=== PATIENT | male | born 1935 | race Caucasian/White ===

== ENCOUNTER → 2016-10-17 | Outpatient (CLI) | payer BC ==
[~2016-10-17] MED LIST: ALL300 PO; ASPI81TA28 PO; GADAVIST IV PRN; HYDR25TA5 PO; RANI150T2 PO; TPRSR/100 PO; ZCR80 PO
--- NOTE | 2016-10-17 13:52 | DIAGNOSTIC IMAGING REPORT ---
ABDOMEN COMBO CLINICAL HISTORY: 80 years-old Male presenting with PANCREATIC LESION. TECHNIQUE: Multisequence, multiplanar MR imaging of the abdomen was performed before and after the administration of intravenous contrast. IV contrast: 80 mL of Gadavist. COMPARISON: None. FINDINGS: Image quality is degraded by the presence of endovascular graft resulting in significant regional susceptibility artifact. Image quality is further degraded by respiratory motion artifact. Lung bases: Lung bases clear. No pericardial or pleural effusion. Liver: Normal morphology. No evidence of hepatic steatosis. No gross evidence of liver lesion. Grossly patent hepatic vasculature. Biliary: No intrahepatic or extrahepatic biliary ductal dilatation. Normal gallbladder. Pancreas: Moderate parenchymal atrophy. An 8 mm T2 hyperintense cystic lesion noted in the pancreatic tail (series 12 image 18). No demonstrable connection to the pancreatic duct. A second similar lesion is also noted at the distal pancreatic tail measuring 9 mm (series 7 image 17), less well characterized secondary to degraded image quality. Spleen: Normal. Adrenal glands: Normal. Kidneys and ureters: Atrophic bilaterally. Several well-defined T2 hyperintense nonenhancing lesions consistent with simple cysts. No hydronephrosis. Gastrointestinal tract: Small hiatal hernia. No bowel obstruction. Peritoneal cavity: No free fluid gas. Vasculature: Unable to evaluate. Lymph nodes: No gross evidence of enlarged lymph nodes in the abdomen within the limitations of an quality. Abdominal wall: Normal. Musculoskeletal: Normal. IMPRESSION: 1. Two pancreatic cystic lesions in the pancreatic tail, the largest measuring 9 mm. Due to the presence of the endograft, extensive susceptibility artifact degrades image quality. These could represents mucinous cysts or side branch intraductal papillary mucinous neoplasms. Subsequent evaluation of these lesions should be performed with CT if the patient is able to receive iodinated intravenous contrast. 1 year follow-up is recommended per Jose criteria. Electronically signed by: Maco Pinedo M.D. 10/17/2016 1:51 PM Dictated Date/Time: 10/17/2016 1:40 PM
== END | disposition home or self-care (01) ==
LOC: C.MRI 10:10
PROVIDERS: ATTEND Internal Medicine
DX: K86.9 Disease of pancreas, unspecified (principal)

== ENCOUNTER 2017-07-05 18:33 | Emergency (ER) | payer BC ==
[~2017-07-05] VITALS: Ht 170.2 cm; Wt 80.1 kg
[~2017-07-05 18:33] MED LIST changes: -GADAVIST IV PRN
[2017-07-05 18:38] VITALS: TEMP 36.8; Ht 170.2 cm; Wt 80.1 kg
[2017-07-05] MEDS ORDERED: SODIUM CHLORIDE 0.9% 500ML 500 ML IV STA (19:05)
--- NOTE | 2017-07-05 19:12 | EMERGENCY ROOM VISIT NOTE ---
History Report prepared by Andrés: Isaias Shoemaker Under the Supervision of: Dr. Gutierrez Cates M.D. First contact with patient: 18:52 Chief Complaint: URINARY SYMPTOMS Stated Complaint: PEEING LOTS OF BLOOD Nursing Triage Summary: Bleeding with urination since Thursday night. Patient with HX of prostate CA 20 years ago. Had AAA surgery in [place] in April. History of Present Illness The patient is a 81 year old male who presents to the Emergency Room with complaints of constant blood in his urine beginning two days ago. The patient states he is still able to urinate. He reports he was evaluated at [facility] last evening, had an unremarkable non-contrast CT scan, and was told to follow up as an outpatient. The patient notes he has been drinking a large amount of water and wanted to make sure it was safe to wait until tomorrow to be reevaluated. He states he is still able to empty his bladder completely and does not feel like he is retaining any urine. The patient denies lightheadedness , chest pain, dizziness, fevers, chills, cough, congestion, and vomiting. Source of History: patient Onset: two days Quality: other (blood in urine) Timing: constant Modifying Factors (Relieving): other (nothing) Associated Symptoms: No fevers, No chills, No cough, No chest pain, No vomiting Note: Denies: congestion, dizziness, lightheadedness Review of Systems See HPI for pertinent positives and negatives. A total of ten systems were reviewed and were otherwise negative. Past Medical & Surgical Medical Problems: (1) Diverticulosis Colon (W/O Ment Of Hemorrhage) (2) Hypertension Nos Family History Patient reports no known family medical history. Social History Smoking Status: Never Smoker Alcohol Use: none Drug Use: none Marital Status: Housing Status: lives alone Occupation Status: retired Current/Historical Medications Scheduled Allopurinol (Allopurinol), 150 MG PO HS Aspirin (Aspirin Ec), 81 MG PO HS Atorvastatin (Lipitor), 1 TAB PO DAILY Cholecalciferol (Vitamin D3), 1 TAB PO DAILY Ciprofloxacin Hcl (Cipro), 500 MG PO BID Hydrochlorothiazide (Hydrochlorothiazide), 1 TAB PO DAILY Metoprolol Tartrate (Lopressor) (Lopressor), 25 MG PO BID Ranitidine HCl (Ranitidine HCl), 150 MG PO HS Saccharomyces Boulardii (Florastor), 1 CAP PO BID Allergies Coded Allergies: Ibuprofen (Verified Adverse Reaction, Unknown, diarrhea, 07/05/17) Physical Exam Vital Signs Date Time Temp Pulse Resp B/P (MAP) Pulse Ox O2 Delivery O2 Flow Rate FiO2 07/05/17 21:31 83 17 134/88 95 07/05/17 20:15 89 21 136/84 92 Room Air 07/05/17 19:45 98 07/05/17 18:38 36.8 116 18 134/81 91 Room Air Physical Exam GENERAL: Awake, alert, well-appearing, in no distress HENT: Normocephalic, atraumatic. Oropharynx and mucous membranes are dry, otherwise unremarkable. EYES: Normal conjunctiva. Sclera non-icteric. NECK: Supple. No nuchal rigidity. FROM. No JVD. RESPIRATORY: Clear to auscultation. CARDIAC: Regular rate, normal rhythm. Extremities warm and well perfused. Pulses equal. ABDOMEN: Soft, non-distended. No tenderness to palpation. No rebound or guarding. No masses. RECTAL: Deferred. MUSCULOSKELETAL: Chest examination reveals no tenderness. The back is symmetrical on inspection without obvious abnormality. There is no CVA tenderness to palpation. No joint edema. LOWER EXTREMITIES: Calves are equal size bilaterally and non-tender. No edema. No discoloration. NEURO: Normal sensorium. No sensory or motor deficits noted. SKIN: No rash or jaundice noted. Medical Decision & Procedures Laboratory Results 07/05/17 19:21 Red Blood Count 5.45, Mean Corpuscular Volume 90.3, Mean Corpuscular Hemoglobin 31.9, Mean Corpuscular Hemoglobin Concent 35.4, Mean Platelet Volume 11.3, Neutrophils (%) (Auto) 74.2, Lymphocytes (%) (Auto) 15.0, Monocytes (%) (Auto) 8.0, Eosinophils (%) (Auto) 2.4, Basophils (%) (Auto) 0.2, Neutrophils # (Auto) 7.70, Lymphocytes # (Auto) 1.56, Monocytes # (Auto) 0.83, Eosinophils # (Auto) 0.25, Basophils # (Auto) 0.02 07/05/17 19:21 Test 07/05/17 18:49 07/05/17 19:21 Urine Color RED Urine Appearance CLOUDY (CLEAR) Urine pH 6.0 (4.5-7.5) Urine Specific Tram 1.020 (1.000-1.030) Urine Protein 3+ (NEG) Urine Glucose (UA) NEG (NEG) Urine Ketones NEG (NEG) Urine Occult Blood 3+ (NEG) Urine Nitrite NEG (NEG) Urine Bilirubin NEG (NEG) Urine Urobilinogen NEG (NEG) Urine Leukocyte Esterase NEG (NEG) Urine RBC >30 /hpf (0-4) Urine WBC >30 /hpf (0-5) Urine Epithelial Cells >30 /lpf (0-5) Urine Bacteria 1+ (NEG) White Blood Count 10.38 K/uL (4.8-10.8) Red Blood Count 5.45 M/uL (4.7-6.1) Hemoglobin 17.4 g/dL (14.0-18.0) Hematocrit 49.2 % (42-52) Mean Corpuscular Volume 90.3 fL (80-100) Mean Corpuscular Hemoglobin 31.9 pg (25-34) Mean Corpuscular Hemoglobin Concent 35.4 g/dl (32-36) Platelet Count 122 K/uL (130-400) Mean Platelet Volume 11.3 fL (7.4-10.4) Neutrophils (%) (Auto) 74.2 % Lymphocytes (%) (Auto) 15.0 % Monocytes (%) (Auto) 8.0 % Eosinophils (%) (Auto) 2.4 % Basophils (%) (Auto) 0.2 % Neutrophils # (Auto) 7.70 K/uL (1.4-6.5) Lymphocytes # (Auto) 1.56 K/uL (1.2-3.4) Monocytes # (Auto) 0.83 K/uL (0.11-0.59) Eosinophils # (Auto) 0.25 K/uL (0-0.5) Basophils # (Auto) 0.02 K/uL (0-0.2) RDW Standard Deviation 51.9 fL (36.4-46.3) RDW Coefficient of Variation 15.8 % (11.5-14.5) Immature Granulocyte % (Auto) 0.2 % Immature Granulocyte # (Auto) 0.02 K/uL (0.00-0.02) Prothrombin Time 11.0 SECONDS (9.0-12.0) Prothromb Time International Ratio 1.0 (0.9-1.1) Activated Partial Thromboplast Time 29.7 SECONDS (21.0-31.0) Partial Thromboplastin Ratio 1.1 Anion Gap 13.0 mmol/L (3-11) Est Creatinine Clear Calc Drug Dose 21.8 ml/min Estimated GFR () 23.9 Estimated GFR (Non- 20.6 BUN/Creatinine Ratio 14.4 (10-20) Calcium Level 9.3 mg/dl (8.5-10.1) Total Bilirubin 0.8 mg/dl (0.2-1) Direct Bilirubin 0.2 mg/dl (0-0.2) Aspartate Amino Transf (AST/SGOT) 18 U/L (15-37) Alanine Aminotransferase (ALT/SGPT) 18 U/L (12-78) Alkaline Phosphatase 174 U/L (45-117) Total Protein 7.5 gm/dl (6.4-8.2) Albumin 3.8 gm/dl (3.4-5.0) Lipase 379 U/L (73-393) Laboratory results reviewed by me Medications Administered Medications (Trade) Dose Ordered Sig/Jaquan Route Start Time Stop Time Status Last Admin Dose Admin Sodium Chloride 500 ml @ 250 mls/hr Q2H STAT IV 07/05/17 19:05 07/05/17 21:06 DC 07/05/17 19:05 250 MLS/HR Ciprofloxacin (Cipro Tab) 500 mg NOW STAT PO 07/05/17 20:33 07/05/17 20:35 DC 07/05/17 20:59 500 MG ECG Per My Interpretation Indication: other (hematuria) Rate (beats per minute): 102 Rhythm: sinus tachycardia Findings: no acute ischemic change, left axis deviation ED Course 1856: The patient was evaluated in room C04. A complete history and physical exam was performed. 2055: I reevaluated the patient. Discussed results and discharge instructions: he verbalized understanding and agreement. The patient is ready for discharge. Medical Decision I reviewed the patient's past medical history, medications, and the nursing notes as described above. Differential diagnoses include: malignancy, UTI, renal stone, aortoureteric fistula. Review of [facility] medical records shows the patient's hematocrit yesterday was 52.9, and his creatinine was 2.8. The patient's CT Abdomen + Pelvis Impression is as followed: " 1. Bilateral renal cysts. Small bilateral renal calculi. No active ureteral calculus or hydronephrosis seen at this time. No definite cause for the gross hematuria identified. 2. Status post aortobiiliac endograft repair. Additional metallic deposit is now present at the main body of the aneurysm newly appearing since the previous study. Origin of this is uncertain. 3. Otherwise negative for acute abnormalities at this time. " The patient is a 81-year-old gentleman who presents emergency department with complaint of persistent hematuria has been ongoing since Thursday seen yesterday at [facility] emergency department for the same per hpi. On arrival, the patient is well-appearing, no acute distress, afebrile stable vital signs. Of note, the patient denies any urinary retention despite his gross hematuria and passage of clots. EKG unremarkable. Unremarkable with hematocrit 49.2 creatinine 2.7 and she unchanged from his values yesterday. The patient denies any systemic symptoms such as dizziness, weakness, chest pain, shortness of breath, setting of reassuring and stable lab tests unremarkable CT yesterday the patient is unlikely to have any emergent process at this time, including the setting of his history of AAA repair. The patient was counseled to discontinue his daily baby aspirin given his persistent gross hematuria. UA today does demonstrate bacteria in addition to WBCs. Thus will treat with Cipro for the possibility of hemorrhagic cystitis. Case management assisting to facilitate prompt urology follow-up. Findings and plan for follow-up reviewed with patient. Patient agreeable and d/c'd per discharge instructions. Medication Reconcilliation Current Medication List: was personally reviewed by me Blood Pressure Screening Patient's blood pressure: Normal blood pressure Blood pressure disposition: Did not require urgent referral Impression Primary Impression: Hematuria, gross Scribe Attestation The scribe's documentation has been prepared under my direction and personally reviewed by me in its entirety. I confirm that the note above accurately reflects all work, treatment, procedures, and medical decision making performed by me. Departure Information Dispostion Home / Self-Care Prescriptions Saccharomyces Boulardii (Florastor) 250 Mg Cap 1 CAP PO BID for 10 Days, #20 CAP Prov: Gutierrez Cates M.D. 07/05/17 Ciprofloxacin Hcl (CIPRO) 500 Mg Tab 500 MG PO BID for 7 Days, #14 TAB Prov: Gutierrez Cates M.D. 07/05/17 Referrals Danis Salgado M.D. (PCP) Rashard Bauman MD Forms HOME CARE DOCUMENTATION FORM, IMPORTANT VISIT INFORMATION Patient Instructions ED Hematuria, [facility] Additional Instructions Please follow up with urology, Dr. Bauman, and your primary care physician in the next 1-3 days for re-evaluation and possible cystoscopy. The cause of the blood in your urine is unclear at this time but may be due to a urinary tract infection. Otherwise, your exam and lab results did not show signs of an emergent condition at this time. *Stop taking your daily aspirin until reevaluated by urology.* Ciprofloxacin as directed. Florastor, probiotic, to help prevent antibiotic associated diarrhea. Drink plenty of fluids to ensure hydration. Return to the emergency department for worsening symptoms as described in the accompanying instructions.
[2017-07-05] MEDS ORDERED: METO25TA56 PO (19:14)
[2017-07-05] MEDS ORDERED: ATOR10TA82 PO (19:14)
[2017-07-05] MEDS ORDERED: CHOL1000 PO (19:14)
[2017-07-05 19:32] LABS: BASO % 0.2 %; BASO ABS # 0.02 K/uL (0-0.2); EOS % 2.4 %; EOS ABS # 0.25 K/uL (0-0.5); HEMATOCRIT 49.2 % (42-52); HEMOGLOBIN 17.4 g/dL (14.0-18.0); IG# 0.02 K/uL (0.00-0.02); LYMPH ABS # 1.56 K/uL (1.2-3.4); MEAN CELL VOLUME 90.3 fL (80-100); MEAN CORPUSCULAR HEMOGLOBIN 31.9 pg (25-34); MEAN CORPUSCULAR HGB CONC 35.4 g/dl (32-36); MEAN PLATELET VOLUME 11.3 fL (7.4-10.4); MONO ABS # 0.83 K/uL (0.11-0.59); NEUT % 74.2 %; PLATELET COUNT 122 K/uL (130-400); RED CELL DISTRIBUTION WIDTH CV 15.8 % (11.5-14.5); RED CELL DISTRIBUTION WIDTH SD 51.9 fL (36.4-46.3); WHITE BLOOD COUNT 10.38 K/uL (4.8-10.8)
[2017-07-05 19:46] LABS: PTT PATIENT 29.7 SECONDS (21.0-31.0)
[2017-07-05 19:52] LABS: ALBUMIN 3.8 gm/dl (3.4-5.0); CALCIUM 9.3 mg/dl (8.5-10.1); CREATININE 2.79 mg/dl (0.60-1.40); POTASSIUM 3.4 mmol/L (3.5-5.1)
[2017-07-05 19:54] LABS: TOTAL PROTEIN 7.5 gm/dl (6.4-8.2)
[2017-07-05] MEDS ORDERED: CIPROFLOXACIN 500 MG TAB PO STA (20:33)
[2017-07-05] MEDS ORDERED: SACC250C3 PO (20:55)
[2017-07-05] MEDS ORDERED: CIPR-255 PO (20:55)
[2017-07-05 21:31] VITALS: BP 134/88; PULSE 83; O2SAT 95
== END 2017-07-05 21:32 | disposition home or self-care (01) ==
LOC: C.EDB 18:34 → C.EDC 21:32
DX: R31.0 Gross hematuria (principal); Z85.46 Personal history of malignant neoplasm of prostate; K57.30 Diverticulosis of large intestine without perforation or abscess without bleeding; I10 Essential (primary) hypertension; I71.4 Abdominal aortic aneurysm, without rupture; Z79.82 Long term (current) use of aspirin; Z79.899 Other long term (current) drug therapy

== ENCOUNTER → 2017-08-05 | Outpatient (CLI) | payer BC ==
[~2017-08-05] MED LIST changes: +ATOR80TA PO; +CHOL1000 PO; +HYDR25TA4 PO; -HYDR25TA5 PO; +METO25TA56 PO; -TPRSR/100 PO; -ZCR80 PO
--- NOTE | 2017-08-05 10:54 | DIAGNOSTIC IMAGING REPORT ---
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 TECHNIQUE: PA and lateral views of the chest were obtained. COMPARISON: 12/08/2013. FINDINGS: Atherosclerosis of the aortic arch. Cardiac silhouette normal in size. Presumed nipple shadows project over the lung bases. Lungs and pleural spaces clear. Degenerative changes of the thoracic spine. Aortic endograft stent noted. IMPRESSION: 1. No acute cardiopulmonary disease. Evaluation for intrathoracic metastatic disease is extremely limited by radiograph. If there is clinical concern for this diagnosis, chest CT is warranted. Electronically signed by: Maco Pinedo M.D. 08/05/2017 10:52 AM Dictated Date/Time: 08/05/2017 10:51 AM
[2017-08-05 12:09] LABS: BASO % 0.3 %; BASO ABS # 0.03 K/uL (0-0.2); EOS % 1.8 %; EOS ABS # 0.21 K/uL (0-0.5); HEMOGLOBIN 16.5 g/dL (14.0-18.0); IG# 0.03 K/uL (0.00-0.02); LYMPH % 12.1 %; LYMPH ABS # 1.44 K/uL (1.2-3.4); MEAN CELL VOLUME 92.6 fL (80-100); MEAN CORPUSCULAR HEMOGLOBIN 31.2 pg (25-34); MEAN CORPUSCULAR HGB CONC 33.7 g/dl (32-36); MEAN PLATELET VOLUME 11.6 fL (7.4-10.4); MONO % 7.1 %; MONO ABS # 0.84 K/uL (0.11-0.59); NEUT % 78.4 %; NEUT ABS # 9.31 K/uL (1.4-6.5); PLATELET COUNT 118 K/uL (130-400); RED CELL DISTRIBUTION WIDTH CV 16.1 % (11.5-14.5); RED CELL DISTRIBUTION WIDTH SD 54.4 fL (36.4-46.3); WHITE BLOOD COUNT 11.86 K/uL (4.8-10.8)
[2017-08-05 12:39] LABS: BLOOD UREA NITROGEN 26 mg/dl (7-18); CALCIUM 9.4 mg/dl (8.5-10.1); CARBON DIOXIDE 26 mmol/L (21-32); CREATININE 1.91 mg/dl (0.60-1.40); GLUCOSE 92 mg/dl (70-99); SODIUM 140 mmol/L (136-145)
== END | disposition home or self-care (01) ==
LOC: C.CPL 09:56
PROVIDERS: ATTEND Urology
DX: D49.4 Neoplasm of unspecified behavior of bladder (principal)

== ENCOUNTER → 2017-08-24 | Day surgery (SDC) | payer BC ==
[2017-07-30 14:11] VITALS: BMI 27.0
[~2017-08-24] VITALS: Ht 170.2 cm; Wt 80.0 kg
[~2017-08-24] MED LIST changes: +ATROPINE SULFATE 0.1 MG/ML 5ML SYR IV PRN; +CIPROFLOXACIN / D5W 400 MG IV SCH; +DEXAMETHASONE SOD INJ 4 MG/ML VIAL ONE; +EpHEDrine SULFATE INJ 50 MG/ML AMP IV PRN; +EpHEDrine SULFATE INJ 50 MG/ML AMP ONE; +FENTANYL CITRATE INJ 50 MCG/1 ML 2 ML VIAL IV PRN; +FENTANYL CITRATE INJ 50 MCG/1 ML 2 ML VIAL ONE; +LACTATED RINGER'S 1000ML 1,000 ML IV SCH; +LIDOCAINE HCL 2% 2 ML VIAL (20MG/ML) ONE; +ONDANSETRON INJ 2 MG/ML 2 ML VIAL IV PRN; +ONDANSETRON INJ 2 MG/ML 2 ML VIAL ONE; +OXYCODONE/ACETAMINOPHEN 5-325 TAB PO PRN; +PHEN-876 PO; +PHENYLEPHRINE 100MCG/ML 5ML SYR ONE; +PROPOFOL IV EMULSION 10 MG/ML 20 ML VIAL ONE
[2017-08-24 11:16] VITALS: BP 143/85; PULSE 102; TEMP 36.7; O2SAT 94; Ht 170.2 cm; Wt 80.0 kg
--- NOTE | 2017-08-24 13:22 | History & Physical Bridge Note ---
H&P Re-Evaluation Bridge Note: I have examined the patient, reviewed the History & Physical and in the interval since the performance of the History & Physical I have noted the following changes of clinical significance: No changes noted
--- NOTE | 2017-08-24 14:18 | [facility] Post Operative Brief Note ---
Immediate Operative Summary Operative Date August 24, 2017. Pre-Operative Diagnosis Bladder Tumor Post-Operative Diagnosis Bladder Tumor Procedure(s) Performed Cystoscopy, Bladder Biopsy and Fulgeration Surgeon Dr. Bauman Retail Merchandising Manager Surgeon(s) none Estimated Blood Loss 0mL Findings Consistent with Post-Op Diagnosis Specimens A: bladder tumor Drains None Anesthesia Type General Complication(s) none Disposition Accompanied Pt To Recover: yes Disposition: Recovery Room / PACU
--- NOTE | 2017-08-24 14:20 | Discharge Instructions ---
Discharge Instructions Date of Service August 24, 2017. Visit Reason for Visit: Bladder Tumor Discharge Discharge Diagnosis / Problem: Bladder tumor Discharge Goals Goal(s): Therapeutic intervention Activity Recommendations Activity Limitations: per Instructions/Follow-up section Exercise/Sports Limitations: rest today May Resume Sexual Activity: when tolerated Shower/Bathe: no limitations Driving or Machine Use: resume 1 day after discharge Anesthesia . Post Anesthesia Instructions: If you have had General Anesthesia or IV Sedation: * Do not drive today. * Resume driving when surgeon permits. * Do not make important decisions or sign legal documents today. * Call surgeon for: 1. Temperature elevations greater than 101 degrees F. 2. Uncontrollable pain. 3. Excessive bleeding. 4. Persistent nausea and vomiting. 5. Medication intolerance (nausea, vomiting or rash). * For nausea and vomiting use only clear liquids such as: tea, soda, bouillon until nausea subsides, then gradually increase diet as tolerated. * If you have any concerns or questions, call your surgeon's office. If physician is unavailable and it is an emergency, call 911 or go to the nearest emergency room. . Diet Recommendations Recommended Home Diet: resume previous diet Procedures Procedures Performed: Cystoscopy, Bladder Biopsy and Fulgeration Pending Studies Studies pending at discharge: no Medical Emergencies . Who to Call and When: Medical Emergencies: If at any time you feel your situation is an emergency, please call 911 immediately. . Non-Emergent Contact Non-Emergency issues call your: Urologist Call Non-Emergent contact if: temperature is above 101.5, your pain is not controlled . . "Provider Documentation" section prepared by Rashard Bauman. .
--- NOTE | 2017-08-24 14:30 | [facility] Operative Report ---
Operative Report Operative Date August 24, 2017. Pre-Operative Diagnosis Bladder Tumor Post-Operative Diagnosis Bladder Tumor Procedure(s) Performed Cystoscopy, Bladder Biopsy and Fulgeration Surgeon Dr. 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 Lower abdomen and genitalia were prepped with Hibiclens and draped in a sterile fashion. Next using a 22 [place] cystoscope routine cystoscopic exam was performed with the above-noted findings with 30 and 70 lenses. Next using cold cup biopsy forceps the heaped up mucosa was biopsied in its entirety excising the entire lesion the area was then fulgurated for hemostasis. Several other erythematous areas were also fulgurated although these may just be telangiectasia. After completing the biopsy and making sure there was no bleeding patient's bladder was drained. Cystoscope and sheath were removed. All needle sponge and instrument counts were correct at the end of the case. Patient tolerated the procedure well and was taken to the recovery room in stable condition. I attest to the content of the Intraoperative Record and any orders documented therein. Any exceptions are noted below.
[2017-08-24 15:05] VITALS: BP 119/71; PULSE 70; TEMP 36.6; O2SAT 95
[2017-08-24 15:35] VITALS: BP 123/80; PULSE 74; TEMP 36.5; O2SAT 96
--- NOTE | 2017-08-24 16:24 | Anesthesiology Progress Note ---
Anesthesia Post Op Note Date & Time August 24, 2017 at 16:24 Vital Signs Pain Intensity: 0 Vital Signs Past 12 Hours Date Time Temp Pulse Resp B/P (MAP) Pulse Ox O2 Delivery O2 Flow Rate FiO2 08/24/17 15:35 36.5 74 18 123/80 96 Room Air 08/24/17 15:05 36.6 70 16 119/71 95 Room Air 08/24/17 14:55 36.7 74 16 129/75 99 Room Air Oxymask 08/24/17 14:45 75 16 112/74 95 Room Air Oxymask 08/24/17 14:35 77 16 110/73 96 Room Air Oxymask 08/24/17 14:25 78 16 100/71 98 Oxymask 12 08/24/17 14:18 36.6 76 16 101/64 94 Oxymask 12 08/24/17 11:16 36.7 102 18 143/85 (104) 94 Room Air Notes Mental Status: alert / awake / arousable, participated in evaluation Pt Amnestic to Procedure: Yes Nausea / Vomiting: adequately controlled Pain: adequately controlled Airway Patency, RR, SpO2: stable & adequate BP & HR: stable & adequate Hydration State: stable & adequate Anesthetic Complications: no major complications apparent
== END | disposition home or self-care (01) ==
LOC: C.ACU 10:33
PROVIDERS: ATTEND Urology
DX: D49.4 Neoplasm of unspecified behavior of bladder (principal); I12.9 Hypertensive chronic kidney disease with stage 1 through stage 4 chronic kidney disease, or unspecified chronic kidney disease; N18.4 Chronic kidney disease, stage 4 (severe); Z83.3 Family history of diabetes mellitus; Z79.82 Long term (current) use of aspirin; Z79.899 Other long term (current) drug therapy; F17.220 Nicotine dependence, chewing tobacco, uncomplicated; M19.90 Unspecified osteoarthritis, unspecified site

== ENCOUNTER 2024-06-15 01:15 | Inpatient (IN) ==
--- NOTE | 2024-06-15 01:55 | Emergency Department Note ---
Impression & Plan Renal failure, Gross hematuria ED Provider Note CHIEF COMPLAINT: Jane catheter clogged HISTORY OF PRESENT ILLNESS: This 88-year-old male patient past medical history of prostate cancer, bladder cancer, renal failure with Jane catheter in place presents to the emergency department stating that the Jane catheter is not draining. Patient's daughter states he has been to the [facility] x4 in the last 2 weeks. He apparently received 2 blood transfusions. He has not had any fever, but has been excessively weak. Has been unable to care for himself therefore his daughter brought him to her house this week. Patient is scheduled for follow-up with urology for cystoscopy in 2 weeks. REVIEW OF SYSTEMS: A review of systems was performed with positives and pertinent negatives listed in the history of present illness. 10 systems were reviewed and are otherwise negative. ALLERGIES: see below MEDICATIONS: see below PMH: see below SOCIAL HISTORY: see below DDx: Gross hematuria, UTI, malignancy, kidney stone, Jane obstruction, hemorrhagic prostatitis among others. PHYSICAL EXAM: Vital signs reviewed. General: Chronically ill-appearing 88-year-old male, in no significant distress. HEENT: No scleral icterus, PERRLA, neck supple. Atraumatic. poor dentition Cardiovascular: regular rate and rhythm, no extra sounds. Systolic ejection murmur. Pulmonary: Clear to auscultation bilaterally, normal work of breathing. Abdomen: Soft, nontender, nondistended, positive bowel sounds. Musculoskeletal: Atraumatic, no peripheral edema. Neurologic: Patient awake alert and answers some questions, hard of hearing : Jane catheter in place draining grossly bloody urine. No apparent clots. Skin: Warm, dry, no rash EMERGENCY DEPARTMENT COURSE/MDM: This patient was evaluated and appeared to be in no significant distress. Nursing was able to irrigate the catheter with improvement in the urine. Was then draining a pink-tinged urine. Patient's records from the outside facility are not available at this hour. Is difficult to know how significant his anemia was but hemoglobin today is 10.2. UA will be sent for culture. Given the patient's advanced elderly age, significant hematuria and reports of blood transfusions, CT imaging of the abdomen pelvis was performed without contrast due to poor renal function. CT imaging reveals perinephric stranding, increase in size of the suprarenal abdominal aorta with a metallic vascular stent in place. The case was discussed with the hospitalist service who evaluated the patient for admission and further management. Patient and his daughter at the bedside were made aware of the plan and agreed. MONITORING: An order for cardiac monitoring was placed and the patient is noted to be in a normal sinus rhythm at 76 beats per minute. RADIOLOGY: Chest x-ray to my interpretation reveals emphysematous changes and mild congestion, no pneumonia. CT imaging of the abdomen and pelvis without contrast: IMPRESSION: 1. Bilateral perinephric fat stranding with bilateral renal concretions and cortical cysts. Suggested Renal function test correlation. 2. Ventral wall hernia in infraumbilical region. 3. Small sliding hiatus hernia. 4. Interval increase in diameter of dilated suprarenal abdominal aorta and increase in size of possible periaortic hematoma/aneurysm with metallic vascular stents in supra/infrarenal abdominal aorta and bilateral common iliac arteries. Suggested CT angiography for further evaluation. EKG: To interpretation reveals a sinus bradycardia at 56 bpm. QTc of 455. LVH without evidence of significant ST changes. No PVC, no PAC. DISPOSITION: Admission Past Med/Surg History Problem List (Updated 06/19/24 @ 17:38 by Susanna Flores MD) Gross hematuria (Acute) CKD stage 4 secondary to hypertension Hematuria Prostate cancer Bladder cancer Perforated sigmoid colon (Acute 12/08/13) Renal failure (Acute) Renal failure (Acute) Social History Smoking Status: Never smoker Hx Alcohol Use: No Hx Substance Use: No Preferred Language: Jordanian Communication Ability: Impaired Nuclear Supervising Operator Required: No Beliefs That Will Affect Care: None Current Living Situation: Family Current Living Situation Comment: Patient just moved in with his Daughter Other Information That Helps Us Care for You: No Feels Safe at Home: Yes Safety Concerns: Feels Safe At This Time Assistive Devices: Cane Allergies Allergies Allergy/AdvReac Type Severity Reaction Status Date / Time ibuprofen AdvReac Unknown diarrhea Verified 08/24/17 11:10 Home Meds Home Medications Medication Instructions Recorded Confirmed allopurinol 100 mg tablet 200 mg PO QAM 06/15/24 06/15/24 atorvastatin 80 mg tablet 80 mg PO HS 06/15/24 06/15/24 cholecalciferol (vitamin D3) 25 50 mcg PO DAILY 03/12/25 03/12/25 mcg (1,000 unit) tablet (Vitamin D3) dapagliflozin propanediol 10 mg 10 mg PO QAM 06/15/24 06/15/24 tablet (Farxiga) ferrous sulfate 325 mg (65 mg 325 mg PO Q OTHER DAY 06/15/24 06/15/24 iron) tablet furosemide 20 mg tablet 20 mg PO QAM 06/15/24 06/15/24 metoprolol tartrate 25 mg tablet 25 mg PO AMHS 06/15/24 06/15/24 sodium bicarbonate 650 mg tablet 650 mg PO BID 06/15/24 06/15/24 Results & Data (ED) Vital Signs Vital Signs - 24 hr 06/15/24 01:40 06/15/24 01:52 Temperature 36.7 C Temperature Source Oral Pulse Rate 76 Pulse Rhythm Regular Pulse Strength Normal Respiratory Rate 20 Respiratory Effort / Characteristics Non-Labored Spontaneous Respiratory Depth Normal Respiratory Pattern Regular Blood Pressure 150/80 H Blood Pressure Mean 103 Blood Pressure Position Lying Pulse Oximetry 96 93 Oxygen Delivery Method Room Air Room Air Sepsis Recent Fever Within 48 Hours No Sepsis New/Unexplained Change in Mental Status N/A Sepsis Action Taken by Nursing No Action Required Home Medications Current Medication List: was personally reviewed by me Laboratory Data Attestation: I reviewed the patient's lab results. 06/18/24 05:29 06/18/24 05:29 Lab Results 06/15/24 06/15/24 06/15/24 Range/Units 01:32 01:50 02:05 WBC 9.16 (4.8-10.8) K/ul RBC 3.47 L (4.70-6.10) M/uL Hgb 10.2 L (14.0-18.0) g/dl Hct 32.0 L (42.0-52.0) % MCV 92.2 (80.0-100.0) fL MCH 29.4 (25.0-34.0) pg MCHC 31.9 L (32.0-36.0) g/dL RDW Std Deviation 57.9 H (36.4-46.3) fL RDW Coeff of Misha 17.2 H (11.5-14.5) % Plt Count 188 (130-400) K/uL MPV 12.3 (9.4-12.4) fL Immature Gran % (Auto) 0.4 % Neut % (Auto) 69.7 % Lymph % (Auto) 18.1 % [place] % (Auto) 8.2 % Eos % (Auto) 2.9 % Baso % (Auto) 0.7 % Neut # (Auto) 6.38 (1.40-6.50) K/uL Lymph # (Auto) 1.66 (1.20-3.40) K/uL [place] # (Auto) 0.75 H (0.11-0.59) K/uL Eos # (Auto) 0.27 (0.00-0.50) K/uL Baso # (Auto) 0.06 (0.00-0.20) K/uL Immature Gran # (Auto) 0.04 (0.01-0.20) K/uL PT 10.9 (9.0-12.0) Seconds INR 1.0 (0.9-1.1) Sodium 134 L (136-145) mmol/L Potassium 3.8 (3.5-5.1) mmol/L Chloride 105 (98-107) mmol/L Carbon Dioxide 22 (21-32) mmol/L Anion Gap 7 (3-11) BUN 38 H (6-23) mg/dl Creatinine 2.05 H (0.6-1.4) mg/dl Est Cr Clr Drug Dosing 23.3 ml/min eGFR 30.97 BUN/Creatinine Ratio 18.5 (10-20) Glucose 97 (70-99(Fasting)) mg/dl Lactate 0.9 (0.4-2.0) mmol/L Calcium 9.2 (8.6-10.3) mg/dl Magnesium 1.8 (1.7-2.4) mg/dl Total Bilirubin 0.6 (0.2-1.0) mg/dl AST 22 (13-39) U/L ALT 11 (7-52) U/L Alkaline Phosphatase 101 (34-104) U/L Total Protein 6.6 (6.0-8.3) gm/dl Albumin 3.9 (3.4-5.0) gm/dl Globulin 2.7 (2.5-4.0) gm/dl Albumin/Globulin Ratio 1.4 (0.9-2) TSH 2.290 (0.300-4.500) uIu/ml Urine Color Urine Appearance (Clear) Urine pH (4.5-7.5) Ur Specific [place] (1.000-1.030) Urine Protein (Negative) Urine Glucose (UA) (Negative) Urine Ketones (Negative) Urine Blood (Negative) Urine Nitrite (Negative) Urine Bilirubin (Negative) Urine Urobilinogen (Negative) Ur Leukocyte Esterase (Negative) Urine WBC (Auto) (0-5) /hpf Urine RBC (Auto) (0-2) /hpf U Hyaline Cast (Auto) (0-2) /lpf U Epithel Cells (Auto) (0-2) /hpf Urine Bacteria (Auto) (None Seen) Blood Type Antibody Screen 06/15/24 06/15/24 Range/Units 02:35 07:58 WBC (4.8-10.8) K/ul RBC (4.70-6.10) M/uL Hgb 9.3 L (14.0-18.0) g/dl Hct 28.7 L (42.0-52.0) % MCV (80.0-100.0) fL MCH (25.0-34.0) pg MCHC (32.0-36.0) g/dL RDW Std Deviation (36.4-46.3) fL RDW Coeff of Misha (11.5-14.5) % Plt Count (130-400) K/uL MPV (9.4-12.4) fL Immature Gran % (Auto) % Neut % (Auto) % Lymph % (Auto) % [place] % (Auto) % Eos % (Auto) % Baso % (Auto) % Neut # (Auto) (1.40-6.50) K/uL Lymph # (Auto) (1.20-3.40) K/uL [place] # (Auto) (0.11-0.59) K/uL Eos # (Auto) (0.00-0.50) K/uL Baso # (Auto) (0.00-0.20) K/uL Immature Gran # (Auto) (0.01-0.20) K/uL PT (9.0-12.0) Seconds INR (0.9-1.1) Sodium (136-145) mmol/L Potassium (3.5-5.1) mmol/L Chloride (98-107) mmol/L Carbon Dioxide (21-32) mmol/L Anion Gap (3-11) BUN (6-23) mg/dl Creatinine (0.6-1.4) mg/dl Est Cr Clr Drug Dosing ml/min eGFR BUN/Creatinine Ratio (10-20) Glucose (70-99(Fasting)) mg/dl Lactate (0.4-2.0) mmol/L Calcium (8.6-10.3) mg/dl Magnesium (1.7-2.4) mg/dl Total Bilirubin (0.2-1.0) mg/dl AST (13-39) U/L ALT (7-52) U/L Alkaline Phosphatase (34-104) U/L Total Protein (6.0-8.3) gm/dl Albumin (3.4-5.0) gm/dl Globulin (2.5-4.0) gm/dl Albumin/Globulin Ratio (0.9-2) TSH (0.300-4.500) uIu/ml Urine Color [place] Urine Appearance Clear (Clear) Urine pH 6.5 (4.5-7.5) Ur Specific [place]io 1.011 (1.000-1.030) Urine Protein 3+ H (Negative) Urine Glucose (UA) 2+ H (Negative) Urine Ketones Negative (Negative) Urine Blood 3+ H (Negative) Urine Nitrite Negative (Negative) Urine Bilirubin Negative (Negative) Urine Urobilinogen Negative (Negative) Ur Leukocyte Esterase Trace H (Negative) Urine WBC (Auto) 11-20 H (0-5) /hpf Urine RBC (Auto) >20 H (0-2) /hpf U Hyaline Cast (Auto) 3-5 H (0-2) /lpf U Epithel Cells (Auto) 0-2 (0-2) /hpf Urine Bacteria (Auto) 2+ H (None Seen) Blood Type A Positive Antibody Screen NEGATIVE Administered Medications Allopurinol (Allopurinol 100 Mg Tab) 200 mg PO QAM [facility] Stop: 07/15/24 08:59 Last Admin: 06/19/24 07:40 Dose: 200 mg Documented By: Admin: 06/18/24 07:17 Dose: 200 mg Documented By: Admin: 06/17/24 09:53 Dose: 200 mg Documented By: Admin: 06/16/24 08:13 Dose: 200 mg Documented By: Admin: 06/15/24 09:12 Dose: 200 mg Documented By: [facility] Atorvastatin Calcium (Atorvastatin 40 Mg Tab) 80 mg PO HS [facility] Stop: 07/15/24 20:59 Last Admin: 06/18/24 21:15 Dose: 80 mg Documented By: Admin: 06/17/24 20:30 Dose: 80 mg Documented By: Admin: 06/16/24 21:11 Dose: 80 mg Documented By: Admin: 06/15/24 20:18 Dose: 80 mg Documented By: CARRIE Ferrous Sulfate (Ferrous Sulfate 325 Mg Tab) 325 mg PO Q48H [facility] Stop: 07/15/24 08:59 Last Admin: 06/19/24 07:40 Dose: 325 mg Documented By: Admin: 06/17/24 09:53 Dose: 325 mg Documented By: Admin: 06/15/24 09:13 Dose: 325 mg Documented By: NADEEN Furosemide (Furosemide 20 Mg Tab) 20 mg PO QAM [facility] Stop: 07/19/24 08:59 Last Admin: 06/19/24 10:06 Dose: 20 mg Documented By: MORENITA Cefepime HCl (Maxipime 2000mg) 1,000 mg in 10 mls @ 5 mls/min IV Q12H [facility] Stop: 06/27/24 02:59 Last Admin: 06/19/24 15:29 Dose: 5 mls/min Documented By: Admin: 06/19/24 03:01 Dose: 5 mls/min Documented By: Admin: 06/18/24 14:52 Dose: 5 mls/min Documented By: Admin: 06/18/24 02:14 Dose: 5 mls/min Documented By: Admin: 06/17/24 14:53 Dose: 5 mls/min Documented By: Admin: 06/17/24 02:27 Dose: 5 mls/min Documented By: JOVANY Lactobacillus Acidophilus (Advanced Probiotic 625 Mg Capsule) 1,250 mg PO DAILY [facility] Stop: 07/19/24 11:14 Last Admin: 06/19/24 12:29 Dose: 1,250 mg Documented By: MORENITA Metoprolol Tartrate (Metoprolol Tartrate 25 Mg Tab) 12.5 mg PO AMHS [facility] Stop: 07/15/24 08:59 Last Admin: 06/19/24 07:40 Dose: 12.5 mg Documented By: Admin: 06/18/24 21:15 Dose: 12.5 mg Documented By: Admin: 06/18/24 07:17 Dose: 12.5 mg Documented By: Admin: 06/17/24 20:30 Dose: 12.5 mg Documented By: Admin: 06/17/24 09:53 Dose: 12.5 mg Documented By: Admin: 06/16/24 21:11 Dose: 12.5 mg Documented By: Admin: 06/16/24 08:12 Dose: 12.5 mg Documented By: Admin: 06/15/24 20:18 Dose: 12.5 mg Documented By: Admin: 06/15/24 09:14 Dose: 12.5 mg Documented By: NADEEN Sodium Bicarbonate (Sodium Bicarbonate 650 Mg Tab) 650 mg PO TID [facility] Stop: 07/19/24 13:59 Last Admin: 06/19/24 15:28 Dose: 650 mg Documented By: MORENITA Tramadol HCl (Tramadol Hcl 50 Mg Tablet) 25 mg PO Q4H PRN PRN Reason: Pain Stop: 07/15/24 05:26 Last Admin: 06/19/24 15:32 Dose: 25 mg Documented By: MORENITA Discontinued Medications Ceftriaxone Sodium (Rocephin) 2,000 mg in 50 mls @ 100 mls/hr IV Q24H [facility] Stop: 06/20/24 16:29 Last Infusion: 06/15/24 17:38 Dose: Infused Documented By: Admin: 06/15/24 16:43 Dose: 100 mls/hr Documented By: ANGELA Cefepime HCl (Maxipime 2000mg) 2,000 mg in 20 mls @ 5 mls/min IV ONE ONE Stop: 06/16/24 14:33 Last Admin: 06/16/24 15:56 Dose: 5 mls/min Documented By: RANDY Sodium Bicarbonate (Sodium Bicarbonate 650 Mg Tab) 650 mg PO BID [facility] Stop: 07/15/24 08:59 Last Admin: 06/19/24 07:40 Dose: 650 mg Documented By: Admin: 06/18/24 21:15 Dose: 650 mg Documented By: Admin: 06/18/24 07:17 Dose: 650 mg Documented By: Admin: 06/17/24 20:30 Dose: 650 mg Documented By: Admin: 06/17/24 09:53 Dose: 650 mg Documented By: Admin: 06/16/24 21:11 Dose: 650 mg Documented By: Admin: 06/16/24 08:12 Dose: 650 mg Documented By: Admin: 06/15/24 20:18 Dose: 650 mg Documented By: Admin: 06/15/24 09:13 Dose: 650 mg Documented By: [facility] Discharge Plan Visit Data Chief Complaint: Unable to Void Stated Complaint: blood in catheter, unable to void ED Provider: Susanna Flores Discharge Problem: Renal failure, Gross hematuria Patient Disposition: Admitted As Inpatient Discharge Instructions Interventions: ED Discharge Assessment Last Done: 06/15/24 10:20 Discharge Problem: Renal failure Qualifiers: Renal failure chronicity: chronic Chronic kidney disease stage: stage 3 (moderate) Chronic kidney disease stage 3 subtype: stage 3b (GFR 30-44) Q ualified Code(s): N18.32 - Chronic kidney disease, stage 3b
[2024-06-15 02:06] LABS: Basophils # (auto) 0.06 K/uL (0.00-0.20); Basophils % (auto) 0.7 %; Eosinophils # (auto) 0.27 K/uL (0.00-0.50); Eosinophils % (auto) 2.9 %; Hemoglobin 10.2 g/dl (14.0-18.0); Immature Granulocytes # (auto) 0.04 K/uL (0.01-0.20); Immature Granulocytes % (auto) 0.4 %; Lymphocytes # (auto) 1.66 K/uL (1.20-3.40); Lymphocytes % (auto) 18.1 %; Mean Corpuscular Hemoglobin 29.4 pg (25.0-34.0); Mean Corpuscular Hgb Conc 31.9 g/dL (32.0-36.0); Mean Corpuscular Volume 92.2 fL (80.0-100.0); Mean Platelet Volume 12.3 fL (9.4-12.4); Monocytes # (auto) 0.75 K/uL (0.11-0.59); Monocytes % (auto) 8.2 %; Neutrophils # (auto) 6.38 K/uL (1.40-6.50); Neutrophils % (auto) 69.7 %; Platelet Count 188 K/uL (130-400); RDW Coefficient of Variation 17.2 % (11.5-14.5); RDW Standard Deviation 57.9 fL (36.4-46.3); Red Blood Count 3.47 M/uL (4.70-6.10); White Blood Count 9.16 K/ul (4.8-10.8)
[2024-06-15 02:14] LABS: Albumin Globulin Ratio 1.4 (0.9-2); Albumin Level 3.9 gm/dl (3.4-5.0); BUN Creatinine Ratio 18.5 (10-20); Bilirubin,Total 0.6 mg/dl (0.2-1.0); Calcium 9.2 mg/dl (8.6-10.3); Creatinine Clr Calc Pharmacy 23.3 ml/min; Globulin 2.7 gm/dl (2.5-4.0); Magnesium 1.8 mg/dl (1.7-2.4); Potassium 3.8 mmol/L (3.5-5.1); Total Protein 6.6 gm/dl (6.0-8.3)
[2024-06-15 02:29] LABS: Thyroid Stimulating Hormone 2.29 uIu/ml (0.300-4.500)
--- OUTSIDE RECORDS SUMMARY | 2024-06-15 02:35 | External Medical Summary | Summary of Care ---
Author Name Unknown Organization [facility] Address [address] [place] [address] Phone [phone] Care Team Providers Care Lounge Car Attendant Name Role Phone Aleja Bryson MD Primary Care Provide r Reason for Visit * Reason Onset Date Comments Advice 06/14/2024 Home Health 06/14/2024 Encounter Details Date Type Department Care Team (Late st Contact Info) Description 06/14/2024 Telephone Family Medicine [address] [phone] Aleja Bryson MD [address] [place] [address] [place] [address] Advice; Home Health Allergies Active Allergy Reactions Criticality Noted Date Comments Ibuprofen 04/29/2011 Diarrhea documented as of this encounter (statuses as of 06/14/2024) Medications Tylenol 325 MG Oral Capsule (Acetaminophen) Take by mouth 325 mg . Once daily Active Allopurinol 100 MG Oral Tablet (Zyloprim)Indicat ions:Gout TAKE TWO TABLETS BY MOUTH EVERY DAY 180 Tablet 1 4 Active Farxiga 10 MG Oral Tablet (Dapagliflozin Propanediol)Indic ations:Kidney disease, chronic, 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) ([facility]) Take 1 Tablet by mouth in the morning. 30 Tablet 11 4 Active Sodium Bicarbonate 650 MG Oral TabletIndications :Kidney disease, chronic, 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) (HCC) TAKE ONE TABLET BY MOUTH TWICE DAILY 60 Tablet 11 4 Active Metoprolol Tartrate 25 MG Oral Tablet (Lopressor)Indica tions:Primary hypertension,Carlos gn hypertension with chronic kidney disease, stage IV (HCC),Paroxysmal atrial tachycardia (HCC) Take 1 Tablet by mouth in the morning and 1 Tablet before bedtime. 180 Tablet 1 4 Active Atorvastatin Calcium 80 MG Oral Tablet (Lipitor)Indicati ons:Dyslipidemia, goal LDL below 100 TAKE ONE TABLET BY MOUTH AT BEDTIME 90 Tablet 1 4 Active Furosemide 20 MG Oral Tablet (Lasix) TAKE ONE TABLET IN THE MORNING 90 Tablet 1 4 Active Iron 325 (65 Fe) MG Oral Tablet Take by mouth. 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 chronic kidney disease 05/20/2024 Moderate aortic stenosis 05/05/2024 S/P prostatectomy 03/02/2024 History of bladder cancer 03/02/2024 Kidney disease, chronic, stage IV (GFR 15-29 ml/ min) 08/14/2020 Overview: Per CKD protocol Thrombocytopenia 11/10/2018 Overview (12/27/2019): 107,000 platelets Benign hypertension with chronic kidney disease, stage IV 11/18/2017 S/P AAA (abdominal aortic aneurysm) repair 04/24 Overview (04/24/2017): S/p Endovascular leak repair 04/24/2017 Hyperuricemia 07/26/2015 Primary hypertension 03/23/2014 Infrarenal abdominal aortic aneurysm (AAA) witho ut rupture 11/12/2009 Vitamin D deficiency 04/17/2009 Overview (04/18/2009): Vitamin D level 9.1 Dyslipidemia, goal LDL below 100 03/15/2009 Overview (03/15/2009): Per Lipid Taxonomy. Gout Paroxysmal atrial tachycardia documented as of this encounter (statuses as of 06/14/2024) Resolved Problems Problem Noted Date Diagnosed Date Resolved Date Accidental puncture or lacer ation during procedure, not elsewhere classified 01/05/20140 08/2014 Kidney disease, chronic, sta ge IV (GFR 15-29 ml/min) 05/30/2013 01/18/2018 Overview: Per CKD protocol #1 Gastroesophageal reflux dise ase with esophagitis without hemorrhage 03/22/2010 Examination following surgery 12/04/2009 03/04/2011 HTN, goal below 130/80 04/17/200903/23 HTN, goal below 140/90 02/09/200904/17 Overview (02/09/2009): Modified per HTN Taxonomy. Kidney disease, chronic, sta ge III (GFR 30-59 ml/min) 10/12/2008 06/07/2013 Osteoarthritis of leg 10/15/20042017 ADVANCE DIRECTIVE INFORMATION 09/11/2004 02/08/2024 Overview (09/11/2004): Yes, Patient instructed to provide copy of advance directive for provider to review and to be scanned into Electronic Medical Record Renal failure 07/18/2004 04/17/2009 MALIGN NEOPL PROSTATE 03/17/20012015 PURE HYPERCHOLESTEROLEM 03/06 Overview (03/15/2009): Per Lipid Taxonomy. HYPERTENSION NOS 12/30/2007 CERV SPONDYL W MYELOPATH 08/2018 HTN, goal below 140/90 02/09 Overview (02/09/2009): Modified per HTN Taxonomy. Kidney disease, chronic, sta ge IV (GFR 15-29 ml/min) 10/12/2008 documented as of this encounter (statuses as of 06/14/2024) Immunizations Name Administration Dates Next Due COVID-19 mRNA, LNP-s, No Pre serve, 2-Dose Series (Moderna) 04/15/2021,08/01/2020,06/27/2020 COVID-19, MRNA-LNP, PF, 30 M CG/0.3 mL, 12 YRS AND ABOVE, IM (PFIZER-Comirnaty) 03/02/2024,01/21/2023 Pneumococcal Conjugate Vacc, 13 Valent (Prevnar) 05/11/2014 Season Influenza, Quad, PF, Adjuvanted, 65+ Yrs, IM (FLUAD) 12/27/2019 Seasonal Influenza Vac., MDV , IM, 0.5 mL (Fluzone) 12/14/2013,12/21/2012,01/08/2012,2010,01/08/2010,12/28/2008,02/10/2008,1 ,01/09/2006 Seasonal Influenza, High Dos e, Trivalent, PF, IM (Fluzone HD) 02/18/2024 Seasonal Influenza, PF, 6 M & above, IM , (FluLaval or Fluzone) 01/18/2018 Seasonal Influenza, Quadriva lent Hd (Fluzone Hd) 01/21/2023,01/08/2022,12/14/2020 Seasonal Influenza, Quadriva lent, No Preserve, IM 01/04/2017,01/01/2016,01/09/2015 Seasonal Influenza, Trivalen t, Adjuvanted, 65+ YRS, PF, (Fluad) 12/15/2018 TD, Preservative Free 12/30/2007 TDAP (age 10 and older)(Boostrix) 06/08/2018 Varicella Zoster Vaccine (Adult) 10/18/2012 Zoster Vaccine Recombinant (Shingrix) 10/14/2019 ,06/15/2019 documented as of this encounter Social History Tobacco Use Types Packs/Day Years Used Date Smoking Tobacco: Never Cigarettes Smokeless Tobacco: Current Snuff Comments:12/30/2023 chews 1 c an per days, declines pamphlet Alcohol Use Standard Drinks/Week Comments Not Currently 0 (1 standard drink = 0.6 oz pur e alcohol) PHQ-2 Answer Date Recorded PHQ Adult Total Score 0 09/11/2021 Hunger Vital Sign Answer Date Recorded Within the past 12 months, y ou worried that your food would run out before you got the money to buy more. Never true 09/07/19 21 Within the past 12 months, t he food you bought just didn't last and you didn't have money to get more. Never true 09/06/2020 Sex and Gender Information Value Date Recorded Sex Assigned at Male 09/15/2018 11:11 AM EDT Legal Sex Male 5:26 AM EST Gender Identity Male 09/15/2018 11:11 AM EDT Sexual Orientation Straight 09/11/2021 1: 10 PM EDT Occupation Industry Job Start Date Job End Date ret Not on file Not on file Not on file documented as of this encounter Functional Status * Are you deaf or do you have serious difficulty hearing? Answer Date of Assessment Author No 04/24/2017 6:00 PM Ivonne Duncan RN * Are you blind or do you have serious difficulty seeing, even when wearing glasses? Answer Date of Assessment Author No 04/24/2017 6:00 PM Ivonne Duncan RN * Do you have serious difficulty walking or climbing stairs? (5 years old or older) Answer Date of Assessment Author No 04/24/2017 6:00 PM Ivonne Duncan RN * Do you have difficulty dressing or bathing? (5 years old or older) Answer Date of Assessment Author No 04/24/2017 6:00 PM Ivonne Duncan RN * Because of a physical, mental, or emotional condition, do you have difficulty doing errands alone such as visiting a doctors office or shopping? (15 years old or older) Answer Date of Assessment Author No 04/24/2017 6:00 PM Ivonne Duncan RN documented as of this encounter Mental Status * Because of a physical, mental, or emotional condition, do you have serious difficulty concentrating, remembering, or making decisions? (5 years old or older) Answer Entry Date Author No 04/24/2017 6:00 PM Ivonne Duncan RN documented in this encounter Miscellaneous Notes * Telephone Encounter - Aleja Bryson MD - 06/14/2024 12:12 PM EDT If continue to notice blood then recommend clinic visit * Telephone Encounter - Kristi Pina LPN - 06/14/2024 10:24 AM EDT HH Concerns Anna PT, Calling from: [facility] Report/Concerns of: urine is red with small clotting in it. Symptoms: none Vitals: T 98.4 P 57 RR 18 BP 130/70 right arm sitting SP O2 99 room air. Lung sounds n/a Weight n/a Blood sugar n/a Narrative: Daughter checked catheter this morning. There was a little bit of blood in it and a few clots. Now it is a little more red. Doesn't remember pulling on the tubing. Just emptied it with 275cc. Nursing has him on the schedule for tomorrow. Please advise. Call back Jennifer with any advice or orders at [phone] Please fax new orders to [facility] * Telephone Encounter - Annamarie Murray OSA - 06/14/2024 10:22 AM EDT Reason for patient's call: Home Health Caller was transferred to [facility] at the nurse line. documented in this encounter Plan of Treatment Upcoming Encounters Date Type Department Care Team (Late st Contact Info) Description 09/09/2024 1:00 PM EDT Office Visit Cardiology, [facility] [address] [address] Jalil Brito MD [address] [place] [address] 10/06/2024 3:20 PM EDT Office Visit Nephrology [address] [place] [phone] Yecenia Apodaca MD [address] [place] [address] 11/03/2024 9:00 AM EDT Office Visit Family Medicine [address] [place] [phone] Aleja Bryson MD [address] [place] [address] [place] [id number] 03/23/2025 3:20 PM EST Office Visit Nephrology [address] [place] [address] Yecenia Apodaca MD 200 [facility] [place] [address] Health Maintenance Due Date Last Done Comments Adult Wellness Visit 09/11/2022 09/11/2021, 09/07/19 21 Depression Screening 09/11/2022 09/11/2021 COVID-19 Vaccine ( season) 2024 03/02/2024, 01/21/2023, 04/15/2021, Additional history exists PTH 05/20/2025 05/20/2024, 02/04, 01/05/2023, Additional history exists Phosphate 05/20/2025 05/20/2024, 05/2022, 01/08/2022, Additional history exists Albumin/Creatinine Ratio 06/07/2025 025, 07/23/2023, 07/09/2022, Additional history exists Hgb 06/07/2025 06/07/2024, 04/2024, 06/02/2024, Additional history exists Nephrology Referral 06/07/2025 06/07/2024, 04/17/2009, 10/10/2008, Additional history exists DTap/Tdap Vaccines (2 - Td or Tdap) 06/08/2028 06/08/2018, 12/30/2007 Pneumococcal Vaccine: 50+ Years Completed 05/11/2014, 12/02/2002 Zoster Vaccines Completed 10/14/2019, 06/04, 10/18/2012 Influenza Vaccine (FLU shot) Completed , 01/21/2023, 01/08/2022, Additional history exists HPV (Gardasil) Vaccine Aged Out No lo nger eligible based on patient's age to complete this topic Hepatitis B Vaccine Aged Out No longe r eligible based on patient's age to complete this topic MENINGOCOCCAL (MENACTRA/MENVEO) Aged Out No longer eligible based on patient's age to complete this topic Meningitis B Vaccine (Bexsero/Trumemba) Aged Out No longer eligible based on patient's age to complete this topic documented as of this encounter Medical Devices Implanted Type Area Process Safety Specialist Device Identifier Shelf Expiration Date Model / Serial / Lot Stent Main Body Nknl-26-28-Zt - [id number] Implanted:Qty: 1 on 12/04/2009 at OR [facility] [place] N/A: Aorta [employer] 08/05/2011 TFFB-32-82- ZT / / [id number] Leg Extension Keky-89-41-Zt - [id number] Implanted:Qty: 1 on 12/04/2009 at OR [facility] [place] Right: Iliac [employer] 09/05/2011 TFLE-16-90- ZT / / [id number] Leg Extension Vafr-13-18-Zt - [id number] Implanted:Qty: 1 on 12/04/2009 at OR [facility] [place] Left: Iliac [employer] 09/05/2011 TFLE-16-90- ZT / / [id number] Ev3 [place] 34 Liquid Embolic Material Implanted:Qty: 9 on 04/24/2017 by Petar Stovall MD at RADIOLOGY [facility] [place] N/A: Abdomen 06/10/2019 [id number] / [id number] / [id number] Description:ev3 [place] 34 Liqu id Embolic Material documented as of this encounter Advance Directives * Full Code (Latest Code Status on File) Date Activated Date Inactivated Comments 04/24/2017 5:28 PM 04/25/2017 4:07 PM This order r eflects the patients wishes and were consensually agreed upon. Question Answer Comments Discussion of Advance Directives occurred with: Patient Does the patient have a Living Will? No Does the patient have Health Care Power of Attor yessica? No * Full Code Date Activated Date Inactivated Comments 12/05/2009 9:57 AM 12/08/2013 9:12 AM This order ref lects the patients wishes and were consensually agreed upon. * Full Code Date Activated Date Inactivated Comments 12/04/2009 11:17 AM 12/05/2009 9:57 AM This order r eflects the patients wishes and were consensually agreed upon. Care Teams Lounge Car Attendant Relationship Specialty Start Date End Date Aleja Bryson MD [address] [place] [address] [place] [address] PCP - General Family Medicine 07/28/23 documented as of this encounter
--- OUTSIDE RECORDS SUMMARY | 2024-06-15 02:35 | External Medical Summary | Summary of Care ---
Author Name Unknown Organization [facility] Address [address] [place] [address] Phone [phone] Care Team Providers Care Modular Set Crew Member Name Role Phone Aleja Bryson MD Primary Care Provide r Encounter Details Date Type Department Care Team (Latest Contact Info) Description 06/01/2024 11:25 PM EST - 06/01/2024 11:59 PM EST Hospital Encounter Radiology Film File [address] [place] [address] Discharge Disposition: Home - Self Care Allergies Active Allergy Reactions Criticality Noted Date Comments Ibuprofen 04/29/2011 Diarrhea documented as of this encounter (statuses as of 06/09/2024) Medications Tylenol 325 MG Oral Capsule (Acetaminophen) Take by mouth 325 mg . Once daily Active Allopurinol 100 MG Oral Tablet (Zyloprim)Indicat ions:Gout TAKE TWO TABLETS BY MOUTH EVERY DAY 180 Tablet 1 4 Active Farxiga 10 MG Oral Tablet (Dapagliflozin Propanediol)Indic ations:Kidney disease, chronic, 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) (HCC) Take 1 Tablet by mouth in [...] MG Oral Tablet Take by mouth. Active documented as of this encounter (statuses as of 06/09/2024) Active Problems Problem Noted Date Diagnosed Date [...] as of this encounter (statuses as of 06/09/2024) Resolved Problems Problem Noted Date Diagnosed Date Resolved Date Accidental puncture or lacer ation during procedure, not elsewhere classified 01/05/2014 020 08/2014 Kidney disease, chronic, sta ge IV [...] as of this encounter (statuses as of 06/09/2024) Immunizations Name Administration Dates Next Due COVID-19 [...] Ivonne Duncan RN documented in this encounter Plan of Treatment Upcoming Encounters Date Type Department Care Team (Late st Contact Info) Description 09/09/2024 1:00 PM EDT Office Visit Cardiology, [facility] [address] [place] [address] Jalil Brito MD [address] [place] [address] 10/06/2024 3:20 PM EDT Office Visit Nephrology [address] [place] [address] Yecenia Apodaca MD [address] [place] [address] [place] [address] 11/03/2024 9:00 AM EDT Office Visit Family Medicine [address] [place] [phone] Aleja Bryson MD [address] [place] [address] [place] [address] 03/23/2025 3:20 PM EST Office Visit Nephrology [address] [place] [address] Yecenia Apodaca MD 200 [facility] [place] [address] Health Maintenance Due Date Last Done Comments [...] this encounter Medical Devices Implanted Type Area Cheese Wrapper Device Identifier Shelf Expiration Date Model / Serial / Lot Stent Main Body Tnbd-87-50-Zt - [id number] Implanted:Qty: 1 on 12/04/2009 at [place] [facility] [place] N/A: Aorta [employer] 08/05/2011 TFFB-32-82- ZT / / [id number] Leg Extension Zhjh-17-13-Zt - [id number] Implanted:Qty: 1 on 12/04/2009 at [place] [facility] [place] Right: Iliac [employer] 09/05/2011 TFLE-16-90- ZT / / [id number] Leg Extension Gnqs-99-01-Zt - [id number] Implanted:Qty: 1 on 12/04/2009 at [place] [facility] [place] Left: Iliac [employer] 09/05/2011 TFLE-16-90- ZT / / [id number] Ev3 [place] 34 Liquid Embolic Material Implanted:Qty: 9 on 04/24/2017 by Petar Stovall MD at RADIOLOGY [facility] [place] N/A: Abdomen 06/10/2019 [id number] / [id number] / [id number] Description:ev3 [place] 34 Liqu id Embolic Material documented as of this encounter Procedures Procedure Name Priority Date/Time Associated Diagnosis Comments RADIOLOGY EXAM - CT (IMAGES ONLY, NO REPORT) Routine 06/01/2024 11:25 PM EST documented in this encounter Results * RADIOLOGY EXAM - CT (IMAGES ONLY, NO REPORT) (06/01/2024 11:25 PM EST) 06/01/2024 11:2 4 PM EST Narrative Scheduling, Silent - 06/08/2024 3:45 PM EST This is an imaging study not interpreted or resulted by a [facility] or [facility] contracted radiologist. us Ray Mantilla MD RAD CT Final Resul t documented in this encounter Advance Directives * Full Code [...] and were consensually agreed upon. Care Teams Modular Set Crew Member Relationship Specialty Start Date End Date Aleja Bryson MD [address] [place] [address] [place] [id number] PCP - General Family Medicine 07/28/23 documented as of this encounter
--- OUTSIDE RECORDS SUMMARY | 2024-06-15 02:35 | External Medical Summary | Summary of Care ---
Author Name Unknown Organization [facility] Address [address] [place] [address] Phone [phone] Care Team Providers Care Anthropological Linguist Name Role Phone Aleja Bryson MD Primary Care Provide r Encounter Details Date Type Department Care Team (Late st Contact Info) Description 06/10/2024 Result Scan Unspecified Department <No scans attached> Allergies Active Allergy Reactions Criticality Noted Date [...] by mouth in the morning. 30 Tablet 4 Active Sodium Bicarbonate 650 MG Oral TabletIndications :Kidney disease, chronic, 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) (HCC) TAKE ONE TABLET BY MOUTH TWICE DAILY 60 Tablet 4 Active Metoprolol Tartrate 25 MG Oral [...] disease, chronic, 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) ([facility]) Two capsules every day 180 Capsule 3 [...] lacer ation during procedure, not elsewhere classified 01/05/201408/2014 Kidney disease, chronic, sta ge IV (GFR 15-29 ml/min) 05/30/2013 01/18/2018 Overview: Per CKD protocol #1 Gastroesophageal reflux dise ase with esophagitis without hemorrhage 03/22/2010 1 Examination following surgery 12/04/2009 03/04/2011 HTN, goal [...] 09/09/2024 1:00 PM EDT Office Visit Cardiology, [facility] [address] [place] [address] [address] Jalil Brito MD [address] [place] [address] 10/06/2024 3:20 PM EDT Office Visit Nephrology [address] [place] [phone] Yecenia Apodaca MD [address] [place] [address] 11/03/2024 9:00 AM EDT Office Visit Family Medicine [address] [place] [phone] Aleja Bryson MD [address] [place] [address] [place] [address] 03/23/2025 3:20 PM EST Office Visit Nephrology [address] [place] [address] Yecenia Apodaca MD 200 [facility] [place] [address] Health Maintenance Due Date Last Done Comments [...] this encounter Medical Devices Implanted Type Area Bowling Alley Manager Device Identifier Shelf Expiration Date Model / Serial / Lot Stent Main Body Ftrc-26-96-Zt - [id number] Implanted:Qty: 1 on 12/04/2009 at [place] [facility] [place] N/A: Aorta [employer] 08/05/2011 TFFB-32-82- ZT / / [id number] Leg Extension Ormw-33-99-Zt - [id number] Implanted:Qty: 1 on 12/04/2009 at OR [facility] [place] Right: Iliac [employer] 09/05/2011 TFLE-16-90- ZT / / [id number] Leg Extension Brcp-42-92-Zt - [id number] Implanted:Qty: 1 on 12/04/2009 at [facility] Left: Iliac [employer] 09/05/2011 TFLE-16-90- ZT / / [id number] Ev3 [place] 34 Liquid Embolic Material Implanted:Qty: 9 on 04/24/2017 by Petar Stovall MD at RADIOLOGY [facility] [place] N/A: Abdomen 06/10/2019 [id number] -[id number] / [id number] / [id number] Description:ev3 [place] 34 Liqu id Embolic Material documented as of this encounter Procedures Procedure Name Priority Date/Time Associated Diagnosis Comments OUTSIDE LAB RESULTS 06/10/2024 documented in this encounter Results * OUTSIDE LAB RESULTS (06/10/2024) 06/10/2024 us No Physician Data Unknown LABORATORY Final Result documented in this encounter Advance Directives * [...] and were consensually agreed upon. Care Teams Anthropological Linguist Relationship Specialty Start Date End Date Aleja Bryson MD [address] [place] [address] [place] [address] PCP - General Family Medicine 07/28/23 documented as of this encounter
--- OUTSIDE RECORDS SUMMARY | 2024-06-15 02:36 | External Medical Summary | Summary of Care ---
Author Name Unknown Organization [facility] Address [address] [place] [address] Phone [phone] Care Team Providers Care Shactor Name Role Phone Aleja Bryson MD Primary Care Provide r Reason for Visit * Reason Comments Hospital Follow-Up Encounter Details Date Type Department Care Team (Late st Contact Info) Description 06/08/2024 5:00 PM EST Office Visit Family Medicine [address] [place] [address] Aleaj Bryson MD [address] [place] [address] [place] [id number] Anemia, unspecified type*; History of pneumonia; Dyslipidemia, goal LDL below 100; Hospital discharge follow-up; HTN, goal below 150/90; Moderate aortic stenosis Allergies Active Allergy Reactions Criticality Noted Date Comments Ibuprofen 04/29/2011 Diarrhea documented as of this encounter (statuses as of 06/09/2024) Medications Tylenol 325 MG Oral Capsule (Acetaminophen) Take by mouth 325 mg . Once daily Active Allopurinol 100 MG Oral Tablet (Zyloprim)Indica tions:Gout TAKE TWO TABLETS BY MOUTH EVERY DAY 180 Tablet 1 4 Active Farxiga 10 MG Oral Tablet (Dapagliflozin Propanediol)Angie cations:Kidney disease, chronic, 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) ([facility]) Take 1 Tablet by mouth in the morning. 30 Tablet 11 4 Active Sodium Bicarbonate 650 MG Oral TabletIndication s:Kidney disease, chronic, 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) (HCC) TAKE ONE TABLET BY MOUTH TWICE DAILY 60 Tablet 11 4 Active Metoprolol Tartrate 25 MG Oral Tablet (Lopressor)Indic ations:Primary hypertension,Viraj ign hypertension with chronic kidney disease, stage IV (HCC),Paroxysmal atrial tachycardia (HCC) Take 1 Tablet by mouth in the morning and 1 Tablet before bedtime. 180 Tablet 1 4 Active Atorvastatin Calcium 80 MG Oral Tablet (Lipitor)Indicat ions:Dyslipidemi a, goal LDL below 100 TAKE ONE TABLET BY MOUTH AT BEDTIME 90 Tablet 1 4 Active Furosemide 20 MG Oral Tablet (Lasix) TAKE ONE TABLET IN THE MORNING 90 Tablet 1 4 Active Iron 325 (65 Fe) MG Oral Tablet Take by mouth. Active D3 High Potency 25 MCG (1000 UT) Oral Capsule (Cholecalciferol )Indications:Kid yessica disease, chronic, 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) ([facility]) Two capsules every day 180 Capsule 3 5 Active Enoxaparin Sodium 60 MG/0.6ML Injection Solution Prefilled Syringe (Lovenox) Inject 60 mg under the skin in the morning. 4.2 mL 1 5 06/09/19 25 Discontinu ed(Medicat ion List Clean Up) documented as of this encounter (statuses as [...] on file documented as of this encounter Last Filed Vital Signs Vital Sign Reading Time Taken Comments Blood Pressure 125/62 06/08/2024 4:46 PM EST Pulse 68 06/08/2024 4:46 PM EST Temperature 36.2 C (97.1 F) 06/08/2024 4:46 PM ES T Respiratory Rate - - Oxygen Saturation 98% 06/08/2024 4:46 PM EST Inhaled Oxygen Concentration - - Weight 67 kg (147 lb 9.6 oz) 06/08/2024 4:46 PM EST Height - - Body Mass Index 23.82 05/31/2024 1:32 PM EST documented in this encounter Functional Status * Are you deaf or do you have serious difficulty hearing? Answer Date of Assessment Author No 04/24/2017 6:00 PM EST Ivonne Adams RN * Are you blind or do [...] Ivonne Duncan RN documented in this encounter Progress Notes * Aleja Bryson MD - 06/08/2024 5:01 PM EST Subjective: HPI: Cirilo Camacho is a 88 year old male with hx of HTN, HLD, pAT, AAA s/p EVAR, CKD IV with hyperparathyroidism, Gout, Prostate Ca s/p removal and radiation and bladder cancer, moderate seen for Pt was admitted to the hospital from 06/01-06/02 Treated for CHF and PNA - initially hospitalist suspected PE due to V/Q mismatach - did a trial of lovenox bridge with coumadin. pt developed hematuria ----had a discussion with Family and decided to hold any further AC treament considering echo showed no heart strain and V/Q mismatch could be due to infection - discharge hgb was 7.9 Here with daughter Today: - denied any SOB or leg swelling or weight gain - per daughter pt had PRBC infusion - denied any hematuria - per daughter pt has more energy - getting OT/PT Daughter needs intermittent FMLA for taking care of pt - do FMLA for 1 year starting 06/01/24 - 1-3 days/month & 1 day at a time Patient Active Problem List Diagnosis Gout Dyslipidemia, goal LDL below 100 Vitamin D deficiency Infrarenal abdominal aortic aneurysm (AAA) without rupture (HCC) Primary hypertension Hyperuricemia S/P AAA (abdominal aortic aneurysm) repair Benign hypertension with chronic kidney disease, stage IV (HCC) Paroxysmal atrial tachycardia (HCC) Thrombocytopenia (HCC) Kidney disease, chronic, 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) (HCC) S/P prostatectomy History of bladder cancer Moderate aortic stenosis 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) History of pulmonary embolism Current Outpatient Medications Medication Sig Dispense Refill Tylenol 325 MG Oral Capsule (Acetaminophen) Take by mouth 325 mg . Once daily Allopurinol 100 MG Oral Tablet (Zyloprim) TAKE TWO TABLETS BY MOUTH EVERY DAY 180 Tablet 1 Farxiga 10 MG Oral Tablet (Dapagliflozin Propanediol) Take 1 Tablet by mouth in the morning. 30 Tablet 11 Sodium Bicarbonate 650 MG Oral Tablet TAKE ONE TABLET BY MOUTH TWICE DAILY 60 Tablet 11 Metoprolol Tartrate 25 MG Oral Tablet (Lopressor) Take 1 Tablet by mouth in the morning and 1 Tablet before bedtime. 180 Tablet 1 Atorvastatin Calcium 80 MG Oral Tablet (Lipitor) TAKE ONE TABLET BY MOUTH AT BEDTIME 90 Tablet 1 Furosemide 20 MG Oral Tablet (Lasix) TAKE ONE TABLET IN THE MORNING 90 Tablet 1 Iron 325 (65 Fe) MG Oral Tablet Take by mouth. D3 High Potency 25 MCG (1000 UT) Oral Capsule (Cholecalciferol) Two capsules every day 180 Capsule 3 No current facility-administered medications for this visit. Past Medical History: Diagnosis Date Abdominal aortic aneurysm (HCC) Benign hypertension with CKD (chronic kidney disease) stage IV (HCC) Benign neoplasm of colon 08/02/2008 5 and 7 mm polyps in mid transverse colon Cervical spondylosis with myelopathy Dyslipidemia, goal LDL below 100 E. coli septicemia (HCC) 10/05/2007 from E coli UTI, [place] Esophageal reflux 03/22/2010 Gout Gout 09/2010 ankle Kidney disease, chronic, stage III (GFR 30-59 ml/min) (HCC) Kidney disease, chronic, 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) (HCC) Malignant neoplasm of prostate (HCC) s/p sx nov 2000 Other and unspecified noninfectious gastroenteritis and colitis(558.9) 07/10/2014 [place], dehydrated with Cr 5.1 Paroxysmal atrial tachycardia (HCC) Peptic ulcer Perforated sigmoid colon (HCC) 12/08/2013 during colonoscopy Primary hypertension Pulmonary embolism (HCC) Thrombocytopenia (HCC) 11/10/2018 107,000 platelets Vitamin D deficiency 04/17/2009 Vitamin D level 9.1 Past Surgical History: Procedure Laterality Date AAA/AORTIC DISSEC REPAIR,ENDOVASC 12/04/2009 Endovascular AAA repair with Cook Zenith stent graft, Dr. Lara ABD/PELVIS CT W/O IV AND W/O PO CONTRAST 02/25/2011 AAA slightly larger, stable renal cyst, possible cyst right adrenal ABD/PELVIS CT W/O IV AND W/O PO CONTRAST 09/24/2012 previous inguinal surgery, AAA repair looks stable, no endoleak COLONOSCOPY [address] Felton in [facility] COLONOSCOPY W/ BIOPSY (RECTUM) 07/28/2008 tubular adenoma repeat in 5 years COLONOSCOPY, DIAGNOSTIC (RECTUM) 12/08/2013 COLONOSCOPY FLEXIBLE PROXIMAL DIAGNOSTIC performed by Harvey Berger MD at ENDOSCOPY [facility] CT ABD/PELVIS WO IV CONTRAST - W ORAL CONTRAST 03/19/2011 multiple intrarenal calculi, no ureteric stone, endograft in position CT CHEST WO CONTRAST N/A 06/18/2020 moderate hiatal hernia, diastasis, with chronic hernia, no acute findings INFORMATION 12/08/2013 12/08/2013 repair of colon preforation [facility] elsi sisiitki 12/08/[address] GUIDED NEEDLE BIOPSY 04/24/2017 Embolization of AAA sac with Blas (18 ml) 04/24/17 performed [place] Petar Stovall MD at [place] [facility] [place] EXISTING CATH FOLLOWUP NON THROMBOLYTICS 04/24/2017 MRI PANCREAS W CONTRAST 10/17/2016 2 cystic lesions in pancreas REMOVAL OF PROSTATE (TURP) 11/2000 Dr Schrader, cancer VASC AORTIC DUPLEX EVAL-COMPLETE 02/25/2011 5.12x5.11 AAA, no endoleak noted VASC AORTIC DUPLEX EVAL-COMPLETE 11/03/2013 5.5 AAA, graft patent, no endoleak VASC QUINAULT ART DUP BILAT LE 02/25/2011 normal femoral and popliteal arteries XR ABDOMEN OBSTRUCT SERIES W CHEST 1 VIEW 07/10/2014 calfiic densities over both renal shadows, Stones Review of patient's allergies indicates: Allergen Reactions Ibuprofen Diarrhea Family History Problem Relation Name Age of Onset Diabetes Father d45 Other (Other) Father Denies family history of AAA Social History Tobacco Use Smoking status: Never Smokeless tobacco: Current Types: Snuff Tobacco comments: 12/30/2023 chews 1 can per days, declines pamphlet Substance Use Topics Alcohol use: Not Currently Vaping/E-Cigarette Use Vaping/E-Cigarette Use Never User Vaping/E-Cigarette Substances Vaping/E-Cigarette Devices ROS: -Per HPI OBJECTIVE: BP 125/62 | Pulse 68 | Temp 97.1 F (36.2 C) | Wt 147 lb 9.6 oz (67 kg) | SpO2 98% | BMI 23.82 kg/m | BSA 1.77 m PHYSICAL EXAM: Vitals are reviewed General:. NAD, well developed HEENT:. Normal Conjunctiva, EOMI Cardiac:.systolic murmur, Normal S1, S2 Lungs:. CTA, no wheezing or crackles MSK:. Trace b/l LE pitting edema Psych:. normal affect ASSESSMENT/PLAN: Recent hgb showed improvement in anemia Lungs CTA Pt is recovering well VSS Sched to see cardiology for moderate Will complete pt;s daughter intermittent FMLA form Anemia, unspecified type (Primary) History of pneumonia Dyslipidemia, goal LDL below 100 - LIPID PANEL WITHOUT DIRECT LDL Hospital discharge follow-up HTN, goal below 150/90 Moderate aortic stenosis I spent a total of 40-54 minutes (exact time 41 mins) on the date of service in preparation, delivery, and documentation of the care provided to Cirilo Camacho excluding any time spent in the performance of separately billed services or time spent by another provider/QHP. Aleja Bryson MD Family medicine, [address] [address] documented in this encounter Nursing Notes * Narcisa Hahn CMA - 06/08/2024 4:43 PM EST He is here for a follow up from [facility]. He just had labs drawn by Dr. Lu yesterday. documented in this encounter Plan of Treatment Upcoming Encounters Date Type Department Care Team (Late st Contact Info) Description 09/09/2024 1:00 PM EDT [facility] [place] [address] Jalil Brito MD [address] [place] [address] 10/06/2024 3:20 PM EDT Office Visit Nephrology [address] [place] [address] Yecenia Apodaca MD [address] [place] [address] 11/03/2024 9:00 AM EDT Office Visit Family Medicine [address] [address] Aleja Bryson MD [address] [place] [address] [place] [address] 03/23/2025 3:20 PM EST Office Visit Nephrology [address] [place] [address] Yecenia Apodaca MD [address] [place] [address] Health Maintenance Due Date Last Done Comments [...] this encounter Medical Devices Implanted Type Area Scrap Sorter Device Identifier Shelf Expiration Date Model / Serial / Lot Stent Main Body [id number]-[id number] - [id number] Implanted:Qty: 1 on 12/04/2009 [place] [facility] [place]A: Aorta [employer] 08/05/2011 TFFB-32-82- ZT / / [id number] Leg Extension [id number]-02-85-Zt - [id number] Implanted:Qty: 1 on 12/04/2009 at [facility] Right: Iliac [employer] 09/05/2011 TFLE-1690- ZT / / [id number] Leg Extension [id number]-29-67-[id number] - [id number] Implanted:Qty: 1 on 12/04/2009 at [place] [facility] Left: Iliac [employer] 09/05/2011 TFLE-16-90- ZT / / [id number] Ev3 [place] 34 Liquid Embolic Material Implanted:Qty: 9 on 04/24/2017 by Petar Stovall MD at [facility] [place]/A: Abdomen 06/10/2019 [id number] -[id number] / [id number] / [id number] Description:ev3 [place] 34 Liqu id Embolic Material documented as of this encounter Procedures Procedure Name Priority Date/Time Associated Diagnosis Comments LIPID PANEL WITHOUT DIRECT LDL Routine 06/07/2024 2:40 PM EST Dyslipidemia, goal LDL below 100 documented in this encounter Results * (ABNORMAL) LIPID PANEL WITHOUT DIRECT LDL (06/07/2024 2:40 PM EST) Triglycerides 116 <=174 mg/dL 06/08/2024 5:58 PM EST [facility] Comment: Triglyceride Reference Ranges (mg/dL): <150 Acceptable 150-174 Borderline high 175-499 High >=500 Very high Cholesterol 121 <200 mg/dL 06/08/2024 5:58 PM EST [facility] Comment: Total Cholesterol Reference Ranges (mg/dL): <200 Desirable 200-239 Borderline high >=240 High HDL Cholesterol 38(L) >39 mg/dL 5:58 PM EST [facility] Comment: HDL Cholesterol Reference Ranges (mg/dL): >=60 High (Desirable) <50 Low (Undesirable) For Females <40 Low (Undesirable) For Males Non-HDL Cholesterol 83 <=159 mg/dL 06/08/2024 5:58 PM EST [facility] Comment: Non-HDL Cholesterol Reference Range (mg/dL): <100 Target level for high risk ASCVD patient <130 Optimal for general population 130-159 Near optimal for general population 160-189 Borderline High 190-219 High >=220 Very High LDL Cholesterol 60 <=129 mg/dL 06/08/2024 5:58 PM EST [facility] Comment: LDL Cholesterol Reference Ranges (mg/dL): <70 Target level for high risk ASCVD patient <100 Optimal for general population 100-129 Near optimal for general population 130-159 Borderline high 160-189 High >=190 Very high Blood Venous blood specimen / Unknown Venipuncture / Unknown 06/07/2024 2:40 PM EST 06/07/2024 2:40 PM EST Aleja Bryson MD LAB BLOOD ORDERABLES Final Result [facility] [address] [facility] [place] [id number] documented in this encounter Visit Diagnoses Diagnosis Anemia, unspecified type- Primary History of pneumonia Personal history of pneumonia (recurrent) Dyslipidemia, goal LDL below 100 Other and unspecified hyperlipidemia Hospital discharge follow-up Other follow-up examination HTN, goal below 150/90 Moderate aortic stenosis Aortic valve disorders documented in this encounter Advance Directives * [...] and were consensually agreed upon. Care Teams Shactor Relationship Specialty Start Date End Date Aleja Bryson MD [address] [place] [address] [place] [phone] PCP - General Family Medicine 07/28/23 documented as of this encounter"
--- OUTSIDE RECORDS SUMMARY | 2024-06-15 02:36 | External Medical Summary | Summary of Care ---
Author Name Unknown Organization [facility] Address [address] [place] [address] Phone [phone] Care Team Providers Care Core Composer Feeder Name Role Phone Aleja Bryson MD Primary Care Provide r Reason for Visit * Reason Onset Date Comments Test Results Imaging Study 05/23/2024 Encounter Details Date Type Department Care Team (Late st Contact Info) Description 05/23/2024 Telephone Vascular Surg [facility] [address] [place] [address] Елена Choudhary PA-C [address] [place] [address] Test Results Imaging Study Allergies Active Allergy Reactions Criticality Noted Date Comments Ibuprofen 04/29/2011 Diarrhea documented as of this encounter (statuses as of 06/08/2024) Medications Tylenol 325 MG Oral Capsule (Acetaminophen) Take by mouth 325 mg . Once daily Active Allopurinol 100 MG Oral Tablet (Zyloprim)Indica tions:Gout TAKE TWO TABLETS BY MOUTH EVERY DAY 180 Tablet 1 12/16/19 24 Active Farxiga 10 MG Oral Tablet (Dapagliflozin Propanediol)Angie cations:Kidney disease, chronic, 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) ([facility]) Take 1 Tablet by mouth in the morning. 30 Tablet 11 01/19/20 24 Active Sodium Bicarbonate 650 MG Oral TabletIndication s:Kidney disease, chronic, 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) ([facility]) TAKE ONE TABLET BY MOUTH TWICE DAILY 60 Tablet 11 02/02/20 24 Active Metoprolol Tartrate 25 MG Oral Tablet (Lopressor)Indic ations:Primary hypertension,Viraj ign hypertension with chronic kidney disease, stage IV (HCC),Paroxysmal atrial tachycardia (HCC) Take 1 Tablet by mouth in the morning and 1 Tablet before bedtime. 180 Tablet 1 02/02/20 24 Active Atorvastatin Calcium 80 MG Oral Tablet (Lipitor)Indicat ions:Dyslipidemi a, goal LDL below 100 TAKE ONE TABLET BY MOUTH AT BEDTIME 90 Tablet 1 02/16/20 24 Active Furosemide 20 MG Oral Tablet (Lasix) TAKE ONE TABLET IN THE MORNING 90 Tablet 1 03/02/20 24 Active D3 High Potency 25 MCG (1000 UT) Oral Capsule (Cholecalciferol )Indications:Kid yessica disease, chronic, 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) (HCC) One capsule every other day 90 Cap 1 01/02/20 21 025 Discontinued amLODIPine Besylate 5 MG Oral Tablet (Norvasc)Indicat ions:Primary hypertension,Viraj ign hypertension with chronic kidney disease, stage IV (HCC) TAKE ONE TABLET BY MOUTH AT BEDTIME 90 Tablet 1 11/18/19 24 025 Discontinued Lisinopril 10 MG Oral Tablet (Prinivil)Indica tions:Benign hypertension with chronic kidney disease, stage IV (HCC) TAKE ONE TABLET BY MOUTH EVERY DAY 90 Tablet 1 02/24/20 24 025 Discontinued documented as of this encounter (statuses as of 06/08/2024) Active Problems Problem Noted Date Diagnosed Date [...] as of this encounter (statuses as of 06/08/2024) Resolved Problems Problem Noted Date Diagnosed Date [...] as of this encounter (statuses as of 06/08/2024) Immunizations Name Administration Dates Next Due COVID-19 mRNA, LNP-s, No Pre serve, 2-Dose Series (Moderna) 04/15/2021,08/01/2020,06/27/2020 COVID-19, MRNA-LNP, PF, 30 M CG/0.3 mL, 12 YRS AND ABOVE, IM (PFIZER-Comirnaty) 03/02/2024,01/21/2023 Pneumococcal Conjugate Vacc, 13 Valent (Prevnar) 05/11/2014 Pneumococcal Polysaccharide PPV23 (Pneumovax) 12/02/2002 Season Influenza, Quad, PF, Adjuvanted, 65+ Yrs, IM (FLUAD) 12/27/2019 Seasonal Influenza Vac., MDV , IM, 0.5 mL (Fluzone) 12/14/2013,12/21/2012,01/08/2012,12/06,01/08/2010,12/28/2008,02/10/20 08,01/21/2007,01/09/2006,01/23/2005,1 05/18/2000 03/17/2002 Seasonal Influenza, High Dos e, Trivalent, PF, [...] Entry Date Author No 04/24/2017 6:00 PM EST Ivonne Adams RN documented in this encounter Miscellaneous Notes * Telephone Encounter - Wilmar May OSA - 06/08/2024 2:18 PM EST Images nominated to PACS * Telephone Encounter - Елена Choudhary PA-C - 06/06/2024 12:[address] reports indicate stability but we still do not have imaging to review Can we please look into this. Thanks * Telephone Encounter - Anabel Valerio LPN - 06/06/2024 9:[address] reports from 05/23/24 and 06/01/24 from [facility] are scanned into chart. Anabel Valerio LPN 06/06/2024 9:45 AM * Telephone Encounter - Wilmar May OSA - 06/02/2024 4:21 PM EST Images re-requested * Telephone Encounter - Елена Choudhary PA-C - 06/02/2024 3:44 PM EST Can we please check on the progress of this? * Telephone Encounter - Gely Mehta OSA - 05/23/2024 3:53 PM EST Called imaging at [facility], was told I had to call Medical Records. Called Medical records, I was asked to fax a request. Request faxed to [phone] * Telephone Encounter - Елена Choudhary PA-C - 05/23/2024 3:[address] was completed. Please get imaging from [facility]. Mira says measurement on CT is consistent with our most recent duplex size * Telephone Encounter - Елена Choudhary PA-C - 05/23/2024 1:20 PM EST Mira called (EDUARDO from [facility]) who is seeing patient for DHAVAL and anemia. US abdomen was done to look for possible bleed and indicated growth in residual aneurysm sac I suggested Mira order CT non con due to baseline kidney function and DHAVAL Gave her my personal cell to let me know results as we want to follow-up with patient if he may potentially have increased residual sac/endoleak Mira's # is [id number] Can we get this non con imaging once completed for our review? documented in this encounter Plan of Treatment Upcoming Encounters Date Type Department Care Team (Late st Contact Info) Description 09/09/2024 1:00 PM EDT Office Visit Cardiology, [facility] [address] [place] [address] Jalil Brito MD [address] [place] [address] 10/06/2024 3:20 PM EDT Office Visit Nephrology [address] [place] [address] Yecenia Apodaca MD [address] [place] [address] 11/03/2024 9:00 AM EDT Office Visit Family Medicine [address] [place] [address] Aleja Bryson MD [address] [place] [address] [place] [id number] 03/23/2025 3:20 PM EST Office Visit Nephrology [address] [place] [address] Yecenia Apodaca MD [address] [facility] [place], [place] [address] Health Maintenance Due Date Last Done Comments [...] encounter Medical Devices Implanted Type Area Process Development Chemist Device Identifier Shelf Expiration Date Model / Serial / Lot Stent Main Body [id number]-71-07-Zt - [id number] [place] [facility] [place] Aorta [employer] 08/05/2011 TFFB-32-82- ZT / / [id number] Leg Extension [id number]-64-45-Zt - [id number] Implanted:Qty: 1 [place] 12[place]04[place]2009 [place] [facility] [place]: Iliac [employer] 09/05/2011 TFLE-16-90- ZT / / [id number] Leg Extension [id number]-51-76-Zt - [id number] Implanted:Qty: 1 on 12[place]04/2009 [place] [facility] [place]: Iliac [employer] 09/05/2011 TFLE-16-90- ZT / / [id number] Ev3 [place] 34 Liquid Embolic Material Implanted:Qty: 9 on 04/24/2017 by Petar Stovall [place] [facility] [place]A: Abdomen 06/10/2019 [id number] / [id number] / [id number] Description:ev3 [place] 34 Liqu id Embolic Material [...] and were consensually agreed upon. Care Teams Core Composer Feeder Relationship Specialty Start Date End Date Aleja Bryson MD [address] [place] [address] [place] [phone] PCP - General Family Medicine 07/28/23 documented as of this encounter
--- OUTSIDE RECORDS SUMMARY | 2024-06-15 02:36 | External Medical Summary | Summary of Care ---
Author Name Unknown Organization [facility] Address [address] [place] [address] Phone [phone] Care Team Providers Care Hand Coremaker Name Role Phone Aleja Bryson MD Primary Care Provide r Encounter Details Date Type Department Care Team (Late st Contact Info) Description 06/01/2024 Orders Only Vascular Surg [facility] [address] [place], [place] [phone] Ray Mantilla MD [address] [place] [address] Allergies Active Allergy Reactions Criticality Noted Date [...] disease, chronic, 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) ([facility]) Take 1 Tablet by mouth in the [...] MG Oral Tablet Take by mouth. Active Enoxaparin Sodium 60 MG/0.6ML Injection Solution [...] 09/09/2024 1:00 PM EDT Office Visit Cardiology, [facility] [address] [place] [address] Jalil Brito MD [address] [place] [address] 10/06/2024 3:20 PM EDT Office Visit Nephrology [address] [place] [address] Yecenia Apodaca MD 200 [facility] [place] [address] 11/03/2024 9:00 AM EDT Office Visit Family Medicine [address] [place] [phone] Aleja Bryson MD [address] [place] [address] [place] [address] 03/23/2025 3:20 PM EST Office Visit Nephrology [address] [place] [address] Yecenia Apodaca MD 200 [facility] [place] [address] Health Maintenance Due Date Last Done Comments [...] this encounter Medical Devices Implanted Type Area Ring Sewer Device Identifier Shelf Expiration Date Model / Serial / Lot Stent Main Body Krla-28-33-Zt - [id number] Implanted:Qty: 1 on 12/04/2009 at OR [facility] N/A: Aorta [employer] 08/05/2011 TFFB-32-82- ZT / / [id number] Leg Extension Fqsg-66-13-Zt - [id number] Implanted:Qty: 1 on 12/04/2009 at OR [facility] Right: Iliac [employer] 09/05/2011 TFLE-16-90- ZT / / [id number] Leg Extension Jgje-68-55-Zt - [id number] Implanted:Qty: 1 on 12/04/2009 at OR [facility] Left: Iliac [employer] 09/05/2011 TFLE-16-90- ZT / / [id number] Ev3 [place] 34 Liquid Embolic Material Implanted:Qty: 9 on 04/24/2017 by Petar Stovall MD at RADIOLOGY [facility] N/A: Abdomen 06/10/2019 [id number] -[id number] / [id number] / [id number] Description:ev3 [place] 34 Liqu id Embolic Material documented as [...] interpreted or resulted by a [facility] or [facility] contracted radiologist. us Ray Mantilla MD RAD [...] and were consensually agreed upon. Care Teams Hand Coremaker Relationship Specialty Start Date End Date Aleja Bryson MD [address] [place] [address] [place] [address] PCP - General Family Medicine 07/28/23 documented as of this encounter
--- OUTSIDE RECORDS SUMMARY | 2024-06-15 02:36 | External Medical Summary | Summary of Care ---
Author Name Unknown Organization [facility] Address [address] [place] [address] Phone [phone] Care Team Providers Care Stand Up Comedian Name Role Phone Aleja Bryson MD Primary Care Provide r Encounter Details Date Type Department Care Team (Late st Contact Info) Description 05/23/2024 Orders Only Vascular Surg [facility] [address] [place], [place] [phone] Ray Mantilla MD [address] [place] [address] Allergies Active Allergy Reactions Criticality [...] disease, chronic, 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) ([facility]) Take 1 Tablet by mouth in [...] THE MORNING 90 Tablet 1 4 Active documented as of this encounter (statuses [...] ation during procedure, not elsewhere classified 01/05/2014 02/0 08/2014 Kidney disease, chronic, sta ge IV [...] 09/09/2024 1:00 PM EDT Office Visit Cardiology, [facility] [address] [place] [address] [address] Jalil Brito MD [address] [place] [address] 10/06/2024 3:20 PM EDT Office Visit Nephrology [address] [place] [address] Yecenia Apodaca MD [address] [place], [place] [address] [address] 11/03/2024 9:00 AM EDT Office Visit Family Medicine [address] [place] [phone] Aleja Bryson MD [address] [place] [address] [place] [address] 03/23/2025 3:20 PM EST Office Visit Nephrology [address] [place] [address] Yecenia Apodaca MD 200 [facility] [place] [address] Health Maintenance Due Date Last Done Comments [...] this encounter Medical Devices Implanted Type Area Exhibit Electrician Device Identifier Shelf Expiration Date Model / Serial / Lot Stent Main Body Vvcm-45-80-Zt - [id number] Implanted:Qty: 1 on 12/04/2009 at OR [facility] N/A: Aorta [employer] 08/05/2011 TFFB-32-82- ZT / / [id number] Leg Extension Wcsb-55-70-Zt - [id number] Implanted:Qty: 1 on 12/04/2009 at OR [facility] Right: Iliac [employer] 09/05/2011 TFLE-16-90- ZT / / [id number] Leg Extension Bjtl-90-62-Zt - [id number] Implanted:Qty: 1 on 12/04/2009 at OR [facility] Left: Iliac [employer] 09/05/2011 TFLE-16-90- ZT / / [id number] Ev3 [place] 34 Liquid Embolic Material Implanted:Qty: 9 on 04/24/2017 by Petar Stovall MD at RADIOLOGY [facility] N/A: Abdomen 06/10/2019 [id number] -1 / [id number] / [id number] Description:ev3 [place] 34 Liqu id Embolic Material documented as of this encounter Procedures Procedure Name Priority Date/Time Associated Diagnosis Comments RADIOLOGY EXAM - CT (IMAGES ONLY, NO REPORT) Routine 05/23/2024 1:40 PM EST documented in this encounter Results * RADIOLOGY EXAM - CT (IMAGES ONLY, NO REPORT) (05/23/2024 1:40 PM EST) 05/23/2024 1:40 PM EST Narrative Scheduling, Silent - 06/08/2024 3:48 PM EST This is an imaging study not interpreted or resulted by a [facility] or [facility] contracted radiologist. us Ray Mantilla MD RAD [...] and were consensually agreed upon. Care Teams Stand Up Comedian Relationship Specialty Start Date End Date Aleja Bryson MD [address] [place] [address] [place] [address] PCP - General Family Medicine 07/28/23 documented as of this encounter
--- OUTSIDE RECORDS SUMMARY | 2024-06-15 02:36 | External Medical Summary | Summary of Care ---
Author Name Unknown Organization [facility] Address [address] [place] [address] Phone [phone] Care Team Providers Care Medical Office Administrator Name Role Phone Aleja Bryson MD Primary Care Provide r Encounter Details Date Type Department Care Team (Latest Contact Info) Description 05/23/2024 1:40 PM EST - 05/23/2024 11:59 PM EST Hospital Encounter Radiology Film File [address] [place] [address] Discharge Disposition: Home - Self [...] 09/09/2024 1:00 PM EDT Office Visit Cardiology, [facility] [address] [address] Jalil Brito MD [address] [place] [address] 10/06/2024 3:20 PM EDT Office Visit Nephrology [address] [place] [address] Yecenia [facility]odaca MD [facility] [place] [address] 11/03/2024 9:00 AM EDT Office Visit Family Medicine [address] [place] [phone] Aleja Bryson MD [address] [place] [address] [place] [address] 03/23/2025 3:20 PM EST Office Visit Nephrology [address] [place] [address] Yecenia Apodaca MD [address] [place] [address] Health Maintenance Due Date Last Done Comments [...] this encounter Medical Devices Implanted Type Area Media Planner Device Identifier Shelf Expiration Date Model / Serial / Lot Stent Main Body Fkig-88-89-Zt - [id number] Implanted:Qty: 1 on 12/04/2009 at OR [facility] N/A: Aorta [employer] 08/05/2011 TFFB-32-82- ZT / / [id number] Leg Extension Czam-66-31-Zt - [id number] Implanted:Qty: 1 on 12/04/2009 at OR [facility] Right: Iliac [employer] 09/05/2011 TFLE-16-90- ZT / / [id number] Leg Extension Ggfr-69-86-Zt - [id number] Implanted:Qty: 1 on 12/04/2009 at OR [facility] Left: Iliac [employer] 09/05/2011 TFLE-16-90- ZT / / [id number] Ev3 [place] 34 Liquid Embolic Material Implanted:Qty: 9 on 04/24/2017 by Petar Stovall MD at RADIOLOGY [facility] N/A: Abdomen 06/10/2019 [id number] -1 / [id number] / [id number] Description:ev3 [place] 34 Liqu id Embolic Material [...] study not interpreted or resulted by a [facility] or [employer] contracted radiologist. us Ray Mantilla MD RAD [...] and were consensually agreed upon. Care Teams Medical Office Administrator Relationship Specialty Start Date End Date Aleja Bryson MD [address] [place] [address] [place] [address] PCP - General Family Medicine 07/28/23 documented as of this encounter
--- OUTSIDE RECORDS SUMMARY | 2024-06-15 02:37 | External Medical Summary ---
Author Name Unknown Address Unknown Organization [id number]:[facility] [address] [facility] [address] Laboratory Report Ordering Provider Test Date Status CORRINA FULLER SEIFERT 06/07/2024 14:40:31 Final Warfarin Therapy
INR: 2 .0-3.0 conventional anticoagulation
INR: 2.5- 3.5 high intensity anticoagulation Observation Date Value Abnormality Reference (Units ) Status PT 06/07/2024 14:40:31 14.6 11.6-15.2 (seconds) Final INR 06/07/2024 14:40:31 1.1 0.8-1.2 Final Performing Location [facility] [address] [facility] [address]
--- OUTSIDE RECORDS SUMMARY | 2024-06-15 02:37 | External Medical Summary ---
Author Name Unknown Address Unknown Organization [id number]:[facility] [address] [place] [address] Laboratory Report Ordering Provider Test Date Status RAJILI 06/07/2024 14:40:31 Final Normal: <30 mg/g creatinine< br/>High: 30-300 mg/g creatinine
Very High: >300 mg/g creatinine
Nephrotic: >2200 mg/g creatinine Observation Date Value Abnormality Reference (Units ) Status Albumin, Urine 06/07/2024 14:40:31 51.00 (mg/dL) Final Creatinine, Urine 06/07/2024 14:40:31 34 (mg/dL) Final Albumin/Creatinine [Mass Ratio] in Urine 06/07/2024 14:40:31 1500 Above high normal <30 (mg/g Creat) Final Performing Location [facility]ORY [facility] [place] [address]
--- OUTSIDE RECORDS SUMMARY | 2024-06-15 02:37 | External Medical Summary ---
Author Name Unknown Address Unknown Organization [id number]:[facility]ORY [facility] [place] [address] [place] [address] Laboratory Report Ordering Provider Test Date Status CORRINA FULLER HANG 06/07/2024 14:40:31 Final Observation Date Value Abnormality Reference (Units ) Status Magnesium 06/07/2024 14:40:31 2.1 1.5-2.6 (m g/dL) Final Performing Location LABORATORY [facility] - [address] [place] [address]
--- OUTSIDE RECORDS SUMMARY | 2024-06-15 02:37 | External Medical Summary | Summary of Care ---
Author Name Unknown Organization [facility] Address [address] [place] [address] Phone [phone] Care Team Providers Care Standard Machine Stitcher Name Role Phone Aleja Bryson MD Primary Care Provide r Encounter Details Date Type Department Care Team (Late st Contact Info) Description 06/03/2024 Orders Only PATIENT PORTAL DO NOT DELETE THIS DEPT [place] [address] Allergies Active Allergy Reactions Criticality Noted Date Comments Ibuprofen 04/29/2011 Diarrhea documented as of this encounter (statuses as of 06/03/2024) Medications D3 High Potency 25 MCG (1000 UT) Oral Capsule (Cholecalciferol) Indications:Kidne y disease, chronic, 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) ([facility]) One capsule every other day 90 Cap 1 1 Active Tylenol 325 MG Oral Capsule (Acetaminophen) Take by mouth 325 mg . Once daily Active Allopurinol 100 MG Oral Tablet (Zyloprim)Indicat ions:Gout TAKE TWO TABLETS BY MOUTH EVERY DAY 180 Tablet 4 Active Farxiga 10 MG Oral Tablet (Dapagliflozin Propanediol)Indic ations:Kidney disease, chronic, 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) ([facility]) Take 1 Tablet by mouth in the morning. 30 Tablet 11 4 Active Sodium Bicarbonate 650 MG Oral TabletIndications :Kidney disease, chronic, 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) ([facility]) TAKE ONE TABLET BY [...] MG Oral Tablet Take by mouth. Active Warfarin Sodium 2.5 MG Oral Tablet (Coumadin) Take by mouth every evening. Active Enoxaparin Sodium 60 MG/0.6ML Injection Solution Prefilled Syringe (Lovenox) Inject 60 mg under the skin in the morning. 4.2 mL 1 5 Active documented as of this encounter (statuses as of 06/03/2024) Active Problems Problem Noted Date Diagnosed Date [...] as of this encounter (statuses as of 06/03/2024) Resolved Problems Problem Noted Date Diagnosed Date [...] as of this encounter (statuses as of 06/03/2024) Immunizations Name Administration Dates Next Due COVID-19 [...] Care Team (Late st Contact Info) Description 07/06/2024 12:40 PM EDT Office Visit Family Medicine [address] [phone] Jen Angel MD [address] [place] [address] [place] [phone] 09/09/2024 1:00 PM EDT Office Visit Cardiology, [facility] [address] [place] [address] Jalil Brito MD [address] [place] [address] 10/06/2024 3:20 PM EDT Office Visit Nephrology [address] [place] [address] ApodacaYecenia go MD [address] [place] [address] 11/03/2024 9:00 AM EDT Office Visit Family Medicine [address] [place] [phone] Aleja Bryson MD [address] [place] [address] [place] [address] Health Maintenance Due Date Last Done Comments Adult Wellness Visit 09/11/2022 09/11/2021, 09/07/19 21 Depression Screening 09/11/2022 09/11/2021 Albumin/Creatinine Ratio 07/22/2024 024, 07/09/2022, 01/28/2022, Additional history exists COVID-19 Vaccine ( season) 2024 03/02/2024, 01/21/2023, 04/15/2021, Additional history exists Nephrology Referral 02/17/2025 02/18/2024, 04/17/2009, 10/10/2008, Additional history exists PTH 05/20/2025 05/20/2024, 02/04, 01/05/2023, Additional history exists Phosphate 05/20/2025 05/20/2024, 05/2022, 01/08/2022, Additional history exists Hgb 06/02/2025 06/02/2024, 05/08, 05/20/2024, Additional history exists DTap/Tdap Vaccines (2 - [...] this encounter Medical Devices Implanted Type Area Tank Terminal Gauger Device Identifier Shelf Expiration Date Model / Serial / Lot Stent Main Body Ajat-40-54-Zt - [id number] Implanted:Qty: 1 on 12/04/2009 at OR [facility] N/A: Aorta [employer] 08/05/2011 TFFB-32-82- ZT / / [id number] Leg Extension Rrgd-20-03-Zt - [id number] Implanted:Qty: 1 on 12/04/2009 at OR [facility] Right: Iliac [employer] 09/05/2011 TFLE-16-90- ZT / / [id number] Leg Extension Bsjj-52-77-Zt - [id number] Implanted:Qty: 1 on 12/04/2009 at OR [facility] Left: Iliac [employer] 09/05/2011 TFLE-16-90- ZT / / [id number] Ev3 [place] 34 Liquid Embolic Material Implanted:Qty: 9 on 04/24/2017 by Petar Stovall MD at RADIOLOGY [facility] N/A: Abdomen 06/10/2019 [id number] -1 / [id number] / [id number] Description:ev3 [place] 34 Liqu id Embolic Material documented as [...] and were consensually agreed upon. Care Teams Standard Machine Stitcher Relationship Specialty Start Date End Date Aleja Bryson MD [address] [place] [address] [place] [address] PCP - General Family Medicine 07/28/23 documented as of this encounter
--- OUTSIDE RECORDS SUMMARY | 2024-06-15 02:37 | External Medical Summary ---
Author Name Unknown Address Unknown Organization K01[place] [place] [address] [facility] [address] Laboratory Report Ordering Provider Test Date Status SATHISH ESTEVEZ 06/07/2024 14:40:31 Suma l Observation Date Value Abnormality Reference (Units ) Status Triglyceride 06/07/2024 14:40:31 116 <=174 ( mg/dL) Final Triglyceride Reference Range s (mg/dL):
<150 Acceptable
150-174 Borderline high
175-499 High
>=500 Very high Cholesterol 06/07/2024 14:40:31 121 <200 (mg /dL) Final Total Cholesterol Reference Ranges (mg/dL):
<200 Desirable
200-239 Borderline high
>=240 High HDL 06/07/2024 14:40:31 38 Below low normal >39 (mg/dL) Final HDL Cholesterol Reference Ra nges (mg/dL):
>=60 High (Desirable)
<50 Low (Undesirable) For Females
<40 Low (Undesirable) For Males NON-HDL CHOLESTEROL 06/07/2024 14:40:31 83 <=159 (mg/dL) Final Non-HDL Cholesterol Referenc e Range (mg/dL):
<100 Target level for high risk ASCVD patient
<130 Optimal for general population
130-159 Near optimal for general population
160-189 Borderline High
190-219 High
>=220 Very High LDL, (calculated) 06/07/2024 14:40:31 60 <= 129 (mg/dL) Final LDL Cholesterol Reference Ra nges (mg/dL):
<70 Target level for high risk [facility] patient
<100 Optimal for general population
100-129 Near optimal for general population
130-159 Borderline high
160-189 High
>=190 Very high Performing Location [facility] [address] [facility] [address]
--- OUTSIDE RECORDS SUMMARY | 2024-06-15 02:37 | External Medical Summary | Summary of Care ---
Author Name Unknown Organization [facility] Address [address] [place] [address] Phone [phone] Care Team Providers Care Bend Sorter Name Role Phone Aleja Bryson MD Primary Care Provide r Reason for Visit * Reason Onset Date Comments Test Results Imaging Study 05/23/2024 Encounter Details Date Type Department Care Team (Late st Contact Info) Description 05/23/2024 Telephone Vascular Surg [facility] [address] [place] [address] Елена Choudhary PA-C [address] [place] [address] Test Results Imaging Study Allergies [...] disease, chronic, 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) ([facility]) Take 1 Tablet by mouth in the morning. 30 Tablet 11 01/19/20 24 Active Sodium Bicarbonate 650 MG Oral TabletIndication s:Kidney disease, chronic, 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) ([facility]) TAKE ONE TABLET BY MOUTH TWICE DAILY [...] Ct reports from 05/23/24 and 06/01/24 from [facility] are scanned into chart. Anabel Valerio LPN 06/06/2024 9:45 AM * Telephone Encounter - Wilmar May OSA - 06/02/2024 4:21 PM EST Images re-requested * Telephone Encounter - Елена Choudhary PA-C - 06/02/2024 3:44 PM EST Can we please check on the progress of this? * Telephone Encounter - Gely Mehta OSA - 05/23/2024 3:53 PM EST Called imaging at [facility], was told I had to call Medical Records. Called Medical records, I was asked to fax a request. Request faxed to [phone] * Telephone Encounter - Елена Choudhary PA-C - 05/23/2024 3:[address] was completed. Please get imaging from [facility]. Mira says measurement on CT is consistent with our most recent duplex size * Telephone Encounter - Елена Choudhary PA-C - 05/23/2024 1:20 PM EST Mira called (EDUARDO from [place]) who is seeing patient for DHAVAL and [...] have increased residual sac/endoleak Mira's # is [id number] Can we get this non con imaging once completed for our review? documented in this encounter Plan of Treatment Upcoming Encounters Date Type Department Care Team (Late st Contact Info) Description 09/09/2024 1:00 PM EDT Office Visit Cardiology, [facility] [address] [place] [address] [address] Jalil Brito MD [address] [place] [address] 10/06/2024 3:20 PM EDT Office Visit Nephrology [address] [place] [address] Yecenia Apodaca MD 200 [facility] [place] [address] 11/03/2024 9:00 AM EDT Office Visit Family Medicine [address] [place] [phone] Aleja Bryson MD [address] [place] [address] [place] [address] 03/23/2025 3:20 PM EST Office Visit Nephrology [address] [place] [address] Yecenia Apodaca MD 200 [facility] [place], [place] [address] Health Maintenance Due Date Last Done Comments [...] this encounter Medical Devices Implanted Type Area Fountain Helper Device Identifier Shelf Expiration Date Model / Serial / Lot Stent Main Body Izyb-11-84-Zt - [id number] Implanted:Qty: 1 on 12/04/2009 at [place] [facility] N/A: [employer]orta [employer] 08/05/2011 TFFB-32-82- ZT / / [id number] Leg Extension Kcgw-49-36-Zt - [id number] Implanted:Qty: 1 on 12/04/2009 at [place] [facility] Right: Iliac [employer] 09/05/2011 TFLE-16-90- ZT / / [id number] Leg Extension Qhyp-11-65-Zt - [id number] Implanted:Qty: 1 on 12/04/2009 at [place] [facility] Left: Iliac [employer] 09/05/2011 TFLE-16-90- ZT / / [id number] Ev3 [place] 34 Liquid Embolic Material Implanted:Qty: 9 on 04/24/2017 by Petar Stovall MD at RADIOLOGY [facility] N/A: Abdomen 06/10/2019 [id number] -1 / [id number] / [id number] Description:ev3 [place] 34 Liqu id Embolic Material [...] and were consensually agreed upon. Care Teams Bend Sorter Relationship Specialty Start Date End Date Aleja Bryson MD [address] [place] [address] [place] [address] PCP - General Family Medicine 07/28/23 documented as of this encounter
--- OUTSIDE RECORDS SUMMARY | 2024-06-15 02:37 | External Medical Summary | Summary of Care ---
Author Name Unknown Organization [facility] Address [address] [place] [address] Phone [phone] Care Team Providers Care Platform Loader Name Role Phone Aleja Bryson MD Primary Care Provide r Reason for Visit * Reason Onset Date Comments Test Results Imaging Study 05/23/2024 Encounter Details Date Type Department Care Team (Late st Contact Info) Description 05/23/2024 Telephone Vascular Surg [facility] [address] [place] [address] Елена Choudhary PA-C [address] [place] [address] Test Results Imaging Study Allergies Active Allergy Reactions Criticality Noted Date Comments Ibuprofen 04/29/2011 Diarrhea documented as of this encounter (statuses as of 06/06/2024) Medications D3 High Potency 25 MCG (1000 UT) Oral Capsule (Cholecalciferol )Indications:Kid yessica disease, chronic, 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) ([facility]) One capsule every other day 90 Cap 1 01/02/20 21 Active Tylenol 325 MG Oral Capsule (Acetaminophen) Take by mouth 325 mg . Once daily Active Allopurinol 100 MG Oral Tablet (Zyloprim)Indica tions:Gout TAKE TWO TABLETS BY MOUTH EVERY DAY 180 Tablet 1 12/16/19 24 Active Farxiga 10 MG Oral Tablet (Dapagliflozin Propanediol)Angie cations:Kidney disease, chronic, 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) ([facility]) Take 1 Tablet by mouth in [...] MORNING 90 Tablet 1 03/02/20 24 Active amLODIPine Besylate 5 MG Oral Tablet (Norvasc)Indicat [...] as of this encounter (statuses as of 06/06/2024) Active Problems Problem Noted Date Diagnosed Date [...] as of this encounter (statuses as of 06/06/2024) Resolved Problems Problem Noted Date Diagnosed Date [...] as of this encounter (statuses as of 06/06/2024) Immunizations Name Administration Dates Next Due COVID-19 [...] encounter Miscellaneous Notes * Telephone Encounter - Елена Choudhary PA-C - 06/06/2024 12:[address] reports indicate stability but we still do not have imaging to review Can we please look into this. Thanks * Telephone Encounter - Anabel Valerio LPN - 06/06/2024 9:[address] reports from 05/23/24 and 06/01/24 from [facility] are scanned into chart. Anabel Valerio LPN 06/06/2024 9:45 AM * Telephone Encounter - Wilmar May OSA - 06/02/2024 4:21 PM EST Images re-requested * Telephone Encounter - Елена Choudhary PA-C - 06/02/2024 3:44 PM EST Can we please check on the progress of this? * Telephone Encounter - Gely Mehta OSA - 05/23/2024 3:53 PM EST Called imaging at [facility], was told I had to call Medical Records. Called Medical records, I was asked to fax a request. Request faxed to [phone] * Telephone Encounter - Елена Choudhary PA-C - 05/23/2024 3:[address] was completed. Please get imaging from [facility]. Mira says measurement on CT is consistent with our most recent duplex size * Telephone Encounter - Елена Choudhary PA-C - 05/23/2024 1:20 PM EST Mira called (EDUARDO from [place]) who is seeing patient for DHAVAL and [...] have increased residual sac/endoleak Mira's # is [id number] Can we get this non con imaging once completed for our review? documented in this encounter Plan of Treatment Upcoming Encounters Date Type Department Care Team (Late st Contact Info) Description 06/08/2024 5:00 PM EST Office [address] [place] [phone] Aleja Bryson MD [address] [place] [address] [place] [id number] 07/06/2024 12:40 PM EDT Office Visit [address] [place] [phone] Jen Angel MD [address] [place] [address] [place] [phone] 09/09/2024 1:00 PM EDT Office Visit Cardiology, [address] [place] [address] Jalil Brito MD [address] [place] [address] 10/06/2024 3:20 PM EDT Office Visit Nephrology [address] [place] [address] Yecenia Apodaca MD [address] [facility] [place] [address] 11/03/2024 9:00 AM EDT Office Visit Family Medicine [address] [place] [phone] Aleja Bryson MD [address] [place] [address] [place] [address] Health Maintenance Due Date Last Done Comments [...] this encounter Medical Devices Implanted Type Area Obstetrical Tech Device Identifier Shelf Expiration Date Model / Serial / Lot Stent Main Body Brwr-75-81-Zt - [id number] Implanted:Qty: 1 on 12/04/2009 at [place] [facility] [place] N/A: Aorta [employer] 08/05/2011 TFFB-32-82- ZT / / [id number] Leg Extension Phgg-79-50-Zt - [id number] Implanted:Qty: 1 on 12/04/2009 at [place] [facility] [place] Right: Iliac [employer] 09/05/2011 TFLE-16-90- ZT / / [id number] Leg Extension Wrjm-19-64-Zt - [id number] Implanted:Qty: 1 on 12/04/2009 at [place] [facility] [place] Left: Iliac [employer] 09/05/2011 TFLE-16-90- ZT / / [id number] [address] Liquid Embolic Material Implanted:Qty: 9 on 04/24/2017 by Petar Stovall MD at [facility]OLOGY [facility] N/A: Abdomen 06/10/2019 [id number] -1 / [id number] / [id number] Description:ev3 [address] Liqu id Embolic Material documented as [...] and were consensually agreed upon. Care Teams Platform Loader Relationship Specialty Start Date End Date Aleja Bryson MD [address] [place] [address] [place] [address] PCP - General Family Medicine 07/28/23 documented as of this encounter
--- OUTSIDE RECORDS SUMMARY | 2024-06-15 02:37 | External Medical Summary ---
Author Name Unknown Address Unknown Organization [id number]:[facility] [address] [facility] [address] Laboratory Report Ordering Provider Test Date Status CORRINA FULLER 06/07/2024 14:40:31 Final Observation Date Value Abnormality Reference (Units ) Status BUN 06/07/2024 14:40:31 34 Above high normal 6-20 (mg/dL) Final Creatinine 06/07/2024 14:40:31 2.4 Above high normal 0.6-1.2 (mg/dL) Final Glomerular filtration rate/1.73 sq M.predicted [Volume Rate/Area] in Serum, Plasma or Blood by Creatinine-based formula (CKD-EPI) 06/07/2024 14:40:31 26 Below low normal >=60 (mL/min) Final eGFR is calculated based on the CKD-EPI 2020 equation. Sodium 06/07/2024 14:40:31 142 135-146 (m mol/L) Final Potassium 06/07/2024 14:40:31 4.8 3.5-5.1 (m mol/L) Final Cl 06/07/2024 14:40:31 107 98-107 (mm ol/L) Final CO2 06/07/2024 14:40:31 22 22-32 (mmo l/L) Final Anion gap 06/07/2024 14:40:31 13 7-15 (mmol /L) Final Glucose 06/07/2024 14:40:31 96 70-120 (mg /dL) Final Albumin 06/07/2024 14:40:31 3.8 3.8-5.0 (g /dL) Final AST (Aspartate aminotransferase) 06/07/2024 14:40:31 32 10-50 (U/L) Final Alk Phos 06/07/2024 14:40:31 124 35-130 (U/ L) Final Bilirubin, Total 06/07/2024 14:40:31 0.3 <=1 .2 (mg/dL) Final Calcium 06/07/2024 14:40:31 9.2 8.4-10.2 ( mg/dL) Final Protein 06/07/2024 14:40:31 6.2 6.0-8.3 (g /dL) Final ALT (Alanine aminotransferase) 06/07/2024 14:40:31 24 10-50 (U/L) Final Performing Location [facility] [address] [facility] [address]
--- OUTSIDE RECORDS SUMMARY | 2024-06-15 02:37 | External Medical Summary ---
Author Name Unknown Address Unknown Organization [id number]:[facility] [address] [facility] [place] [address] Laboratory Report Ordering Provider Test Date Status JEN ALEGRIA 06/07/2024 14:40:31 Final Observation Date Value Abnormality Reference (Units ) Status Uric Acid 06/07/2024 14:40:31 5.6 3.4-7.0 (m g/dL) Final Performing Location [facility] [address] [facility] [address]
--- OUTSIDE RECORDS SUMMARY | 2024-06-15 02:37 | External Medical Summary ---
Author Name Unknown Address Unknown Organization K01:LABORATORY [place] - [address] [facility] [address] [facility] [address] Laboratory Report Ordering Provider Test Date Status CORRINA FULLER 06/07/2024 14:40:31 Final Observation Date Value Abnormality Reference (Units ) Status WBC, Total 06/07/2024 14:40:31 8.66 4.00-10.80 (K/uL) Final RBC 06/07/2024 14:40:31 3.48 4.50-5.25 (M/uL) Final Hemoglobin 06/07/2024 14:40:31 10.1 Below low normal 14.0-16.8 (g/dL) Final HCT 06/07/2024 14:40:31 34.1 Below low normal 40.0-48.4 (%) Final MCV 06/07/2024 14:40:31 98.0 82.0-99.5 (fL) Final MCH 06/07/2024 14:40:31 29.0 27.0-34.0 (pg) Final MCHC 06/07/2024 14:40:31 29.6 32.0-36.0 (g/dL) Final RDW 06/07/2024 14:40:31 17.1 11.5-15.5 (%) Final Platelets 06/07/2024 14:40:31 134 Below low normal 140-400 (K/uL) Final MPV 06/07/2024 14:40:31 12.9 6.6-11.1 (fL) Final Nucleated erythrocytes/100 leukocytes [Ratio] in Blood by Automated count 06/07/2024 14:40:31 0 <=0 (/100 WBCs) Final Performing Location LABORATORY [place] - [address] [place] [address]
--- OUTSIDE RECORDS SUMMARY | 2024-06-15 02:37 | External Medical Summary | Summary of Care ---
Author Name Unknown Organization [facility] Address [address] [place] [address] Phone [phone] Care Team Providers Care Inverform Machine Operator Name Role Phone Aleja Bryson MD Primary Care Provide r Reason for Visit * Reason Comments Outpatient Testing Encounter Details Date Type Department Care Team (Late st Contact Info) Description 06/07/2024 2:50 PM EST Laboratory Laboratory [address] [place] [phone] [place] [address] History of pulmonary embolism; Acute anemia; Kidney disease, chronic, 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) ([facility]) Allergies Active Allergy Reactions Criticality Noted Date Comments Ibuprofen 04/29/2011 Diarrhea documented as of this encounter (statuses as of 06/07/2024) Medications Tylenol 325 MG Oral Capsule (Acetaminophen) Take by mouth 325 mg . Once daily Active Allopurinol 100 MG Oral Tablet (Zyloprim)Indica tions:Gout TAKE TWO TABLETS BY MOUTH EVERY DAY 180 Tablet 1 4 Active Farxiga 10 MG Oral Tablet (Dapagliflozin Propanediol)Angie cations:Kidney disease, chronic, 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) ([facility]) Take 1 Tablet by mouth in the morning. 30 Tablet 11 4 Active Sodium Bicarbonate 650 MG Oral TabletIndication s:Kidney disease, chronic, 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) ([facility]) TAKE ONE TABLET BY MOUTH TWICE DAILY 60 Tablet 11 4 Active Metoprolol Tartrate 25 MG Oral Tablet (Lopressor)Indic ations:Primary hypertension,Viraj ign hypertension with chronic kidney disease, stage IV ([facility]),Paroxysmal atrial tachycardia ([facility]) Take 1 Tablet by mouth in the [...] the morning. 4.2 mL 1 5 Active Additional Information Patient not taking.Reported on 06/07/2024 D3 High Potency 25 MCG (1000 UT) Oral Capsule (Cholecalciferol )Indications:Kid yessica disease, chronic, 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) ([facility]) Two capsules every day 180 Capsule 3 5 Active documented as of this encounter (statuses as of 06/07/2024) Active Problems Problem Noted Date Diagnosed Date [...] as of this encounter (statuses as of 06/07/2024) Resolved Problems Problem Noted Date Diagnosed Date [...] as of this encounter (statuses as of 06/07/2024) Immunizations Name Administration Dates Next Due COVID-19 [...] 5:00 PM EST Office Visit Family Medicine [address] [place] [phone] Aleja Bryson MD [address] [place] [address] [place] [address] 09/09/2024 1:00 PM EDT Office Visit Cardiology, [facility] [address] [place] [address] Jalil Brito MD [address] [place] [address] 10/06/2024 3:20 PM EDT Office Visit Nephrology [address] [place] [address] Yecenia Apodaca MD [address] [place] [address] 11/03/2024 9:00 AM EDT Office Visit Family Medicine [address] [place] [phone] Aleja Bryson MD [address] [place] [address] [place] [address] 03/23/2025 3:20 PM EST Office Visit Nephrology [address] [place] [address] Yecenia Apodaca MD [address] [place], [place] [address] Pending Results Name Type Priority Associated Diagnoses Date /Time PT INR Lab Routine History of pulmonary embolism 06/07/2024 2:40 PM EST CBC WITH WBC DIFFERENTIAL Lab Routine Acute anemia History of pulmonary embolism 06/07/2024 2:40 PM EST COMPREHENSIVE METABOLIC PANEL Lab Routine Acute anemia 06/07/2024 2:40 PM EST MAGNESIUM Lab Routine Acute anemia 06/07/2024 2:40 PM EST ALBUMIN / CREATININE RATIO, URINE Lab Routine Kidney disease, chronic, 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) ([facility]) 06/07/2024 2:40 PM EST URINALYSIS WITH MICROSCOPIC EXAM Lab Routine Kidney disease, chronic, 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) ([facility]) 06/07/2024 2:40 PM EST URIC ACID Lab Routine Kidney disease, chronic, 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) ([facility]) 06/07/2024 2:40 PM EST CBC Lab Routine Acute anemia History of pulmonary embolism 06/07/2024 2:40 PM EST DIFFERENTIAL, AUTOMATED Lab Routine Acute anemia History of pulmonary embolism 06/07/2024 2:40 PM EST Health Maintenance Due Date Last Done Comments Adult Wellness Visit 09/11/2022 09/11/2021, 09/07/19 21 Depression Screening 09/11/2022 09/11/2021 Albumin/Creatinine Ratio 07/22/2024 024, 07/09/2022, 01/28/2022, Additional history exists COVID-19 Vaccine ( season) 2024 03/02/2024, 01/21/2023, 04/15/2021, Additional history exists PTH 05/20/2025 05/20/2024, 02/04, 01/05/2023, Additional history exists Phosphate 05/20/2025 05/20/2024, 05/2022, 01/08/2022, Additional history exists Hgb 06/04/2025 06/04/2024, 05/08, 06/01/2024, Additional history exists Nephrology Referral 06/07/2025 06/07/2024, [...] this encounter Medical Devices Implanted Type Area Meeting Manager Device Identifier Shelf Expiration Date Model / Serial / Lot Stent Main Body Iatn-46-74-Zt - [id number] Implanted:Qty: 1 on 12/04/2009 at [place] [facility] [place] N/A: Aorta [employer] 08/05/2011 TFFB-32-82- ZT / / [id number] Leg Extension Tkmr-58-81-Zt - [id number] Implanted:Qty: 1 on 12/04/2009 at [place] [facility] Right: Iliac [employer] 09/05/2011 TFLE-16-90- ZT / / [id number] Leg Extension Xsjs-86-58-Zt - [id number] Implanted:Qty: 1 on 12/04/2009 at [place] [facility] Left: Iliac [employer] 09/05/2011 TFLE-16-90- ZT / / [id number] Ev[address] Liquid Embolic Material Implanted:Qty: 9 on 04/24/2017 by Petar Stovall MD at RADIOLOGY [facility] N/A: Abdomen 06/10/2019 [id number] -1 / [id number] / [id number] Description:ev3 [address] 34 Liqu id Embolic Material documented as of this encounter Visit Diagnoses Diagnosis History of pulmonary embolism Personal history of pulmonary embolism Acute anemia Kidney disease, chronic, 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) ([facility]) Chronic kidney disease, Stage IV (severe) documented in this encounter Advance Directives * [...] and were consensually agreed upon. Care Teams Inverform Machine Operator Relationship Specialty Start Date End Date Aleja Bryson MD [address] [place] [address] [place] [address] PCP - General Family Medicine 07/28/23 documented as of this encounter
--- OUTSIDE RECORDS SUMMARY | 2024-06-15 02:37 | External Medical Summary | Summary of Care ---
Author Name Unknown Organization [facility] Address [address] [place] [address] Phone [phone] Care Team Providers Care Senior Information Systems Architect Name Role Phone Aleja Bryson MD Primary Care Provide r Encounter Details Date Type Department Care Team (Late st Contact Info) Description 06/07/2024 Orders Only Family Medicine [address] [phone] Aleja Bryson MD [address] [place] [address] [place] [address] Allergies Active Allergy Reactions Criticality Noted Date Comments Ibuprofen 04/29/2011 Diarrhea documented as of this encounter (statuses as of 06/07/2024) Medications D3 High Potency 25 MCG (1000 UT) Oral Capsule (Cholecalciferol) Indications:Kidne y disease, chronic, 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) ([facility]) One capsule every other day 90 Cap 1 1 Active Tylenol 325 MG Oral Capsule (Acetaminophen) Take by mouth 325 mg . Once daily Active Allopurinol 100 MG Oral Tablet (Zyloprim)Indicat ions:Gout TAKE TWO TABLETS BY MOUTH EVERY DAY 180 Tablet 1 4 Active Farxiga 10 MG Oral Tablet (Dapagliflozin Propanediol)Indic ations:Kidney disease, chronic, 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) ([facility]) Take 1 Tablet by [...] the morning. 4.2 mL 1 5 Active Warfarin Sodium 2.5 MG Oral Tablet (Coumadin) Take by mouth every evening. 06/08/19 25 Discontinu ed(Patient preference /discontin uation) documented as of this encounter (statuses as [...] of Assessment Author No 04/24/2017 6:00 PM Gely Duncan RN * Do you have serious [...] Description 06/08/2024 5:00 PM EST Office Visit [address] [place] [phone] Aleja Bryson MD [address] [place] [address] [place] [address] 07/06/2024 12:40 PM EDT Office Visit [address] [place] [phone] Jen Angel MD [address] [place] [address] [place] [phone] 09/09/2024 1:00 PM EDT Office Visit [facility], [facility] [address] [facility] [address] Jalil Brito MD [address] [place] [address] 10/06/2024 3:20 PM EDT Office Visit Nephrology [address] [place] [address] Yecenia Apodaca MD [address] [place] [address] 11/03/2024 9:00 AM EDT Office Visit [address] [place] [phone] Aleja Bryson MD [address] [place] [address] [place] [address] Health Maintenance Due Date Last Done Comments Adult Wellness Visit 09/11/2022 09/11/2021, 09/07/19 21 Depression Screening 09/11/2022 09/11/2021 Albumin/Creatinine Ratio 07/22/202407/22/ 024, 07/09/2022, 01/28/2022, Additional history exists COVID-19 Vaccine ( season) 2024 03/02/2024, 01/21/2023, 04/15/2021, Additional history exists Nephrology Referral 02/17/2025 02/18/2024, 04/17/2009, 10/10/2008, Additional history exists PTH 05/20/2025 05/20/2024, 02/04, 01/05/2023, Additional history exists Phosphate 05/20/2025 05/20/2024, 05/2022, 01/08/2022, Additional history exists Hgb 06/04/2025 06/04/2024, 05/08, 06/01/2024, Additional history exists DTap/Tdap Vaccines (2 - [...] this encounter Medical Devices Implanted Type Area Group Activities Aide Device Identifier Shelf Expiration Date Model / Serial / Lot Stent Main Body Bwap-51-98-Zt - [id number] Implanted:Qty: 1 on 12/04/2009 [place] [facility] [place]A: Aorta [employer] 08/05/2011 TFFB-32-82- ZT / / [id number] Leg Extension Puhq-12-86-Zt - [id number] Implanted:Qty: 1 on 12/04/2009 [place] [facility] [place] Right: Iliac [employer] 09/05/2011 TFLE-16-90- ZT / / [id number] Leg Extension Icep-88-47-Zt - [id number] Implanted:Qty: 1 on 12/04/2009 at [place] [facility] [place] Left: Iliac [employer] 09/05/2011 TFLE-16-90- ZT / / [id number] Ev3 [address] 34 Liquid Embolic Material Implanted:Qty: 9 on 04/24/2017 by Petar Stovall MD at [place] [facility] [place]/A: Abdomen 06/10/2019 [id number] -1 / [id number] / [id number] Description:ev3 [address] 34 Liqu id Embolic Material documented as of this encounter Procedures Procedure Name Priority Date/Time Associated Diagnosis Comments CHEMISTRY-OUTSIDE Routine 06/04/2024 documented in this encounter Results * (ABNORMAL) CHEMISTRY-OUTSIDE (06/04/2024) Not all results display below - see scan for full detail SCAN INCLUDES: CBCD OUTSIDE LAB (SEE SCANNED REPORT) CREATININE OUTSIDE L AB (SEE SCANNED REPORT) EGFR OUTSIDE LA B (SEE SCANNED REPORT) POTASSIUM OUTSIDE LA B (SEE SCANNED REPORT) GLUCOSE OUTSIDE LA B (SEE SCANNED REPORT) HOURS FASTING OUTSID E LAB (SEE SCANNED REPORT) TRIGLYCERIDES-OUT SIDE LAB OUTSIDE LAB (SEE SCANNED REPORT) CHOLESTEROL-OUTSI DE LAB OUTSIDE LAB (SEE SCANNED REPORT) HDL-OUTSIDE LAB OUTS LENIN LAB (SEE SCANNED REPORT) CHOL/HDL RATIO-OUTSIDE LAB OUTSIDE LA B (SEE SCANNED REPORT) LDL (CALCULATED)-OUTS LENIN LAB OUTSIDE LAB (SEE SCANNED REPORT) LDL (DIRECT MEASURE)-OUTSIDE LAB OUTSIDE LAB (SEE SCANNED REPORT) HEMOGLOBIN, [id number] LAB OUTSIDE LAB (SEE SCANNED REPORT) PHOSPHORUS-OUTSID E LAB OUTSIDE LAB (SEE SCANNED REPORT) PTH-OUTSIDE LAB OUTS LENIN LAB (SEE SCANNED REPORT) MICROALBUMIN RATIO-OUTSIDE LAB OUTSIDE LA B (SEE SCANNED REPORT) PROTEIN, UA-OUTSIDE LAB OUTSIDE LAB (SEE SCANNED REPORT) HGB 9.1(A) 13.5 - 18.0 GM/DL OUTSIDE LAB (SEE SCANNED REPORT) 06/04/2024 us Thuan Marrufo DO LABORATORY Final Result OUTSIDE LAB (SEE SCANNED REPORT) documented in this encounter Advance Directives * [...] and were consensually agreed upon. Care Teams Senior Information Systems Architect Relationship Specialty Start Date End Date Aleja Bryson MD [address] [place] [address] [place] [address] PCP - General Family Medicine 07/28/23 documented as of this encounter
--- OUTSIDE RECORDS SUMMARY | 2024-06-15 02:37 | External Medical Summary | Summary of Care ---
Author Name Unknown Organization [facility] Address [address] [place] [address] Phone [phone] Care Team Providers Care Research Specialist Name Role Phone Aleja Bryson MD Primary Care Provide r Reason for Visit * Reason Onset Date Comments Test Results Imaging Study 05/23/2024 Encounter Details Date Type Department Care Team (Late st Contact Info) Description 05/23/2024 Telephone Vascular Surg [facility] [address] [place] [address] Елена Choudhary PA-C [address] [place] [address] Test Results Imaging Study Allergies Active Allergy Reactions Criticality Noted Date Comments Ibuprofen 04/29/2011 Diarrhea documented as of this encounter (statuses as of 06/06/2024) Medications D3 High Potency 25 MCG (1000 UT) Oral Capsule (Cholecalciferol )Indications:Kid yessica disease, chronic, 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) ([facility]) One capsule every other day 90 Cap 1 01/02/20 21 Active Tylenol 325 MG Oral Capsule (Acetaminophen) Take by mouth 325 mg . Once daily Active Allopurinol 100 MG Oral Tablet (Zyloprim)Indica tions:Gout TAKE TWO TABLETS BY MOUTH EVERY DAY 180 Tablet 1 12/16/19 24 Active Farxiga 10 MG Oral Tablet (Dapagliflozin Propanediol)Angie cations:Kidney disease, chronic, 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) ([facility]) Take 1 Tablet by mouth in [...] encounter Miscellaneous Notes * Telephone Encounter - Anabel Valerio LPN - 06/06/2024 9:[address] reports from 05/23/24 and 06/01/24 from [facility] are scanned into chart. Anabel Valerio LPN 06/06/2024 9:45 AM * Telephone Encounter - Wilmar May OSA - 06/02/2024 4:21 PM EST Images re-requested * Telephone Encounter - Елена Choudhary PA-C - 06/02/2024 3:44 PM EST Can we please check on the progress of this? * Telephone Encounter - Gely Mehta OSA - 05/23/2024 3:53 PM EST Called imaging at [facility], was told I had to call Medical Records. Called Medical records, I was asked to fax a request. Request faxed to [phone] * Telephone Encounter - Елена Choudhary PA-C - 05/23/2024 3:[address] was completed. Please get imaging from [facility]. Mira says measurement on CT is consistent with our most recent duplex size * Telephone Encounter - Елена Choudhary PA-C - 05/23/2024 1:20 PM EST Mira called (EDUARDO from [facility]) who is seeing patient for DHAVAL and [...] have increased residual sac/endoleak Mira's # is [id number] Can we get this non con imaging once completed for our review? documented in this encounter Plan of Treatment Upcoming Encounters Date Type Department Care Team (Late st Contact Info) Description 06/08/2024 5:00 PM EST Office Visit Family [address] [address] Aleja Bryson MD [address] [place] [address] [place] [id number] 07/06/2024 12:40 PM EDT Office Visit Family Medicine [address] [address] Jen Angel MD [address] [place] [address] [place] [phone] 09/09/2024 1:00 PM EDT Office Visit Cardiology, [facility] [address] [place] [address] Jalil Brito MD [address] [place] [address] 10/06/2024 3:20 PM EDT Office Visit Nephrology [address] [place] [address] Yecenia Apodaca MD [address] [place] [address] 11/03/2024 9:00 AM EDT Office Visit Family Medicine [address] [place] [phone] Aleja Bryson MD [address] [place] [address] [place] [address] Health Maintenance Due Date Last Done Comments [...] this encounter Medical Devices Implanted Type Area Supply Chain Analyst Device Identifier Shelf Expiration Date Model / Serial / Lot Stent Main Body Zjgy-54-97-Zt - [id number] Implanted:Qty: 1 on 12/04/2009 [place] [facility] [place]A: Aorta [employer] 08/05/2011 TFFB-32-82- ZT / / [id number] Leg Extension Fjet-16-17-Zt - [id number] Implanted:Qty: 1 on 12/04/2009 at [facility] Right: Iliac [employer] 09/05/2011 TFLE-16-90- ZT / / [id number] Leg Extension Vivl-94-32-Zt - [id number] Implanted:Qty: 1 on 12/04/2009 at [place] [facility] [place] Left: Iliac [employer] 09/05/2011 TFLE-16-90- ZT / / [id number] Ev3 Blas 34 Liquid Embolic Material Implanted:Qty: 9 on 04/24/2017 by Petar Stovall MD at [place] [facility] [place] N/A: Abdomen 06/10/2019 [id number] -1 / [id number] / [id number] Description:ev3 [place] 34 Liqu id Embolic Material documented as of this encounter Advance Directives * Full Code (Latest Code Status on File) Date Activated Date Inactivated Comments 04/24/2017 5:28 PM 04/25/2017 4:07 PM This order reflects the patients wishes and were consensually agreed upon. Question Answer Comments Discussion of Advance Directives occurred with: Patient Does the patient have a Living Will? No Does the patient have Health Care Power of Attor yessica? No * Full Code Date Activated Date Inactivated Comments 12/05/2009 9:57 AM 12/08/2013 9:12 AM This order re flects the patients wishes and were consensually agreed upon. * Full Code Date Activated Date Inactivated Comments 12/04/2009 11:17 AM 12/05/2009 9:57 AM This order r eflects the patients wishes and were consensually agreed upon. Care Teams Research Specialist Relationship Specialty Start Date End Date Aleja Bryson MD [address] [place] [address] [place] [phone] PCP - General Family Medicine 07/28/23 documented as of this encounter
--- OUTSIDE RECORDS SUMMARY | 2024-06-15 02:37 | External Medical Summary ---
Author Name Unknown Address Unknown Organization K01:[facility] - [address] [facility] [address] Laboratory Report Ordering Provider Test Date Status JEN ALEGRIA 06/07/2024 14:40:31 Final Observation Date Value Abnormality Reference (Units ) Status Color of Urine by Auto 06/07/2024 14:40:31 Colorless Colorless, Light Yellow, Yellow, Dark Yellow Final Clarity, Urine 06/07/2024 14:40:31 Clear Clear Final Glucose [Mass/volume] in Urine by Automated test strip 06/07/2024 14:40:31 250 Abnormal Negative (mg/dL) Final Bilirubin.total [Presence] in Urine by Automated test strip 06/07/2024 14:40:31 Negative Negative Final Ketones [Mass/volume] in Urine by Automated test strip 06/07/2024 14:40:31 Negative Negative (mg/dL) Final Specific gravity, Urine 06/07/2024 14:40:31 1.010 1.003-1.030 Final Hemoglobin [Presence] in Urine by Automated test strip 06/07/2024 14:40:31 Negative Negative Final pH, Urine 06/07/2024 14:40:31 6.5 5.0-7.5 (Units) Final Protein [Mass/volume] in Urine by Automated test strip 06/07/2024 14:40:31 30 Abnormal Negative (mg/dL) Final Urobilinogen [Mass/volume] in Urine by Automated test strip 06/07/2024 14:40:31 Normal Normal (mg/dL) Final Nitrite [Presence] in Urine by Automated test strip 06/07/2024 14:40:31 Negative Negative Final Leukocyte esterase [Presence] in Urine by Automated test strip 06/07/2024 14:40:31 Negative Negative Final RBC, Urine 06/07/2024 14:40:31 0-2 0-2 (/HPF) Final WBC, Urine 06/07/2024 14:40:31 3-5 Abnormal 0-2 (/HPF) Final Bacteria [#/area] in Urine sediment by Microscopy high power field 06/07/2024 14:40:31 0-25 0-25 (/HPF) Final Performing Location LABORATORY [facility] - [facility] [address]. [facility] [address]
--- OUTSIDE RECORDS SUMMARY | 2024-06-15 02:37 | External Medical Summary ---
Author Name Unknown Address Unknown Organization K01:LABORATORY [facility] - [address] [facility] [address] Laboratory Report Ordering Provider Test Date Status CORRINA FULLER 06/07/2024 14:40:31 Final Observation Date Value Abnormality Reference (Units ) Status SYNC LEUKOCYTES IN BLOOD BY AUTOMATED COUNT 06/07/2024 14:40:31 8.66 4.00-10.80 (K/uL) Final Segs 06/07/2024 14:40:31 68.8 40.0-75.0 (%) Final Lymphs % 06/07/2024 14:40:31 18.6 18.0-42.0 (%) Final Monos 06/07/2024 14:40:31 6.7 1.0-11.0 (%) Final Eosinophils 06/07/2024 14:40:31 5.2 0.0-6.0 (%) Final Basos 06/07/2024 14:40:31 0.5 0.0-2.0 (%) Final Immature Granulocyte, Percent 06/07/2024 14:40:31 0.2 0.0-2.0 (%) Final Absolute Segs 06/07/2024 14:40:31 5.96 1.80-7.70 (K/uL) Final Lymphs, absolute 06/07/2024 14:40:31 1.61 1.00-4.80 (K/ul) Final Monos, Abs 06/07/2024 14:40:31 0.58 0.00-1.10 (K/uL) Final Eos, Abs 06/07/2024 14:40:31 0.45 0.00-0.70 (K/uL) Final Basos, Abs 06/07/2024 14:40:31 0.04 0.00-0.20 (K/uL) Final Immature Granulocytes, Number 06/07/2024 14:40:31 0.02 0.00-0.20 (K/uL) Final Performing Location LABORATORY [facility] - [facility] [address]. [facility] [address]
--- OUTSIDE RECORDS SUMMARY | 2024-06-15 02:38 | External Medical Summary | Summary of Care ---
Author Name Unknown Organization [facility] Address [address] [place] [address] Phone [phone] Care Team Providers Care Regulatory Leader Name Role Phone Aleja Bryson MD Primary Care Provide r Encounter Details Date Type Department Care Team (Late st Contact Info) Description 06/03/2024 Orders Only Family Medicine [address] [phone] Aleja Bryson MD [address] [place] [address] [place] [address] Allergies Active Allergy Reactions Criticality Noted Date Comments Ibuprofen 04/29/2011 Diarrhea documented as of this encounter (statuses as of 06/03/2024) Medications D3 High Potency 25 MCG (1000 UT) Oral Capsule (Cholecalciferol) Indications:Kidne y disease, chronic, 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) ([facility]) One capsule every other day 90 Cap 1 1 Active Tylenol 325 MG Oral Capsule (Acetaminophen) Take by mouth 325 mg . Once daily Active Allopurinol 100 MG Oral Tablet (Zyloprim)Indicat ions:Gout TAKE TWO TABLETS BY MOUTH EVERY DAY 180 Tablet 1 4 Active Farxiga 10 MG Oral Tablet (Dapagliflozin Propanediol)Indic ations:Kidney disease, chronic, 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) ([facility]) Take 1 Tablet by mouth in [...] 12:40 PM EDT Office Visit Family Medicine [address] [place] [phone] Jen Angel MD [address] [place] [address] [place] [phone] 09/09/2024 1:00 PM EDT Office Visit Cardiology, [facility] [address] [place] [address] Jalil Brito MD [address] [place] [address] 10/06/2024 3:20 PM EDT Office Visit Nephrology [address] [place] [address] Yecenia Apodaca MD [address] [facility] [address] 11/03/2024 9:00 AM EDT Office Visit Family Medicine [address] [place] [phone] Aleja Bryson MD [address] [place] [address] [place] [address] Health Maintenance Due Date Last Done Comments Adult Wellness Visit 09/11/2022 09/11/2021, 09/07/19 21 Depression Screening 09/11/2022 09/11/2021 Albumin/Creatinine Ratio 07/22/2024 024, 07/09/2022, 01/28/2022, Additional history exists COVID-19 Vaccine ( season) 2024 03/02/2024, 01/21/2023, 04/15/2021, Additional history exists Nephrology Referral 02/17/2025 02/18/2024, 04/17/2009, 10/10/2008, Additional history exists Hgb 05/20/2025 06/02/2024, 05/08, 05/20/2024, Additional history exists PTH 05/20/2025 05/20/2024, 02/04, 01/05/2023, Additional history exists Phosphate 05/20/2025 05/20/2024, 05/2022, 01/08/2022, Additional history exists DTap/Tdap Vaccines (2 - [...] this encounter Medical Devices Implanted Type Area Events Associate Device Identifier Shelf Expiration Date Model / Serial / Lot Stent Main Body Lpyo-30-23-Zt - [id number] Implanted:Qty: 1 on 12/04/2009 [place] [facility] [place]A: Aorta [employer] 08/05/2011 TFFB-32-82- ZT / / [id number] Leg Extension Ujuv-96-70-Zt - [id number] Implanted:Qty: 1 on 12/04/2009 [place] [facility] [place] Right: Iliac [employer] 09/05/2011 TFLE-16-90- ZT / / [id number] Leg Extension Ucyg-25-37-Zt - [id number] Implanted:Qty: 1 on 12/04/2009 at [place] [facility] [place] Left: Iliac [employer] 09/05/2011 TFLE-16-90- ZT / / [id number] Ev3 [place] 34 Liquid Embolic Material Implanted:Qty: 9 on 04/24/2017 by Petar Stovall MD at [place] [facility] [place]/A: Abdomen 06/10/2019 [id number] -1 / [id number] / [id number] Description:ev3 Blas 34 Liqu id Embolic Material documented as of this encounter Procedures Procedure Name Priority Date/Time Associated Diagnosis Comments CT ABD/PELVIS WO IV CONTRAST - W ORAL CONTRAST Routine 06/01/2024 documented in this encounter Results * CT ABD/PELVIS WO IV CONTRAST - W ORAL CONTRAST (06/01/2024) Anatomical Region Laterality Modality Body, Abdomen, Pelvis Other 06/01/2024 us History Per Patient RAD CT Final Result documented in this encounter Advance [...] and were consensually agreed upon. Care Teams Regulatory Leader Relationship Specialty Start Date End Date Aleja Bryson MD [address] [place] [address] [place] [phone] PCP - General Family Medicine 07/28/23 documented as of this encounter
--- OUTSIDE RECORDS SUMMARY | 2024-06-15 02:38 | External Medical Summary | Summary of Care ---
Author Name Unknown Organization [facility] Address [address] [place] [address] Phone [phone] Care Team Providers Care Lifter/Driver Name Role Phone Aleja Bryson MD Primary Care Provide r Reason for Visit * Reason Comments Dosage Adjustment Via Phone (anticoag Cl inic) Encounter Details Date Type Department Care Team (Latest Contact Info) Description 06/02/2024 5:40 PM EST Anticoagulation Pharmacy, [address] [place] [address] [place] [address] History of pulmonary embolism* Allergies Active Allergy Reactions Criticality Noted Date Comments Ibuprofen 04/29/2011 Diarrhea documented as of this encounter (statuses as of 06/03/2024) Medications D3 High Potency 25 MCG (1000 UT) Oral Capsule (Cholecalciferol) Indications:Kidne y disease, chronic, 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) ([facility]) One capsule every other day 90 Cap 1 1 Active Tylenol 325 MG Oral Capsule (Acetaminophen) Take by mouth 325 mg . Once daily Active Allopurinol 100 MG Oral Tablet (Zyloprim)Indicat ions:Gout TAKE TWO TABLETS BY MOUTH EVERY DAY 180 Tablet 1 4 Active Farxiga 10 MG Oral Tablet (Dapagliflozin Propanediol)Indic ations:Kidney disease, chronic, 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) ([facility]) Take 1 Tablet by mouth [...] documented in this encounter Progress Notes * Devyn Schwartz [facility] - 06/02/2024 4:08 PM EST Patient Phone Numbers Caller's name: Jennifer Preferred call back number(OFFICE NUMBER FOR ): [phone] Reason for call: Spoke with pt's daughter who states the pt was seen again at [facility] for blood in his urine. Pt's daughter states Dr Mayers took him off Coumadin and Lovenox, stating it was not needed. She also reports the dr saying he did not believe there was evidence ofPE in the film he reviewed. Pt is being seen by [facility] [phone]. Spoke to patient's daughter at 4:08 PM. Patient is going to remain off of Coumadin and Lovenox since hospitalist felt patient did not have a PE and the bleeding was troublesome. If Coumadin restarted we will follow. Devyn Mays RPh, [facility] Clinical Pharmacist [facility] 06/02/2024, 4:10 PM * Valery Asencio CPhT - 06/02/2024 1:29 PM EST Caller's name: Jennifer Preferred call back number(OFFICE NUMBER FOR ): [phone] Reason for call: Spoke with pt's daughter who states the pt was seen again at [facility] for blood in his urine. Pt's daughter states Dr Mayers took him off Coumadin and Lovenox, stating it was not needed. She also reports the dr saying he did not believe there was evidence ofPE in the film he reviewed. Pt is being seen by [facility] [phone]. Thank you, Valery Asencio CPhT [employer] [facility] [address] [place] [address] [address] [place] [id number] 06/02/2024,1:29 PM documented in this encounter Plan of Treatment Upcoming Encounters Date Type Department Care Team (Late st Contact Info) Description 07/06/2024 12:40 PM EDT Office Visit Family [address] [place] [phone] Jen Angel MD [address] [place] [address] [place] [phone] 09/09/2024 1:00 PM EDT Office Visit Cardiology, [facility] [address] [place] [address] Jalil Brito MD [address] [place] [address] 10/06/2024 3:20 PM EDT Office Visit Nephrology [address] [place] [address] Yecenia Apodaca MD [address] [place] [address] 11/03/2024 9:00 AM EDT Office Visit Family [address] [place] [phone] Aleja Bryson MD [address] [place] [address] [place] [address] Health Maintenance Due Date Last Done Comments Adult Wellness Visit 09/11/2022 09/11/2021, 09/07/19 21 Depression Screening 09/11/2022 09/11/2021 Albumin/Creatinine Ratio 07/22/2024 024, 07/09/2022, 01/28/2022, Additional history exists COVID-19 Vaccine ( season) 2024 03/02/2024, 01/21/2023, 04/15/2021, Additional history exists Nephrology Referral 02/17/2025 02/18/2024, 04/17/2009, 10/10/2008, Additional history exists Hgb 05/20/2025 05/20/2024, 05/07, 07/23/2023, Additional history exists PTH 05/20/2025 05/20/2024, 02/04, [...] this encounter Medical Devices Implanted Type Area Applications Sales Consultant Device Identifier Shelf Expiration Date Model / Serial / Lot Stent Main Body Iwlk-05-49-Zt - [id number] Implanted:Qty: 1 on 12/04/2009 at [place] [facility] [place] N/A: Aorta [employer] [employer] 08/05/2011 TFFB-32-82- ZT / / [id number] Leg Extension Kelu-07-85-Zt - [id number] Implanted:Qty: 1 on 12/04/2009 at [place] [facility] [place] Right: Iliac [employer] [employer] 09/05/2011 TFLE-16-90- ZT / / [id number] Leg Extension Jobp-21-36-Zt - [id number] Implanted:Qty: 1 on 12/04/2009 at [place] [facility] [place] Left: Iliac [employer] 09/05/2011 TFLE-16-90- ZT / / [id number] Ev3 [place]as 34 Liquid Embolic Material Implanted:Qty: 9 on 04/24/2017 by Petar Stovall MD at RADIOLOGY [facility] N/A: Abdomen 06/10/2019 [id number] -1 / [id number] / [id number] Description:ev3 Blas 34 Liqu id Embolic Material documented as of this encounter Visit Diagnoses Diagnosis History of pulmonary embolism- Primary Personal history of pulmonary embolism documented in this encounter Advance Directives * [...] and were consensually agreed upon. Care Teams Lifter/Driver Relationship Specialty Start Date End Date Aleaj Bryson MD [address] [place] [address] [place] [phone] PCP - General Family Medicine 07/28/23 documented as of this encounter
--- OUTSIDE RECORDS SUMMARY | 2024-06-15 02:38 | External Medical Summary | Summary of Care ---
Author Name Unknown Organization [facility] Address [address] [place] [address] Phone [phone] Care Team Providers Care Product Safety Specialist Name Role Phone Aleja Bryson MD Primary Care Provide r Reason for Visit * Reason Onset Date Comments Test Results Imaging Study 05/23/2024 Encounter Details Date Type Department Care Team (Late st Contact Info) Description 05/23/2024 Telephone Vascular Surg [facility] [address] [place] [address] Елена Choudhary PA-C [address] [place] [address] Test Results Imaging Study Allergies Active Allergy Reactions Criticality Noted Date Comments Ibuprofen 04/29/2011 Diarrhea documented as of this encounter (statuses as of 06/02/2024) Medications D3 High Potency 25 MCG (1000 UT) Oral Capsule (Cholecalciferol )Indications:Kid yessica disease, chronic, 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) ([facility]) One capsule every other day 90 [...] Besylate 5 MG Oral Tablet (Norvasc)Indicat ions:Primary hypertension,Vriaj ign hypertension with chronic kidney disease, stage IV (HCC) TAKE ONE TABLET BY MOUTH AT BEDTIME 90 Tablet 1 11/18/19 24 025 Discontinued Lisinopril 10 MG Oral Tablet (Prinivil)Indica tions:Benign hypertension with chronic kidney disease, stage IV (HCC) TAKE ONE TABLET BY MOUTH EVERY DAY 90 Tablet 1 02/24/20 24 025 Discontinued documented as of this encounter (statuses as of 06/02/2024) Active Problems Problem Noted Date Diagnosed Date [...] as of this encounter (statuses as of 06/02/2024) Resolved Problems Problem Noted Date Diagnosed Date [...] as of this encounter (statuses as of 06/02/2024) Immunizations Name Administration Dates Next Due COVID-19 [...] 05/23/2024 3:53 PM EST Called imaging at [facility], was told I had to call Medical Records. Called Medical records, I was asked to fax a request. Request faxed to [phone] * Telephone Encounter - Елена Choudhary PA-C - 05/23/2024 3:[address] was completed. Please get imaging from [facility]. Mira says measurement on CT is consistent with our most recent duplex size * Telephone Encounter - Елена Choudhary PA-C - 05/23/2024 1:20 PM EST Mira called (EDUARDO from [facility]) who is seeing patient for DHAVAL and [...] have increased residual sac/endoleak Mira's # is [id number] Can we get this non con imaging once completed for our review? documented in this encounter Plan of Treatment Upcoming Encounters Date Type Department Care Team (Late st Contact Info) Description 07/06/2024 12:40 PM EDT Office Visit Family Medicine [address] [place] [phone] Jen Angel MD [address] [place] [address] [place] [phone] 09/09/2024 1:00 PM EDT Office Visit Cardiology, [facility] [address] [place] [address] Jalil Brito MD [address] [place] [address] 10/06/2024 3:20 PM EDT Office Visit Nephrology [address] [place] [address] Yecenia Apodaca MD 200 [facility] [place] [address] 11/03/2024 9:00 AM EDT Office Visit Family Medicine [address] [place] [address] Aleja Bryson MD [address] [place] [address] [place] [address] Health Maintenance Due Date Last Done Comments [...] this encounter Medical Devices Implanted Type Area Convict Guard Device Identifier Shelf Expiration Date Model / Serial / Lot Stent Main Body Gjqe-72-70-Zt - [id number] Implanted:Qty: 1 on 12/04/2009 [place] [facility] [place] N/A: Aorta [place] [employer] 08/05/2011 TFFB-32-82- ZT / / [id number] Leg Extension Ojuf-25-80-Zt - [id number] Implanted:Qty: 1 on 12/04/2009 at [place] [facility] [place] Right: Iliac [employer] 09/05/2011 TFLE-16-90- ZT / / [id number] Leg Extension Jggb-88-30-Zt - [id number] Implanted:Qty: 1 on 12/04/2009 at [place] [facility] [place] Left: Iliac [employer] 09/05/2011 TFLE-16-90- ZT / / [id number] Ev3 [place]as 34 Liquid Embolic Material Implanted:Qty: 9 on 04/24/2017 by Petar Stovall MD at RADIOLOGY [facility] N/A: Abdomen 06/10/2019 [id number] -1 / [id number] / [id number] Description:ev3 Blas 34 Liqu id Embolic Material [...] and were consensually agreed upon. Care Teams Product Safety Specialist Relationship Specialty Start Date End Date Aleja Bryson MD [address] [place] [address] [place] [phone] PCP - General Family Medicine 07/28/23 documented as of this encounter
--- OUTSIDE RECORDS SUMMARY | 2024-06-15 02:38 | External Medical Summary | Summary of Care ---
Author Name Unknown Organization [facility] Address [address] [place] [address] Phone [phone] Care Team Providers Care Assembler Deck And Hull Name Role Phone Aleja Bryson MD Primary Care Provide r Reason for Visit * Reason Onset Date Comments Advice 06/01/2024 Encounter Details Date Type Department Care Team ([facility] st Contact Info) Description 06/01/2024 Telephone Family Medicine [address] [phone] Aleja Bryson MD [address] [place] [address] [place] [id number] Advice Allergies Active Allergy Reactions Criticality Noted Date Comments Ibuprofen 04/29/2011 Diarrhea documented as of this encounter (statuses as of 06/02/2024) Medications D3 High Potency 25 MCG (1000 UT) Oral Capsule (Cholecalciferol) Indications:Kidne y disease, chronic, 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) ([facility]) One capsule every other day 90 Cap 1 1 Active Tylenol 325 MG Oral Capsule (Acetaminophen) Take by mouth 325 mg . Once daily Active Allopurinol 100 MG Oral Tablet (Zyloprim)Indicat ions:Gout TAKE TWO TABLETS BY MOUTH EVERY DAY 180 Tablet 1 4 Active Farxiga 10 MG Oral Tablet (Dapagliflozin Propanediol)Indic ations:Kidney disease, chronic, 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) ([facility]) Take 1 Tablet by mouth in the [...] encounter Miscellaneous Notes * Telephone Encounter - Narcisa Hahn CMA - 06/02/2024 1:45 PM EST I told HH yesterday on the phone ok to draw PT/INR and other labs 06/02/[address] ware. Also okto use the anticoag machine.Per dr. Ware as message says below. * Telephone Encounter - Jen Angel MD - 06/01/2024 4:45 PM EST Discussed with Narcisa at the time, Home nursing to do INRs, next was requested for tomorrow. Thanks! * Telephone Encounter - Narcisa Hahn CMA - 06/01/2024 2:51 PM EST He has a reaction between his allopurinol and warfarin. She has to report that. In the summary of the visit. It said he was to get PT/INR on or before 05/31. Patient never went to have it done yesterday. Do they need to draw it? Please advise. * Telephone Encounter - Aiyana Werner OSA - 06/01/2024 2:35 PM EST Renetta from [facility] Comm nurses calling regarding pt's PT/INR. She has some questions and would like to speak to a nurse. Pls Renetta back BHAVYA. documented in this encounter Plan of Treatment Upcoming Encounters Date Type Department Care Team (Late st Contact Info) Description 07/06/2024 12:40 PM EDT Office Visit [address] [place] [phone] Jen Angel MD [address] [place] [address] [place] [phone] 09/09/2024 1:00 PM EDT Office Visit Cardiology, [facility] [address] [place] [address] Jalil Brito MD [address] [place] [address] 10/06/2024 3:20 PM EDT Office Visit Nephrology [address] [place] [phone] ApodacaYecenia go MD [address] [place] [address] 11/03/2024 9:00 AM EDT Office Visit Family Medicine [address] [place] [phone] Aleja Bryson MD [address] [place] [address] [place] [phone] Health Maintenance Due Date Last Done Comments [...] this encounter Medical Devices Implanted Type Area Electrical Maintenance Supervisor Device Identifier Shelf Expiration Date Model / Serial / Lot Stent Main Body Apdu-81-89-Zt - [id number] [place] 1 [place] [facility] [place] Aorta [employer] 08/05/2011 TFFB-32-82- ZT / / [id number] Leg Extension Ysdd-96-94-Zt - [id number] Implanted:Qty: 1 [place] [facility] [place]: Iliac [employer] 09/05/2011 TFLE-16-90- ZT / / [id number] Leg Extension Mxyk-70-11-Zt - [id number] Implanted:Qty: 1 [place]2009 [place] [facility] [place] Iliac [employer] 09/05/2011 TFLE-16-90- ZT / / [id number] Ev3 [place] 34 Liquid Embolic Material Implanted:Qty: 9 on 04/24/2017 by Petar Stovall [place] [facility] [place]: Abdomen 06/10/2019 [id number] -[id number] / [id number] / [id number] Description:ev3 [place] 34 Liqu id Embolic Material [...] and were consensually agreed upon. Care Teams Assembler Deck And Hull Relationship Specialty Start Date End Date Aleja Bryson MD [address] [place] [address] [place] [phone] PCP - General Family Medicine 07/28/23 documented as of this encounter
--- OUTSIDE RECORDS SUMMARY | 2024-06-15 02:38 | External Medical Summary | Summary of Care ---
Author Name Unknown Organization [facility] Address [address] [place] [address] Phone [phone] Care Team Providers Care National Sales Executive Name Role Phone Aleja Bryson MD Primary Care Provide r Encounter Details Date Type Department Care Team (Late st Contact Info) Description 06/03/2024 Orders Only Family Medicine [address] [phone] Aleja Bryson MD [address] [place] [address] [place] [phone] Allergies Active Allergy Reactions Criticality Noted Date Comments Ibuprofen 04/29/2011 Diarrhea documented as of this encounter (statuses as of 06/03/2024) Medications D3 High Potency 25 MCG (1000 UT) Oral Capsule (Cholecalciferol) Indications:Kidne y disease, chronic, 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) ([facility]) One capsule every other day 90 Cap 1 1 Active Tylenol 325 MG Oral Capsule (Acetaminophen) Take by mouth 325 mg . Once daily Active Allopurinol 100 MG Oral Tablet (Zyloprim)Indicat ions:Gout TAKE TWO TABLETS BY MOUTH EVERY DAY 180 Tablet 1 4 Active Farxiga 10 MG Oral Tablet (Dapagliflozin Propanediol)Indic ations:Kidney disease, chronic, 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) ([facility]) Take 1 Tablet by mouth [...] 12:40 PM EDT Office Visit Family Medicine [address] [place] [phone] Jen Angel MD [address] [place] [address] [place] [phone] 09/09/2024 1:00 PM EDT Office Visit Cardiology, [facility] [address] [place] [address] Jalil Brito MD [address] [place] [address] 10/06/2024 3:20 PM EDT Office Visit Nephrology [address] [place] [address] Yecenia Apodaca MD [address] [facility] [address] 11/03/2024 9:00 AM EDT Office Visit Family Medicine [address] [place] [phone] Aleja Bryson MD [address] [place] [address] [place] [address] Health Maintenance Due Date Last Done Comments [...] this encounter Medical Devices Implanted Type Area Housekeeper Child Care Device Identifier Shelf Expiration Date Model / Serial / Lot Stent Main Body Knpa-30-65-Zt - [id number] Implanted:Qty: 1 on 12/04/2009 at [place] [facility] [place] N/A: Aorta [employer] 08/05/2011 TFFB-32-82- ZT / / [id number] Leg Extension Lhzk-20-06-Zt - [id number] Implanted:Qty: 1 on 12/04/2009 at [place] [facility] [place] Right: Iliac [employer] 09/05/2011 TFLE-16-90- ZT / / [id number] Leg Extension Tiut-04-63-Zt - [id number] Implanted:Qty: 1 on 12/04/2009 at [place] [facility] [place] Left: Iliac [employer] 09/05/2011 TFLE-16-90- ZT / / [id number] Ev3 [place] 34 Liquid Embolic Material Implanted:Qty: 9 on 04/24/2017 by Petar Stovall MD at RADIOLOGY [facility] [place] N/A: Abdomen 06/10/2019 [id number] -[id number] / [id number] / [id number] Description:ev3 Blas 34 Liqu id Embolic Material documented as of this encounter Procedures Procedure Name Priority Date/Time Associated Diagnosis Comments CHEMISTRY-OUTSIDE Routine 06/02/2024 CHEMISTRY-OUTSIDE Routine 06/01/2024 documented in this encounter Results * (ABNORMAL) CHEMISTRY-OUTSIDE (06/02/2024) Not all results display below - see scan for full detail OUTSIDE LAB (SEE SCANNED REPORT) Comment:SCAN INCLUDES - E.R. LABS: HGB, HCT CREATININE OUTSIDE L AB (SEE SCANNED REPORT) [...] LAB OUTSIDE LAB (SEE SCANNED REPORT) HEMOGLOBIN, [id number] LAB OUTSIDE LAB (SEE SCANNED REPORT) PHOSPHORUS-OUTSID E LAB OUTSIDE LAB (SEE SCANNED REPORT) PTH-OUTSIDE LAB OUTS LENIN LAB (SEE SCANNED REPORT) MICROALBUMIN RATIO-OUTSIDE LAB OUTSIDE LA B (SEE SCANNED REPORT) PROTEIN, UA-OUTSIDE LAB OUTSIDE LAB (SEE SCANNED REPORT) HGB 7.9(A) 13.5 - 18.0 GM/DL OUTSIDE LAB (SEE SCANNED REPORT) 06/02/2024 us History Per Patient LABORATORY Final Result OUTSIDE LAB (SEE SCANNED REPORT) * (ABNORMAL) CHEMISTRY-OUTSIDE (06/01/2024) Not all results display below - see scan for full detail OUTSIDE LAB (SEE SCANNED REPORT) Comment:SCAN INCLUDES - E.R. LABS: CBCD, TYPE AND SCREEN, CROSSMATCH SUMMARY, PT, INR, PTT, CMP, UA CREATININE 2.89(A) 0.70 - 1.30 MG/DL OUTSIDE LAB (SEE SCANNED REPORT) EGFR 21(L) >=60 ML/MIN/1.73M 2 OUTSIDE LAB (SEE SCANNED REPORT) POTASSIUM 3.9 3.5 - 5.1 MMOL/L OUTSIDE LAB (SEE SCANNED REPORT) GLUCOSE 114(A) 70 - 110 MG/DL OUTSIDE LAB (SEE SCANNED REPORT) HOURS FASTING OUTSID E LAB (SEE SCANNED REPORT) TRIGLYCERIDES-OU TSIDE LAB OUTSIDE LAB (SEE SCANNED REPORT) CHOLESTEROL-OUTS LENIN LAB OUTSIDE LAB (SEE SCANNED REPORT) HDL-OUTSIDE LAB OUTS LENIN LAB (SEE SCANNED REPORT) CHOL/HDL RATIO-OUTSIDE LAB OUTSIDE LAB (SEE SCANNED REPORT) LDL (CALCULATED)-OUT SIDE LAB OUTSIDE LAB (SEE SCANNED REPORT) LDL (DIRECT MEASURE)-OUTSIDE LAB OUTSIDE LAB (SEE SCANNED REPORT) HEMOGLOBIN, E8F-QRZCOTE LAB OUTSIDE LAB (SEE SCANNED REPORT) PHOSPHORUS-OUTSI DE LAB OUTSIDE LAB (SEE SCANNED REPORT) PTH-OUTSIDE LAB OUTS LENIN LAB (SEE SCANNED REPORT) MICROALBUMIN RATIO-OUTSIDE LAB OUTSIDE LAB (SEE SCANNED REPORT) PROTEIN, UA-OUTSIDE LAB >=1,000(A ) NEGATIVE MG/DL OUTSIDE LAB (SEE SCANNED REPORT) HGB 9.5(A) 13.5 - 18.0 GM/DL OUTSIDE LAB (SEE SCANNED REPORT) 06/01/2024 us History Per Patient LABORATORY Final Result OUTSIDE LAB (SEE SCANNED [...] and were consensually agreed upon. Care Teams National Sales Executive Relationship Specialty Start Date End Date Aleja Bryson MD [address] [place] [address] [place] [phone] PCP - General Family Medicine 07/28/23 documented as of this encounter
--- OUTSIDE RECORDS SUMMARY | 2024-06-15 02:38 | External Medical Summary | Summary of Care ---
Author Name Unknown Organization [facility] Address [address] [place] [address] Phone [phone] Care Team Providers Care Table Hand Name Role Phone Aleja Bryson MD Primary Care Provide r Reason for Visit * Reason Onset Date Comments Test Results Imaging Study 05/23/2024 Encounter Details Date Type Department Care Team (Late st Contact Info) Description 05/23/2024 Telephone Vascular Surg [facility] [address] [place] [address] Елена Choudhary PA-C [address] [place] [address] Test Results Imaging Study Allergies Active Allergy Reactions Criticality Noted Date Comments Ibuprofen 04/29/2011 Diarrhea documented as of this encounter (statuses as of 06/03/2024) Medications D3 High Potency 25 MCG (1000 UT) Oral Capsule (Cholecalciferol )Indications: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 Called Medical records, I was asked to fax a request. Request faxed to [phone] * Telephone Encounter - Елена Choudhary PA-C - 05/23/2024 3:[address] was completed. Please get imaging from [facility]. Mira says measurement on CT is consistent with our most recent duplex size * Telephone Encounter - Елена Choudhary PA-C - 05/23/2024 1:20 PM EST Mira called (EDUARDO from [place]) who is seeing patient for DHAVAL and [...] have increased residual sac/endoleak Mira's # is [phone] Can we get this non con imaging once completed for our review? documented in this encounter Plan of Treatment Upcoming Encounters Date Type Department Care Team (Late st Contact Info) Description 07/06/2024 12:40 PM EDT Office Visit Family Medicine [address] [place] [phone] Jen Angel MD [address] [place] [address] [place] [phone] 09/09/2024 1:00 PM EDT Office Visit Cardiology, [facility] [address] [place] [address] Jalil Brito MD [address] [place] [address] 10/06/2024 3:20 PM EDT Office Visit Nephrology [address] [place] [address] Yecenia Apodaca MD [address] [facility] [place] [address] 11/03/2024 9:00 AM EDT Office Visit Family Medicine [address] [place] [phone] Aleja Bryson MD [address] [place] [address] [place] [address] Health Maintenance Due Date Last Done Comments [...] this encounter Medical Devices Implanted Type Area Paving Crew Foreman Device Identifier Shelf Expiration Date Model / Serial / Lot Stent Main Body Lmna-76-76-Zt - [id number] Implanted:Qty: 1 on 12/04/2009 [place] [facility] [place]A: Aorta [employer] 08/05/2011 TFFB-32-82- ZT / / [id number] Leg Extension Fxcb-59-31-Zt - [id number] Implanted:Qty: 1 on 12/04/2009 at [place] [facility] [place] Right: Iliac [employer] 09/05/2011 TFLE-16-90- ZT / / [id number] Leg Extension Wmah-97-77-Zt - [id number] Implanted:Qty: 1 on 12/04/2009 at [place] [facility] [place] Left: Iliac [employer] 09/05/2011 TFLE-16-90- ZT / / [id number] Ev3 [place] 34 Liquid Embolic Material Implanted:Qty: 9 on 04/24/2017 by Petar Stovall MD at [place] [facility] [place] N/A: Abdomen 06/10/2019 [id number] -1 / [id number] / [id number] Description:ev3 Blas 34 Liqu id Embolic Material [...] and were consensually agreed upon. Care Teams Table Hand Relationship Specialty Start Date End Date Aleja Bryson MD [address] [place] [address] [place] [phone] PCP - General Family Medicine 07/28/23 documented as of this encounter
--- OUTSIDE RECORDS SUMMARY | 2024-06-15 02:38 | External Medical Summary | Summary of Care ---
Author Name Unknown Organization [facility] Address [address] [place] [address] Phone [phone] Care Team Providers Care Forklift Operator Name Role Phone Aleja Bryson MD Primary Care Provide r Encounter Details Date Type Department Care Team (Late st Contact Info) Description 06/01/2024 Result Scan Unspecified Department <No scans attached> [...] 12:40 PM EDT Office Visit Family Medicine [address] [place] [phone] Jen Angel MD [address] [place] [address] [place] [phone] 09/09/2024 1:00 PM EDT Office Visit Cardiology, [facility] [address] [place] [address] Jalil Brito MD [address] [place] [address] 10/06/2024 3:20 PM EDT Office Visit Nephrology [address] [place] [address] Yecenia Apodaca MD [address] [place] [address] 11/03/2024 9:00 AM EDT Office Visit Family Medicine [address] [place] [phone] Aleja Bryson MD [address] [place] [address] [place] [address] Health Maintenance Due Date Last Done Comments [...] this encounter Medical Devices Implanted Type Area Sugar Drier Device Identifier Shelf Expiration Date Model / Serial / Lot Stent Main Body Tiip-97-54-Zt - [id number] Implanted:Qty: 1 [place] 12/04/2009 [place] [facility] [place]A: Aorta [employer] 08/05/2011 TFFB-32-82- ZT / / [id number] Leg Extension Mhqj-63-35-Zt - [id number] Implanted:Qty: 1 on 12/04/2009 at [place] [facility] [place] Right: Iliac [employer] 09/05/2011 TFLE-16-90- ZT / / [id number] Leg Extension Chri-72-09-Zt - [id number] Implanted:Qty: 1 on 12/04/2009 at [place] [facility] [place] Left: Iliac [employer] 09/05/2011 TFLE-16-90- ZT / / [id number] Ev3 [place] 34 Liquid Embolic Material Implanted:Qty: 9 on 04/24/2017 by Petar Stovall MD at [place] [facility] [place] N/A: Abdomen 06/10/2019 [id number] -1 / [id number] / [id number] Description:ev3 [place] 34 Liqu id Embolic Material documented as of this encounter Procedures Procedure Name Priority Date/Time Associated Diagnosis Comments EKG SCANNED RESULT 06/01/2024 documented in this encounter Results * EKG SCANNED RESULT (06/01/2024) 06/01/2024 us No Physician Data Unknown EKG Final Result documented in this encounter Advance [...] and were consensually agreed upon. Care Teams Forklift Operator Relationship Specialty Start Date End Date Aleja Bryson MD [address] [place] [address] [place] [phone] PCP - General Family Medicine 07/28/23 documented as of this encounter
--- OUTSIDE RECORDS SUMMARY | 2024-06-15 02:39 | External Medical Summary | Summary of Care ---
Author Name Unknown Organization [facility] Address [address] [place] [address] Phone [phone] Care Team Providers Care Sales Process Manager Name Role Phone Aleja Bryson MD Primary Care Provide r Reason for Visit * Reason Comments Dosage Adjustment Via Phone (anticoag Cl inic) * Evaluate & Treat - Unlimited Visits (Within 3 days (urgent)) - Authorized Specialty Diagnoses / Procedures Referred By Contac t Referred To Contact ANTI-COAG CLINIC / Pharmacy Diagnoses History of pulmonary embolism Jen Angel MD [address] [place] [address] [place] [phone] Phone: tel: fax: Referral ID Status Reason Start Date Expiration Date Visits Requested Visits Authorized [id number] Authorized Specialty Services Required 05/31/2024 11/27/2024 99 99 Encounter Details Date Type Department Care Team (Latest Contact Info) Description 05/31/2024 5:10 PM [facility] Anticoagulation Pharmacy, [address] [place] [address] [place] [phone] History of pulmonary embolism* Allergies Active Allergy Reactions Criticality Noted Date Comments Ibuprofen 04/29/2011 Diarrhea documented as of this encounter (statuses as of 06/01/2024) Medications D3 High Potency 25 MCG (1000 [...] mg under the skin in the morning. 7 mL 5 Active documented as of this encounter (statuses as of 06/01/2024) Active Problems Problem Noted Date Diagnosed Date [...] as of this encounter (statuses as of 06/01/2024) Resolved Problems Problem Noted Date Diagnosed Date [...] as of this encounter (statuses as of 06/01/2024) Immunizations Name Administration Dates Next Due COVID-19 [...] documented in this encounter Progress Notes * Jaimie Calvo RPh - 05/31/2024 3:46 PM EST Comments Anticoagulation referral for management of: Warfarin Indication and INR goal for Warfarin Management: VTE: Treatment of Pulmonary Embolism, INR Goal: 2.0 - 3.0 Relevant History: N/A Enoxaparin bridging required? Yes - currently on Patient Phone Numbers Patient recently admitted to [facility] and was diagnosed with new PE. Discharged on Lovenox bridging to warfarin. Uncertain of warfarin dosage or plans for INR monitoring (labs ordered today but weren't drawn). Called patient, left message asking for call back to discuss. Follow-up tomorrow. Jaimie Calvo RPh, PharmD, BCACP Clinical Pharmacist - Yarn Dry Room Worker Medication Therapy [facility] 05/31/2024, 3:51 PM documented in this encounter Plan of Treatment Upcoming Encounters Date Type Department Care Team (Late st Contact Info) Description 06/01/2024 5:10 PM EST Anticoagulation Pharmacy, [address] [place] [address] [place] [address] 07/06/2024 12:40 PM EDT Office Visit Family Medicine [address] [place] [phone] Jen Angel MD [address] [place] [address] [place] [phone] 09/09/2024 1:00 PM EDT Office Visit Cardiology, [facility] [address] [place] [address] Jalil Brito MD [address] [place] [address] 10/06/2024 3:20 PM EDT Office Visit Nephrology [address] [place] [address] ApodacaYecenia go MD [address] [place] [address] 11/03/2024 9:00 AM EDT Office Visit Family Medicine [address] [place] [phone] Aleja Bryson MD [address] [place] [address] [place] [address] Scheduled Referrals Name Type Priority Associated Diagnoses Orde r Schedule ANTI-COAGULATION REFERRAL OP Referral Within 3 days (urgent) History of pulmonary embolism Ordered: 05/31/2024 Health Maintenance Due Date Last Done Comments Adult Wellness Visit 09/11/2022 09/11/2021, 09/07/19 21 Depression Screening 09/11/2022 09/11/2021 Albumin/Creatinine Ratio 07/22/202407/22/2 024, 07/09/2022, 01/28/2022, Additional history exists COVID-19 [...] this encounter Medical Devices Implanted Type Area Primary Special Educator Device Identifier Shelf Expiration Date Model / Serial / Lot Stent Main Body Zwhx-25-14-Zt - [id number] Implanted:Qty: 1 on 12/04/2009 [place] [facility] [place]A: Aorta [employer] 08/05/2011 TFFB-32-82- ZT / / [id number] Leg Extension Mpgl-64-38-Zt - [id number] Implanted:Qty: 1 on 12/04/2009 at [place] [facility] [place] Right: Iliac [employer] 09/05/2011 TFLE-16-90- ZT / / [id number] Leg Extension Qyet-15-80-Zt - [id number] Implanted:Qty: 1 on 12/04/2009 at [place] [facility] [place] Left: Iliac [employer] 09/05/2011 TFLE-16-90- ZT / / [id number] Ev3 [place] 34 Liquid Embolic Material Implanted:Qty: 9 on 04/24/2017 by Petar Stovall MD at RADIOLOGY [facility] [place] N/A: Abdomen 06/10/2019 [id number] -1 / [id number] / [id number] Description:ev3 [place] 34 Liqu id Embolic Material documented as [...] and were consensually agreed upon. Care Teams Sales Process Manager Relationship Specialty Start Date End Date Aleja Bryson MD [address] [place] [address] [place] [phone] PCP - General Family Medicine 07/28/23 documented as of this encounter
--- OUTSIDE RECORDS SUMMARY | 2024-06-15 02:39 | External Medical Summary | Summary of Care ---
Author Name Unknown Organization [facility] Address [address] [place] [address] Phone [phone] Care Team Providers Care Conveyor Attendant Name Role Phone Aleja Bryson MD Primary Care Provide r Reason for Visit * Reason Comments Dosage Adjustment Via Phone (anticoag Cl inic) * Evaluate & Treat - Unlimited Visits (Within 3 days (urgent)) - Authorized Specialty Diagnoses / Procedures Referred By Contac t Referred To Contact ANTI-COAG CLINIC / Pharmacy Diagnoses History of pulmonary embolism Jen Angel MD [address] [place] [address] [place] [address] Phone: tel: fax: Referral ID Status Reason Start Date Expiration Date Visits Requested Visits Authorized [id number] Authorized Specialty Services Required 05/31/2024 11/27/2024 99 99 Encounter Details Date Type Department Care Team (Latest Contact Info) Description 05/31/2024 5:[address] [facility] Anticoagulation Pharmacy, [address] [place] [address] [place] [address] History of pulmonary embolism* Allergies Active Allergy [...] Patient Phone Numbers Patient recently admitted to [facility] and was diagnosed with new PE. Discharged on Lovenox bridging to warfarin. Uncertain of warfarin dosage or plans for INR monitoring (labs ordered today but weren't drawn). Called patient, left message asking for call back to discuss. Follow-up tomorrow. Jaimie Calvo RPh, PharmD, BCACP Clinical Pharmacist - Furniture Mechanic [facility] 05/31/2024, 3:51 PM documented in this encounter Plan of Treatment Upcoming Encounters Date Type Department Care Team (Late st Contact Info) Description 06/01/2024 5:10 PM EST Anticoagulation Pharmacy, [address] [place] [address] [place] [address] 07/06/2024 12:40 PM EDT Office Visit Family Medicine [address] [place] [phone] Jen Angel MD [address] [place] [address] [place] [address] 09/09/2024 1:00 PM EDT Office Visit Cardiology, [facility] [address] [place] [address] Jalil Brito MD [address] [place] [address] 10/06/2024 3:20 PM EDT Office Visit Nephrology [address] [place] [address] ApodacaYecenia go MD [address] [place] [address] 11/03/2024 9:00 AM EDT Office Visit Family Medicine [address] [place] [phone] Aleja Bryson MD [address] [place] [address] [place] [address] Scheduled Referrals Name Type Priority Associated Diagnoses [...] this encounter Medical Devices Implanted Type Area Manager Port Device Identifier Shelf Expiration Date Model / Serial / Lot Stent Main Body Kcry-39-63-Zt - [id number] Implanted:Qty: 1 on 12/04/2009 at [place] [facility] [place] N/A: Aorta [employer] 08/05/2011 TFFB-32-82- ZT / / [id number] Leg Extension Cggy-61-02-Zt - [id number] Implanted:Qty: 1 on 12/04/2009 at OR [facility] [place] Right: Iliac [employer] 09/05/2011 TFLE-16-90- ZT / / [id number] Leg Extension Byvu-39-78-Zt - [id number] Implanted:Qty: 1 on 12/04/2009 at OR [facility] [place] Left: Iliac [employer] 09/05/2011 TFLE-16-90- ZT / / [id number] Ev3 [place] 34 Liquid Embolic Material Implanted:Qty: 9 on 04/24/2017 by Petar Stovall MD at RADIOLOGY [facility] [place] N/A: Abdomen 06/10/2019 [id number] -1 / [id number] / [id number] Description:ev3 [place] 34 Liqu id Embolic Material documented as [...] and were consensually agreed upon. Care Teams Conveyor Attendant Relationship Specialty Start Date End Date Aleja Bryson MD [address] [place] [address] [place] [address] PCP - General Family Medicine 07/28/23 documented as of this encounter
--- OUTSIDE RECORDS SUMMARY | 2024-06-15 02:39 | External Medical Summary | Summary of Care ---
Author Name Unknown Organization [facility] Address [address] [place] [address] Phone [phone] Care Team Providers Care Landscape Architect Name Role Phone Aleja Bryson MD Primary Care Provide r Reason for Visit * Reason Onset Date Comments Medication Problem 06/01/2024 Lovenox Encounter Details Date Type Department Care Team (Late st Contact Info) Description 06/01/2024 Telephone Family Medicine [address] [phone] Jonny Angel MD [address] [place] [address] [place] [phone] Medication Problem (Lovenox ) Allergies Active Allergy Reactions Criticality Noted Date Comments Ibuprofen 04/29/2011 Diarrhea documented as of this encounter (statuses as of 06/02/2024) Medications D3 High Potency 25 MCG (1000 UT) Oral Capsule (Cholecalciferol) Indications:Kidne y disease, chronic, 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) ([facility]) One capsule every other day 90 [...] the morning. 4.2 mL 1 5 Active Enoxaparin Sodium 60 MG/0.6ML Injection Solution Prefilled Syringe (Lovenox) Inject 60 mg under the skin in the morning. 7 mL 5 06/01/19 25 Discontinu ed(Refill) documented as of this encounter (statuses as [...] Author No 04/24/2017 6:00 PM EST Ivonne Adams, RN documented as of this encounter Mental Status * Because of a physical, mental, or emotional condition, do you have serious difficulty concentrating, remembering, or making decisions? (5 years old or older) Answer Entry Date Author No 04/24/2017 6:00 PM EST Ivonne Adams RN documented in this encounter Miscellaneous Notes * Addendum Note - Jonny Angel MD - 06/01/2024 4:40 PM EST Addended by: JONNY ANGEL on: 06/01/2024 04:40 PM Modules accepted: Orders * Telephone Encounter - Jonny Angel MD - 06/01/2024 4:40 PM EST Resent * Telephone Encounter - Zoey Arteaga OSA - 06/01/2024 3:16 PM EST Cirilo's daughter called in, when she went to the pharmacy to picker box operator the Lovenox, she said they could not fill it because the script was wrong?? documented in this encounter Plan of Treatment Upcoming Encounters Date Type Department Care Team (Late st Contact Info) Description 06/02/2024 5:40 PM EST Anticoagulation Pharmacy, [address] [place] [address] [place] [address] 07/06/2024 12:40 PM EDT Office Visit Family Medicine [address] [place] [phone] Jonny Angel MD [address] [place] [address] [place] [address] 09/09/2024 1:00 PM EDT Office Visit Cardiology, [facility] [address] [place] [address] Jalil Brito MD [address] [place] [address] 10/06/2024 3:20 PM EDT Office Visit Nephrology [address] [place] [address] ApodacaYecenia go MD [address] [facility] [place] [address] 11/03/2024 9:00 AM EDT Office Visit Family Medicine [address] [place] [phone] Aleja Bryson MD [address] [place] [address] [place] [address] Health Maintenance Due Date Last Done Comments [...] 01/05/2023, Additional history exists Phosphate 05/20/2025 05/20/2024, 1005/2022, 01/08/2022, Additional history exists DTap/Tdap Vaccines (2 [...] this encounter Medical Devices Implanted Type Area Candy Starch Mold Printer Device Identifier Shelf Expiration Date Model / Serial / Lot Stent Main Body Xqeq-41-12-Zt - [id number] Implanted:Qty: 1 on 12/04/2009 at [place] [facility] [place] N/A: Aorta [employer] 08/05/2011 TFFB-32-82- ZT / / [id number] Leg Extension Vfwx-81-44-Zt - [id number] Implanted:Qty: 1 on 12/04/2009 at OR [facility] Right: Iliac [employer] 09/05/2011 TFLE-16-90- ZT / / [id number] Leg Extension Kynu-08-29-Zt - [id number] Implanted:Qty: 1 on 12/04/2009 at OR [facility] Left: Iliac [employer] 09/05/2011 TFLE-16-90- ZT / / [id number] Ev3 [place] 34 Liquid Embolic Material Implanted:Qty: 9 on 04/24/2017 by Petar Stovall MD at RADIOLOGY [facility] N/A: Abdomen 06/10/2019 [id number] -1 / [id number] / [id number] Description:ev3 [place] 34 Liqu id Embolic Material [...] and were consensually agreed upon. Care Teams Landscape Architect Relationship Specialty Start Date End Date Aleja Bryson MD [address] [place] [address] [place] [address] PCP - General Family Medicine 07/28/23 documented as of this encounter
--- OUTSIDE RECORDS SUMMARY | 2024-06-15 02:39 | External Medical Summary | Summary of Care ---
Author Name Unknown Organization [facility] Address [address] [place] [address] Phone [phone] Care Team Providers Care Concierge Name Role Phone Aleja Bryson MD Primary Care Provide r Reason for Visit * Reason Onset Date Comments Advice 05/27/2024 Encounter Details Date Type Department Care Team ([facility] st Contact Info) Description 05/27/2024 Telephone NephrologyYordan Topsham 200 [facility] [place] [address] Yecenia Apodaca MD [address] [place] [address] Advice Allergies Active Allergy Reactions Criticality Noted Date Comments Ibuprofen 04/29/2011 Diarrhea documented as of this encounter (statuses as of 05/31/2024) Medications D3 High Potency 25 MCG (1000 UT) Oral Capsule (Cholecalciferol) Indications:Kidne y disease, chronic, 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) ([facility]) One capsule every other day 90 Cap 1 1 Active Tylenol 325 MG Oral Capsule (Acetaminophen) Take by mouth 325 mg . Once daily Active Allopurinol 100 MG Oral Tablet (Zyloprim)Indicat ions:Gout TAKE TWO TABLETS BY MOUTH EVERY DAY 180 Tablet 1 4 Active Farxiga 10 MG Oral Tablet (Dapagliflozin Propanediol)Indic ations:Kidney disease, chronic, 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) ([facility]) Take 1 Tablet by mouth in the [...] as of this encounter (statuses as of 05/31/2024) Active Problems Problem Noted Date Diagnosed Date [...] as of this encounter (statuses as of 05/31/2024) Resolved Problems Problem Noted Date Diagnosed Date [...] as of this encounter (statuses as of 05/31/2024) Immunizations Name Administration Dates Next Due COVID-19 [...] encounter Miscellaneous Notes * Telephone Encounter - Jen Angel MD - 05/31/2024 2:31 PM EST Discussed today, and entered antico clinic referral * Telephone Encounter - Sandhya Brooks CMA - 05/31/2024 9:49 AM EST Pt being seen today by Dr Hernandez will address then. FYI Dr Hernandez * Telephone Encounter - Lavern Hancock MD - 05/30/2024 12:38 PM EST Covering for Dr Ricks. See recommendations for Coumadin (over DOAC) for PE treatment. I believe he is hospitalized - but will need to be set up with [facility]Coumadin clinic when discharged. Please find out if this needs to be started outpatient now? Or is he still hospitalized. * Telephone Encounter - Yecenia Apodaca MD - 05/27/2024 3:20 PM EST Advised against DOAC given labiliity of renal function and instead coumadin; primary service considering bridge w/ lovenox > advised provider to d/w pharmacy on that. Likely d/c home w/ daughter and HHN who can get coag testing to start. Not sure whether he would qualify for case mgt or for mobile lab. Forwarding to PCP * Telephone Encounter - Deepa Small RN - 05/27/2024 1:52 PM EST TE with Mira at [facility] where pt is currently admitted with a PE. She was calling to get advice on best anticoagulant to use due to CKD 4. Provider sent TT to return her call. * Telephone Encounter - Hannah Laurent OSA - 05/27/2024 12:28 PM EST Mira (nurse practitioner) at [phone] called on 05/27/24 to speak with office regarding this patient. Needs to know patient's baseline Creatinine. He is elevated at this time and is in the hospital at [facility]. She needs to start him on a blood thinner but with his Creatinine clearance today at18 she needs to know the last results. Attempted warm transfer to [facility] without answer. Please assist as soon as possible. documented in this encounter Plan of Treatment Upcoming Encounters Date Type Department Care Team (Late st Contact Info) Description 06/01/2024 5:10 PM EST Anticoagulation Pharmacy, [address] [place] [address] [place] [address] 07/06/2024 12:40 PM EDT Office Visit Family Medicine [address] [place] [address] Jen Angel MD [address] [place] [address] [place] [address] 09/09/2024 1:00 PM EDT Office Visit Cardiology, [facility] 132 [facility] [place] [address] Jalil Brito MD [address] [facility] [place] [address] 10/06/2024 3:20 PM EDT Office Visit Nephrology [address] [place] [address] Yecenia Apodaca MD [address] [place] [address] [place] [address] 11/03/2024 9:00 AM EDT Office Visit Family Medicine [address] [place] [address] Aleja Bryson MD [address] [place] [address] [place] [address] Health Maintenance Due Date Last Done Comments [...] this encounter Medical Devices Implanted Type Area Interior Wirer Device Identifier Shelf Expiration Date Model / Serial / Lot Stent Main Body Bfnv-27-74-Zt - [id number] Implanted:Qty: 1 on 12/04/2009 [place] [facility] [place]/A: Aorta [employer] 08/05/2011 TFFB-32-82- ZT / / [id number] Leg Extension Pvfm-39-40-Zt - [id number] Implanted:Qty: 1 on 12/04/2009 at [place] [facility] [place] Right: Iliac [employer] 09/05/2011 TFLE--90- ZT / / [id number] Leg Extension Epwt-32-61-Zt - [id number] Implanted:Qty: 1 on 12/04/2009 at [place] [facility] [place] Left: Iliac [employer] 09/05/2011 TFLE-16-90- ZT / / [id number] Ev3 [place] 34 Liquid Embolic Material Implanted:Qty: 9 on 04/24/2017 by Petar Stovall MD at [place] [facility] [place] N/A: Abdomen 06/10/2019 [id number] -1 / [id number] / [id number] Description:ev3 [place] 34 Liqu id Embolic Material documented as [...] and were consensually agreed upon. Care Teams Concierge Relationship Specialty Start Date End Date Aleja Bryson MD [address] [place] [address] [place] [address] PCP - General Family Medicine 07/28/23 documented as of this encounter
--- OUTSIDE RECORDS SUMMARY | 2024-06-15 02:39 | External Medical Summary | Summary of Care ---
Author Name Unknown Organization [facility] Address [address] [place] [facility] [place] [address] Phone [phone] Care Team Providers Care Clinical Informatics Educator Name Role Phone Aleja Bryson MD Primary Care Provide r Encounter Details Date Type Department Care Team (Late st Contact Info) Description 05/30/2024 Result Scan Unspecified Department Aleja Bryson MD [address] [place] [address] [place] [address] <No scans attached> Allergies Active Allergy Reactions [...] mouth 325 mg . 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, stage IV (HCC) TAKE ONE TABLET BY MOUTH AT BEDTIME 90 Tablet 1 4 Active Allopurinol 100 MG Oral Tablet (Zyloprim)Indicat [...] AT BEDTIME 90 Tablet 1 4 Active Lisinopril 10 MG Oral Tablet (Prinivil)Indicat ions:Benign hypertension with chronic kidney disease, stage IV (HCC) TAKE ONE TABLET BY MOUTH EVERY DAY 90 Tablet 1 4 Active Furosemide 20 MG Oral Tablet (Lasix) TAKE ONE TABLET IN THE MORNING 90 Tablet 1 4 Active documented as of this encounter (statuses as of 05/31/2024) Active Problems Problem Noted Date Diagnosed Date Acute renal failure with acu te renal [...] Care Team (Late st Contact Info) Description 05/31/2024 2:00 PM EST Office Visit Family Medicine [address] [place] [phone] Jen Angel MD [address] [place] [address] [place] [phone] 09/09/2024 1:00 PM EDT Office Visit Cardiology, [facility] [address] [place] [address] Jalil Brito MD [address] [place] [address] 10/06/2024 3:20 PM EDT Office Visit Nephrology [address] [place] [address] Yecenia Apodaca MD [facility] [place] [place] [address] 11/03/2024 9:00 AM EDT Office Visit Family Medicine [address] [place] [phone] Aleja Bryson MD [address] [place] [address] [place] [address] Health Maintenance Due Date Last Done Comments Adult Wellness Visit 09/11/2022 09/11/2021, 09/07/19 21 Depression Screening 09/11/2022 09/11/2021 Albumin/Creatinine Ratio 07/22/20242 024, 07/09/2022, 01/28/2022, Additional history exists COVID-19 [...] this encounter Medical Devices Implanted Type Area Bat Carrier Device Identifier Shelf Expiration Date Model / Serial / Lot Stent Main Body Vwzy-68-94-Zt - [id number] Implanted:Qty: 1 on 12/04/2009 [place] [facility] [place]A: Aorta [employer] 08/05/2011 TFFB-32-82- ZT / / [id number] Leg Extension Izbq-72-47-Zt - [id number] Implanted:Qty: 1 on 12/04/2009 [place] [facility] [place] Right: Iliac [employer] 09/05/2011 TFLE-16-90- ZT / / [id number] Leg Extension Tkfw-31-53-Zt - [id number] Implanted:Qty: 1 on 12/04/2009 [place] [facility] [place] Left: Iliac [employer] 09/05/2011 TFLE-16-90- ZT / / [id number] Ev3 [place] 34 Liquid Embolic Material Implanted:Qty: 9 on 04/24/2017 by Petar Stovall MD at [place] [facility] [place]/A: Abdomen 06/10/2019 [id number] -1 / [id number] / [id number] Description:ev3 [place] 34 Liqu id Embolic Material documented as of this encounter Procedures Procedure Name Priority Date/Time Associated Diagnosis Comments OUTSIDE LAB RESULTS 05/30/2024 documented in this encounter Results * OUTSIDE LAB RESULTS (05/30/2024) 05/30/2024 Aleja Bryson MD LABORATORY Final Result documented in this encounter [...] and were consensually agreed upon. Care Teams Clinical Informatics Educator Relationship Specialty Start Date End Date Aleja Bryson MD [address] [place] [address] [place] [phone] PCP - General Family Medicine 07/28/23 documented as of this encounter
--- OUTSIDE RECORDS SUMMARY | 2024-06-15 02:39 | External Medical Summary | Summary of Care ---
Author Name Unknown Organization [facility] Address [address] [place] [address] Phone [phone] Care Team Providers Care Endoscopy Technician Name Role Phone Aleja Bryson MD Primary Care Provide r Reason for Visit * Reason Comments Dosage Adjustment Via Phone (anticoag Cl inic) Encounter Details Date Type Department Care Team (Latest Contact Info) Description 06/01/2024 5:10 PM EST Anticoagulation Pharmacy, [address] [place] [address] [place] [address] History of pulmonary embolism* Allergies Active Allergy Reactions Criticality Noted Date Comments Ibuprofen 04/29/2011 Diarrhea documented as of this encounter (statuses as of 06/01/2024) Medications D3 High Potency 25 MCG (1000 UT) Oral Capsule (Cholecalciferol) Indications:Kidne y disease, chronic, 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) ([facility]) One capsule every other day 90 Cap 1 1 Active Tylenol 325 MG Oral Capsule (Acetaminophen) Take by mouth 325 mg . Once daily Active Allopurinol 100 MG Oral Tablet (Zyloprim)Indicat ions:Gout TAKE TWO TABLETS BY MOUTH EVERY DAY 180 Tablet 1 4 Active Farxiga 10 MG Oral Tablet (Dapagliflozin Propanediol)Indic ations:Kidney disease, chronic, 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) ([facility]) Take 1 Tablet by mouth in [...] this encounter Progress Notes * Jaimie Calvo [facility] - 06/01/2024 7:33 AM EST Patient referred to [facility] yesterday for warfarin management in the setting of new PE (admitted 05/22-05/28). Review of primary care note from yesterday indicates that the patient had an INR of 1.29 on 05/30, and had been taking warfarin 2.5mg daily + Lovenox 60mg daily (Serum creatinine: 3.5 mg/dL (H) 05/20/24 1433 Estimated creatinine clearance: 13.7 mL/min (A). Patient is active with home health (uncertain agency). Per provider note yesterday, patient was instructed to take warfarin 5mg on 05/31 and 06/01 and have INR checked on 06/02. A message was left yesterday for the patient- need to verify agency. Will follow-up with results when received. Jaimie Calvo RPh, PharmD, BCACP Clinical Pharmacist - Transplant Nurse Practitioner [facility] 06/01/2024, 7:40 AM documented in this encounter Plan of Treatment Upcoming Encounters Date Type Department Care Team (Late st Contact Info) Description 06/02/2024 5:40 PM EST Anticoagulation Pharmacy, [address] [place] [address] [place] [address] 07/06/2024 12:40 PM EDT Office Visit Family Medicine [address] [place] [phone] Jen Angel MD [address] [place] [address] [place] [phone] 09/09/2024 1:00 PM EDT Office Visit Cardiology, [facility] [address] [place] [address] Jalil Brito MD 132 [place] [address] 10/06/2024 3:20 PM EDT Office Visit Nephrology [address] [place] [address] Yecenia Apodaca MD [facility] [place] [address] 11/03/2024 9:00 AM EDT Office Visit Family Medicine [address] [place] [phone] Aleja Bryson MD [address] [place] [address] [place] [address] Health Maintenance Due Date Last Done Comments [...] this encounter Medical Devices Implanted Type Area Dredge Operator Supervisor Device Identifier Shelf Expiration Date Model / Serial / Lot Stent Main Body Oack-80-98-Zt - [id number] Implanted:Qty: 1 on 12/04/2009 at [place] [facility] [place]/A: Aorta [employer] 08/05/2011 TFFB-32-82- ZT / / [id number] Leg Extension Hplf-95-21-Zt - [id number] Implanted:Qty: 1 on 12/04/2009 at [place] [facility] [place] Right: Iliac [employer] 09/05/2011 TFLE-16-90- ZT / / [id number] Leg Extension Mrfl-88-09-Zt - [id number] Implanted:Qty: 1 on 12/04/2009 at [place] [facility] [place] Left: Iliac [employer] 09/05/2011 TFLE-16-90- ZT / / [id number] Ev3 [place] 34 Liquid Embolic Material Implanted:Qty: 9 on 04/24/2017 by Petar Stovall MD at RADIOLOGY [facility] N/A: Abdomen 06/10/2019 [id number] -1 / [id number] / [id number] Description:ev3 [place] 34 Liqu id Embolic Material [...] and were consensually agreed upon. Care Teams Endoscopy Technician Relationship Specialty Start Date End Date Aleja Bryson MD [address] [place] [address] [place] [phone] PCP - General Family Medicine 07/28/23 documented as of this encounter
--- OUTSIDE RECORDS SUMMARY | 2024-06-15 02:39 | External Medical Summary | Summary of Care ---
Author Name Unknown Organization [facility] Address [address] [place] [address] Phone [phone] Care Team Providers Care Petrology Teacher Name Role Phone Aleja Bryson MD Primary Care Provide r Reason for Visit * Reason Onset Date Comments Appointment 05/26/2024 1 week ret Encounter Details Date Type Department Care Team (Late st Contact Info) Description 05/26/2024 Telephone Family Medicine [address] [address] Jen Angel MD [address] [place] [address] [place] [address] Appointment (1 week ret ) Allergies Active Allergy Reactions Criticality Noted Date Comments Ibuprofen 04/29/2011 Diarrhea documented as of this encounter (statuses as of 05/26/2024) Medications D3 High Potency 25 MCG (1000 [...] as of this encounter (statuses as of 05/26/2024) Active Problems Problem Noted Date Diagnosed Date [...] as of this encounter (statuses as of 05/26/2024) Resolved Problems Problem Noted Date Diagnosed Date [...] as of this encounter (statuses as of 05/26/2024) Immunizations Name Administration Dates Next Due COVID-19 [...] encounter Miscellaneous Notes * Telephone Encounter - Zoey Arteaga OSA - 05/26/2024 9:57 AM EST Cirilo's family called me back, she said he is in the [facility] right now. * Telephone Encounter - Zoey Arteaga OSA - 05/26/2024 9:53 AM EST I left message on sarah's VM to call me (RE: He did not checkout when he was here 05/20, he needsto return: Return in about 1 week (around 05/27/2024) for Return with Physician. documented in this encounter Plan of Treatment Upcoming Encounters Date Type Department Care Team (Late st Contact Info) Description 09/09/2024 1:00 PM EDT Office Visit Cardiology, [facility] [address] [facility] [place] [address] Jalil Brito MD 132 [facility] [place] [address] 10/06/2024 3:20 PM EDT Office Visit Nephrology [address] [place] [address] Yecenia Apodaca MD 200 [facility] [address] 11/03/2024 9:00 AM EDT Office Visit Family Medicine [address] [place] [address] Aleja Bryosn MD [address] [place] [address] [place] [address] Health Maintenance Due Date Last Done Comments [...] this encounter Medical Devices Implanted Type Area Spacer Type Bar And Segment Device Identifier Shelf Expiration Date Model / Serial / Lot Stent Main Body Pmnq-66-11-Zt - [id number] Implanted:Qty: 1 on 12/04/2009 at [place] [facility] [place]/A: Aorta [employer] 08/05/2011 TFFB-32-82- ZT / / [id number] Leg Extension Srue-55-17-Zt - [id number] Implanted:Qty: 1 on 12/04/2009 at [facility] Right: Iliac [employer] 09/05/2011 TFLE-16-90- ZT / / [id number] Leg Extension Bxui-84-77-Zt - [id number] Implanted:Qty: 1 on 12/04/2009 at [place] [facility] Left: Iliac [employer] 09/05/2011 TFLE-16-90- ZT / / [id number] Ev3 [place] 34 Liquid Embolic Material Implanted:Qty: 9 on 04/24/2017 by Petar Stovall MD at RADIOLOGY [facility] [place] N/A: Abdomen 06/10/2019 [id number] -[id number] / [id number] / [id number] Description:ev3 [place] 34 Liqu id Embolic Material [...] and were consensually agreed upon. Care Teams Petrology Teacher Relationship Specialty Start Date End Date Aleja Bryson MD [address] [place] [address] [place] [phone] PCP - General Family Medicine 07/28/23 documented as of this encounter
--- OUTSIDE RECORDS SUMMARY | 2024-06-15 02:39 | External Medical Summary | Summary of Care ---
Author Name Unknown Organization [facility] Address [address] [place] [address] Phone [phone] Care Team Providers Care Dental Hygiene Administrative Assistant Name Role Phone Aleja Bryson MD Primary Care Provide r Reason for Visit * Reason Onset Date Comments Medication Problem 06/01/2024 Lovenox Encounter Details Date Type Department Care Team (Late st Contact Info) Description 06/01/2024 Telephone Family Medicine [address] [address] Jonny Angel MD [address] [place] [address] [place] [address] Medication Problem (Lovenox ) Allergies Active Allergy Reactions Criticality Noted Date Comments Ibuprofen 04/29/2011 Diarrhea documented as of this encounter (statuses as of 06/02/2024) Medications D3 High Potency 25 MCG (1000 UT) Oral Capsule (Cholecalciferol) Indications:Kidne y disease, chronic, 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) ([facility]) One capsule every other day 90 Cap [...] when she went to the pharmacy to machine pecan picker the Lovenox, she said they could not fill it because the script was wrong?? documented in this encounter Plan of Treatment Upcoming Encounters Date Type Department Care Team (Late st Contact Info) Description 06/02/2024 5:40 PM EST Anticoagulation Pharmacy, [address] [place] [address] [place] [address] 07/06/2024 12:40 PM EDT Office Visit Family Medicine [address] [place] [phone] Jonny Angel MD [address] [place] [place] [address] [place] [phone] 09/09/2024 1:00 PM EDT Office Visit Cardiology, [facility] [address] [place] [address] Jalil Brito MD [address] [place] [address] 10/06/2024 3:20 PM EDT Office Visit Nephrology [address] [place] [address] ApodacaYecenia go MD 200 [facility] [place] [address] 11/03/2024 9:00 AM EDT Office Visit Family Medicine [address] [place] [phone] Aleja Bryson MD [address] [place] [place] [address] [place] [address] Health Maintenance Due Date Last Done Comments [...] this encounter Medical Devices Implanted Type Area Fish Hatchery Worker Device Identifier Shelf Expiration Date Model / Serial / Lot Stent Main Body Stug-56-52-Zt - [id number] Implanted:Qty: 1 on 12/04/2009 at [place] [facility] N/A: Aorta [employer] 08/05/2011 TFFB-32-82- ZT / / [id number] Leg Extension Ozey-84-69-Zt - [id number] Implanted:Qty: 1 on 12/04/2009 at OR [facility] Right: Iliac [employer] 09/05/2011 TFLE-16-90- ZT / / [id number] Leg Extension Ohyy-46-70-Zt - [id number] Implanted:Qty: 1 on 12/04/2009 at OR [facility] Left: Iliac [employer] 09/05/2011 TFLE-16-90- ZT / / [id number] Ev3 [place] 34 Liquid Embolic Material Implanted:Qty: 9 on 04/24/2017 by Petar Stovall MD at RADIOLOGY [facility] N/A: Abdomen 06/10/2019 [id number] / [id number] / [id number] Description:ev3 Blas 34 Liqu id Embolic Material [...] and were consensually agreed upon. Care Teams Dental Hygiene Administrative Assistant Relationship Specialty Start Date End Date Aleja Bryson MD [address] [place] [address] [place] [phone] PCP - General Family Medicine 07/28/23 documented as of this encounter
--- OUTSIDE RECORDS SUMMARY | 2024-06-15 02:39 | External Medical Summary | Summary of Care ---
Author Name Unknown Organization [facility] Address [address] [place] [address] Phone [phone] Care Team Providers Care Milking Machine Mechanic Name Role Phone Aleja Bryson MD Primary Care Provide r Reason for Referral * Evaluate & Treat - Unlimited Visits (Within 3 days (urgent)) - Authorized Specialty Diagnoses / Procedures Referred By Queenie corona Referred To Contact ANTI-COAG CLINIC / Pharmacy Diagnoses History of pulmonary embolism Jen Angel MD [address] [place] [address] [place] [phone] Phone: tel: fax: Referral ID Status Reason Start Date Expiration Date Visits Requested Visits Authorized [id number] Authorized Specialty Services Required 05/31/2024 11/27/2024 99 99 Question Answer Referral Priority Within 3 days (urgent) Where should this appointment be scheduled? [facility] Anticoagulation referral for management of: Warfarin Indication and INR goal for Warfarin Management: VTE: Treatment of Pulmonary Embolism, INR Goal: 2.0 - 3.0 Relevant History: N/A Enoxaparin bridging required? Yes - currently on Minimum frequency patient should be seen in person for medication management: as appropriate per clinical condition and patient status By my signature, I understand that my patient Cirilo Camacho will have his medication therapy managed by the [facility] Medication Therapy Disease Management Clinic ([facility]) per established policies, procedures, and protocols. I also certify that this referral may serve as an initiation of service for the management of drug therapy in the above noted patient. [facility] providers will be responsible for scheduling patient visits, obtaining appropriate laboratory studies, and adjusting medication management therapy per patient's need, in addition to those roles spelled out in the clinic policy, procedures, and drug management protocols. I understand that the service provided by the [facility] is voluntary and have informed patient that they can refuse the service at their discretion. I am aware that the [facility] Clinic will provide me with a copy of the patient encounter via my [employer] InYouData. I authorize the [facility] Clinic to carry out these activities on my behalf. I consider this program to be a necessary part of the patient's medical care. Jen Rosales MD Reason for Visit * Reason Onset Date Comments Hospital Follow-Up Hospital Follow-Up 05/31/2024 Encounter Details Date Type Department Care Team (Late st Contact Info) Description 05/31/2024 2:00 PM EST Office Visit Family [address] [phone] Jen Angel MD [address] [place] [address] [place] [phone] Hospital discharge follow-up*; Acute anemia; History of pulmonary embolism; Hypertension complicating diabetes (HCC); Primary hypertension Allergies Active Allergy Reactions Criticality Noted Date Comments Ibuprofen 04/29/2011 Diarrhea documented as of this encounter (statuses as of 05/31/2024) Medications D3 High Potency 25 MCG (1000 UT) Oral Capsule (Cholecalcifero l)Indications:K idney disease, chronic, 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) (HCC) One capsule every other day 90 Cap 1 021 Active Tylenol 325 MG Oral Capsule (Acetaminophen) Take by mouth 325 mg . Once daily Active Allopurinol 100 MG Oral Tablet (Zyloprim)Indic ations:Gout TAKE TWO TABLETS BY MOUTH EVERY DAY 180 Tablet 1 024 Active Farxiga 10 MG Oral Tablet (Dapagliflozin Propanediol)Ind ications:Kidney disease, chronic, 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) (HCC) Take 1 Tablet by mouth in the morning. 30 Tablet 11 Active Sodium Bicarbonate 650 MG Oral TabletIndicatio ns:Kidney disease, chronic, 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) (HCC) TAKE ONE TABLET BY MOUTH TWICE DAILY 60 Tablet 11 024 Active Metoprolol Tartrate 25 MG Oral Tablet (Lopressor)Angie cations:Primary hypertension,Be nign hypertension with chronic kidney disease, stage IV (HCC),Paroxysma l atrial tachycardia (HCC) Take 1 Tablet by mouth in the morning and 1 Tablet before bedtime. 180 Tablet 1 Active Atorvastatin Calcium 80 MG Oral Tablet (Lipitor)Indica tions:Dyslipide renee, goal LDL below 100 TAKE ONE TABLET BY MOUTH AT BEDTIME 90 Tablet 1 024 Active Furosemide 20 MG Oral Tablet (Lasix) TAKE ONE TABLET IN THE MORNING 90 Tablet 1 024 Active Iron 325 (65 Fe) MG Oral Tablet Take by mouth. Activ e Warfarin Sodium 2.5 MG Oral Tablet (Coumadin) Take by mouth every evening. Active Enoxaparin Sodium 60 MG/0.6ML Injection Solution Prefilled Syringe (Lovenox) Inject 60 mg under the skin in the morning. 7 mL Active amLODIPine Besylate 5 MG Oral Tablet (Norvasc)Indica tions:Primary hypertension,Be nign hypertension with chronic kidney disease, stage IV (HCC) TAKE ONE TABLET BY MOUTH AT BEDTIME 90 Tablet 1 024 2024 Discontinued Lisinopril 10 MG Oral Tablet (Prinivil)Indic ations:Benign hypertension with chronic kidney disease, stage IV (HCC) TAKE ONE TABLET BY MOUTH EVERY DAY 90 Tablet 1 024 2024 Discontinued Enoxaparin Sodium 60 MG/0.6ML Injection Solution Prefilled Syringe (Lovenox) INJECT 60 MG ( 1 SYRINGE) SUBCUTANEOUSLY EVERY 24 HOURS 025 2024 Discontinued(R efill) documented as of this encounter (statuses as [...] Tobacco: Never Cigarettes Smokeless Tobacco: Current Snuff Tobacco Cessation:Ready to Q uit: Not Asked; Counseling Given: Not Answered Comments:12/30/2023 chews 1 can per days, declines pamphlet Alcohol Use Standard [...] Sign Reading Time Taken Comments Blood Pressure 118/62 05/31/2024 1:32 PM EST Pulse 99 05/31/2024 1:32 PM EST Temperature 35.9 C (96.6 F) 05/31/2024 1:32 PM ES T Respiratory Rate - - Oxygen Saturation 96% 05/31/2024 1:32 PM EST Inhaled Oxygen Concentration - - Weight 64.6 kg (142 lb 8 oz) 05/31/2024 1:32 PM EST Height 167.6 cm (5' 6") 05/31/2024 1:32 PM EST Body Mass Index 23 05/31/2024 1:32 PM EST documented in this [...] Ivonne Duncan RN documented in this encounter Patient Instructions * Patient Instructions* Jen Angel MD - 05/31/2024 2:02 PM EST Take 5 mg (2 of the 2.5 mg) for 2 days and recheck INR on documented in this encounter Progress Notes * Jen Angel MD - 05/31/2024 1:53 PM EST SUBJECTIVE: Cirilo Camacho is a 88 year old male. Chief Complaint Patient presents with Hospital Follow-Up Hospital Follow-Up Recent Admission: Patient was recently admitted to [facility] 05/22. The date of discharge was 05/28. Admitted for respiratory failure related to acute PE and PNA, and HF exacerbation. Also had an acute anemia at 7.4, was transfused. Discharge report received and reviewed. HPI: Doing ok, getting his strength back. Finished cefdinir 05/30 for PNA. Breathing is doing ok. INR yesterday 1.29. Currently on 2.5 mg. Bridging with lovenox daily. Home health has been doing INRs. To be doing PT with them as well Holding amlodipine and lisinopril due to low BP. Is now on Iron as well. Patient Active Problem List Diagnosis Gout Dyslipidemia, [...] on stage 4 chronic kidney disease (HCC) Current Outpatient Medications Medication Sig Dispense Refill D3 High Potency 25 MCG (1000 UT) Oral Capsule (Cholecalciferol) One capsule every other day 90 Cap 1 Allopurinol 100 MG Oral Tablet (Zyloprim) TAKE [...] TABLET IN THE MORNING 90 Tablet 1 Enoxaparin Sodium 60 MG/0.6ML Injection Solution Prefilled Syringe (Lovenox) INJECT 60 MG ( 1 SYRINGE) SUBCUTANEOUSLY EVERY 24 HOURS Iron 325 (65 Fe) MG Oral Tablet Take by mouth. Warfarin Sodium 2.5 MG Oral Tablet (Coumadin) Take by mouth every evening. Tylenol 325 MG Oral Capsule (Acetaminophen) Take by mouth 325 mg . Once daily No current facility-administered medications for this visit. Current and discharge medications have been reconciled. Review of patient's allergies indicates: Allergen Reactions Ibuprofen Diarrhea OBJECTIVE: BP 118/62 | Pulse 99 | Temp 96.6 F (35.9 C) (Infrared ) | Ht 5' 6" (1.676 m) | Wt 142 lb 8 oz (64.6 kg) | SpO2 96% | BMI 23.00 kg/m | BSA 1.73 m PHYSICAL EXAM: BP 118/62 | Pulse 99 | Temp 96.6 F (35.9 C) (Infrared ) | Ht 5' 6" (1.676 m) | Wt 142 lb 8 oz (64.6 kg) | SpO2 96% | BMI 23.00 kg/m | BSA 1.73 m General: alert, healthy, and no distress Neck: supple, no adenopathy, thyroid normal size, non-tender, without nodularity Heart: regular rate & rhythm, + systolic murmur, and no gallops Lungs: chest symmetric with normal AP diameter, no chest wall tenderness, lungs clear to auscultation Abdomen: abdomen soft, non-tender, normal bowel sounds, and no masses or organomegaly Extremities: no joint deformities, effusion, or inflammation, no edema in ankles ASSESSMENT: Hospital discharge follow-up (Primary) - DISCH MED RECON CUR MED LIS Acute anemia - CBC WITH WBC DIFFERENTIAL; Future; Expected date: 05/31/2024 - COMPREHENSIVE METABOLIC PANEL; Future; Expected date: 05/31/2024 - MAGNESIUM; Future; Expected date: 05/31/2024 History of pulmonary embolism - ANTI-COAGULATION REFERRAL OP - PT INR; Standing - CBC WITH WBC DIFFERENTIAL; Future; Expected date: 05/31/2024 Hypertension complicating diabetes (HCC); Primary hypertension Ok to stay off BP meds as he is on the lower end of normal today. Other orders - Enoxaparin Sodium 60 MG/0.6ML Injection Solution Prefilled Syringe (Lovenox); Inject 60 mg under the skin in the morning. PLAN: Continue present medication(s): warfarin and lovenox until therapeutic Follow up in 4 week(s). I spent a total of 20-29 minutes (exact time 25 mins) minutes on the date of service in preparation, delivery, and documentation of the care provided to Cirilo Camacho excluding any time spent in performance of separately billed services. Jen Rosales MD documented in this encounter Nursing Notes * Sandhya Brooks CMA - 05/31/2024 1:32 PM EST Was in hospital for Pneumonia and PE, and needed a transfusion, also had dehydration. Per pt daughter thinks pt is finally improving, when he fisrt came to her home his balance was off and he almost fell 2 times but he is getting more steady. documented in this encounter Plan of Treatment Upcoming Encounters Date Type Department Care Team (Late st Contact Info) Description 06/01/2024 5:10 PM EST Anticoagulation Pharmacy, [address] [place] [address] [place] [id number] 07/06/2024 12:40 PM EDT Office Visit Family Medicine [address] [place] [address] Jen Angel MD [address] [place] [address] [place] [phone] 09/09/2024 1:00 PM EDT Office Visit Cardiology, Health [facility] [address] [place] [address] Jalil Brito MD 132 [place] [address] 10/06/2024 3:20 PM EDT Office Visit Nephrology [address] [place] [address] Yecenia Apodaca MD 200 [facility] [place] [address] 11/03/2024 9:00 AM EDT Office Visit Family Medicine [address] [place] [address] Aleja Bryson MD [address] [place] [address] [place] [address] Scheduled Orders Name Type Priority Associated Diagnoses Orde r Schedule PT INR Lab Routine History of pulmonary embolism 52 Occurrences starting 05/31/2024 until 05/31/2025 CBC WITH WBC DIFFERENTIAL Lab Routine Acute anemia History of pulmonary embolism Expected: 05/31/2024 (Approximate), Expires: 05/31/2025 COMPREHENSIVE METABOLIC PANEL Lab Routine Acute anemia Expected: 05/31/2024 (Approximate), Expires: 06/28/2025 MAGNESIUM Lab Routine Acute anemia Expected: 05/31/2024 (Approximate), Expires: 05/31/2025 Scheduled Referrals Name Type Priority Associated Diagnoses [...] this encounter Medical Devices Implanted Type Area Drop Press Hand Device Identifier Shelf Expiration Date Model / Serial / Lot Stent Main Body Onwf-62-71-Zt - [id number] Implanted:Qty: 1 on 12/04/2009 [place] [facility] [place]A: Aorta [employer] 08/05/2011 TFFB-32-82- ZT / / [id number] Leg Extension Cwzf-67-20-Zt - [id number] Implanted:Qty: 1 on 12/04/2009 [place] [facility] Right: Iliac [employer] 09/05/2011 TFLE-16-90- ZT / / [id number] Leg Extension Cvfl-21-44-Zt - [id number] Implanted:Qty: 1 on 12/04/2009 at [place] [facility] Left: Iliac [employer] 09/05/2011 TFLE-16-90- ZT / / [id number] Ev3 [place] 34 Liquid Embolic Material Implanted:Qty: 9 on 04/24/2017 by Petar Stovall MD at RAD[place]OLOGY [facility] N/A: Abdomen 06/10/2019 [id number] -1 / [id number] / [id number] Description:ev3 [place] 34 Liqu id Embolic Material documented as of this encounter Visit Diagnoses Diagnosis Hospital discharge follow-up- Primary Other follow-up examination Acute anemia History of pulmonary embolism Personal history of pulmonary embolism Hypertension complicating diabetes (HCC) Primary hypertension Unspecified essential hypertension documented in this encounter Advance Directives * [...] and were consensually agreed upon. Care Teams Milking Machine Mechanic Relationship Specialty Start Date End Date Aleja Bryson MD [address] [place] [address] [place] [id number] PCP - General Family Medicine 07/28/23 documented as of this encounter
--- OUTSIDE RECORDS SUMMARY | 2024-06-15 02:39 | External Medical Summary | Summary of Care ---
Author Name Unknown Organization [facility] Address [address] [place] [address] Phone [phone] Care Team Providers Care Washer Machine Name Role Phone Aleja Bryson MD Primary Care Provide r Encounter Details Date Type Department Care Team (Late st Contact Info) Description 05/30/2024 Orders Only Family Medicine [address] [address] Aleja Bryson MD [address] [place] [address] [place] [address] Allergies Active Allergy Reactions Criticality Noted Date Comments Ibuprofen 04/29/2011 Diarrhea documented as of this encounter (statuses as of 05/30/2024) Medications D3 High Potency 25 MCG (1000 UT) Oral Capsule (Cholecalciferol) Indications:Kidne y disease, chronic, 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) ([facility]) One capsule every other day 90 [...] as of this encounter (statuses as of 05/30/2024) Active Problems Problem Noted Date Diagnosed Date [...] as of this encounter (statuses as of 05/30/2024) Resolved Problems Problem Noted Date Diagnosed Date [...] as of this encounter (statuses as of 05/30/2024) Immunizations Name Administration Dates Next Due COVID-19 [...] 2:00 PM EST Office Visit Family Medicine [address] [place] [phone] Jen Angel MD [address] [place] [address] [place] [phone] 09/09/2024 1:00 PM EDT Office Visit Cardiology, [facility] [address] [place] [address] Jalil Brito MD [address] [place] [address] 10/06/2024 3:20 PM EDT Office Visit Nephrology [address] [place] [address] Yecenia [facility]odaca [facility] [address] 11/03/2024 9:00 AM EDT Office Visit Family Medicine [address] [place] [phone] Aleja Bryson MD [address] [place] [address] [place] [address] Health Maintenance Due Date Last Done Comments [...] this encounter Medical Devices Implanted Type Area Sandstone Splitter Device Identifier Shelf Expiration Date Model / Serial / Lot Stent Main Body Scmu-71-31-Zt - [id number] Implanted:Qty: 1 on 12/04/2009 at [place] [facility] [place] N/A: Aorta [employer] 08/05/2011 TFFB-32-82- ZT / / [id number] Leg Extension Zyfn-86-13-Zt - [id number] Implanted:Qty: 1 on 12/04/2009 at [place] [facility] [place] Right: Iliac [employer] 09/05/2011 TFLE-16-90- ZT / / [id number] Leg Extension Jiun-08-38-Zt - [id number] Implanted:Qty: 1 on 12/04/2009 at [place] [facility] [place] Left: Iliac [employer] 09/05/2011 TFLE-16-90- ZT / / [id number] Ev3 Blas 34 Liquid Embolic Material Implanted:Qty: 9 on 04/24/2017 by Petar Stovall MD at RADIOLOGY [facility] [place] N/A: Abdomen 06/10/2019 [id number] -1 / [id number] / [id number] Description:ev3 Blas 34 Liqu id Embolic Material documented as of this encounter Procedures Procedure Name Priority Date/Time Associated Diagnosis Comments XR CHEST 1 VIEW Routine 05/26/2024 documented in this encounter Results * XR CHEST 1 VIEW (05/26/2024) Anatomical Region Laterality Modality Chest Other 05/26/2024 us History Per Patient RADIOLOGY (RAD GENERAL) Suma l Result documented in this encounter Advance Directives [...] and were consensually agreed upon. Care Teams Washer Machine Relationship Specialty Start Date End Date Aleja Bryson MD [address] [place] [address] [place] [address] PCP - General Family Medicine 07/28/23 documented as of this encounter
--- OUTSIDE RECORDS SUMMARY | 2024-06-15 02:39 | External Medical Summary | Summary of Care ---
Author Name Unknown Organization [facility] Address [address] [place] [address] Phone [phone] Care Team Providers Care Production Designer Name Role Phone Aleja Bryson MD Primary Care Provide r Reason for Visit * Reason Onset Date Comments Appointment 05/26/2024 1 week ret Encounter Details Date Type Department Care Team (Late st Contact Info) Description 05/26/2024 Telephone Family Medicine [address] [phone] Jen Angel MD [address] [place] [address] [place] [phone] Appointment (1 week ret [...] back, she said he is in the [facility] right now. * Telephone Encounter - Zoey [...] 09/09/2024 1:00 PM EDT Office Visit Cardiology, [facility] [address] [facility] [place] [address] Jalil Brito MD [address] [facility] [place] [address] 10/06/2024 3:20 PM EDT Office Visit Nephrology [address] [place] [address] Yecenia Apodaca MD [address] [facility] [place] [address] 11/03/2024 9:00 AM EDT Office Visit Family Medicine [address] [place] [phone] Aleja Bryson MD [address] [place] [address] [place] [id number] Health Maintenance Due Date Last Done Comments [...] this encounter Medical Devices Implanted Type Area Accounting Lecturer Device Identifier Shelf Expiration Date Model / Serial / Lot Stent Main Body Hwzd-67-35-Zt - [id number] Implanted:Qty: 1 on 12/04/2009 at OR [facility] [place] N/A: Aorta [employer] 08/05/2011 TFFB-32-82- ZT / / [id number] Leg Extension Frbf-26-64-Zt - [id number] Implanted:Qty: 1 on 12/04/2009 at [facility] Right: Iliac [employer] 09/05/2011 TFLE-16-90- ZT / / [id number] Leg Extension Gwty-32-48-Zt - [id number] Implanted:Qty: 1 on 12/04/2009 at OR [facility] [place] Left: Iliac [employer] 09/05/2011 TFLE-16-90- ZT / / [id number] Ev3 Blas 34 Liquid Embolic Material Implanted:Qty: 9 on 04/24/2017 by Petar Stovall MD at RADIOLOGY [facility] [place] N/A: Abdomen 06/10/2019 [id number] -[id number] / [id number] / [id number] Description:ev3 Blas 34 Liqu id Embolic Material [...] and were consensually agreed upon. Care Teams Production Designer Relationship Specialty Start Date End Date Aleja Bryson MD [address] [place] [address] [place] [phone] PCP - General Family Medicine 07/28/23 documented as of this encounter
--- OUTSIDE RECORDS SUMMARY | 2024-06-15 02:40 | External Medical Summary | Summary of Care ---
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 Marj Comments Documentation of Maau-fs-Gvoc Encounter Addendum Patient Name: Cirilo Camacho Contact: daughter- Jennifer Cotton- [phone] I certify that this patient is under my care and that I, or a nurse practitioner or physician's academic affairs assistant working with me, had a cjod-ge-bzuu encounter that meets the physician lmri-zh-trld encounter requirements with this patient on: 05/20/24 The encounter with the patient was in whole, or in part, for the following medical condition, which is the primary reason for home health care (List medical condition): Convalescence from acute illness, medication monitoring I certify that, based on my findings, the following services are medically necessary home health services: Nursing To provide the following care/treatments: (All hospitalists not following the patient after discharge should complete this section): Monitor vitals, meds, status Primary Care Physician to follow home care plan of care after discharge: Mary My clinical findings support the need for the above services because: acute anemia and DHAVAL on CKD, not feeling well Further, I certify that my clinical findings support that this patient is homebound (i.e. Absences from home require considerable and taxing effort and are for medical reasons or mosque services or infrequently or of short duration when for other reason) because: Difficulty getting out without assistance Physician Signature: Date of Signature: Physician Printed Name: Jen Rosales MD Reason for Visit * Reason Comments Emergency Department Follow-Up Encounter Details Date Type Department Care Team (Late st Contact Info) Description 05/20/2024 2:00 PM EST Office Visit Family Medicine [address] [place] [phone] Jen Angel MD [address] [place] [address] [place] [phone] Acute anemia*; 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); Benign hypertension with chronic kidney disease, stage IV (HCC) Allergies Active Allergy Reactions Criticality Noted Date Comments Ibuprofen 04/29/2011 Diarrhea documented as of this encounter (statuses as of 05/20/2024) Medications D3 High Potency 25 MCG (1000 [...] as of this encounter (statuses as of 05/20/2024) Active Problems Problem Noted Date Diagnosed Date [...] as of this encounter (statuses as of 05/20/2024) Resolved Problems Problem Noted Date Diagnosed Date Resolved Date Accidental puncture or lacer ation during procedure, not elsewhere classified 01/05/2014 0208/2014 Kidney disease, chronic, sta ge IV (GFR 15-29 ml/min) 05/30/2013 01/18/2018 Overview: Per CKD protocol #1 Gastroesophageal reflux dise ase with esophagitis without hemorrhage 03/22/2010 1 Examination following surgery 12/04/2009 03/04/2011 HTN, goal below 130/80 04/17/200903/23 HTN, goal below 140/90 02/09/200904/17 Overview (02/09/2009): Modified per HTN Taxonomy. Kidney disease, chronic, sta ge III (GFR 30-59 ml/min) 10/12/2008 06/07/2013 Osteoarthritis of leg 10/15/2004 01/26/ 2018 ADVANCE DIRECTIVE INFORMATION 09/11/2004 02/08/2024 Overview (09/11/2004): [...] as of this encounter (statuses as of 05/20/2024) Immunizations Name Administration Dates Next Due COVID-19 [...] Sign Reading Time Taken Comments Blood Pressure 90/56 05/20/2024 1:56 PM EST Pulse 89 05/20/2024 1:56 PM EST Temperature 36.2 C (97.1 F) 05/20/2024 1:56 PM ES T Respiratory Rate - - Oxygen Saturation 98% 05/20/2024 1:56 PM EST Inhaled Oxygen Concentration - - Weight 68.3 kg (150 lb 9.6 oz) 05/20/2024 1:56 P M EST Height 167.6 cm (5' 6") 05/20/2024 1:56 PM EST Body Mass Index 24.31 05/20/2024 1:56 PM EST documented in this encounter Functional [...] Progress Notes * Jen Angel MD - 05/20/2024 2:26 PM EST Message sent to covering provider regarding ordered stat labs and plan. * Jen Angel MD - 05/20/2024 2:02 PM EST Images from the original note were not included. History of Present Illness Cirilo Camacho is a 88 year old male that presents for Emergency Department Follow-Up. Here today with daughter, gives some history History of Present Illness The patient, with a history of kidney disease and anemia, has been feeling unwell since the previous Thursday. Seen in the ED on 05/18 for not feeling well. Labs showed Hgb 8.0 and Cr 3.4. Given 500 ml of fluids. Urine culture neg. Sent home. He reports a lack of appetite and motivation, and has been feeling increasingly tired and out of breath. The patient's daughter has noticed these changes and is concerned about leaving the patient alone. The patient has been drinking Ensure to supplement his diet, but has not been eating solid food. The patient also reports no new pain. Denies any bleeding, no dark colored stools. Prior Hgb 6 months ago was 14.4. Prior Cr was 2.6. [facility]- [phone] Physical Exam BP 90/56 | Pulse 89 | Temp 97.1 F (36.2 C) (Infrared ) | Ht 5' 6" (1.676 m) | Wt 150 lb 9.6 oz (68.3 kg) | SpO2 98% | BMI 24.31 kg/m | BSA 1.78 m Physical Exam Vitals and nursing note reviewed. Constitutional: General: He is not in acute distress. Appearance: Normal appearance. He is not ill-appearing. Comments: Appears pale HENT: Head: Normocephalic and atraumatic. Mouth/Throat: Mouth: Mucous membranes are moist. Eyes: Extraocular Movements: Extraocular movements intact. Neck: Thyroid: No thyromegaly. Cardiovascular: Rate and Rhythm: Normal rate and regular rhythm. Pulmonary: Breath sounds: Normal breath sounds. No wheezing or rhonchi. Abdominal: General: Bowel sounds are normal. There is no distension. Palpations: Abdomen is soft. Tenderness: There is no abdominal tenderness. Musculoskeletal: General: Normal range of motion. Cervical back: Normal range of motion and neck supple. Right lower leg: No edema. Left lower leg: No edema. Skin: General: Skin is warm and dry. Neurological: General: No focal deficit present. Mental Status: He is alert. Mental status is at baseline. Psychiatric: Mood and Affect: Mood normal. Behavior: Behavior normal. I have reviewed most recent labs CBC and BMP Assessment and Plan Assessment & Plan Anemia Acute anemia is present with a significant drop in hemoglobin noted in recent labs. The cause is unclear, and there is no reported bleeding. There is a history of prostate and bladder cancer. Order stat labs to reassess hemoglobin levels. If levels remain low, consider directing him to the ED for further evaluation and possible hospitalization. Chronic Kidney Disease Recent labs show elevated kidney function slightly above baseline. He is not on dialysis and refuses to consider it. Continue monitoring kidney function. Again, if acutely worse, rec ED eval. Likely contributing to his lack of appetite if an DHAVAL on CKD Poor Appetite and Decreased Oral Intake There is a lack of appetite and decreased oral intake, potentially contributing to malaise and possibly related to anemia and/or kidney disease. Encourage increased fluid intake, including Pedialyte for hydration, and consumption of calorie-dense foods and nutritional supplements like Ensure. General Health Maintenance / Followup Plans Consider home health services for additional support and monitoring, especially given the living situation and recent health decline. Plan for him to stay with his daughter over the weekend for closer monitoring. If the condition worsens, advise the daughter to take him to the ER. Check stat labs and follow up on results. If hemoglobin levels remain low, consider directing him to the ED for further evaluation and possible hospitalization. Follow up after the weekend to reassess the condition. 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 | For: Return with Physician Time: I spent a total of 30-39 minutes (exact time 36 mins) on the date of service in preparation, delivery, and documentation of the care provided to Cirilo Camacho excluding any time spent in the performance of separately billed services. Text in this note was generated using an ambient documentation service. I discussed the use of a device to record and summarize our discussion today. All persons present during the encounter consented to its use. documented in this encounter Nursing Notes * Sandhya Brooks CMA - 05/20/2024 1:56 PM EST Was seen in ER [place] 05/18 here to f/u. Pt daughter here at visit is POA, states pt called her on the 05/18 and told her she need to come see him as he had no feelings, then she took him to ER was seen given some fluyids and sent home. Daughter reports he called again today told daughter that she needed to come see BHAVYA as he was notfeeling again today. Pt daughter reports that he fell on Thursday fell off kitchen chair from sitting position. Daughter reports his mental state is not good, very confused at times and other times he appears normal. Also reports that he is not eating well , he states he drinks water alright just not hungry so he does not eat. Daughter did get him ensure and he is drinking more of those. Reports she needs helps caring for him as he does not want to move in with her, would be agreeable to home health. documented in this encounter Plan of Treatment Upcoming Encounters Date Type Department Care Team (Late st Contact Info) Description 09/09/2024 1:00 PM EDT Office Visit Cardiology, [facility] [address] [place] [address] Jalil Brito MD 132 [place] [address] 10/06/2024 3:20 PM EDT Office Visit Nephrology [address] [place] [address] Yecenia Apodaca MD 200 [facility] [place] [address] 11/03/2024 9:00 AM EDT Office Visit Family Medicine [address] [place] [phone] Aleja Bryson MD [address] [place] [address] [place] [phone] Pending Results Name Type Priority Associated Diagnoses Date /Time CBC WITH WBC DIFFERENTIAL Lab STAT Acute anemia 05/20/2024 2:33 PM EST BASIC METABOLIC PANEL Lab STAT 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) 05/20/2024 2:33 PM EST IRON SCREEN, INCLUDING TIBC Lab Routine Acute anemia 05/20/2024 2:33 PM EST FERRITIN Lab Routine Acute anemia 05/20/2024 2:33 PM EST Scheduled Orders Name Type Priority Associated Diagnoses Orde r Schedule CBC WITH WBC DIFFERENTIAL Lab STAT Acute anemia Expected: 05/20/2024 (Approximate), Expires: 05/20/2025 BASIC METABOLIC PANEL Lab STAT 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) Expected: 05/20/2024 (Approximate), Expires: 05/20/2025 IRON SCREEN, INCLUDING TIBC Lab Routine Acute anemia Expected: 05/20/2024 (Approximate), Expires: 05/20/2025 FERRITIN Lab Routine Acute anemia Expected: 05/20/2024 (Approximate), Expires: 05/20/2025 Scheduled Referrals Name Type Priority Associated Diagnoses Orde r Schedule HOME HEALTH REFERRAL OP Referral Within 10 days (routine) Acute anemia 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, stage IV (HCC) Ordered: 05/20/2024 Health Maintenance Due Date Last Done Comments Adult Wellness Visit 09/11/2022 09/11/2021, 09/07/19 21 Depression Screening 09/11/2022 09/11/2021 Phosphate 01/06/2024 01/05/2023, 100 08/2021, 12/14/2020, Additional history exists Albumin/Creatinine Ratio 07/22/202407/22/2 024, 07/09/2022, 01/28/2022, Additional history exists COVID-19 Vaccine ( season) 2024 03/02/2024, 01/21/2023, 04/15/2021, Additional history exists Nephrology Referral 02/17/2025 02/18/2024, 04/17/2009, 10/10/2008, Additional history exists PTH 02/17/2025 02/18/2024, 05/2022, 01/28/2022, Additional history exists Hgb 05/17/2025 05/17/2024, 07/05, 01/05/2023, Additional history exists DTap/Tdap Vaccines (2 - [...] this encounter Medical Devices Implanted Type Area Carpenter Packing Device Identifier Shelf Expiration Date Model / Serial / Lot Stent Main Body Igsb-09-62-Zt - [id number] Implanted:Qty: 1 on 12/04/[address] [facility] [place] N/A: Aorta [employer] 08/05/2011 TFFB-32-82- ZT / / [id number] Leg Extension Yhpu-31-96-Zt - [id number] Implanted:Qty: 1 on 12/04/[address] [facility] [place] Right: Iliac [employer] 09/05/2011 TFLE-16-90- ZT / / [id number] Leg Extension Gmcr-60-12-Zt - [id number] Implanted:Qty: 1 on 12/04/[address] [facility] [place] Left: Iliac [employer] 09/05/2011 TFLE-16-90- ZT / / [id number] Ev3 Roebling 34 Liquid Embolic Material Implanted:Qty: 9 on 04/24/2017 by Petar Stovall MD at RADIOLOGY 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 Care Teams Inspector Conveyor Line Relationship Specialty Start Date End Date Aleja Bryson MD [address] [place] [address] [place] [phone] PCP - General Family Medicine 07/28/23 documented as of this encounter
--- OUTSIDE RECORDS SUMMARY | 2024-06-15 02:40 | External Medical Summary | Summary of Care ---
Author Name Unknown Organization [facility] Address [address] [place] [address] Phone [phone] Care Team Providers Care Java Programmer Name Role Phone Aleja Bryson MD Primary [...] disease, stage IV (HCC) Jen Angel MD [address] [place] [address] [place] [address] Phone: tel: fax: Referral ID Status Reason Start Date Expiration Date Visits Requested Visits Authorized [id number] Authorized Specialty Services Required 05/20/[phone] Question Answer Referral Priority Within 10 days (routine) Where should this appointment be scheduled? Marj Comments Documentation of Vqxh-bw-Hecs Encounter Addendum Patient Name: Cirilo Camacho Contact: daughter- Jennifer Cotton- [phone] I certify that this patient is under my care and that I, or a nurse practitioner or physician's general surgery physician assistant working with me, had a brdr-om-sqfo encounter that meets the physician brsn-jf-vchi encounter requirements with this patient on: 05/20/24 [...] effort and are for medical reasons or tenriism services or infrequently or of short duration when for other reason) because: Difficulty getting out without assistance Physician Signature: Date of Signature: Physician Printed Name: Jen Rosales MD Reason for Visit * Reason Comments Emergency Department Follow-Up Encounter Details Date Type Department Care Team (Late st Contact Info) Description 05/20/2024 2:00 PM EST Office Visit Family Medicine [address] [place] [phone] Jen Angel MD [address] [place] [address] [place] [phone] Acute anemia*; Acute renal failure with acute [...] Gely Duncan RN * Do you have difficulty [...] ago was 14.4. Prior Cr was 2.6. [facility]- [phone] Physical Exam BP 90/56 | Pulse 89 [...] 09/09/2024 1:00 PM EDT Office Visit Cardiology, [facility] [address] [place] [address] Jalil Brito MD 132 [place] [address] 10/06/2024 3:20 PM EDT Office Visit Nephrology [address] [place] [address] Yecenia Apodaca MD 200 [facility] [place] [address] 11/03/2024 9:00 AM EDT Office Visit Family Medicine [address] [place] [phone] Aleja Bryson MD [address] [place] [address] [place] [phone] Pending Results Name Type Priority Associated Diagnoses [...] Depression Screening 09/11/2022 09/11/2021 Phosphate 01/06/2024 01/05/2023, 1008/2021, 12/14/2020, Additional history exists Albumin/Creatinine Ratio 07/22/20242 024, 07/09/2022, 01/28/2022, Additional [...] this encounter Medical Devices Implanted Type Area Right Of Way Buyer Device Identifier Shelf Expiration Date Model / Serial / Lot Stent Main Body Uzjz-38-76-Zt - [id number] Implanted:Qty: 1 on 12/04/2009 at OR [facility] [place] N/A: Aorta [employer] 08/05/2011 TFFB-32-82- ZT / / [id number] Leg Extension Tqas-62-50-Zt - [id number] Implanted:Qty: 1 on 12/04/2009 at OR [facility] [place] Right: Iliac [employer] 09/05/2011 TFLE-16-90- ZT / / [id number] Leg Extension Bjay-74-41-Zt - [id number] Implanted:Qty: 1 on 12/04/2009 at OR [facility] [place] Left: Iliac [employer] 09/05/2011 TFLE-16-90- ZT / / [id number] Ev3 Blas 34 Liquid Embolic Material Implanted:Qty: 9 on 04/24/2017 by Petar Stovall MD at RADIOLOGY [facility] [place] N/A: Abdomen 06/10/2019 [id number] -1 / [id number] / [id number] Description:ev3 Blas 34 Liqu id Embolic Material [...] and were consensually agreed upon. Care Teams Java Programmer Relationship Specialty Start Date End Date Aleja Bryson MD [address] [place] [address] [place] [id number] PCP - General Family Medicine 07/28/23 documented as of this encounter
--- OUTSIDE RECORDS SUMMARY | 2024-06-15 02:40 | External Medical Summary ---
Author Name Unknown Address Unknown Organization [id number]:[facility] - [address] [place] [address] Laboratory Report Ordering Provider Test Date Status ROMINA BRITO 05/20/2024 14:33:40 Final Deficient: <20 ng/mL
Ins ufficient: 20-29 ng/mL
Recommended/Optimum:30-50 ng/mL

Vitamin D intoxication is rare. If suspicious of Vitamin D toxicity, evaluation of serum Calcium and PTH is recommended. Observation Date Value Abnormality Reference (Units ) Status 25-OH Vitamin D total 05/20/2024 14:33:40 31 >19 (ng/mL) Final Performing Location [facility] - [address] [place] [address]
--- OUTSIDE RECORDS SUMMARY | 2024-06-15 02:40 | External Medical Summary | Summary of Care ---
Author Name Unknown Organization [facility] Address [address] [place] [address] Phone [phone] Care Team Providers Care Telephone Sterilizer Name Role Phone Aleja Bryson MD Primary Care Provide r Encounter Details Date Type Department Care Team (Late st Contact Info) Description 05/17/2024 Result Scan Unspecified Department <No scans attached> Allergies Active Allergy Reactions Criticality Noted Date Comments Ibuprofen 04/29/2011 Diarrhea documented as of this encounter (statuses as of 05/20/2024) Medications D3 High Potency 25 MCG (1000 UT) Oral Capsule (Cholecalciferol) Indications:Kidne y disease, chronic, 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) ([facility]) One capsule every other day [...] disease, chronic, 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) ([facility]) Take 1 Tablet by mouth [...] Active Problems Problem Noted Date Diagnosed Date Moderate aortic stenosis 05/05/2024 S/P prostatectomy 03/02/2024 [...] 2:00 PM EST Office Visit Family Medicine [address] [place] [phone] Jen Angel MD [address] [place] [address] [place] [phone] 09/09/2024 1:00 PM EDT Office Visit Cardiology, [facility] [address] [place] [address] Jalil Brito MD [address] [place] [address] 10/06/2024 3:20 PM EDT Office Visit Nephrology [address] [place] [address] Yecenia Apodaca MD [address] [place] [address] 11/03/2024 9:00 AM EDT Office Visit Family Medicine [address] [place] [phone] Aleja Bryson MD [address] [place] [address] [place] [phone] Health Maintenance Due Date Last Done Comments Adult Wellness Visit 09/11/2022 09/11/2021, 09/07/19 21 Depression Screening 09/11/2022 09/11/2021 Phosphate 01/06/2024 01/05/2023, 08/2021, 12/14/2020, Additional history exists Albumin/Creatinine Ratio 07/22/2024 024, 07/09/2022, 01/28/2022, Additional [...] this encounter Medical Devices Implanted Type Area Beading Installer Device Identifier Shelf Expiration Date Model / Serial / Lot Stent Main Body Gwxl-09-11-Zt - [id number] Implanted:Qty: 1 on 12/04/2009 at [place] [facility] N/A: Aorta [employer] 08/05/2011 TFFB-32-82- ZT / / [id number] Leg Extension Ojpz-13-76-Zt - [id number] Implanted:Qty: 1 on 12/04/2009 at [place] [facility] Right: Iliac [employer] 09/05/2011 TFLE-16-90- ZT / / [id number] Leg Extension Ikim-15-17-Zt - [id number] Implanted:Qty: 1 on 12/04/2009 at [place] [facility] Left: Iliac [employer] 09/05/2011 TFLE-16-90- ZT / / [id number] Ev3 [place] 34 Liquid Embolic Material Implanted:Qty: 9 on 04/24/2017 by Petar Stovall MD at RADIOLOGY [facility] N/A: Abdomen 06/10/2019 [id number] -1 / [id number] / [id number] Description:ev3 [place] 34 Liqu id Embolic Material documented as of this encounter Procedures Procedure Name Priority Date/Time Associated Diagnosis Comments OUTSIDE LAB RESULTS 05/17/2024 documented in this encounter Results * OUTSIDE LAB RESULTS (05/17/2024) 05/17/2024 us No Physician Data Unknown LABORATORY Final [...] and were consensually agreed upon. Care Teams Telephone Sterilizer Relationship Specialty Start Date End Date Aljea Bryson MD [address] [place] [address] [place] [phone] PCP - General Family Medicine 07/28/23 documented as of this encounter
--- OUTSIDE RECORDS SUMMARY | 2024-06-15 02:40 | External Medical Summary | Summary of Care ---
Author Name Unknown Organization [facility] Address [address] [place] [address] Phone [phone] Care Team Providers Care Calf Skinner Name Role Phone Aleja Bryson MD Primary Care Provide r Encounter Details Date Type Department Care Team (Late st Contact Info) Description 05/26/2024 Orders Only Family Medicine [address] [phone] Aleja Bryson MD [address] [place] [address] [place] [address] Allergies Active Allergy Reactions [...] 09/09/2024 1:00 PM EDT Office Visit Cardiology, [facility] [address] [place] [address] Jalil Brito MD [address] [place] [address] 10/06/2024 3:20 PM EDT Office Visit Nephrology [address] [place] [address] Yecenia Apodaca MD [address] [place] [address] 11/03/2024 9:00 AM EDT Office Visit Family Medicine [address] [place] [phone] Aleja Bryson MD [address] [place] [address] [place] [phone] Health Maintenance Due Date Last Done Comments [...] this encounter Medical Devices Implanted Type Area Data Entry Representative Device Identifier Shelf Expiration Date Model / Serial / Lot Stent Main Body Hmgf-10-99-Zt - [id number] Implanted:Qty: 1 on 12/04/2009 [place] [facility] [place]/A: Aorta [employer] 08/05/2011 TFFB-32-82- ZT / / [id number] Leg Extension Gvrr-65-74-Zt - [id number] Implanted:Qty: 1 on 12/04/2009 at [place] [facility] Right: Iliac [employer] 09/05/2011 TFLE-16-90- ZT / / [id number] Leg Extension Pheg-42-71-Zt - [id number] Implanted:Qty: 1 on 12/04/2009 at [place] [facility] Left: Iliac [employer] 09/05/2011 TFLE-16-90- ZT / / [id number] Ev3 [place] 34 Liquid Embolic Material Implanted:Qty: 9 on 04/24/2017 by Petar Stovall MD at [place] [facility] N/A: Abdomen 06/10/2019 40715-721 -1 / [id number] / [id number] Description:ev3 [place] 34 Liqu id Embolic Material documented as of this encounter Procedures Procedure Name Priority Date/Time Associated Diagnosis Comments XR CHEST 1 VIEW Routine 05/25/2024 documented in this encounter Results * XR CHEST 1 VIEW (05/25/2024) Anatomical Region Laterality Modality Chest Other 05/25/2024 us History Per Patient RADIOLOGY (RAD GENERAL) [...] and were consensually agreed upon. Care Teams Calf Skinner Relationship Specialty Start Date End Date Aleja Bryson MD [address] [place] [address] [place] [phone] PCP - General Family Medicine 07/28/23 documented as of this encounter
--- OUTSIDE RECORDS SUMMARY | 2024-06-15 02:40 | External Medical Summary | Summary of Care ---
Author Name Unknown Organization [facility] Address [address] [place] [address] Phone [phone] Care Team Providers Care Adhesive Bandage Machine Operator Name Role Phone Aleja Bryson MD Primary Care Provide r Reason for Visit * Reason Onset Date Comments Abnormal Test Results 05/23/2024 Encounter Details Date Type Department Care Team (Late st Contact Info) Description 05/23/2024 Telephone Family Medicine [address] [phone] Jen Angel MD [address] [place] [address] [place] [phone] Abnormal Test Results Allergies Active Allergy Reactions Criticality Noted Date Comments Ibuprofen 04/29/2011 Diarrhea documented as of this encounter (statuses as of 05/23/2024) Medications D3 High Potency 25 MCG (1000 [...] Tartrate 25 MG Oral Tablet (Lopressor)Indica tions:Primary hypertension,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 Daughter states he got worse and she called the ambulance,she wanted him to go to [facility] but EMT said he was not stable enough and they took him to [facility] was going to discharge him and she insisted he be kept. He is now on Oxygen and getting 2 liters of blood * Telephone Encounter - Jen Angel MD - 05/23/2024 7:26 AM EST Received his labs this morning-- His kidney function is a little worse from the prior, and his anemia is too. I would recommend ED evaluation as he likely needs fluids, possibly blood, and monitoringof the anemia documented in this encounter Plan of Treatment Upcoming Encounters Date Type Department Care Team (Late st Contact Info) Description 09/09/2024 1:00 PM EDT Office Visit Cardiology, [facility] [address] [facility] [place] [address] Jalil Brito MD 132 [facility] [place] [address] 10/06/2024 3:20 PM EDT Office Visit Nephrology [address] [place] [address] Yecenia Apodaca MD [address] [place] [address] 11/03/2024 9:00 AM EDT Office Visit Family Medicine [address] [place] [phone] Aleja Bryson MD [address] [place] [address] [place] [address] Health Maintenance Due Date Last Done Comments [...] this encounter Medical Devices Implanted Type Area Hi Ranger Operator Device Identifier Shelf Expiration Date Model / Serial / Lot Stent Main Body Jitj-48-05-Zt - [id number] Implanted:Qty: 1 on 12/04/2009 [place] [facility] [place]: Aorta [employer] 08/05/2011 TFFB-32-82- ZT / / [id number] Leg Extension Ylbc-50-41-Zt - [id number] Implanted:Qty: 1 on 12/04/2009 [place] [facility] [place] Right: Iliac [employer] 09/05/2011 TFLE--90- ZT / / [id number] Leg Extension Fxrk-13-34-Zt - [id number] Implanted:Qty: 1 on 12/04/2009 [place] [facility] [place]: Iliac [employer] 09/05/2011 TFLE-16-90- ZT / / [id number] Ev3 [place] 34 Liquid Embolic Material Implanted:Qty: 9 on 04/24/2017 by Petar Stovall MD at [place] [facility] [place]A: Abdomen 06/10/2019 05290-627 -1 / [id number] / [id number] Description:ev3 [place] 34 Liqu id Embolic Material documented as [...] and were consensually agreed upon. Care Teams Adhesive Bandage Machine Operator Relationship Specialty Start Date End Date Aleja Bryson MD [address] [place] [address] [place] [phone] PCP - General Family Medicine 07/28/23 documented as of this encounter
--- OUTSIDE RECORDS SUMMARY | 2024-06-15 02:40 | External Medical Summary | Summary of Care ---
Author Name Unknown Organization [facility] Address [address] [place] [address] Phone [phone] Care Team Providers Care Director Of Sales Marketing Name Role Phone Aleja Bryson MD Primary Care Provide r Reason for Visit * Reason Onset Date Comments Test Results Imaging Study 05/23/2024 Encounter Details Date Type Department Care Team (Late st Contact Info) Description 05/23/2024 Telephone Vascular Surg [facility] [address] [place] [address] Елена Choudhary PA-C [address] [place] [address] Test Results Imaging Study Allergies Active Allergy Reactions Criticality Noted Date Comments Ibuprofen 04/29/2011 Diarrhea documented as of this encounter (statuses as of 05/24/2024) Medications D3 High Potency 25 MCG (1000 [...] as of this encounter (statuses as of 05/24/2024) Active Problems Problem Noted Date Diagnosed Date [...] as of this encounter (statuses as of 05/24/2024) Resolved Problems Problem Noted Date Diagnosed Date [...] as of this encounter (statuses as of 05/24/2024) Immunizations Name Administration Dates Next Due COVID-19 [...] encounter Miscellaneous Notes * Telephone Encounter - Gely Mehta OSA - 05/23/2024 3:53 PM EST Called imaging at [facility], was told I had to call Medical Records. Called Medical records, I was asked to fax a request. Request faxed to [phone] * Telephone Encounter - Елена Choudhary PA-C - 05/23/2024 3:[address] was completed. Please get imaging from [facility]. Mira says measurement on CT is consistent with our most recent duplex size * Telephone Encounter - Елена Choudhary PA-C - 05/23/2024 1:20 PM EST Mira called (EDUARDO from [place]) who is seeing patient for DHAVAL and [...] have increased residual sac/endoleak Mira's # is [phone] Can we get this non con imaging once completed for our review? documented in this encounter Plan of Treatment Upcoming Encounters Date Type Department Care Team (Late st Contact Info) Description 09/09/2024 1:00 PM EDT Office Visit Cardiology, [facility] [address] [place] [address] Jalil Brito MD [address] [place] [address] 10/06/2024 3:20 PM EDT Office Visit Nephrology [address] [place] [address] ApodacaYecenia go MD [facility] [place] [address] 11/03/2024 9:00 AM EDT Office Visit Family Medicine [address] [place] [phone] Aleja Bryson MD [address] [place] [address] [place] [address] Health Maintenance Due Date Last Done Comments [...] this encounter Medical Devices Implanted Type Area Communications Supervisor Device Identifier Shelf Expiration Date Model / Serial / Lot Stent Main Body Hzzn-08-34-Zt - [id number] Implanted:Qty: 1 on 12/04/2009 at [place] [facility] [place] N/A: Aorta [employer] 08/05/2011 TFFB-32-82- ZT / / [id number] Leg Extension Xjdj-83-54-Zt - [id number] Implanted:Qty: 1 on 12/04/2009 at [place] [facility] [place] Right: Iliac [employer] 09/05/2011 TFLE-16-90- ZT / / [id number] Leg Extension Zerr-13-05-Zt - [id number] Implanted:Qty: 1 on 12/04/2009 at [place] [facility] [place] Left: Iliac [employer] 09/05/2011 TFLE-16-90- ZT / / [id number] Ev3 [place] 34 Liquid Embolic Material Implanted:Qty: 9 on 04/24/2017 by Petar Stovall MD at RAD[facility]OLOGY [facility] N/A: Abdomen 06/10/2019 73452-277 -1 / [id number] / [id number] Description:ev3 [place] 34 Liqu id Embolic Material documented as [...] and were consensually agreed upon. Care Teams Director Of Sales Marketing Relationship Specialty Start Date End Date Aleja Bryson MD [address] [place] [address] [place] [address] PCP - General Family Medicine 07/28/23 documented as of this encounter
--- OUTSIDE RECORDS SUMMARY | 2024-06-15 02:40 | External Medical Summary | Summary of Care ---
Author Name Unknown Organization [facility] Address [address] [place] [address] Phone [phone] Care Team Providers Care Rehabilitation Coordinator Name Role Phone Aleja Bryson MD Primary Care Provide r Reason for Visit * Reason Onset Date Comments Test Results Imaging Study 05/23/2024 Encounter Details Date Type Department Care Team (Late st Contact Info) Description 05/23/2024 Telephone Vascular Surg [facility] [address] [place] [address] Елена Choudhary PA-C [address] [place] [address] Test Results Imaging Study Allergies [...] 05/23/2024 3:53 PM EST Called imaging at [facility], was told I had to call Medical Records. Called Medical records, I was asked to fax a request. Request faxed to [phone] * Telephone Encounter - Елена Choudhary PA-C - 05/23/2024 3:[address] was completed. Please get imaging from [facility]. Mira says measurement on CT is consistent with our most recent duplex size * Telephone Encounter - Елена Choudhary PA-C - 05/23/2024 1:20 PM EST Mira called (EDUARDO from [place]) who is seeing patient for DHAVAL and [...] have increased residual sac/endoleak Mira's # is [phone] Can we get this non con imaging once completed for our review? documented in this encounter Plan of Treatment Upcoming Encounters Date Type Department Care Team (Late st Contact Info) Description 09/09/2024 1:00 PM EDT Office Visit Cardiology, [facility] [address] [place] [address] Jalil Brito MD [address] [place] [address] 10/06/2024 3:20 PM EDT Office Visit Nephrology [address] [place] [address] ApodacaYecenia go MD [facility] [place] [address] 11/03/2024 9:00 AM EDT Office Visit Family Medicine [address] [place] [address] Aleja Bryson MD [address] [place] [address] [place] [address] Health Maintenance Due Date Last Done Comments [...] this encounter Medical Devices Implanted Type Area Wedding Planner Device Identifier Shelf Expiration Date Model / Serial / Lot Stent Main Body Nudz-59-78-Zt - [id number] Implanted:Qty: 1 on 12/04/2009 at [place] [facility] [place] N/A: Aorta [employer] 08/05/2011 TFFB-32-82- ZT / / [id number] Leg Extension Esgy-10-69-Zt - [id number] Implanted:Qty: 1 on 12/04/2009 at [place] [facility] [place] Right: Iliac [employer] 09/05/2011 TFLE-16-90- ZT / / [id number] Leg Extension Tziz-59-48-Zt - [id number] Implanted:Qty: 1 on 12/04/2009 at [place] [facility] [place] Left: Iliac [employer] 09/05/2011 TFLE-16-90- ZT / / [id number] Ev3 [place] 34 Liquid Embolic Material Implanted:Qty: 9 on 04/24/2017 by Petar Stovall MD at RADIOLOGY [facility] N/A: Abdomen 06/10/2019 51419-873 -1 / [id number] / [id number] Description:ev3 [place] 34 Liqu id Embolic Material documented as [...] and were consensually agreed upon. Care Teams Rehabilitation Coordinator Relationship Specialty Start Date End Date Aleja Bryson MD [address] [place] [address] [place] [address] PCP - General Family Medicine 07/28/23 documented as of this encounter
--- OUTSIDE RECORDS SUMMARY | 2024-06-15 02:40 | External Medical Summary | Summary of Care ---
Author Name Unknown Organization [facility] Address [address] [place] [address] Phone [phone] Care Team Providers Care Steam Presser Name Role Phone Aleja Bryson MD Primary Care Provide r Encounter Details Date Type Department Care Team (Late st Contact Info) Description 05/23/2024 Orders Only Family Medicine [address] [address] Aleja Bryson MD [address] [place] [address] [place] [address] Allergies Active Allergy Reactions Criticality Noted Date Comments Ibuprofen 04/29/2011 Diarrhea documented as of this encounter (statuses as of 05/23/2024) Medications D3 High Potency 25 MCG (1000 UT) Oral Capsule (Cholecalciferol) Indications:Kidne y disease, chronic, 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) ([facility]) One capsule every other day 90 Cap [...] 09/09/2024 1:00 PM EDT Office Visit Cardiology, [facility] [address] [place] [address] Jalil Brito MD [address] [place] [address] 10/06/2024 3:20 PM EDT Office Visit Nephrology [address] [place] [address] Yecenia Apodaca MD [address] [place] [address] 11/03/2024 9:00 AM EDT Office Visit Family Medicine [address] [place] [address] Aleja Bryson MD [address] [place] [address] [place] [address] Health Maintenance Due Date Last Done Comments [...] this encounter Medical Devices Implanted Type Area Dumper [employer] Device Identifier Shelf Expiration Date Model / Serial / Lot Stent Main Body Qlet-31-93-Zt - [id number] Implanted:Qty: 1 on 12/04/2009 at [place] [facility] [place] N/A: Aorta [employer] 08/05/2011 TFFB-32-82- ZT / / [id number] Leg Extension Eveh-96-70-Zt - [id number] Implanted:Qty: 1 on 12/04/2009 at [place] [facility] [place] Right: Iliac [employer] 09/05/2011 TFLE-16-90- ZT / / [id number] Leg Extension Vknz-27-12-Zt - [id number] Implanted:Qty: 1 on 12/04/2009 at [place] [facility] [place] Left: Iliac [employer] 09/05/2011 TFLE-16-90- ZT / / [id number] Ev3 [place] 34 Liquid Embolic Material Implanted:Qty: 9 on 04/24/2017 by Petar Stovall MD at RADIOLOGY [facility] [place] N/A: Abdomen 06/10/2019 53453-319 -1 / [id number] / [id number] Description:ev3 [place] 34 Liqu id Embolic Material documented as of this encounter Procedures Procedure Name Priority Date/Time Associated Diagnosis Comments XR CHEST 1 VIEW Routine 05/22/2024 documented in this encounter Results * XR CHEST 1 VIEW (05/22/2024) Anatomical Region Laterality Modality Chest Other 05/22/2024 us Emilia Eisenberg PA-C RADIOLOGY (RAD GENERAL) Final Result documented in this encounter Advance [...] and were consensually agreed upon. Care Teams Steam Presser Relationship Specialty Start Date End Date Aleja Bryson MD [address] [place] [address] [place] [address] PCP - General Family Medicine 07/28/23 documented as of this encounter
--- OUTSIDE RECORDS SUMMARY | 2024-06-15 02:40 | External Medical Summary | Summary of Care ---
Author Name Unknown Organization [facility] Address [address] [place] [address] Phone [phone] Care Team Providers Care Inspector Chief Name Role Phone Aleja Bryson MD Primary Care Provide r Reason for Visit * Reason Onset Date Comments Test Results Imaging Study 05/23/2024 Encounter Details Date Type Department Care Team (Late st Contact Info) Description 05/23/2024 Telephone Vascular Surg [facility] [address] [place] [address] Елена Choudhary PA-C [address] [place] [address] Test Results Imaging Study Allergies [...] 05/23/2024 3:53 PM EST Called imaging at [facility], was told I had to call Medical Records. Called Medical records, I was asked to fax a request. Request faxed to [phone] * Telephone Encounter - Елена Choudhary PA-C - 05/23/2024 3:[address] was completed. Please get imaging from [facility]. Mira says measurement on CT is consistent with our most recent duplex size * Telephone Encounter - Елена Choudhary PA-C - 05/23/2024 1:20 PM EST Mira called (EDUARDO from [place]) who is seeing patient for DHAVAL and [...] have increased residual sac/endoleak Mira's # is [phone] Can we get this non con imaging once completed for our review? documented in this encounter Plan of Treatment Upcoming Encounters Date Type Department Care Team (Late st Contact Info) Description 09/09/2024 1:00 PM EDT Office Visit Cardiology, [facility] [address] [place] [address] Jalil Brito MD [address] [place] [address] 10/06/2024 3:20 PM EDT Office Visit Nephrology [address] [place] [address] ApodacaYecenia go MD [address] [facility] [place] [address] 11/03/2024 9:00 AM EDT Office Visit Family Medicine [address] [place] [address] Aleja Bryson MD [address] [place] [address] [place] [address] Health Maintenance Due Date Last Done Comments [...] this encounter Medical Devices Implanted Type Area Customs Port Director Device Identifier Shelf Expiration Date Model / Serial / Lot Stent Main Body Cumy-81-20-Zt - [id number] Implanted:Qty: 1 on 12/04/2009 at [place] [facility] [place] N/A: Aorta [employer] 08/05/2011 TFFB-32-82- ZT / / [id number] Leg Extension Gzps-31-42-Zt - [id number] Implanted:Qty: 1 on 12/04/2009 at [place] [facility] [place] Right: Iliac [employer] 09/05/2011 TFLE-16-90- ZT / / [id number] Leg Extension Imcg-06-39-Zt - [id number] Implanted:Qty: 1 on 12/04/2009 at [place] [facility] [place] Left: Iliac [employer] 09/05/2011 TFLE-16-90- ZT / / [id number] Ev3 [place] 34 Liquid Embolic Material Implanted:Qty: 9 on 04/24/2017 by Petar Stovall MD at RADIOLOGY [facility] [place] N/A: Abdomen 06/10/2019 10277-422 -1 / [id number] / [id number] Description:ev3 [place] 34 Liqu id Embolic Material documented as [...] were consensually agreed upon. Care Teams Inspector Chief Relationship Specialty Start Date End Date Aleja Bryson MD [address] [place] [address] [place] [address] PCP - General Family Medicine 07/28/23 documented as of this encounter
--- OUTSIDE RECORDS SUMMARY | 2024-06-15 02:40 | External Medical Summary ---
Author Name Unknown Address Unknown Organization K01:LABORATORY [facility] - [address] [place] [address] Laboratory Report Ordering Provider Test Date Status CORRINA FULLER HANG 05/20/2024 14:33:40 Final Observation Date Value Abnormality Reference (Units ) Status Ferritin 05/20/2024 14:33:40 111 30-400 (ng /mL) Final Performing Location LABORATORY [facility] - [address] [place] [address]
--- OUTSIDE RECORDS SUMMARY | 2024-06-15 02:40 | External Medical Summary | Summary of Care ---
Author Name Unknown Organization [facility] Address [address] [place] [address] Phone [phone] Care Team Providers Care Dry Cans Back Tender Name Role Phone Aleja Bryson MD Primary Care Provide r Reason for Visit * Reason Onset Date Comments Test Results Imaging Study 05/23/2024 Encounter Details Date Type Department Care Team (Late st Contact Info) Description 05/23/2024 Telephone Vascular Surg [facility] [address] [place] [address] Елена Choudhary PA-C [address] [place] [address] Test Results Imaging Study Allergies [...] to fax a request. Request faxed to [phone] * Telephone Encounter - Елена Choudhary PA-C - 05/23/2024 3:[address] was completed. Please get imaging from [facility]. Mira says measurement on CT is consistent with our most recent duplex size * Telephone Encounter - Елена Choudhary PA-C - 05/23/2024 1:20 PM EST Mira called (EDUARDO from [place]) who is seeing patient for DHAVAL and [...] have increased residual sac/endoleak Mira's # is [id number] Can we get this non con imaging once completed for our review? documented in this encounter Plan of Treatment Upcoming Encounters Date Type Department Care Team (Late st Contact Info) Description 09/09/2024 1:00 PM EDT Office Visit Cardiology, [facility] [address] [place] [address] Jalil Brito MD [address] [place] [address] 10/06/2024 3:20 PM EDT Office Visit Nephrology [address] [place] [address] ApodacaYecenia go MD [facility] [place] [address] 11/03/2024 9:00 AM EDT Office Visit Family Medicine [address] [place] [phone] Aleja Bryson MD [address] [place] [address] [place] [address] Health Maintenance Due Date Last Done Comments [...] this encounter Medical Devices Implanted Type Area Environmental Research Scientist Device Identifier Shelf Expiration Date Model / Serial / Lot Stent Main Body Lvmd-87-56-Zt - [id number] Implanted:Qty: 1 on 12/04/2009 at [place] [facility] [place] N/A: Aorta [employer] 08/05/2011 TFFB-32-82- ZT / / [id number] Leg Extension Zuzu-88-01-Zt - [id number] Implanted:Qty: 1 on 12/04/2009 at OR [facility] [place] Right: Iliac [employer] 09/05/2011 TFLE-16-90- ZT / / [id number] Leg Extension Pwsv-56-48-Zt - [id number] Implanted:Qty: 1 on 12/04/2009 at OR [facility] [place] Left: Iliac [employer] 09/05/2011 TFLE-16-90- ZT / / [id number] Ev3 [place] 34 Liquid Embolic Material Implanted:Qty: 9 on 04/24/2017 by Petar Stovall MD at RADIOLOGY [facility] N/A: Abdomen 06/10/2019 [id number] -[id number] / [id number] / [id number] Description:ev3 [place] 34 Liqu id Embolic Material documented as [...] and were consensually agreed upon. Care Teams Dry Cans Back Tender Relationship Specialty Start Date End Date Aleja Bryson MD [address] [place] [address] [place] [address] PCP - General Family Medicine 07/28/23 documented as of this encounter
--- OUTSIDE RECORDS SUMMARY | 2024-06-15 02:40 | External Medical Summary | Summary of Care ---
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, stage IV ([facility]) TAKE ONE TABLET BY MOUTH AT BEDTIME [...] Ivonne Adams RN documented in this encounter Plan of Treatment Upcoming Encounters Date Type Department Care Team (Late st Contact Info) Description 09/09/2024 1:00 PM EDT Office Visit Cardiology, [facility] [address] [place] [address] Jalil Brito MD [address] [place] [address] 10/06/2024 3:20 PM EDT Office Visit Nephrology [address] [place] [address] Yecenia Apodaca MD 200 [facility] [address] 11/03/2024 9:00 AM EDT Office Visit Family Medicine [address] [place] [phone] Aleja Bryson MD [address] [place] [address] [place] [address] Pending Results Name Type Priority Associated Diagnoses Date /Time PTH Lab Routine Kidney disease, chronic, 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) ([facility]) 05/20/2024 2:33 PM EST 25-HYDROXY VITAMIN D Lab Routine Kidney disease, chronic, 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) ([facility]) 05/20/2024 2:33 PM EST PHOSPHORUS Lab Routine Kidney disease, chronic, 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) ([facility]) 05/20/2024 2:33 PM EST URIC ACID Lab Routine Hyperuricemia 05/20/2024 2:33 PM EST CBC WITH WBC DIFFERENTIAL Lab STAT Acute anemia 05/20/2024 2:33 PM EST BASIC METABOLIC PANEL Lab STAT 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) 05/20/2024 2:33 PM EST IRON SCREEN, INCLUDING TIBC Lab Routine Acute anemia 05/20/2024 2:33 PM EST FERRITIN Lab Routine Acute anemia 05/20/2024 2:33 PM EST CBC Lab STAT Acute anemia 05/20/2024 2:33 PM EST DIFFERENTIAL, AUTOMATED Lab STAT Acute anemia 05/20/2024 2:33 PM EST Health Maintenance Due Date Last [...] this encounter Medical Devices Implanted Type Area Courier Delivery Driver Device Identifier Shelf Expiration Date Model / Serial / Lot Stent Main Body Ogeo-56-80-Zt - [id number] [place]ed:Q[place] 1 [place]04[place] [facility] [place]: Aorta [employer] 08/05/2011 TFFB-32-82- ZT / / [id number] Leg Extension Ygvx-90-03-Zt - [id number] Implanted:Qty: 1 on 12/04/2009 [place] [facility] [place]: Iliac [employer] 09/05/2011 TFLE-16-90- ZT / / [id number] Leg Extension Sezm-02-94-Zt - [id number] Implanted:Qty: 1 on 12/04/2009 [place] [facility] [place]: Iliac [employer] 09/05/2011 TFLE-16-90- ZT / / [id number] Ev3 [place] 34 Liquid Embolic Material Implanted:Qty: 9 on 04/24/2017 by Petar Stovall MD [place] [facility] [place]A: Abdomen 06/10/2019 [id number] -[id number] / [id number] / [id number] Description:ev3 [place] 34 Liqu id Embolic Material documented as of this encounter Visit Diagnoses Diagnosis Kidney disease, chronic, 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) (HCC) Chronic kidney disease, Stage IV (severe) Hyperuricemia Other abnormal blood chemistry Acute anemia 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 Care Teams Translational Specialist Relationship Specialty Start Date End Date Aleja Bryson MD [address] [place] [address] [place] [phone] PCP - General Family Medicine 07/28/23 documented as of this encounter
--- OUTSIDE RECORDS SUMMARY | 2024-06-15 02:40 | External Medical Summary ---
Author Name Unknown Address Unknown Organization K01:[facility] - [address] [place] [address] Laboratory Report Ordering Provider Test Date Status KAIT BRITOITIS 05/20/2024 14:33:40 Final Observation Date Value Abnormality Reference (Units ) Status Phosphate 05/20/2024 14:33:40 3.2 2.5-4.8 (m g/dL) Final Performing Location [facility] [address] [facility] [address]
--- OUTSIDE RECORDS SUMMARY | 2024-06-15 02:41 | External Medical Summary | Summary of Care ---
Author Name Unknown Organization [facility] Address [address] [place] [address] Phone [phone] Care Team Providers Care Necktie Maker Name Role Phone Aleja Bryson MD Primary Care Provide r Reason for Referral * Evaluate & Treat - Unlimited Visits (Within 10 days (routine)) - Authorized Specialty Diagnoses / Procedures Referred By Contact Referred To Contact Cardiovascular Medicine / Cardiology Diagnoses Moderate aortic stenosis Aleja Bryson MD [address] [place] [address] [place] [address] Phone: tel: fax: Referral ID Status Reason Start Date Expiration Date Visits Requested Visits Authorized [id number] Authorized Specialty Services Required 05/05/[phone] Question Answer Referral Priority Within 10 days (routine) Where should this appointment be scheduled? [facility] For which of the following conditions are you referring? Heart Murmur (New Onset) Reason for Visit * Reason Onset Date Comments Test Results 05/05/2024 CARDIOLOGY APPT Encounter Details Date Type Department Care Team (Late st Contact Info) Description 05/05/2024 Telephone Family Medicine [address] [place] [phone] Aleja Bryson MD [address] [place] [address] [place] [phone] Test Results (CARDIOLOGY APPT) Allergies Active Allergy Reactions Criticality Noted Date Comments Ibuprofen 04/29/2011 Diarrhea documented as of this encounter (statuses as of 05/05/2024) Medications D3 High Potency 25 MCG (1000 [...] as of this encounter (statuses as of 05/05/2024) Active Problems Problem Noted Date Diagnosed Date [...] as of this encounter (statuses as of 05/05/2024) Resolved Problems Problem Noted Date Diagnosed Date Resolved Date Accidental puncture or lacer ation during procedure, not elsewhere classified 01/05/2014 02/08/2014 Kidney disease, chronic, sta ge IV (GFR [...] as of this encounter (statuses as of 05/05/2024) Immunizations Name Administration Dates Next Due COVID-19 [...] encounter Miscellaneous Notes * Telephone Encounter - Gamaliel Bey OSA - 05/05/2024 3:45 PM EST I called daughter Jennifer, left message on her vm to call me back. * Telephone Encounter - Aleja Bryson MD - 05/05/2024 1:59 PM EST Spoke to daughter - due to moderate aortic stenosis referred the pt to cardiolgy documented in this encounter Plan of Treatment Upcoming Encounters Date Type Department Care Team (Late st Contact Info) Description 10/06/2024 3:20 PM EDT Office Visit Nephrology [address] [place] [address] Yecenia Apodaca MD [address] [place] [address] [place] [address] 11/03/2024 9:00 AM EDT Office Visit Family Medicine [address] [place] [phone] Aleja Ramos MD [address] [place] [address] [place] [address] Scheduled Referrals Name Type Priority Associated Diagnoses Orde r Schedule CARDIOLOGY REFERRAL OP Referral Within 10 days (routine) Moderate aortic stenosis Ordered: 05/05/2024 Health Maintenance Due Date Last Done Comments Adult Wellness Visit 09/11/2022 09/11/2021, 09/07/19 21 Depression Screening 09/11/2022 09/11/2021 Phosphate 01/06/2024 01/05/2023, 08/2021, 12/14/2020, Additional history exists Albumin/Creatinine Ratio 07/22/2024 024, 07/09/2022, 01/28/2022, Additional history exists Hgb 07/22/2024 07/23/2023, 05/2022, 01/08/2022, Additional history exists Nephrology Referral 02/17/2025 02/18/2024, 04/17/2009, 10/10/2008, Additional history exists PTH 02/17/2025 02/18/2024, 05/2022, 01/28/2022, Additional history exists DTap/Tdap Vaccines (2 - Td or Tdap) 06/08/2028 06/08/2018, 12/30/2007 Pneumococcal Vaccine: 50+ Years Completed 05/11/2014, 12/02/2002 Zoster Vaccines Completed 10/14/2019, 06/04, 10/18/2012 Influenza Vaccine (FLU shot) Completed , 01/21/2023, 01/08/2022, Additional history exists COVID-19 Vaccine Completed 03/02/2024, , 04/15/2021, Additional history exists HPV (Gardasil) Vaccine Aged Out No lo nger eligible based on patient's age to complete this topic Hepatitis B Vaccine Aged Out No longe r eligible based on patient's age to complete this topic MENINGOCOCCAL (MENACTRA/MENVEO) Aged Out No longer eligible based on patient's age to complete this topic documented as of this encounter Medical Devices Implanted Type Area Automatic Driller And Reamer Device Identifier Shelf Expiration Date Model / Serial / Lot Stent Main Body Yrlz-18-62-Zt - [id number] Implanted:Qty: 1 on 12/04/2009 at [place] [facility] [place] N/A: Aorta [employer] 08/05/2011 TFFB-32-82- ZT / / [id number] Leg Extension Vagy-20-24-Zt - [id number] Implanted:Qty: 1 on 12/04/2009 at [place] [facility] [place] Right: Iliac [employer] 09/05/2011 TFLE--90- ZT / / [id number] Leg Extension Quce-19-61-Zt - [id number] Implanted:Qty: 1 on 12/04/2009 at [place] [facility] [place] Left: Iliac [employer] 09/05/2011 TFLE-16-90- ZT / / [id number] Ev3 [place] 34 Liquid Embolic Material Implanted:Qty: 9 on 04/24/2017 by Petar Stovall MD at RAD[place]OLOG[place] [facility] [place] N/A: Abdomen 06/10/2019 [id number] -[id number] / [id number] / [id number] Description:ev3 [place] 34 Liqu id Embolic Material documented as of this encounter Visit Diagnoses Diagnosis Moderate aortic stenosis- Primary Aortic valve disorders documented in this encounter [...] and were consensually agreed upon. Care Teams Necktie Maker Relationship Specialty Start Date End Date Aleja Bryson MD [address] [place] [address] [place] [phone] PCP - General Family Medicine 07/28/23 documented as of this encounter
--- OUTSIDE RECORDS SUMMARY | 2024-06-15 02:41 | External Medical Summary ---
Author Name Unknown Address Unknown Organization K01:[facility] [place] [address] [place] [address] Laboratory Report Ordering Provider Test Date Status ROMINA BRITO 05/20/2024 14:33:40 Final Observation Date Value Abnormality Reference (Units ) Status Parathyrin.intact [Mass/volume] in Serum or Plasma 05/20/2024 14:33:40 125 Above high normal 15-65 (pg/mL) Final Performing Location [facility] [place] [address] [place] [address]
--- OUTSIDE RECORDS SUMMARY | 2024-06-15 02:41 | External Medical Summary ---
Author Name Unknown Address Unknown Organization K01:[facility] [place] - [address] [facility] [address] Laboratory Report Ordering Provider Test Date Status CORRINA FULLER 05/20/2024 14:33:40 Final Observation Date Value Abnormality Reference (Units ) Status WBC, Total 05/20/2024 14:33:40 11.01 Above high normal 4.00-10.80 (K/uL) Final RBC 05/20/2024 14:33:40 2.31 4.50-5.25 (M/uL) Final Hemoglobin 05/20/2024 14:33:40 7.4 Below low normal 14.0-16.8 (g/dL) Final HCT 05/20/2024 14:33:40 23.5 Below low normal 40.0-48.4 (%) Final MCV 05/20/2024 14:33:40 101.7 82.0-99.5 (fL) Final MCH 05/20/2024 14:33:40 32.0 27.0-34.0 (pg) Final MCHC 05/20/2024 14:33:40 31.5 32.0-36.0 (g/dL) Final RDW 05/20/2024 14:33:40 17.0 11.5-15.5 (%) Final Platelets 05/20/2024 14:33:40 150 140-400 (K/uL) Final MPV 05/20/2024 14:33:40 12.5 6.6-11.1 (fL) Final Nucleated erythrocytes/100 leukocytes [Ratio] in Blood by Automated count 05/20/2024 14:33:40 0 <=0 (/100 WBCs) Final Performing Location [facility] [place] - [address] [place] [address]
--- OUTSIDE RECORDS SUMMARY | 2024-06-15 02:41 | External Medical Summary | Summary of Care ---
Author Name Unknown Organization [facility] Address [address] [place] [address] Phone [phone] Care Team Providers Care Corporate Travel Coordinator Name Role Phone Aleja Bryson MD Primary Care Provide r Encounter Details Date Type Department Care Team (Late st Contact Info) Description 05/19/2024 Orders Only Family Medicine [address] [phone] Aleja Bryson MD [address] [place] [address] [place] [address] Allergies Active Allergy Reactions Criticality Noted Date Comments Ibuprofen 04/29/2011 Diarrhea documented as of this encounter (statuses as of 05/19/2024) Medications D3 High Potency 25 MCG (1000 UT) Oral Capsule (Cholecalciferol) Indications:Kidne y disease, chronic, 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) ([facility]) One capsule every other day [...] as of this encounter (statuses as of 05/19/2024) Active Problems Problem Noted Date Diagnosed Date [...] as of this encounter (statuses as of 05/19/2024) Resolved Problems Problem Noted Date Diagnosed Date [...] as of this encounter (statuses as of 05/19/2024) Immunizations Name Administration Dates Next Due COVID-19 [...] 2:00 PM EST Office Visit Family Medicine [address] [phone] Jen Angel MD [address] [place] [address] [place] [phone] 09/09/2024 1:00 PM EDT Office Visit Cardiology, [facility] [address] [place] [address] Jalil Brito MD [address] [place] [address] 10/06/2024 3:20 PM EDT Office Visit Nephrology [address] [place] [address] [facility] [address] [facility] [address] 11/03/2024 9:00 AM EDT Office Visit Family Medicine [address] [place] [phone] Aleja Bryson MD [address] [place] [address] [place] [address] Health Maintenance Due Date Last Done Comments Adult Wellness Visit 09/11/2022 09/11/2021, 09/07/19 21 Depression Screening 09/11/2022 09/11/2021 Phosphate 01/06/2024 01/05/2023, 08/2021, 12/14/2020, Additional history exists Albumin/Creatinine Ratio 07/22/2024 024, 07/09/2022, 01/28/2022, Additional history exists Nephrology Referral 02/17/2025 02/18/2024, [...] this encounter Medical Devices Implanted Type Area Research Center Director Device Identifier Shelf Expiration Date Model / Serial / Lot Stent Main Body Uoag-71-79-Zt - [id number] [place] [facility] [place] Aorta [employer] 08/05/2011 TFFB-32-82- ZT / / [id number] Leg Extension Yzsy-54-51-Zt - [id number] Implanted:Qty: 1 [place] 12[place]2009 [place] [facility] [place]: Iliac [employer] 09/05/2011 TFLE-16-90- ZT / / [id number] Leg Extension Lbqn-45-65-Zt - [id number] Implanted:Qty: 1 [place] 12/04/2009 [place] [facility] [place]: Iliac [employer] 09/05/2011 TFLE-16-90- ZT / / [id number] Ev3 [place] 34 Liquid Embolic Material Implanted:Qty: 9 on 04/24/2017 by Petar Stovall [place] [facility] [place]: Abdomen 06/10/2019 [id number] -1 / [id number] / [id number] Description:ev3 [place] 34 Liqu id Embolic Material documented as of this encounter Procedures Procedure Name Priority Date/Time Associated Diagnosis Comments CHEMISTRY-OUTSIDE Routine 05/17/2024 documented in this encounter Results * (ABNORMAL) CHEMISTRY-OUTSIDE (05/17/2024) Not all results display below - see scan for full detail OUTSIDE LAB (SEE SCANNED REPORT) Comment:SCAN INCLUDES - CMP, CBCD, UA CREATININE 3.45(A) 0.70 - 1.30 MG/DL OUTSIDE LAB (SEE SCANNED REPORT) EGFR 17(L) >=60 ML/MIN OUTSIDE LAB (SEE SCANNED REPORT) POTASSIUM 3.9 3.5 - 5.1 MMOL/L OUTSIDE LAB (SEE SCANNED REPORT) GLUCOSE 111(A) 70 - 110 MG/DL OUTSIDE LAB (SEE [...] LAB OUTSIDE LAB (SEE SCANNED REPORT) HEMOGLOBIN, [id number] LAB OUTSIDE LAB (SEE SCANNED REPORT) PHOSPHORUS-OUTSI DE LAB OUTSIDE LAB (SEE SCANNED REPORT) PTH-OUTSIDE LAB OUTS LENIN LAB (SEE SCANNED REPORT) MICROALBUMIN RATIO-OUTSIDE LAB OUTSIDE LAB (SEE SCANNED REPORT) PROTEIN, UA-OUTSIDE LAB 100(A) NEGATIVE MG/DL OUTSIDE LAB (SEE SCANNED REPORT) HGB 8.0(A) 13.5 - 18.0 GM/DL OUTSIDE LAB (SEE SCANNED REPORT) 05/17/2024 us Samer Damaso Sierra MD LABORATORY Final Resu lt OUTSIDE LAB (SEE SCANNED REPORT) documented in [...] and were consensually agreed upon. Care Teams Corporate Travel Coordinator Relationship Specialty Start Date End Date Aleja Bryson MD [address] [place] [address] [place] [address] PCP - General Family Medicine 07/28/23 documented as of this encounter
--- OUTSIDE RECORDS SUMMARY | 2024-06-15 02:41 | External Medical Summary | Summary of Care ---
Author Name Unknown Organization [facility] Address [address] [place] [address] Phone [phone] Care Team Providers Care Workers Compensation Attorney Name Role Phone Aleja Bryson MD Primary Care Provide r Reason for Visit * Reason Onset Date Comments Referral 05/09/2024 Encounter Details Date Type Department Care Team ([facility] st Contact Info) Description 05/09/2024 New Patient Triage (TUTORING ASSISTANT USE ONLY) Cardiology, [facility] [address] [facility] [place] [address] Lizzette Wong CRNP [address] [place] [address] Referral Allergies Active Allergy Reactions Criticality Noted Date Comments Ibuprofen 04/29/2011 Diarrhea documented as of this encounter (statuses as of 05/11/2024) Medications D3 High Potency 25 MCG (1000 [...] as of this encounter (statuses as of 05/11/2024) Active Problems Problem Noted Date Diagnosed Date [...] as of this encounter (statuses as of 05/11/2024) Resolved Problems Problem Noted Date Diagnosed Date [...] as of this encounter (statuses as of 05/11/2024) Immunizations Name Administration Dates Next Due COVID-19 [...] documented in this encounter Progress Notes * Eden Salgado PA-C - 05/10/2024 7:45 PM EST Does patient need to be seen?: Yes Modality: Office visit Urgency: Within 30 days (routine) Discussed care plan with patient or proxy?: Yes spoke with pts daughter Communicated with patient on Date (mm/dd/yyyy): 05/09/2024 at Time ([facility]): 1317 88 year old male referred by PCP for moderate aortic stenosis. Asymptomatic EKG and echocardiogram for review on chart Scheduled 09/09/2024 Dr Brito Appointment is appropriate as scheduled Thank you Eden Salgado PA-C Department of Cardiology, [facility] * Daniele Osorio LPN - 05/09/2024 1:13 PM EST New Patient Triage What is the diagnosis/reason for referral?: Moderate aortic stenosis Enter order ID here: [id number] Specialty specific documentation: Cardiology Structural Heart Discussed care plan with patient or proxy?: Yes spoke to patients daughter Communicated with patient on Date (mm/dd/yyyy): 05/09/2024 at Time ([facility]): 13:17 Patient referred for echo findings (moderate aortic valve stenosis) after undiagnosed murmur. No mention of any cardiac complaints at OV with PCP. Daughter confirmed patient is not currently having any cardiac complaints at this time. Appointment to be kept as scheduled. Echo findings: Interpretation Summary The left ventricular cavity size is normal. The LV wall thickness is mildly increased (concentric). The left ventricular wall motion is normal. The qualitative LV ejection fraction is 60-64% (normal). The left ventricular diastolic function is mildly abnormal (grade I). The aortic valve is moderately calcified. Moderate aortic valve stenosis is present. Mild aortic valve regurgitation is present. There is moderate mitral annular calcification. Mild mitral regurgitation is present. Mild tricuspid regurgitation is present. Left Ventricle The qualitative LV ejection fraction is 60-64% (normal). The left ventricular cavity size is normal. The LV wall thickness is mildly increased (concentric). There is no left ventricular mural thrombus. Left Ventricular Wall Motion The left ventricular wall motion is normal. Right Ventricle The right ventricular cavity size is normal (basal dimension < 4.2 cm RV apical 4 chamber view).The right ventricular systolic function is normal as assessed by tricuspid annular plane systolic excursion (TAPSE) (normal >1.7 cm). Atria The left atrium is normal sized. The right atrial size is normal. Diastolic Function The left ventricular diastolic function is mildly abnormal (grade I). Aortic Valve The aortic valve has three leaflets. The aortic valve is moderately calcified. Moderate aortic valve stenosis is present. Mild aortic valve regurgitation is present. Mitral Valve There is moderate mitral annular calcification. The mitral valve leaflets thickness is mildly increased. Mitral stenosis is absent. Mild mitral regurgitation is present. Tricuspid Valve The tricuspid valve anatomy is normal. Tricuspid stenosis is absent. Mild tricuspid regurgitation is present. Pulmonary Valve The pulmonary valve is inadequately visualized but the Doppler data is adequate for interpretation.. Pulmonic stenosis is absent. There is no significant pulmonary regurgitation. MITCHEL CAMACHO 05/03/2024 Page 1 of 3 05/03/2024 Pericardium No pericardial effusion is noted. Vessels No Doppler findings of significant proximal descending aorta coarctation on limited screening images. The aortic root and proximal ascending aorta are normal sized. Septae There is no evidence of an atrial septal defect but resolution does not allow assessment for a patent foramen ovale. There is no ventricular septal defect. Hemodynamics There is no evidence of pulmonary hypertension. Normal IVC size and collapsability with inspirationindicates a normal right atrial pressure of 3 mmHg. Referral Diagnosis Undiagnosed cardiac murmurs [R01.1 (ICD-10-CM)] Procedure Details 54610: Complete /2D MMode adult echocardiogram, Complete doppler interrogation, and Colorflow Doppler performed. Echocardiography electronic service technician: Maira Rose CASI The examination quality was diagnostic. The patient was informed of the procedure and had opportunity to ask questions and was willing to proceed with test. The patient identification was verified prior to procedure by date of and stated name. Prior to exam the patient was assessed for recent pain and was pain free. The primary indication after review was deemed appropriate and the examination was performed. MMode/2D Measurements & Calculations RVDd: 4.6 cm IVSd: 1.1 cm LVIDd: 4.3 cm LVIDs: 3.3 cm LVPWd: 0.96 cm IVS/LVPW: 1.2 FS: 23.1 % EDV(Teich): 83.2 ml Ao root diam: 3.8 cm LA dimension: 4.1 cm asc Aorta Diam: 3.6 cm LVOT diam: 2.3 cm LAV(MOD-bp): 49.6 ml LA Volume (MOD-bp) Index: 27.8 ml/m2 EDV(MOD-sp4): 119.0 ml ESV(MOD-sp4): 38.0 ml EF(MOD-sp4): 68.1 % EDV(MOD-sp2): 78.0 ml ESV(MOD-sp2): 30.0 ml EF(MOD-sp2): 61.5 % SV(MOD-sp4): 81.0 ml SV(MOD-sp2): 48.0 ml Doppler Measurements & Calculations MV E max roxana: 97.2 cm/sec MV A max roxana: 114.0 cm/sec MV E/A: 0.85 MV P1/2t: 75.3 msec MVA(P1/2t): 2.9 cm2 MV dec time: 0.23 sec Ao V2 max: 325.8 cm/sec Ao max P.5 mmHg Ao max PG (full): 37.1 mmHg Ao mean P.7 mmHg Ao mean PG (full): 19.0 mmHg Ao V2 VTI: 66.7 cm DANIE(I,D): 1.7 cm2 DANIE(V,D): 1.5 cm2 AI P1/2t: 487.9 msec LV V1 max P.3 mmHg LV V1 mean P.7 mmHg LV V1 max: 115.5 cm/sec LV V1 mean: 75.3 cm/sec LV V1 VTI: 26.8 cm MR max roxana: 621.1 cm/sec SV(LVOT): 110.6 ml PA max P.1 mmHg PA acc time: 0.17 sec TR max roxana: 258.4 cm/sec TR max P.7 mmHg TAPSE_phl: 2.3 cm documented in this encounter Plan of Treatment Upcoming Encounters Date Type Department Care Team (Late st Contact Info) Description 09/09/2024 1:00 PM EDT Office Visit Cardiology, [facility] [address] [place] [address] Jalil Brito MD 132 [place] [address] 10/06/2024 3:20 PM EDT Office Visit Nephrology [address] [place] [address] Yecenia Apodaca MD [address] [place] [address] 11/03/2024 9:00 AM EDT Office Visit Family Medicine [address] [place] [phone] Aleja Bryson MD [address] [place] [address] [place] [address] Health Maintenance Due Date Last Done Comments [...] this encounter Medical Devices Implanted Type Area Weight Loss Consultant Device Identifier Shelf Expiration Date Model / Serial / Lot Stent Main Body Lkhj-08-90-Zt - [id number] Implanted:Qty: 1 on 12/04/2009 at OR [facility] N/A: Aorta [employer] 08/05/2011 TFFB-32-82- ZT / / [id number] Leg Extension Bxhh-62-09-Zt - [id number] Implanted:Qty: 1 on 12/04/2009 at OR [facility] Right: Iliac [employer] 09/05/2011 TFLE-16-90- ZT / / [id number] Leg Extension Zomk-82-19-Zt - [id number] Implanted:Qty: 1 on 12/04/2009 at OR [facility] Left: Iliac [employer] 09/05/2011 TFLE-16-90- ZT / / [id number] Ev3 [place] 34 Liquid Embolic Material Implanted:Qty: 9 on 04/24/2017 by Petar Stovall MD at RADIOLOGY [facility] N/A: Abdomen 06/10/2019 [id number] -1 / [id number] / [id number] Description:ev3 [place] 34 Liqu id Embolic Material documented as [...] and were consensually agreed upon. Care Teams Workers Compensation Attorney Relationship Specialty Start Date End Date Aleja Bryson MD [address] [place] [address] [place] [address] PCP - General Family Medicine 07/28/23 documented as of this encounter
--- OUTSIDE RECORDS SUMMARY | 2024-06-15 02:41 | External Medical Summary | Summary of Care ---
Author Name Unknown Organization [facility] Address [address] [place] [address] Phone [phone] Care Team Providers Care Information Systems Security Developer Name Role Phone Aleja Bryson MD Primary Care Provide r Reason for Visit * Reason Comments eRx-Medication Refill Encounter Details Date Type Department Care Team (Late st Contact Info) Description 03/01/2024 Refill Family Medicine [address] [phone] Delano Hood PA-C [address] [place] [address] [place] [address] Allergies Active Allergy Reactions Criticality Noted Date Comments Ibuprofen 04/29/2011 Diarrhea documented as of this encounter (statuses as of 03/02/2024) Medications D3 High Potency 25 MCG (1000 [...] chronic kidney disease, stage IV ([facility]) TAKE ONE TABLET BY MOUTH AT BEDTIME 90 Tablet 1 11/18/19 24 Active Allopurinol 100 MG Oral Tablet (Zyloprim)Indica [...] BEDTIME 90 Tablet 1 02/16/20 24 Active Lisinopril 10 MG Oral Tablet (Prinivil)Indica tions:Benign hypertension with chronic kidney disease, stage IV ([facility]) TAKE ONE TABLET BY MOUTH EVERY DAY 90 Tablet 1 02/24/20 24 Active Furosemide 20 MG Oral Tablet (Lasix) TAKE ONE TABLET IN THE MORNING 90 Tablet 1 03/02/20 24 Active Furosemide 20 MG Oral Tablet (Lasix) TAKE ONE TABLET IN THE MORNING 90 Tablet 1 09/04/19 24 024 Discontinued documented as of this encounter (statuses as of 03/02/2024) Active Problems Problem Noted Date Diagnosed Date Kidney disease, chronic, stage IV (GFR 15-29 [...] as of this encounter (statuses as of 03/02/2024) Resolved Problems Problem Noted Date Diagnosed Date [...] as of this encounter (statuses as of 03/02/2024) Immunizations Name Administration Dates Next Due COVID-19 mRNA, LNP-s, No Pre serve, 2-Dose Series (Moderna) 04/15/2021,08/01/2020,06/27/2020 COVID-19, MRNA-LNP, PF, 30 M CG/0.3 mL, 12 YRS AND ABOVE, IM (PFIZER-Comirnaty) 01/21/2023 Pneumococcal Conjugate Vacc, 13 Valent (Prevnar) 05/11/2014 [...] encounter Miscellaneous Notes * Telephone Encounter - Misael Purcell, [facility] - 03/02/2024 10:19 AM EST Signed Prescriptions: Disp Refills Furosemide 20 MG Oral Tablet (Lasix) 90 Tab*1 Sig: TAKE ONE TABLET IN THE MORNINGAuthorizing Provider: DELANO HOOD User: MISAEL PURCELL-------- documented in this encounter Plan of Treatment Upcoming Encounters Date Type Department Care Team (Late st Contact Info) Description 03/02/2024 1:40 PM EST Office Visit Family Medicine [address] [place] [phone] Aleja Bryson MD [address] [place] [address] [place] [address] 10/06/2024 3:20 PM EDT Office Visit Nephrology [address] [place] [address] Yecenia Apodaca MD [address] [place], [place] [address] [address] Health Maintenance Due Date Last Done Comments Adult Wellness Visit 09/11/2022 09/11/2021, 09/07/19 21 Depression Screening 09/11/2022 09/11/2021 COVID-19 Vaccine ( season) 2023 01/21/2023, 04/15/2021, 08/01/2020, Additional history exists Phosphate 01/06/2024 01/05/2023, 08/2021, 12/14/2020, Additional history exists Albumin/Creatinine Ratio 07/22/2024 024, 07/09/2022, 01/28/2022, Additional history exists Hgb 07/22/2024 07/23/2023, 05/2022, 01/08/2022, Additional history exists Nephrology Referral 02/17/2025 02/18/2024, 04/17/2009, 10/10/2008, Additional history exists PTH 02/17/2025 02/18/2024, 05/2022, 01/28/2022, Additional history exists DTap/Tdap Vaccines (2 - Td or Tdap) 06/08/2028 06/08/2018, 12/30/2007 Pneumococcal Vaccine: 65+ Years Completed 05/11/2014, 12/02/2002 Zoster Vaccines Completed [...] this encounter Medical Devices Implanted Type Area Photograph Finisher Device Identifier Shelf Expiration Date Model / Serial / Lot Stent Main Body Bxzo-34-89-Zt - [id number] Implanted:Qty: 1 on 12/04/2009 at [place] [facility] N/A: Aorta [employer] 08/05/2011 TFFB-32-82- ZT / / [id number] Leg Extension Najj-17-87-Zt - [id number] Implanted:Qty: 1 on 12/04/2009 at OR [facility] Right: Iliac [employer] 09/05/2011 TFLE-16-90- ZT / / [id number] Leg Extension Kjpx-55-27-Zt - [id number] Implanted:Qty: 1 on 12/04/2009 at OR [facility] Left: Iliac [employer] 09/05/2011 TFLE-16-90- ZT / / [id number] Ev3 Blas 34 Liquid Embolic Material Implanted:Qty: 9 on 04/24/2017 by Petar Stovall MD at RADIOLOGY [facility] N/A: Abdomen 06/10/2019 [id number] -1 / [id number] / [id number] Description:ev3 Blas 34 Liqu id Embolic Material [...] and were consensually agreed upon. Care Teams Information Systems Security Developer Relationship Specialty Start Date End Date Aleja Bryson MD [address] [place] [address] [place] [phone] PCP - General Family Medicine 07/28/23 documented as of this encounter
--- OUTSIDE RECORDS SUMMARY | 2024-06-15 02:41 | External Medical Summary | Summary of Care ---
Author Name Unknown Organization [facility] Address [address] [place] [address] Phone [phone] Care Team Providers Care Order Manager Name Role Phone Aleja Bryson MD Primary Care Provide r Reason for Referral * Evaluate & Treat - Unlimited Visits (Within 10 days (routine)) - Authorized Specialty Diagnoses / Procedures Referred By Contact Referred To Contact Cardiovascular Medicine / Cardiology Diagnoses Moderate aortic stenosis Aleja Bryson MD [address] [place] [address] [place] [address] Phone: tel: fax: Referral ID Status Reason Start Date Expiration Date Visits Requested Visits Authorized [id number] Authorized Specialty Services Required 05/05/[phone] Question Answer Referral Priority Within 10 days (routine) Where should this appointment be scheduled? [facility] For which of the following conditions are you referring? Heart Murmur (New Onset) Reason for Visit * Reason Onset Date Comments Test Results 05/05/2024 CARDIOLOGY APPT Encounter Details Date Type Department Care Team ([facility] st Contact Info) Description 05/05/2024 Telephone Family Medicine [address] [place] [phone] Aleja Bryson MD [address] [place] [address] [place] [address] Test Results (CARDIOLOGY APPT) Allergies Active Allergy Reactions Criticality Noted Date Comments Ibuprofen 04/29/2011 Diarrhea documented as of this encounter (statuses as of 05/06/2024) Medications D3 High Potency 25 MCG (1000 [...] as of this encounter (statuses as of 05/06/2024) Active Problems Problem Noted Date Diagnosed Date [...] as of this encounter (statuses as of 05/06/2024) Resolved Problems Problem Noted Date Diagnosed Date [...] as of this encounter (statuses as of 05/06/2024) Immunizations Name Administration Dates Next Due COVID-19 [...] Telephone Encounter - Gamaliel Bey OSA - 05/06/2024 8:50 AM EST I spoke to daughter. Cirilo is scheduled. Daughter aware. * Telephone Encounter - Gamaliel Bey OSA [...] Visit Cardiology, [facility] [address] [place] [address] Jalil Brito MD [address] [place] [address] 10/06/2024 3:20 PM EDT Office Visit Nephrology [address] [place] [address] Yecenia Apodaca MD [address] [place] [address] 11/03/2024 9:00 AM EDT Office Visit Family Medicine [address] [place] [phone] Aleja Bryson MD [address] [place] [address] [place] [address] Scheduled Referrals Name Type Priority Associated Diagnoses [...] this encounter Medical Devices Implanted Type Area Billet Shearer Device Identifier Shelf Expiration Date Model / Serial / Lot Stent Main Body Dyxw-14-36-Zt - [id number] Implanted:Qty: 1 on 12/04/2009 at [place] [facility] N/A: Aorta [employer] 08/05/2011 TFFB-32-82- ZT / / [id number] Leg Extension Fmbt-59-09-Zt - [id number] Implanted:Qty: 1 on 12/04/2009 at OR [facility] Right: Iliac [employer] 09/05/2011 TFLE-16-90- ZT / / [id number] Leg Extension Zixd-02-87-Zt - [id number] Implanted:Qty: 1 on 12/04/2009 at OR [facility] Left: Iliac [employer] 09/05/2011 TFLE-16-90- ZT / / [id number] Ev3 [place] 34 Liquid Embolic Material Implanted:Qty: 9 on 04/24/2017 by Petar Stovall MD at RADIOLOGY [facility] N/A: Abdomen 06/10/2019 [id number] -1 / [id number] / [id number] Description:ev3 [place] 34 Liqu id Embolic Material documented as [...] and were consensually agreed upon. Care Teams Order Manager Relationship Specialty Start Date End Date Aleja Bryson MD [address] [place] [address] [place] [address] PCP - General Family Medicine 07/28/23 documented as of this encounter
--- OUTSIDE RECORDS SUMMARY | 2024-06-15 02:41 | External Medical Summary | Summary of Care ---
Author Name Unknown Organization [facility] Address [address] [place] [address] Phone [phone] Care Team Providers Care Technical Solutions Consultant Name Role Phone Aleja Bryson MD Primary Care Provide r Reason for Visit * Reason Onset Date Comments Blood Pressure Readings 03/01/2024 Encounter Details Date Type Department Care Team ([facility] st Contact Info) Description 03/01/2024 Telephone NephrologyYordan [place] [address] [facility] [place] [address] Yecenia Apodaca MD [address] [place] [address] Blood Pressure Readings Allergies Active Allergy Reactions Criticality Noted Date Comments Ibuprofen 04/29/2011 Diarrhea documented as of this encounter (statuses as of 03/01/2024) Medications D3 High Potency 25 MCG (1000 UT) Oral Capsule (Cholecalciferol) Indications:Kidne y disease, chronic, 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) ([facility]) One capsule every other day 90 Cap 1 1 Active Tylenol 325 MG Oral Capsule (Acetaminophen) Take by mouth 325 mg . Once daily Active Furosemide 20 MG Oral Tablet (Lasix) TAKE ONE TABLET IN THE MORNING 90 Tablet 1 4 Active amLODIPine Besylate 5 MG Oral Tablet (Norvasc)Indicati ons:Primary hypertension,Carlos gn hypertension with chronic kidney disease, stage IV ([facility]) TAKE ONE TABLET BY MOUTH AT BEDTIME [...] EVERY DAY 90 Tablet 1 4 Active documented as of this encounter (statuses as of 03/01/2024) Active Problems Problem Noted Date Diagnosed Date [...] as of this encounter (statuses as of 03/01/2024) Resolved Problems Problem Noted Date Diagnosed Date [...] as of this encounter (statuses as of 03/01/2024) Immunizations Name Administration Dates Next Due COVID-19 [...] encounter Miscellaneous Notes * Telephone Encounter - Deepa Small RN - 03/01/2024 10:39 AM EST TE with pt;s daughter Jennifer. He has a scheduled appt with PCP tomorrow. They will bring list of readings for this nurse to review. * Telephone Encounter - Deepa Small RN - 03/01/2024 10:36 AM EST ----- Message from Yecenia Apodaca MD sent at 02/18/2024 5:09 PM EST ----- Please call daughter and find out about when we can expect blood home blood pressure log if we havenot yet received 1 documented in this encounter Plan of Treatment Upcoming Encounters Date Type Department Care Team (Late st Contact Info) Description 03/02/2024 1:40 PM EST Office Visit Family Medicine [address] [place] [phone] Aleja Bryson MD [address] [place] [address] [place] [address] 10/06/2024 3:20 PM EDT Office Visit Nephrology [address] [place] [address] Yecenia Apodaca MD [address] [place], [place] [address] [address] Health Maintenance Due Date Last Done Comments [...] this encounter Medical Devices Implanted Type Area Torpedo Specialist Device Identifier Shelf Expiration Date Model / Serial / Lot Stent Main Body Ayja-50-82-Zt - [id number] Implanted:Qty: 1 on 12/04/2009 at OR [facility] N/A: Aorta [employer] 08/05/2011 TFFB-32-82- ZT / / [id number] Leg Extension Hwil-83-59-Zt - [id number] Implanted:Qty: 1 on 12/04/2009 at OR [facility] Right: Iliac [employer] 09/05/2011 TFLE-16-90- ZT / / [id number] Leg Extension Tbhc-99-64-Zt - [id number] Implanted:Qty: 1 on 12/04/2009 at OR [facility] Left: Iliac [employer] 09/05/2011 TFLE-16-90- ZT / / [id number] Ev3 Blas 34 Liquid Embolic Material Implanted:Qty: 9 on 04/24/2017 by Petar Stovall MD at RADIOLOGY [facility] N/A: Abdomen 06/10/2019 [id number] -1 / [id number] / [id number] Description:ev3 Blas 34 Liqu id Embolic Material [...] and were consensually agreed upon. Care Teams Technical Solutions Consultant Relationship Specialty Start Date End Date Aleja Bryson MD [address] [place] [address] [place] [phone] PCP - General Family Medicine 07/28/23 documented as of this encounter
--- OUTSIDE RECORDS SUMMARY | 2024-06-15 02:41 | External Medical Summary | Summary of Care ---
Author Name Unknown Organization [facility] Address [address] [place] [address] Phone [phone] Care Team Providers Care Isotope Technologist Name Role Phone Aleja Bryson MD Primary Care Provide r Reason for Referral * Evaluate & Treat - Unlimited Visits (Within 10 days (routine)) - Authorized Specialty Diagnoses / Procedures Referred By Contact Referred To Contact Cardiovascular Medicine / Cardiology Diagnoses Moderate aortic stenosis Aleja Bryson MD [address] [place] [address] [place] [address] Phone: tel: fax: Referral ID Status Reason Start Date Expiration Date Visits Requested Visits Authorized [id number] Authorized Specialty Services Required 05/05/[phone] [...] Contact Info) Description 05/05/2024 Telephone Family Medicine [address] [place] [phone] Aleja Bryson MD [address] [place] [address] [place] [address] Test Results (CARDIOLOGY APPT) Allergies Active Allergy [...] 10/06/2024 3:20 PM EDT Office Visit Nephrology [address] [place] [address] Yecenia Apodaca MD [address] [place] [address] [place] [address] 11/03/2024 9:00 AM EDT Office Visit Family Medicine [address] [place] [phone] Aleja Ramos MD [address] [place] [address] [place] [address] Scheduled Referrals Name Type Priority Associated Diagnoses [...] this encounter Medical Devices Implanted Type Area Tow Truck Operator Device Identifier Shelf Expiration Date Model / Serial / Lot Stent Main Body Ygyf-94-74-Zt - [id number] Implanted:Qty: 1 on 12/04/2009 at [place] [facility] N/A: Aorta [employer] 08/05/2011 TFFB-32-82- ZT / / [id number] Leg Extension Yvmp-08-50-Zt - [id number] Implanted:Qty: 1 on 12/04/2009 at OR [facility] Right: Iliac [employer] 09/05/2011 TFLE--90- ZT / / [id number] Leg Extension Bbey-77-82-Zt - [id number] Implanted:Qty: 1 on 12/04/2009 at OR [facility] Left: Iliac [employer] 09/05/2011 TFLE-16-90- ZT / / [id number] Ev3 [place] 34 Liquid Embolic Material Implanted:Qty: 9 on 04/24/2017 by Petar Stovall MD at RADIOLOGY [facility] N/A: Abdomen 06/10/2019 [id number] -1 / [id number] / [id number] Description:ev3 [place] 34 Liqu id Embolic Material documented as [...] and were consensually agreed upon. Care Teams Isotope Technologist Relationship Specialty Start Date End Date Aleja Bryson MD [address] [place] [address] [place] [phone] PCP - General Family Medicine 07/28/23 documented as of this encounter
--- OUTSIDE RECORDS SUMMARY | 2024-06-15 02:41 | External Medical Summary ---
Author Name Unknown Address Unknown Organization [id number]:LABORATORY [facility] – [place] - [address] [address] Laboratory Report Ordering Provider Test Date Status CORRINA FULLER 05/20/2024 14:33:40 Final Observation Date Value Abnormality Reference (Units ) Status Iron 05/20/2024 14:33:40 17 Below low normal 45-176 (ug/dL) Final Iron-binding capacity 05/20/2024 14:33:40 281 250-425 (ug/dL) Final Transferrin Sat % 05/20/2024 14:33:40 6 Below low normal 15-55 (%) Final Performing Location LABORATORY [facility] – [place] - [address] [address]
--- OUTSIDE RECORDS SUMMARY | 2024-06-15 02:41 | External Medical Summary | Summary of Care ---
Author Name Unknown Organization [facility] Address [address] [place] [address] Phone [phone] Care Team Providers Care Body Hanger Name Role Phone Aleja Bryson MD Primary Care Provide r Reason for Referral * Precert (Diagnostic Medical) (Within 10 days (routine)) - Authorized Specialty Diagnoses / Procedures Referred By Contac t Referred To Contact Cardiac Studies Diagnoses Undiagnosed cardiac murmurs Procedures ECHO, COMPLETE (2D), TRANS-THORACIC Aleja Bryson MD [address] [place] [address] [place] [address] Phone: tel: fax: Referral ID Status Reason Start Date Expiration Date V isits Requested Visits Authorized [id number] Authorized Precert 03/02/2024 999 999 Reason for Visit * Reason Comments Re-Check Encounter Details Date Type Department Care Team ([facility] st Contact Info) Description 03/02/2024 1:40 PM EST Office Visit Family Medicine [address] [place] [phone] Aleja Bryson MD [address] [place] [address] [place] [id number] HTN, goal below 150/90*; Need for COVID-19 vaccine; Undiagnosed cardiac murmurs; Benign hypertension with chronic kidney disease, stage IV (HCC); Infrarenal abdominal aortic aneurysm (AAA) without rupture (HCC); History of prostate cancer; S/P prostatectomy; History of bladder cancer Allergies Active Allergy Reactions Criticality Noted Date [...] Active Problems Problem Noted Date Diagnosed Date S/P prostatectomy 03/02/2024 History of bladder cancer [...] Sign Reading Time Taken Comments Blood Pressure 145/70 03/02/2024 1:34 PM EST Pulse 56 03/02/2024 1:34 PM EST Temperature 36.6 C (97.8 F) 03/02/2024 1:34 PM ES T Respiratory Rate - - Oxygen Saturation 95% 03/02/2024 1:34 PM EST Inhaled Oxygen Concentration - - Weight 69.5 kg (153 lb 3.2 oz) 03/02/2024 1:34 P M EST Height - - Body Mass Index 24.73 12/30/2023 2:08 PM EDT documented in this encounter Functional Status * [...] Progress Notes * Aleja Bryson MD - 03/02/2024 1:31 PM EST Subjective: HPI: Cirilo Camacho is a 88 year old male with hx of HTN, HLD, pAT, AAA s/p EVAR, CKD IV with hyperparathyroidism, Gout, Prostate Ca s/p removal and radiation and bladder cancer seen for Pt is here with his daughter HTN with CKD IV: - on Amlodipine 5mg daily, Lasix 20mg daily, Lisinopril 10mg daily, Metoprolol tartrate 25mg BID - pt also on farxiga daily - denied any CP or SOB - home BP readings: 120-130s/60-80s (nothing over 150 systolic) AAA s/p EVAR: - follows up with vascular - on lipitor Gout: - Allopurinol 200mg Daily - last gout was long time Prostate Ca s/p removal and radiation and bladder cancer - follows up with urologist ([facility]) - gets annual cysto - doing well currently Patient Active Problem List Diagnosis Gout Dyslipidemia, goal LDL below 100 Vitamin D deficiency Infrarenal abdominal aortic aneurysm (AAA) without rupture (HCC) Primary hypertension Hyperuricemia S/P AAA (abdominal aortic aneurysm) repair Benign hypertension with chronic kidney disease, stage IV (HCC) Paroxysmal atrial tachycardia (HCC) Thrombocytopenia (HCC) Kidney disease, chronic, 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) (HCC) S/P prostatectomy History of bladder cancer Current Outpatient Medications Medication Sig Dispense Refill D3 High Potency 25 MCG (1000 UT) Oral Capsule (Cholecalciferol) One capsule every other day 90 Cap 1 Tylenol 325 MG Oral Capsule (Acetaminophen) Take by mouth 325 mg . Once daily amLODIPine Besylate 5 MG Oral Tablet (Norvasc) TAKE ONE TABLET BY MOUTH AT BEDTIME 90 Tablet 1 Allopurinol 100 MG Oral Tablet (Zyloprim) [...] BY MOUTH AT BEDTIME 90 Tablet 1 Lisinopril 10 MG Oral Tablet (Prinivil) TAKE ONE TABLET BY MOUTH EVERY DAY 90 Tablet 1 Furosemide 20 MG Oral Tablet (Lasix) TAKE ONE TABLET IN THE MORNING 90 Tablet 1 No current facility-administered medications for this visit. Past Medical History: Diagnosis Date Abdominal aortic aneurysm (HCC) Benign hypertension with CKD (chronic kidney disease) stage IV (HCC) Benign neoplasm of colon 08/02/2008 5 and 7 mm polyps in mid transverse colon Cervical spondylosis with myelopathy Dyslipidemia, goal LDL below 100 E. coli septicemia (HCC) 10/05/2007 from E coli UTI, [facility] Esophageal reflux 03/22/2010 Gout Gout 09/2010 ankle Kidney disease, chronic, stage III (GFR 30-59 ml/min) (HCC) Kidney disease, chronic, 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) (HCC) Malignant neoplasm of prostate (HCC) s/p sx nov 2000 Other and unspecified noninfectious gastroenteritis and colitis(558.9) 07/10/2014 [facility], dehydrated with Cr 5.1 Paroxysmal atrial tachycardia (HCC) Peptic ulcer Perforated sigmoid colon (HCC) 12/08/2013 during colonoscopy Primary hypertension Thrombocytopenia (HCC) 11/10/2018 107,000 platelets Vitamin D [...] [place] [address] [place] [facility] [place] W/ BIOPSY (RECTUM) 07/28/2008 tubular adenoma repeat in 5 years COLONOSCOPY, DIAGNOSTIC (RECTUM) 12/08/2013 COLONOSCOPY FLEXIBLE PROXIMAL DIAGNOSTIC performed by Harvey Berger MD at ENDOSCOPY [facility] CT ABD/PELVIS WO IV CONTRAST - W ORAL CONTRAST 03/19/2011 multiple intrarenal calculi, no ureteric stone, endograft in position CT CHEST WO CONTRAST N/A 06/18/2020 moderate hiatal hernia, diastasis, with chronic hernia, no acute findings INFORMATION 12/08/2013 12/08/2013 repair of colon preforation [facility] elsi sisiitki 12/08/[address] GUIDED NEEDLE BIOPSY 04/24/2017 Embolization of AAA sac with Wiggins (18 ml) 04/24/17 performed by Petar Stovall MD at RAD[facility]OLOGY [facility] [place] IR EXISTING CATH FOLLOWUP NON THROMBOLYTICS 04/24/2017 MRI PANCREAS W CONTRAST 10/17/2016 2 cystic lesions in pancreas REMOVAL OF PROSTATE (TURP) 11/2000 Dr Schrader, cancer VASC AORTIC DUPLEX EVAL-COMPLETE 02/25/2011 5.12x5.11 AAA, no endoleak noted VASC AORTIC DUPLEX EVAL-COMPLETE 11/03/2013 5.5 AAA, graft patent, no endoleak VASC ILIAMNA ART DUP BILAT LE 02/25/2011 normal femoral [...] Vaping/E-Cigarette Devices ROS: -Per HPI OBJECTIVE: BP 145/70 | Pulse 56 | Temp 97.8 F (36.6 C) | Wt 153 lb 3.2 oz (69.5 kg) | SpO2 95% | BMI 24.73kg/m | BSA 1.8 m PHYSICAL EXAM: Vitals are reviewed General:. NAD, well developed HEENT:. Normal Conjunctiva, EOMI Cardiac:.systolic murmur, Normal S1, S2 Lungs:. CTA, no wheezing or crackles Abd:. soft, ND, NT MSK:. No LE edema Psych:. AAOx3, normal affect ASSESSMENT/PLAN: HTN, goal below 150/90 (Primary) - pt had multiple BP readings at home 120-130s/60-80s - for now will continue on current meds Need for COVID-19 vaccine - COVID-19, MRNA-LNP, PF, 24-25, 30MCG/0.3ML, IM, 12YRS AND ABOVE (PFIZER) Undiagnosed cardiac murmurs - ECHO, COMPLETE (2D), TRANS-THORACIC Benign hypertension with chronic kidney disease, stage IV (HCC) - cr has been stable Infrarenal abdominal aortic aneurysm (AAA) without rupture (HCC) - s/p EVAR - follows up with vascular and STA[facility] program History of prostate cancer S/P prostatectomy & History of bladder cancer -currently asymptomatic Follow Up: Return in 6 months (on 08/30/2024) for Please schedule AWV. | For: Please schedule AWV Aleja Bryson MD Family medicine, [address] [address] documented in this encounter Nursing Notes * Narcisa Hahn CMA - 03/02/2024 1:33 PM EST He is here for a regular recheck. This is his first time seeing Dr Ricks today.No new problems or concerns today. Dr. Lu has had him doing home BP checks because it was elevated at his last visit. documented in this encounter Plan of Treatment Upcoming Encounters Date Type Department Care Team (Late st Contact Info) Description 05/03/2024 12:45 PM EST Cardiac Studies Cardiac Studies [address] [place] [id number] 10/06/2024 3:20 PM EDT Office Visit Nephrology [address] [place] [address] Yecenia Apodaca MD [address] [place] [address], [place] [address] 11/03/2024 9:00 AM EDT Office Visit Family Medicine [address] [place] [phone] Aleja Bryson MD [address] [place] [address] [place] [address] Scheduled Orders Name Type Priority Associated Diagnoses Orde r Schedule ECHO, COMPLETE (2D), TRANS-THORACIC Echocardiology Routine Undiagnosed cardiac murmurs Ordered: 03/02/2024 Health Maintenance Due Date Last Done Comments [...] this encounter Medical Devices Implanted Type Area Fleet Assistant Device Identifier Shelf Expiration Date Model / Serial / Lot Stent Main Body [id number]-99-22-[id number] - [id number] Implanted:Qty: 1 on 12/04/2009 at [place] [facility] [place] N/A: Aorta [employer] 08/05/2011 TFFB-32-82- ZT / / [id number] Leg Extension [id number]-44-93-Zt - [id number] Implanted:Qty: 1 on 12/04/2009 at [place] [facility] [place] Right: Iliac [employer] 09/05/2011 TFLE-16-90- ZT / / [id number] Leg Extension Qqcr-31-71-Zt - [id number] Implanted:Qty: 1 on 12/04/2009 at [place] [facility] [place] Left: Iliac [employer] 09/05/2011 TFLE-16-90- ZT / / [id number] Ev3 Blas 34 Liquid Embolic Material Implanted:Qty: 9 on 04/24/2017 by Petar Stovall MD at [facility]OLOGY [facility] [place] N/A: Abdomen 06/10/2019 [id number] -[id number] / [id number] / [id number] Description:ev3 [place] 34 Liqu id Embolic Material documented as of this encounter Visit Diagnoses Diagnosis HTN, goal below 150/90- Primary Need for COVID-19 vaccine Undiagnosed cardiac murmurs Benign hypertension with chronic kidney disease, stage IV (HCC) Benign hypertensive kidney disease with chronic kidney disease stage I through stage IV, or unspecified Infrarenal abdominal aortic aneurysm (AAA) without rupture (HCC) History of prostate cancer Personal history of malignant neoplasm of prostate S/P prostatectomy Other postprocedural status History of bladder cancer Personal history of malignant neoplasm of bladder documented in this encounter Advance Directives * [...] and were consensually agreed upon. Care Teams Body Hanger Relationship Specialty Start Date End Date Aleja Bryson MD [address] [place] [address] [place] [id number] PCP - General Family Medicine 07/28/23 documented as of this encounter"
--- OUTSIDE RECORDS SUMMARY | 2024-06-15 02:41 | External Medical Summary ---
Author Name Unknown Address Unknown Organization K01:LABORATORY [facility] – [place] - [address] [facility] [address] Laboratory Report Ordering Provider Test Date Status CORRINA FULLER 05/20/2024 14:33:40 Final Observation Date Value Abnormality Reference (Units ) Status SYNC LEUKOCYTES IN BLOOD BY AUTOMATED COUNT 05/20/2024 14:33:40 11.01 Above high normal 4.00-10.80 (K/uL) Final Segs 05/20/2024 14:33:40 82.8 Above high normal 40.0-75.0 (%) Final Lymphs % 05/20/2024 14:33:40 9.2 Below low normal 18.0-42.0 (%) Final Monos 05/20/2024 14:33:40 4.9 1.0-11.0 (%) Final Eosinophils 05/20/2024 14:33:40 1.9 0.0-6.0 (%) Final Basos 05/20/2024 14:33:40 0.7 0.0-2.0 (%) Final Immature Granulocyte, Percent 05/20/2024 14:33:40 0.5 0.0-2.0 (%) Final Absolute Segs 05/20/2024 14:33:40 9.12 Above high normal 1.80-7.70 (K/uL) Final Lymphs, absolute 05/20/2024 14:33:40 1.01 1.00-4.80 (K/ul) Final Monos, Abs 05/20/2024 14:33:40 0.54 0.00-1.10 (K/uL) Final Eos, Abs 05/20/2024 14:33:40 0.21 0.00-0.70 (K/uL) Final Basos, Abs 05/20/2024 14:33:40 0.08 0.00-0.20 (K/uL) Final Immature Granulocytes, Number 05/20/2024 14:33:40 0.05 0.00-0.20 (K/uL) Final Performing Location LABORATORY [facility] [place] - [facility] [address] [facility] [address]
--- OUTSIDE RECORDS SUMMARY | 2024-06-15 02:41 | External Medical Summary | Summary of Care ---
Author Name Unknown Organization [facility] Address [address] [place] [address] Phone [phone] Care Team Providers Care Food Mobile Driver Name Role Phone Aleja Bryson MD Primary Care Provide r Reason for Referral * Evaluate & Treat - Unlimited Visits (Within 10 days (routine)) - Authorized Specialty Diagnoses / Procedures Referred By Contact Referred To Contact Cardiovascular Medicine / Cardiology Diagnoses Moderate aortic stenosis Aleja Bryson MD [address] [place] [address] [place] [address] Phone: tel: fax: Referral ID Status Reason Start Date Expiration Date Visits Requested Visits Authorized [id number] Authorized Specialty Services Required 05/05/2024 999 999 Question Answer Referral Priority Within 10 days (routine) Where should this appointment be scheduled? [facility] For which of the following conditions are you referring? Heart Murmur (New Onset) Reason for Visit * Reason Onset Date Comments Test Results 05/05/2024 CARDIOLOGY APPT Encounter Details Date Type Department Care Team ([facility] st Contact Info) Description 05/05/2024 Telephone Family Medicine [address] [place] [phone] Aleja Bryson MD [address] [place] [address] [place] [id number] Test Results (CARDIOLOGY APPT) Allergies Active Allergy [...] Besylate 5 MG Oral Tablet (Norvasc)Indicati ons:Primary hypertension,[place] hypertension with chronic kidney disease, [...] 3:20 PM EDT Office Visit Nephrology [address] [place] [phone] Yecenia Apodaca MD [address] [place] [address] [place] [address] 11/03/2024 9:00 AM EDT Office Visit Family Medicine [address] [place] [phone] Aleja Ramos MD [address] [place] [address] [place] [id number] Scheduled Referrals Name Type Priority Associated Diagnoses [...] this encounter Medical Devices Implanted Type Area Casino Dealer Device Identifier Shelf Expiration Date Model / Serial / Lot Stent Main Body Wmke-01-84-Zt - [id number] Implanted:Qty: 1 on 12/04/2009 at [place] [facility] [place] N/A: Aorta [employer] 08/05/2011 TFFB-32-82- ZT / / [id number] Leg Extension Rhuc-31-67-Zt - [id number] Implanted:Qty: 1 on 12/04/2009 at [place] [facility] [place] Right: Iliac [employer] 09/05/2011 TFLE--90- ZT / / [id number] Leg Extension Ysyl-87-11-Zt - [id number] Implanted:Qty: 1 on 12/04/2009 at [place] [facility] [place] Left: Iliac [employer] 09/05/2011 TFLE-16-90- ZT / / [id number] Ev3 [place] 34 Liquid Embolic Material Implanted:Qty: 9 on 04/24/2017 by Petar Stovall MD at RADIOLOGY [facility] [place] N/A: Abdomen 06/10/2019 [id number] -1 / [id number] / [id number] Description:ev3 [place] 34 Liqu id Embolic Material documented as [...] patient have Health Care Power of Attor yesisca? No * Full Code Date Activated Date Inactivated Comments 12/05/2009 9:57 AM 12/08/2013 9:12 AM This order ref lects the patients wishes and were consensually agreed upon. * Full Code Date Activated Date Inactivated Comments 12/04/2009 11:17 AM 12/05/2009 9:57 AM This order r eflects the patients wishes and were consensually agreed upon. Care Teams Food Mobile Driver Relationship Specialty Start Date End Date Aleja Bryson MD [address] [place] [address] [place] [phone] PCP - General Family Medicine 07/28/23 documented as of this encounter
--- OUTSIDE RECORDS SUMMARY | 2024-06-15 02:41 | External Medical Summary ---
Author Name Unknown Address Unknown Organization K01:LABORATORY [place] [address] [address] [facility] [address] Laboratory Report Ordering Provider Test Date Status CORRINA FULLER 05/20/2024 14:33:40 Final Observation Date Value Abnormality Reference (Units ) Status BUN 05/20/2024 14:33:40 68 Above high normal 6-20 (mg/dL) Final Creatinine 05/20/2024 14:33:40 3.5 Above high normal 0.6-1.2 (mg/dL) Final Glomerular filtration rate/1.73 sq M.predicted [Volume Rate/Area] in Serum, Plasma or Blood by Creatinine-based formula (CKD-EPI) 05/20/2024 14:33:40 16 Below low normal >=60 (mL/min) Final eGFR is calculated based on the CKD-EPI 2020 equation. Sodium 05/20/2024 14:33:40 138 135-146 (m mol/L) Final Potassium 05/20/2024 14:33:40 4.1 3.5-5.1 (m mol/L) Final Cl 05/20/2024 14:33:40 107 98-107 (mm ol/L) Final CO2 05/20/2024 14:33:40 19 Below low normal 22- 32 (mmol/L) Final Anion gap 05/20/2024 14:33:40 12 7-15 (mmol /L) Final Glucose 05/20/2024 14:33:40 151 Above high normal 70 -120 (mg/dL) Final Calcium 05/20/2024 14:33:40 8.6 8.4-10.2 ( mg/dL) Final Performing Location LAB[facility]AT[place] [facility] [place] [facility] [address] [facility] [address]
--- OUTSIDE RECORDS SUMMARY | 2024-06-15 02:42 | External Medical Summary | Summary of Care ---
Author Name Unknown Organization [facility] Address [address] [place] [address] Phone [phone] Care Team Providers Care L D Rn Name Role Phone Aleja Bryson MD Primary Care Provide r Reason for Visit * Reason Onset Date Comments Test Results 02/19/2024 Encounter Details Date Type Department Care Team ([facility] st Contact Info) Description 02/19/2024 Telephone Nephrology, [employer] [address] [place] [place] [address] Yecenia Apodaca MD [address] [place] [address] Test Results Allergies Active Allergy Reactions Criticality Noted Date Comments Ibuprofen 04/29/2011 Diarrhea documented as of this encounter (statuses as of 02/19/2024) Medications D3 High Potency 25 MCG (1000 UT) Oral Capsule (Cholecalciferol) Indications:Kidne y disease, chronic, 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) ([facility]) One capsule every other day 90 Cap 1 1 Active Tylenol 325 MG Oral Capsule (Acetaminophen) Take by mouth 325 mg . Once daily Active Lisinopril 10 MG Oral Tablet (Prinivil)Indicat [...] AT BEDTIME 90 Tablet 1 4 Active documented as of this encounter (statuses as of 02/19/2024) Active Problems Problem Noted Date Diagnosed Date [...] as of this encounter (statuses as of 02/19/2024) Resolved Problems Problem Noted Date Diagnosed Date [...] as of this encounter (statuses as of 02/19/2024) Immunizations Name Administration Dates Next Due COVID-19 [...] encounter Miscellaneous Notes * Telephone Encounter - Carissa Arguello LPN - 02/19/2024 3:03 PM EST ----- Message from Yecenia Apodaca MD sent at 02/19/2024 12:30 PM EST ----- Stable kidney labs; continue same. Call his daughter Jennifer raya /w result pls documented in this encounter Plan of Treatment Upcoming Encounters Date Type Department Care Team (Late st Contact Info) Description 03/02/2024 1:40 PM EST Office Visit Family Medicine [address] [place] [phone] Aleja Bryson MD [address] [place] [address] [place] [phone] 10/06/2024 3:20 PM EDT Office Visit Nephrology [address] [place] [address] Yecenia Apodaca MD [address] [facility] [place] [address] Health Maintenance Due Date Last Done Comments [...] encounter Medical Devices Implanted Type Area Manager Of Information Device Identifier Shelf Expiration Date Model / Serial / Lot Stent Main Body Yuea-49-32-Zt - [id number] [place] [facility] [place] Aorta [employer] 08/05/2011 TFFB-32-82- ZT / / [id number] Leg Extension Nlep-61-67-Zt - [id number] [place]planted:Q[place] 1 [place] [facility] [place]: Iliac [employer] 09/05/2011 TFLE-16-90- ZT / / [id number] Leg Extension Nhze-60-78-Zt - [id number] Implanted:Qty[place] 1 [place] 12[place]04[place] [facility] [place]: Iliac [employer] 09/05/2011 TFLE-16-90- ZT / / [id number] Ev3 Blas 34 Liquid Embolic Material Implanted:Qty: 9 on 04/24/2017 by Petar Stovall [place] [facility] [place]A: Abdomen 06/10/2019 [id number] -[id number] / [id number] / [id number] Description:ev3 Blas 34 Liqu id Embolic Material [...] and were consensually agreed upon. Care Teams L D Rn Relationship Specialty Start Date End Date Aleja Bryson MD [address] [place] [address] [place] [address] PCP - General Family Medicine 07/28/23 documented as of this encounter
--- OUTSIDE RECORDS SUMMARY | 2024-06-15 02:42 | External Medical Summary ---
Author Name Unknown Address Unknown Organization K01:LABORATORY [facility] [place] - [address] [facility] [address] Laboratory Report Ordering Provider Test Date Status JEN ALEGRIA 02/18/2024 15:45:12 Final Observation Date Value Abnormality Reference (Units ) Status Albumin 02/18/2024 15:45:12 4.3 3.8-5.0 (g /dL) Final Performing Location LABORATORY [facility] - [address] [facility] [address]
--- OUTSIDE RECORDS SUMMARY | 2024-06-15 02:42 | External Medical Summary ---
Author Name Unknown Address Unknown Organization K01:[facility] [facility] [place] [address] [place] [address] Laboratory Report Ordering Provider Test Date Status JEN ALEGRIA 02/18/2024 15:45:12 Final Observation Date Value Abnormality Reference (Units ) Status Parathyrin.intact [Mass/volume] in Serum or Plasma 02/18/2024 15:45:12 83 Above high normal 15-65 (pg/mL) Final Performing Location [facility] [facility] [place] [address] [place] [address]
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
--- OUTSIDE RECORDS SUMMARY | 2024-06-15 02:42 | External Medical Summary | Summary of Care ---
Author Name Unknown Organization [facility] Address [address] [place] [address] Phone [phone] Care Team Providers Care Wholesale Representative Name Role Phone Aleja Bryson MD Primary Care Provide r Reason for Visit * Reason Onset Date Comments FYI 02/19/2024 Encounter Details Date Type Department Care Team ([facility] st Contact Info) Description 02/19/2024 Telephone Nephrology, [place] [address] [place] [address] Yecenia Apodaca MD [address] [place] [address] FYI Allergies Active Allergy Reactions Criticality Noted Date Comments Ibuprofen 04/29/2011 Diarrhea documented as of this encounter (statuses as of 02/19/2024) Medications D3 High Potency 25 MCG (1000 UT) Oral Capsule (Cholecalciferol) Indications:Kidne y disease, chronic, 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) ([facility]) One capsule every other day 90 Cap [...] Telephone Encounter - Deepa Small RN - 02/19/2024 3:00 PM EST Cell number is listed as pt;s primary which is marked as Jennifer's. * Telephone Encounter - Deepa Small RN - 02/19/2024 2:59 PM EST ----- Message from Yecenia Apodaca MD sent at 02/18/2024 5:01 PM EST ----- Please reach out to daughter Jennifer and make sure we get her cell phone number on file: I believe the 1 on file currently is home number and she works/specifically asked to get her cell put in (must have forgotten at check out) documented in this encounter Plan of Treatment Upcoming Encounters Date Type Department Care Team (Late st Contact Info) Description 03/02/2024 1:40 PM EST Office Visit Family Medicine [address] [place] [phone] Aleja Bryson MD [address] [place] [address] [place] [address] 10/06/2024 3:20 PM EDT Office Visit Nephrology [address] [place] [address] Yecenia Apodaca MD [address] [place], [place] [address] [address] Health Maintenance Due Date Last Done Comments [...] this encounter Medical Devices Implanted Type Area Change Of Address Clerk Device Identifier Shelf Expiration Date Model / Serial / Lot Stent Main Body Homt-27-62-Zt - [id number] Implanted:Qty: 1 on 12/04/2009 [place] [facility] [place]A: Aorta [employer] 08/05/2011 TFFB-32-82- ZT / / [id number] Leg Extension Bmto-54-60-Zt - [id number] Implanted:Qty: 1 on 12/04/2009 [place] [facility] [place] Right: Iliac [employer] 09/05/2011 TFLE-16-90- ZT / / [id number] Leg Extension Cial-83-04-Zt - [id number] Implanted:Qty: 1 on 12/04/2009 at [place] [facility] [place] Left: Iliac [employer] 09/05/2011 TFLE-16-90- ZT / / [id number] Ev3 [place] 34 Liquid Embolic Material Implanted:Qty: 9 on 04/24/2017 by Petar Stovall MD at [place] [facility] [place] N/A: Abdomen 06/10/2019 [id number] -[id number] / [id number] / [id number] Description:ev3 [place] 34 Liqu id Embolic Material documented as [...] and were consensually agreed upon. Care Teams Wholesale Representative Relationship Specialty Start Date End Date Aleja Bryson MD [address] [place] [address] [place] [phone] PCP - General Family Medicine 07/28/23 documented as of this encounter
--- OUTSIDE RECORDS SUMMARY | 2024-06-15 02:42 | External Medical Summary | Summary of Care ---
Author Name Unknown Organization [facility] Address [address] [place] [address] Phone [phone] Care Team Providers Care Fumigator And Sterilizer Name Role Phone Aleja Bryson MD Primary Care Provide r Reason for Visit * Reason Onset Date Comments Test Results 02/19/2024 Encounter Details Date Type Department Care Team ([facility] st Contact Info) Description 02/19/2024 Telephone Nephrology, Y[place] [address] [place] [address] Yecenia Apodaca MD [address] [place] [address] Test Results Allergies Active Allergy Reactions Criticality Noted Date Comments Ibuprofen 04/29/2011 Diarrhea documented as of this encounter (statuses as of 02/19/2024) Medications D3 High Potency 25 MCG (1000 UT) Oral Capsule (Cholecalciferol) Indications:Kidne y disease, chronic, 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) ([facility]) One capsule every other day 90 Cap [...] Encounter - Carissa Arguello LPN - 02/19/2024 4:12 PM EST Jennifer is made aware Please update Dad's number to cell [phone] * Telephone Encounter - Carissa Arguello LPN - 02/19/2024 3:05 PM EST LMM for daughter Jennifer to return call to discuss * Telephone Encounter - Carissa Arguello LPN - 02/19/2024 3:05 PM EST ----- Message from Yecenia Apodaca MD sent at 02/19/2024 12:30 PM EST ----- Stable kidney labs; continue same. Call his daughter Jennifer mobile /w result pls documented in this encounter Plan of Treatment Upcoming Encounters Date Type Department Care Team (Late st Contact Info) Description 03/02/2024 1:40 PM EST Office Visit Family Medicine [address] [place] [phone] Aleja Bryson MD [address] [place] [address] [place] [phone] 10/06/2024 3:20 PM EDT Office Visit Nephrology [address] [place] [address] Yecenia Apodaca MD [address] [place] [address], [place] [address] Health Maintenance Due Date Last Done Comments [...] this encounter Medical Devices Implanted Type Area Procedures Tech Device Identifier Shelf Expiration Date Model / Serial / Lot Stent Main Body Bxjb-92-91-Zt - [id number] [place] [facility] [place] Aorta [employer] 08/05/2011 TFFB-32-82- ZT / / [id number] Leg Extension Wjtf-44-18-Zt - [id number] [place]planted:[place] 12[place]04[place] [facility] [place]: Iliac [employer] 09/05/2011 TFLE-16-90- ZT / / [id number] Leg Extension Jtfr-43-64-Zt - [id number] [place]planted:[place] 1 [place] 12[place]04[place] [facility] [place]: Iliac [employer] 09/05/2011 TFLE-16-90- ZT / / [id number] Ev3 [place] 34 Liquid Embolic Material Implanted:Qty: 9 on 04/24/2017 by Petar Stovall [place] [facility] [place]A: Abdomen 06/10/2019 [id number] -[id number] / [id number] / [id number] Description:ev3 [place] 34 Liqu id Embolic Material [...] and were consensually agreed upon. Care Teams Fumigator And Sterilizer Relationship Specialty Start Date End Date Aleja Bryson MD [address] [place] [address] [place] [phone] PCP - General Family Medicine 07/28/23 documented as of this encounter
--- OUTSIDE RECORDS SUMMARY | 2024-06-15 02:42 | External Medical Summary | Summary of Care ---
Author Name Unknown Organization [facility] Address [address] [place] [address] Phone [phone] Care Team Providers Care Computer Programming Supervisor Name Role Phone Aleja Bryson MD Primary Care Provide r Reason for Visit * Reason Comments Outpatient Testing Encounter Details Date Type Department Care Team (Late st Contact Info) Description 02/18/2024 3:50 PM EST Laboratory Laboratory [address] [place] [phone] [place] [address] Arrived Allergies Active Allergy Reactions Criticality Noted Date [...] 1:40 PM EST Office Visit Family Medicine [address] [place] [phone] Aleja Bryson MD [address] [place] [address] [place] [address] 10/06/2024 3:20 PM EDT Office Visit Nephrology [address] [place] [address] Yecneia Apodaca MD [address] [facility] [place] [address] Health Maintenance Due Date Last Done Comments [...] this encounter Medical Devices Implanted Type Area Chain Hoist Operator Device Identifier Shelf Expiration Date Model / Serial / Lot Stent Main Body [id number]-[id number]-[id number] - [id number] Implanted:Qty: 1 on 12/04/2009 at [place] [facility] [place] N/A: Aorta [employer] 08/05/2011 TFFB-32-82- ZT / / [id number] Leg Extension [id number]-67-20-Zt - [id number] Implanted:Qty: 1 on 12/04/2009 at OR [facility] [place] Right: Iliac [employer] 09/05/2011 TFLE-16-90- ZT / / [id number] Leg Extension [id number]-26-72-Zt - [id number] Implanted:Qty: 1 on 12/04/2009 at OR [facility] [place] Left: Iliac [employer] 09/05/2011 TFLE-16-90- ZT / / [id number] Ev3 [place] 34 Liquid Embolic Material Implanted:Qty: 9 on 04/24/2017 by Petar Stovall MD at RADIOLOGY [facility] [place] N/A: Abdomen 06/10/2019 [id number] -1 / [id number] / [id number] Description:ev3 [place] 34 Liqu id Embolic Material documented as [...] and were consensually agreed upon. Care Teams Computer Programming Supervisor Relationship Specialty Start Date End Date Aleja Bryson MD [address] [place] [address] [place] [address] PCP - General Family Medicine 07/28/23 documented as of this encounter
--- OUTSIDE RECORDS SUMMARY | 2024-06-15 02:42 | External Medical Summary ---
Author Name Unknown Address Unknown Organization K01:LABORATORY [facility] [place] - [address] [place] [address] Laboratory Report Ordering Provider Test Date Status JEN ALEGRIA 02/18/2024 15:45:12 Final Deficient: <20 ng/mL
Ins ufficient: 20-29 ng/mL
Recommended/Optimum:30-50 ng/mL

Vitamin D intoxication is rare. If suspicious of Vitamin D toxicity, evaluation of serum Calcium and PTH is recommended. Observation Date Value Abnormality Reference (Units ) Status 25-OH Vitamin D total 02/18/2024 15:45:12 39 >19 (ng/mL) Final Performing Location LABORATORY [facility] [place] - [address] [place] [address]
--- OUTSIDE RECORDS SUMMARY | 2024-06-15 02:42 | External Medical Summary | Summary of Care ---
Author Name Unknown Organization [facility] Address [address] [place] [address] Phone [phone] Care Team Providers Care Trade Show Coordinator Name Role Phone Aleja Bryson MD Primary Care Provide r Reason for Visit * Reason Comments eRx-Medication Refill Encounter Details Date Type Department Care Team (Late st Contact Info) Description 02/22/2024 Refill Family Medicine [address] [place] [phone] Marisabel Gusman PA-C [address] [place] [address] [place] [address] Benign hypertension with chronic kidney disease, stage IV ([facility]) Allergies Active Allergy Reactions Criticality Noted Date Comments Ibuprofen 04/29/2011 Diarrhea documented as of this encounter (statuses as of 02/24/2024) Medications D3 High Potency 25 MCG (1000 UT) Oral Capsule (Cholecalciferol )Indications:Kid yessica disease, chronic, 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) ([facility]) One capsule every other day 90 Cap 1 01/02/20 21 Active Tylenol 325 MG Oral Capsule (Acetaminophen) Take by mouth 325 mg . Once daily Active Furosemide 20 MG Oral Tablet (Lasix) TAKE ONE TABLET IN THE MORNING 90 Tablet 1 09/04/19 24 Active amLODIPine Besylate 5 MG Oral [...] DAY 90 Tablet 1 02/24/20 24 Active Lisinopril 10 MG Oral Tablet (Prinivil)Indica tions:Benign hypertension with chronic kidney disease, stage IV (HCC) TAKE ONE TABLET BY MOUTH EVERY DAY 90 Tablet 1 08/25/19 24 024 Discontinued documented as of this encounter (statuses as of 02/24/2024) Active Problems Problem Noted Date Diagnosed Date [...] as of this encounter (statuses as of 02/24/2024) Resolved Problems Problem Noted Date Diagnosed Date [...] as of this encounter (statuses as of 02/24/2024) Immunizations Name Administration Dates Next Due COVID-19 [...] Date Author No 04/24/2017 6:00 PM EST Bryan, M david E, RN documented in this encounter Miscellaneous Notes * Telephone Encounter - Hiral Adame [facility] - 02/24/2024 4:52 AM ESTSigned Prescriptions: Disp Refills Lisinopril 10 MG Oral Tablet (Prinivil) 90 Tab*1 Sig: TAKE ONE TABLET BY MOUTH EVERY DAYAuthorizing Provider: ALEJA BRYSONOrderdavid User: HIRAL ADAME documented in this encounter Plan of Treatment Upcoming Encounters Date Type Department Care Team (Late st Contact Info) Description 03/02/2024 1:40 PM EST Office Visit Family Medicine [address] [place] [phone] Aleja Bryson MD [address] [place] [address] [place] [address] 10/06/2024 3:20 PM EDT Office Visit Nephrology [address] [place] [address] Yecenia Apodaca MD [address] [place] [address], [place] [address] Health Maintenance Due Date Last Done Comments Adult Wellness Visit 09/11/2022 09/11/2021, 09/07/19 21 Depression Screening 09/11/2022 09/11/2021 COVID-19 Vaccine ( season) 2023 01/21/2023, 04/15/2021, 08/01/2020, Additional history exists Phosphate 01/06/2024 01/05/2023, 08/2021, 12/14/2020, Additional history exists Albumin/Creatinine Ratio 07/22/20242 024, 07/09/2022, 01/28/2022, Additional history exists Hgb [...] this encounter Medical Devices Implanted Type Area Occupational Health Physician Device Identifier Shelf Expiration Date Model / Serial / Lot Stent Main Body Amwo-59-48-Zt - [id number] Implanted:Qty: 1 on 12/04/2009 at [place] [facility] [place] [facility] [place]A: Aorta [employer] 08/05/2011 TFFB-32-82- ZT / / [id number] Leg Extension Cxko-58-26-Zt - [id number] Implanted:Qty: 1 on 12/04/2009 at [place] [facility] [place] [facility] [place] Right: Iliac [employer] 09/05/2011 TFLE-16-90- ZT / / [id number] Leg Extension Xcpy-44-46-Zt - [id number] Implanted:Qty: 1 on 12/04/2009 at [place] [facility] [place] [facility] [place] Left: Iliac [employer] 09/05/2011 TFLE-16-90- ZT / / [id number] Ev3 [place] 34 Liquid Embolic Material Implanted:Qty: 9 on 04/24/2017 by Petar Stovall MD at RAD[place]OLOG[place] [facility] [place] [facility] [place] N/A: Abdomen 06/10/2019 [id number] -[id number] / [id number] / [id number] Description:ev3 [place] 34 Liqu id Embolic Material documented as of this encounter Visit Diagnoses Diagnosis Benign hypertension with chronic kidney disease, stage [...] and were consensually agreed upon. Care Teams Trade Show Coordinator Relationship Specialty Start Date End Date Aleja Bryson MD [address] [place] [address] [place] [address] PCP - General Family Medicine 07/28/23 documented as of this encounter
--- OUTSIDE RECORDS SUMMARY | 2024-06-15 02:42 | External Medical Summary ---
Author Name Unknown Address Unknown Organization K01:LABORATORY [facility] [place] - [facility] [address] [facility] [address] [facility] [address] Laboratory Report Ordering Provider Test Date Status JEN ALEGRIA 02/18/2024 15:45:12 Final Observation Date Value Abnormality Reference (Units ) Status BUN 02/18/2024 15:45:12 32 Above high normal 6-20 (mg/dL) Final Creatinine 02/18/2024 15:45:12 2.6 Above high normal 0.6-1.2 (mg/dL) Final Glomerular filtration rate/1.73 sq M.predicted [Volume Rate/Area] in Serum, Plasma or Blood by Creatinine-based formula (CKD-EPI) 02/18/2024 15:45:12 24 Below low normal >=60 (mL/min) Final eGFR is calculated based on the CKD-EPI 2020 equation. Sodium 02/18/2024 15:45:12 138 135-146 (m mol/L) Final Potassium 02/18/2024 15:45:12 4.2 3.5-5.1 (m mol/L) Final Cl 02/18/2024 15:45:12 103 98-107 (mm ol/L) Final CO2 02/18/2024 15:45:12 21 Below low normal 22- 32 (mmol/L) Final Anion gap 02/18/2024 15:45:12 14 7-15 (mmol /L) Final Glucose 02/18/2024 15:45:12 94 70-120 (mg /dL) Final Calcium 02/18/2024 15:45:12 9.7 8.4-10.2 ( mg/dL) Final Performing Location LABORATORY [facility] - [facility] [address] [facility] [address]
--- OUTSIDE RECORDS SUMMARY | 2024-06-15 02:42 | External Medical Summary ---
Author Name Unknown Address Unknown Organization K01:LABORATORY [facility] [place] - [address] [place] [address] Laboratory Report Ordering Provider Test Date Status JEN ALEGRIA 02/18/2024 15:45:12 Final Observation Date Value Abnormality Reference (Units ) Status Uric Acid 02/18/2024 15:45:12 4.9 3.4-7.0 (m g/dL) Final Performing Location LABORATORY [facility] [place] - [address] [facility] [address]
--- OUTSIDE RECORDS SUMMARY | 2024-06-15 02:43 | External Medical Summary | Summary of Care ---
Author Name Unknown Organization [facility] Address [address] [place] [address] Phone [phone] Care Team Providers Care Oil Pump Station Operator Chief Name Role Phone Aleja Bryson MD Primary Care Provide r Reason for Visit * Reason Onset Date Comments STAIR AAA 12/31/2023 Encounter Details Date Type Department Care Team ([facility] st Contact Info) Description 12/31/2023 Telephone STAIR AAA [address] [place], [place] [phone] Program, Stair [address] [place] [address] STAIR [facility] Allergies Active Allergy Reactions Criticality Noted Date Comments Ibuprofen 04/29/2011 Diarrhea documented as of this encounter (statuses as of 12/31/2023) Medications Medication Sig Dispensed Refills Start Date End Date Status D3 High Potency 25 MCG (1000 UT) Oral Capsule (Cholecalciferol)Angie cations:Kidney disease, chronic, 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) ([facility]) One capsule every other day 90 Cap 1 01/01/2021 Active Tylenol 325 MG Oral Capsule (Acetaminophen) Take by mouth 325 mg . Once daily Active Farxiga 10 MG Oral Tablet (Dapagliflozin Propanediol)Indicatio ns:Kidney disease, chronic, 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) ([facility]) Take 1 Tablet by mouth in the morning. 30 Tablet 11 01/08/2023 Active Atorvastatin Calcium 80 MG Oral Tablet (Lipitor)Indications: Dyslipidemia, goal LDL below 100 take one pill by mouth at bedtime 90 Tablet 1 01/21/2023 Active Sodium Bicarbonate 650 MG Oral TabletIndications:Kid yessica disease, chronic, 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) (HCC) Take 1 Tablet by mouth in the morning and 1 Tablet before bedtime. 60 Tablet 11 02/04/2023 Active Metoprolol Tartrate 25 MG Oral Tablet (Lopressor)Indication s:Primary hypertension,Benign hypertension with chronic kidney disease, stage IV (HCC),Paroxysmal atrial tachycardia (HCC) Take 1 Tablet by mouth in the morning and 1 Tablet before bedtime. 180 Tablet 1 08/05/2023 Active Lisinopril 10 MG Oral Tablet (Prinivil)Indications :Benign hypertension with chronic kidney disease, stage IV (HCC) TAKE ONE TABLET BY MOUTH EVERY DAY 90 Tablet 1 08/25/2023 Active Furosemide 20 MG Oral Tablet (Lasix) TAKE ONE TABLET IN THE MORNING 90 Tablet 1 09/04/2023 Active amLODIPine Besylate 5 MG Oral Tablet (Norvasc)Indications: Primary hypertension,Benign hypertension with chronic kidney disease, stage IV (HCC) TAKE ONE TABLET BY MOUTH AT BEDTIME 90 Tablet 1 11/18/2023 Active Allopurinol 100 MG Oral Tablet (Zyloprim)Indications :Gout TAKE TWO TABLETS BY MOUTH EVERY DAY 180 Tablet 1 12/16/2023 Active documented as of this encounter (statuses as of 12/31/2023) Active Problems Problem Noted Date Diagnosed Date Kidney disease, chronic, stage IV (GFR 15-29 ml/ min) 08/14/2020 Overview: Per CKD protocol Thrombocytopenia 11/10/2018 Overview: 107,000 platelets Benign hypertension with chronic kidney disease, stage IV 11/18/2017 S/P AAA (abdominal aortic aneurysm) repair 04/24 Overview: S/p Endovascular leak repair 04/24/2017 Hyperuricemia 07/26/2015 Primary hypertension 03/23/2014 Infrarenal abdominal aortic aneurysm (AAA) witho ut rupture 11/12/2009 Vitamin D deficiency 04/17/2009 Overview: Vitamin D level 9.1 Dyslipidemia, goal LDL below 100 03/15/2009 Overview: Per Lipid Taxonomy. ADVANCE DIRECTIVE INFORMATION 09/11/2004 Overview: Yes, Patient instructed to provide copy of advance directive for provider to review and to be scanned into Electronic Medical Record Gout Paroxysmal atrial tachycardia documented as of this encounter (statuses as of 12/31/2023) Resolved Problems Problem Noted Date Diagnosed Date Resolved Date Accidental puncture or lacer ation during procedure, not elsewhere classified 01/05/201408/2014 Kidney disease, chronic, sta ge IV (GFR 15-29 ml/min) 05/30/2013 01/18/2018 Overview: Per CKD protocol #1 Gastroesophageal reflux dise ase with esophagitis without hemorrhage 03/22/2010 Examination following surgery 12/04/2009 03/04/2011 HTN, goal below 130/80 04/17/200903/23 HTN, goal below 140/90 02/09/200904/17 Overview: Modified per HTN Taxonomy. Kidney disease, chronic, sta ge III (GFR 30-59 ml/min) 10/12/2008 06/07/2013 Osteoarthritis of leg 10/15/20042017 Renal failure 07/18/2004 04/17/2009 MALIGN NEOPL PROSTATE 03/17/20012015 PURE HYPERCHOLESTEROLEM 03/06 Overview: Per Lipid Taxonomy. 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 Kidney disease, chronic, sta ge IV (GFR 15-29 ml/min) 10/12/2008 documented as of this encounter (statuses as of 12/31/2023) Immunizations Name Administration Dates Next Due COVID-19 mRNA, LNP-s, No Pre serve, 2-Dose Series (Moderna) 04/15/2021,08/01/2020,06/27/2020 COVID-19, MRNA-LNP, 23-24, P F, 30 MCG/0.3 mL, 12 YRS AND ABOVE, IM (PFIZER-Comirnaty) 01/21/2023 Pneumococcal Conjugate Vacc, 13 Valent (Prevnar) 05/11/2014 Season Influenza, Quad, PF, Adjuvanted, 65+ Yrs, IM (FLUAD) 12/27/2019 Seasonal Influenza, PF, 6 M & above, IM , (FluLaval or Fluzone) 01/18/2018 Seasonal Influenza, Quadriva lent Hd (Fluzone Hd) 01/21/2023,01/08/2022,12/14/2020 Seasonal Influenza, Quadriva lent, No Preserve, IM 01/04/2017,01/01/2016,01/09/2015 Seasonal Influenza, Trivalen t, (IIV3), with Preserv, (Fluzone) 12/14/2013,12/21/2012,01/08/2012,2010,01/08/2010,12/28/2008,02/10/2008,1 ,01/09/2006 Seasonal Influenza, Trivalen t, Adjuvanted, 65+ YRS, [...] Assigned at Male 09/15/2018 11:11 AM EDT Gender Identity Male 09/15/2018 11:11 AM EDT Sexual Orientation Straight 09/11/2021 1: 10 PM EDT Job Start Date Occupation Industry Not on file Not on file Not on file documented as of this encounter Functional Status Functional Status Response Date of Assess ment Are you deaf or do you have serious difficulty h earing? No 04/24/2017 Are you blind or do you have serious difficulty seeing, even when wearing glasses? No 04/24/2017 Do you have serious difficul ty walking or climbing stairs? (5 years old or older) No 04/24/2017 Do you have difficulty dress ing or bathing? (5 years old or older) No 04/24/2017 Because of a physical, menta l, or emotional condition, do you have difficulty doing errands alone such as visiting a doctor s office or shopping? (15 years old or older) No 04/24/19 18 Cognitive Status Response Date of Assessm ent Because of a physical, menta l, or emotional condition, do you have serious difficulty concentrating, remembering, or making decisions? (5 years old or older) No 04/24/2017 documented as of this encounter Miscellaneous Notes * Telephone Encounter - Valery Berry LPN - 12/31/2023 9:28 AM EDT AAA - Clinical Summary Name: Cirilo Camacho Age: [age] year old AAA Review: Follow-up Follow-up Encounter Provider: Ray Mantilla MD Patient Identified by: Problem List Report Imaging Interpretation: CT Type of Result: SP EVAR AAA Care Plan Imaging Recommendation: Aortic Duplex - details below Details: in 1 year AAA Care Plan Visit Recommendation: Return visit in Vascular Surgery Details: in 1 year Next steps: No action needed at this time. Patient was seen by vascular surgery yesterday. Next clinic visit with testing prior is due in one year. Will continue to track. Time spent: 10 minutes Valery Berry LPN Coordinator SELMA (System to Track Abnormalities of Importance Reliably) CT ABD/PELVIS WO IV/ORAL CONTRAST 12/24/2023 Narrative EXAM EXAM: CT ABD/PELVIS WO IV/ORAL CONTRAST DATE and TIME: 12/24/2023 10:29 am HISTORY CLINICAL INFORMATION: H/O EVAR, CKD IV TECHNIQUE Modality: CT COMPARISON 11/13/2022 FINDINGS Lack of IV contrast limits evaluation of the abdominal and pelvic viscera. Lung bases: Within normal limits. Liver and biliary tree: Within normal limits, Gallbladder: No mass or inflammation. Pancreas: Within normal limits. Spleen: Within normal limits. Adrenal glands: Stable small tiny left adrenal nodule. Kidneys/ureters and bladder: Nonobstructing bilateral nephrolithiasis. Right renal cysts. Pelvic organs:No mass. Bowel: Within normal limits. Lymph nodes/peritoneum: Within normal limits. Aorta: Aortic endograft in place with extensive embolization material within the aneurysm sac. Stable size of the residual aneurysm sac measuring 7.3 centimeters. Abdominal wall: Rectus diastasis with ventral hernia containing small bowel loops. Bones: Degenerative changes of the spine. Impression IMPRESSION Stable size of the residual aneurysm sac. documented in this encounter Plan of Treatment Upcoming Encounters Date Type Department Care Team (Late st Contact Info) Description 03/02/2024 1:40 PM EST Office Visit Family Medicine [address] [place] [phone] Aleja Bryson MD [address] [place] [address] [place] [address] 05/26/2024 3:20 PM EST Office Visit Nephrology [address] [place] [address] Yecenia Apodaca MD [address] [place] [address] [place] [address] Health Maintenance Due Date Last Done Comments Adult Wellness Visit 09/11/2022 09/11/2021, 09/07/19 21 Depression Screening 09/11/2022 09/11/2021 COVID-19 Vaccine ( season) 2023 01/21/2023, 04/15/2021, 08/01/2020, Additional history exists Influenza Vaccine (FLU shot) (#1) 2023 01/21/2023, 01/08/2022, 12/14/2020, Additional history exists Nephrology Referral 12/27/2023 12/26/2022, 04/17/2009, 10/10/2008, Additional history exists PTH 01/06/2024 01/05/2023, 01/05, 12/14/2020, Additional history exists Phosphate 01/06/2024 01/05/2023, 08/2021, 12/14/2020, Additional history exists Albumin/Creatinine Ratio 07/22/2024 024, 07/09/2022, 01/28/2022, Additional history exists Hgb 07/22/2024 07/23/2023, 05/2022, 01/08/2022, Additional history exists DTap/Tdap Vaccines (2 - Td or Tdap) 06/08/2028 06/08/2018, 12/30/2007 Pneumococcal Vaccine: 65+ Years Completed 05/11/2014, 12/02/2002 Zoster Vaccines Completed 10/14/2019, 06/04, 10/18/2012 HPV (Gardasil) Vaccine Aged Out No lo nger eligible based on patient's age to complete this topic Hepatitis B Vaccine Aged Out No longe r eligible based on patient's age to complete this topic MENINGOCOCCAL (MENACTRA/MENVEO) Aged Out No longer eligible based on patient's age to complete this topic documented as of this encounter Medical Devices Implanted Type Area Automatic Drill Operator Device Identifier Shelf Expiration Date Model / Serial / Lot Stent Main Body Tfmv-74-46-Zt - [id number] Implanted:Qty: 1 on 12/04/2009 [place] [facility] [place]A: Aorta [employer] 08/05/2011 TFFB-32-82- ZT / / [id number] Leg Extension [id number]-79-25-Zt - [id number] Implanted:Qty: 1 on 12/04/2009 at [place] [facility] [place] Right: Iliac [employer] 09/05/2011 TFLE-16-90- ZT / / [id number] Leg Extension Vjgr-58-88-Zt - [id number] Implanted:Qty: 1 on 12/04/2009 at [place] [facility] [place] Left: Iliac [employer] 09/05/2011 TFLE-16-90- ZT / / [id number] Ev3 [place] 34 Liquid Embolic Material Implanted:Qty: 9 on 04/24/2017 by Petar Stovall MD at RADIOLOGY [facility] [place] N/A: Abdomen 06/10/2019 [id number] -[id number] / [id number] / [id number] Description:ev3 [place] 34 Liqu id Embolic Material documented as [...] and were consensually agreed upon. Care Teams Oil Pump Station Operator Chief Relationship Specialty Start Date End Date Aleja Bryson MD [address] [place] [address] [place] [phone] PCP - General Family Medicine 07/28/23 documented as of this encounter
--- OUTSIDE RECORDS SUMMARY | 2024-06-15 02:43 | External Medical Summary | Summary of Care ---
Author Name Unknown Organization [facility] Address [address] [place] [address] Phone [phone] Care Team Providers Care Manager Application Development Name Role Phone Aleja Bryson MD Primary Care Provide r Reason for Visit * Reason Comments eRx-Medication Refill Encounter Details Date Type Department Care Team (Late st Contact Info) Description 02/13/2024 Refill Family Medicine [address] [phone] Danis Salgado MD [address] [place], [place] [address] [id number] Dyslipidemia, goal LDL below 100 Allergies Active Allergy Reactions Criticality Noted Date Comments Ibuprofen 04/29/2011 Diarrhea documented as of this encounter (statuses as of 02/16/2024) Medications D3 High Potency 25 MCG (1000 UT) Oral Capsule (Cholecalciferol )Indications:Kid yessica disease, chronic, 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) ([facility]) One capsule every other day 90 Cap 1 01/02/20 21 Active Tylenol 325 MG Oral Capsule (Acetaminophen) Take by mouth 325 mg . Once daily Active Lisinopril 10 MG Oral Tablet (Prinivil)Indica tions:Benign hypertension with chronic kidney disease, stage IV (HCC) TAKE ONE TABLET BY MOUTH EVERY DAY 90 Tablet 1 08/25/19 24 Active Furosemide 20 MG Oral Tablet [...] BEDTIME 90 Tablet 1 02/16/20 24 Active Atorvastatin Calcium 80 MG Oral Tablet (Lipitor)Indicat ions:Dyslipidemi a, goal LDL below 100 take one pill by mouth at bedtime 90 Tablet 1 01/22/20 23 024 Discontinued documented as of this encounter (statuses as of 02/16/2024) Active Problems Problem Noted Date Diagnosed Date [...] as of this encounter (statuses as of 02/16/2024) Resolved Problems Problem Noted Date Diagnosed Date [...] as of this encounter (statuses as of 02/16/2024) Immunizations Name Administration Dates Next Due COVID-19 mRNA, LNP-s, No Pre serve, 2-Dose Series (Moderna) 04/15/2021,08/01/2020,06/27/2020 COVID-19, MRNA-LNP, PF, 30 M CG/0.3 mL, 12 YRS AND ABOVE, IM (PFIZER-Comirnaty) 01/21/2023 Pneumococcal Conjugate Vacc, 13 Valent (Prevnar) 05/11/2014 Season Influenza, Quad, PF, Adjuvanted, 65+ Yrs, IM (FLUAD) 12/27/2019 Seasonal Influenza Vac., MDV , IM, 0.5 mL (Fluzone) 12/14/2013,12/21/2012,01/08/2012,2010,01/08/2010,12/28/2008,02/10/2008,1 ,01/09/2006 Seasonal Influenza, PF, 6 M & above, [...] Telephone Encounter - Aleja Bryson MD - 02/16/2024 7:50 AM EST Signed Prescriptions: Disp Refills Atorvastatin Calcium 80 MG Oral Tablet (Li*90 Tab*1 Sig: TAKE ONE TABLET BY MOUTH AT BEDTIME Authorizing Provider: ALEJA BRYSON * Telephone Encounter - Renetta Kolb [facility] - 02/15/2024 3:34 PM ESTPending Prescriptions: Disp Refills Atorvastatin Calcium 80 MG Oral Tablet [Ph*90 Tab*1 Sig: TAKE ONE TABLET BY MOUTH AT BEDTIME * Telephone Encounter - Renetta Kolb [facility] - 02/15/2024 3:34 PM EST Not yet approved by PCP. Please approve if appropriate. Did you pend patient's preferred pharmacy and medication before forwarding?yes Pharmacy: [facility], [address] [place] Pending Prescriptions: Disp Refills Atorvastatin Calcium 80 MG Oral Tablet (L*90 Tab*1 Sig: TAKE ONE TABLET BY MOUTH AT BEDTIME Last Visit: 07/23/2023 (in office), Visit date not found (telemedicine) Next Visit: 03/02/2024 If no future appointments scheduled, and last appointment is greater than a year ago, please schedule patient for a follow-up appointment Last date the medication was ordered: 01/21/23 Is this request for a controlled substance?No Urine Drug Screen:No results found for this or any previous visit. Patient Phone Numbers Labs: Lab Results Component Value Date/Time CREAT 2.5 (H) 08/13/2023 10:18 AM CREAT 2.74 (A) 06/18/2020 12:00 AM CREAT 2.4 (H) 12/27/2019 02:45 PM CREAT 2.0 (H) 06/03/1996 10:16 AM POTASSIUM 4.4 08/13/2023 10:18 AM POTASSIUM 4.4 06/18/2020 12:00 AM POTASSIUM 5.0 12/27/2019 02:45 PM POTASSIUM 5.3 (H) 06/03/1996 10:16 AM TSH 1.14 12/02/2002 02:40 PM TSH 0.68 06/03/1996 10:16 AM LDL 66 07/23/2023 01:39 PM LDL 106 01/08/2022 09:58 AM LDL 94 06/15/2019 01:42 PM LDL NOT APPLICABLE 06/15/2019 01:42 PM LDL 07/18/1996 09:06 AM Comment: UNINTERPRETABLE RESULT LDLCALC 87 07/24/2014 12:00 AM ALT 11 07/23/2023 01:39 PM ALT 22 11/10/2018 09:58 AM ALT 23 07/18/1996 09:06 AM documented in this encounter Plan of Treatment Upcoming Encounters Date Type Department Care Team (Late st Contact Info) Description 02/18/2024 2:40 PM EST Office Visit Nephrology [address] [place] [phone] Yecenia Apodaca MD [address] [place] [address] [place] [phone] 03/02/2024 1:40 PM EST Office Visit Family Medicine [address] [place] [phone] Aleja Bryson MD [address] [place] [address] [place] [phone] Health Maintenance Due Date Last Done Comments [...] this encounter Medical Devices Implanted Type Area Extractions Technician Device Identifier Shelf Expiration Date Model / Serial / Lot Stent Main Body [id number]-[id number] - [id number] [place] 12[place]04[place] [facility] [place]: Aorta [employer] 08/05/2011 TFFB-32-82- ZT / / [id number] Leg Extension [id number]-73-45-[id number] - [id number] Implanted:Qty: 1 on 12/04/2009 [place] [facility] [place] Right: Iliac [employer] 09/05/2011 TFLE--- ZT / / [id number] Leg Extension [id number] - [id number] Implanted:Qty: 1 on 12/04/2009 [place] [facility] [place] Left: Iliac [employer] 09/05/2011 TFLE-- ZT / / [id number] Ev3 [place] 34 Liquid Embolic Material Implanted:Qty: 9 on 04/24/2017 by Petar Stovall [place] [facility] [place]A: Abdomen 06/10/2019 [id number] / [id number] / [id number] Description:ev3 Bl[place] 34 Liqu id Embolic Material documented as of this encounter Visit Diagnoses Diagnosis Dyslipidemia, goal LDL below 100 Other and unspecified hyperlipidemia documented in this encounter Advance Directives * [...] and were consensually agreed upon. Care Teams Manager Application Development Relationship Specialty Start Date End Date Aleja Bryson MD [address] [place] [address] [place] [phone] PCP - General Family Medicine 07/28/23 documented as of this encounter
--- OUTSIDE RECORDS SUMMARY | 2024-06-15 02:43 | External Medical Summary | Summary of Care ---
Author Name Unknown Organization [facility] Address [address] [place] [address] Phone [phone] Care Team Providers Care Steel Finisher Name Role Phone Aleja Bryson MD Primary Care Provide r Reason for Referral * Precert (Within 10 days (routine)) - Pending Review Specialty Diagnoses / Procedures Referred By Contac t Referred To Contact Radiology Diagnoses Infrarenal abdominal aortic aneurysm (AAA) without rupture (HCC) S/P AAA (abdominal aortic aneurysm) repair Procedures CT ABD/PELVIS WO IV/ORAL CONTRAST Francesco Rubalcava PA-C [address] [place] [address] Referral ID Status Reason Start Date Expiration Date V isits Requested Visits Authorized [id number] Pending Review 12/30/2023 999 999 Reason for Visit * Reason Comments Follow Up Encounter Details Date Type Department Care Team ([facility] Contact Info) Description 12/30/2023 2:30 PM EDT Office Visit Vascular Surgery, [facility] [address] [facility] [place] [id number] Ray Mantilla MD [address] [place] [address] Infrarenal abdominal aortic aneurysm (AAA) without rupture (HCC)*; S/P AAA (abdominal aortic aneurysm) repair Allergies Active Allergy Reactions Criticality Noted Date Comments Ibuprofen 04/29/2011 Diarrhea documented as of this encounter (statuses as of 12/30/2023) Medications Medication Sig Dispensed Refills Start Date [...] as of this encounter (statuses as of 12/30/2023) Active Problems Problem Noted Date Diagnosed Date [...] as of this encounter (statuses as of 12/30/2023) Resolved Problems Problem Noted Date Diagnosed Date [...] as of this encounter (statuses as of 12/30/2023) Immunizations Name Administration Dates Next Due COVID-19 [...] Current Snuff Tobacco Cessation:Ready to Q uit: No; Counseling Given: No Comments:12/30/2023 chews 1 can per days, declines [...] Sign Reading Time Taken Comments Blood Pressure 142/72 12/30/2023 2:08 PM EDT Pulse 61 12/30/2023 2:08 PM EDT Temperature 36.6 C (97.8 F) 12/30/2023 2:08 PM ED T Respiratory Rate - - Oxygen Saturation - - Inhaled Oxygen Concentration - - Weight 68.4 kg (150 lb 12.8 oz) 12/30/2023 2:08 PM EDT Height 167.6 cm (5' 6") 12/30/2023 2:08 PM EDT Body Mass Index 24.34 12/30/2023 2:08 PM EDT documented in this encounter Functional Status Functional Status Response [...] No 04/24/2017 documented as of this encounter Progress Notes * Francesco Rubalcava PA-C - 12/30/2023 2:10 PM EDT Images from the original note were not included. Cirilo Camacho is a 88 year old male. Referring Physician: Danis Salgado MD Chief Complaint: Mr. Camacho returns to clinic for routine surveillance of AAA s/p EVAR in 2009 followed by embolization of AAA sac for endoleak in 04/2017 by IR. Reporting a couple falls, using a cane HPI: Patient is a pleasant WAINWRIGHT gentleman with h/o 6.1 cm AAA incidentally identified on a CT abd/pelv [id number] on a workup for hyperkalemia. He underwent endograft AAA repair using a Cook Zenith stent graft on 12/04/[address] Lara. Surveillance imaging suggested growth of AAA sac (despite no clear detection of endoleak on imaging), and he was referred to IR (Dr. Stovall) and he underwent embolization of AAA sac with [place] (18 ml) 04/24/2017. ABDOMINAL AORTIC ANEURYSM: Patient denies any symptoms related to EVAR or intervention for endoleak. Denies abdominal pain or back pain. Current Outpatient Medications Medication Sig Dispense Refill D3 High Potency 25 MCG (1000 UT) Oral Capsule (Cholecalciferol) One capsule every other day 90 Cap 1 Tylenol 325 MG Oral Capsule (Acetaminophen) Take by mouth 325 mg . Once daily Farxiga 10 MG Oral Tablet (Dapagliflozin Propanediol) Take 1 Tablet by mouth in the morning. 30 Tablet 11 Atorvastatin Calcium 80 MG Oral Tablet (Lipitor) take one pill by mouth at bedtime 90 Tablet 1 Sodium Bicarbonate 650 MG Oral Tablet Take 1 Tablet by mouth in the morning and 1 Tablet before bedtime. 60 Tablet 11 Metoprolol Tartrate 25 MG Oral Tablet (Lopressor) Take 1 Tablet by mouth in the morning and 1 Tablet before bedtime. 180 Tablet 1 Lisinopril 10 MG Oral Tablet [...] BY MOUTH EVERY DAY 180 Tablet 1 No current facility-administered medications for this visit. Review of patient's allergies indicates: Allergen Reactions Ibuprofen Diarrhea Patient Active Problem List Diagnosis ADVANCE DIRECTIVE INFORMATION Gout Dyslipidemia, goal LDL below 100 Vitamin D deficiency Infrarenal abdominal aortic aneurysm (AAA) without rupture (HCC) Primary hypertension Hyperuricemia S/P AAA (abdominal aortic aneurysm) repair Benign hypertension with chronic kidney disease, stage IV (HCC) Paroxysmal atrial tachycardia (HCC) Thrombocytopenia (HCC) Kidney disease, chronic, 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) (HCC) Past Medical History: Diagnosis Date Abdominal aortic aneurysm (HCC) Benign hypertension with CKD (chronic kidney disease) stage IV (HCC) Benign neoplasm of colon 08/02/2008 5 and 7 mm polyps in mid transverse colon Cervical spondylosis with myelopathy Dyslipidemia, goal LDL below 100 E. coli septicemia (HCC) 10/05/2007 from E coli UTI, [place] Esophageal reflux 03/22/2010 Gout Gout 09/2010 ankle Kidney disease, chronic, stage III (GFR 30-59 ml/min) (HCC) Kidney disease, chronic, 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) (HCC) Malignant neoplasm of prostate (HCC) s/p sx nov 2000 Other and unspecified noninfectious gastroenteritis and colitis(558.9) 07/10/2014 [place], dehydrated with Cr 5.1 Paroxysmal atrial tachycardia (HCC) Peptic ulcer Perforated sigmoid colon (HCC) 12/08/2013 during colonoscopy Primary hypertension Thrombocytopenia (HCC) 11/10/2018 107,000 platelets Vitamin D deficiency 04/17/2009 Vitamin D level 9.1 Past Surgical History: Procedure Laterality Date AAA/AORTIC DISSEC REPAIR,ENDOVASC 12/04/2009 Endovascular AAA repair with Humza Zengregg stent graft, Dr. Lara ABD/PELVIS CT W/O IV AND W/O PO CONTRAST 02/25/2011 AAA slightly larger, stable renal cyst, possible cyst right adrenal ABD/PELVIS CT W/O IV AND W/O PO CONTRAST 09/24/2012 previous inguinal surgery, AAA repair looks stable, no endoleak COLONOSCOPY [address] Felton in [facility] COLONOSCOPY W/ BIOPSY (RECTUM) 07/28/2008 tubular adenoma repeat in 5 years COLONOSCOPY, DIAGNOSTIC (RECTUM) 12/08/2013 COLONOSCOPY FLEXIBLE PROXIMAL DIAGNOSTIC performed by Harvey Berger MD at ENDOSCOPY [facility] CT ABD/PELVIS WO IV CONTRAST - W ORAL CONTRAST 03/19/2011 multiple intrarenal calculi, no ureteric stone, endograft in position CT CHEST WO CONTRAST N/A 06/18/2020 moderate hiatal hernia, diastasis, with chronic hernia, no acute findings INFORMATION 12/08/2013 12/08/2013 repair of colon preforation [facility] elsi sisiitki 12/08/[address] GUIDED NEEDLE BIOPSY 04/24/2017 Embolization of AAA sac with [place] (18 ml) 04/24/17 performed by Petar Stovall MD at RADIOLOGY [facility] IR EXISTING CATH FOLLOWUP NON THROMBOLYTICS 04/24/2017 MRI PANCREAS W CONTRAST 10/17/2016 2 cystic lesions in pancreas REMOVAL OF PROSTATE (TURP) 11/2000 Dr Schrader, cancer VASC AORTIC DUPLEX EVAL-COMPLETE 02/25/2011 5.12x5.11 AAA, no endoleak noted VASC AORTIC DUPLEX EVAL-COMPLETE 11/03/2013 5.5 AAA, graft patent, no endoleak VASC [place] ART DUP BILAT LE 02/25/2011 normal femoral and popliteal arteries XR ABDOMEN OBSTRUCT SERIES W CHEST 1 VIEW 07/10/2014 calfiic densities over both renal shadows, Stones Family History Problem Relation Name Age of Onset Diabetes Father d45 Other (Other) Father Denies family history of AAA Social History Socioeconomic History Marital status: Spouse name: Lizzette Number of children: 2 Years of education: Not on file Highest education level: Not on file Occupational History Occupation: [employer] 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, 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 Tobacco Use Smoking status: Never Smokeless tobacco: Current Types: Snuff Tobacco comments: 12/30/2023 chews 1 can per days, declines pamphlet Vaping Use Vaping status: Never Used Substance and Sexual Activity Alcohol use: Not Currently Drug use: No Sexual activity: Not Currently Other Topics Concern Not on file Social History Narrative Live alone Lost in 2007 Retired Worked in [employer] for 40 years Social Determinants of Health Financial Resource Strain: Not on file Food Insecurity: No Food Insecurity (09/06/2020) Hunger Vital Sign Worried About Running Out of Food in the Last Year: Never true Ran Out of Food in the Last Year: Never true Transportation Needs: Not on file Social Connections: Unknown (12/30/2023) Social Connections How often do you feel lonely or isolated from those around you? (Adult - for ages 18 years and over): Not on file Housing Stability: Not on file REVIEW OF SYSTEMS: General: Denies fever/chills Eyes: Denies amaurosis fugax. Cardiovascular: Denies chest pain. Respiratory: Denies shortness of breath. Gastrointestinal: Denies melena, denies bright red blood per rectum. Genitourinary: Denies hematuria, h/o prostate ca s/p prostatectomy. Skin: Denies ulcers. Neuro: Denies recent symptoms of CVA or TIA. GENERAL MULTI-SYSTEM PHYSICAL EXAM: VITAL SIGNS: BP 142/72 (BP Site: Left Arm, BP Position: Sitting, BP Cuff Size: Regular) | Pulse 61 | Temp 36.6 C (97.8 F) (Tympanic) | Ht 1.676 m (5' 6") | Wt 68.4 kg (150 lb 12.8 oz) | BMI 24.34 kg/m | BSA1.78 m GENERAL: Normal grooming habits, no acute distress and appears stated age. NECK: No masses. RESPIRATORY: Respiratory effort normal and lungs CTA. CARDIOVASCULAR: Yes to TRACY, yes to RRR, no edema. GASTROINTESTINAL: no tenderness, protuberant/obese, and abdominal aorta not palpable. Asymptomatic right ventral hernia. SKIN: no ulcers, no rash, no induration, and no dependent rubor. PSYCHIATRIC: orientation to time, place and person normal. EYES: conjunctivae normal. NEUROLOGIC: Motor function grossly intact. PULSE SCALE: Carotid Right:----Bruit: No Left:----Bruit: No Radial Right: 3 Left: 3 Femoral Right: 3 Left: 3 Popliteal Right: 2 Left: 2 Dorsalis Pedis Right: 3 Left: 3 Posterial Tibial Right: 3 Left: 3 PULSE SCALE: 4=Aneurysmal; 3=Normal; 2=Diminished; 1=Barely Palpable; 0=Absent DIAGNOSTIC STUDIES: 12/24/23 Abd Aortic Duplex: 6.1 cm AAA sac, patent stent/limbs, no endoleak 12/24/[address] Abd/Pelvis: 7.5 x 7.3 cm AAA sac The above diagnostic images were directly visualized and independently interpreted by me on 12/30/2023 with results as above 11/13/22 Abd Ao Duplex: 6 x 6.1 cm AAA sac, no endoleak, patent limbs & EIAs 11/13/[address] A/P: 7.5 cm AAA sac, on axial & corneal views (as seen on 11/25 CT), good prox anddistal seals 11/13/[address]: AAA 6.3 cm orthogonal to long axis; similar to study in 2019. 11/29/18; Location of Study: [facility]; Modality: duplex; AAA measures 5.7 cm in greatest transversedimension. No endoleak. 11/29/18; Location of Study: [facility]; Modality: CT; AAA measures 6.8 cm in greatest transverse dimension. Total Vol 277 cm3 compared to 271 cm3 in 12/2017. 12/30/17: CT abd/pelv (non-contrast): Radiology got 6.8 cm this time and last. I get about 6.1 x 6.7cm. Significant artifact from coleen. Past 3 volumes: 260 => 269 => 271 12/30/17: Aortic Duplex: 6.4 x 6.1 cm sac. No endoleak. Limbs patent. 06/04/17: Aortic Duplex: No endoleak appreciated. Sac 6.9 cm x 5.6 cm 03/27/17: aortic duplex: 6.6 cm aneurysmal sac but not able to see endoleak. 03/27/17: CT scan: non-contrast, aneurysm sac 5.9 X 6.4 cm. 11/19/16 Duplex; AAA measures 6.1 cm in greatest transverse dimension. R limb 106, JOSE 75, L limb 120, LEI 84 08/15/16: CT w/o contrast: Residual AAA sac 6.4 cm. 08/15/16: Aortic Duplex: 6.4 cm residual AAA sac. No endoleak appreciated. 08/15/16: [place] Art Duplex: No fem/pop aneurysms. 08/15/16: Carotid Duplex: 54/17, LICA 101/14 10/24/14 CT w/o contrast; AAA measures 6.1 cm in greatest transverse dimension. 10/24/14 Duplex; AAA measures 6.0 cm in greatest transverse dimension. No endoleak. 11/03/13 CT; AAA measures 5.9 cm in greatest transverse dimension. 11/03/13 Duplex; AAA measures 5.5 cm in greatest transverse dimension. No evidence of endoleak. 09/24/12 CT; AAA measures 5.9 cm x 5.7 cm in greatest transverse dimension. 09/24/12 Duplex; AAA measures 5.7 cm x 5.4 cmin greatest transverse dimension. 03/25/12 Duplex; AAA measures 5.35 cm in greatest transverse dimension, no evidence of endoleak 12/20/12 CT; AAA measures 5.9 cm in greatest transverse dimension. 02/25/11 CT Aneurysmal Sac 5.6 x 5.2 cm. 02/25/11 Aortic Duplex No evidence of endoleak. 02/25/11 BLE Duplex R WOOD CABINETMAKER 1.1 cm, R Pop .94 cm, L WOOD CABINETMAKER 1.1 cm, L Pop .93 cm. 07/09/2010: noncontrast CT: AAA 5.6 X 5.2 cm 07/09/2010: aortic duplex AAA 5 cm, no endoleak noted. 01/04/[address]: AAA 6.2 x 5.3cm 01/04/10 aortic duplex: AAA 6cm, no endoleak noted 11/06/09 CT Scan ([facility]) 4.9 x 6.1 cm and B/L JEANETTE 1.5 cm. IMPRESSIONS: S/P embolization of AAA sac with [place] (18 ml) 04/24/17 by IR for growth of residual AAA sac despite no detection of endoleak. S/P endograft AAA repair using a Cook Zenith stent graft on 12/04/[address] Lara performed for asymptomatic 6.1 cm AAA. No change in AAA sac and no endoleak on recent vascular labs No femoral or popliteal artery aneurysms per duplex of 2017. Asymptomatic <50% carotid stenosis, per 2017 duplex. HTN. Dyslipidemia. Tobacco use dependency, has chewed for ~60 years. CKD IV. Asymptomatic ventral hernia. H/O prostate CA s/p TURP. S/P open repair of bowel perforation. H/O gout, on daily allopurinol. H/O pancreatic cystic lesions (evaluated by Dr. Live Acosta/had MRI evaluation). PLAN: The patient was counseled regarding the pathophysiology and natural history of abdominal aortic aneurysms, as well as the signs of rupture and the need to initiate emergency medical attention in thatsituation. No change in aneurysmal sac size Continue ASA 81 mg for platelet inhibition Continue Lipitor 80 mg for dyslipidemia/hyperlipidemia/pleiotropic benefits Recommend cessation of smokeless tobacco products. F/U in 1 year at [facility], or sooner prn. Will need repeat abd aortic duplex & non contrastCT at [facility] 1 week prior to clinic visit. The patient was seen and examined with Robin Mantilla MD. Francesco Rubalcava PA-C I have reviewed the advanced practitioner documentation and agree. I saw and evaluated the patient on date of service referenced in note and have performed the following medically appropriate historyand/or exam: Cirilo Camacho is a pleasant 87 yo man who underwent EVAR for a 6.1 cm AAA [place] [address] Lara. Subsequent AAA sac embolization 2/2 endoleak in 2018. AAA sac remains stable (7.2 cm x 6.6 cm on non contrast CT) Plan for F/U in 1 year at [facility], or sooner prn. Will need repeat abd aortic duplex & noncontrast CT at [facility] 1 week prior to clinic visit. Ray Mantilla MD Vascular Surgeon Department of Vascular Surgery [facility] documented in this encounter Nursing Notes * Deepa Ceballos CMA - 12/30/2023 2:11 PM EDT Reviewed the option of transferring scripts to [facility] pharmacy with patient and / or family. Patient was instructed to not get up on the exam table/exam chair until directed and assisted by their provider; patient is to remain seated in the chair/ wheelchair/ exam table/ exam chair for fall prevention and safety reasons. Patient is aware to have assistance to step down off exam table/exam chair with personnel. Patient voiced full comprehension of instructions. Deepa Ceballos CMA documented in this encounter Plan of Treatment Upcoming Encounters Date Type Department Care Team (Late st Contact Info) Description 03/02/2024 1:40 PM EST Office Visit Family Medicine [address] [place] [phone] Aleja Bryson MD [address] [place] [address] [place] [id number] 05/26/2024 3:20 PM EST Office Visit Nephrology [address] [place] [phone] Yecenia Apodaca MD [address] [place] [address] [place] [address] Scheduled Orders Name Type Priority Associated Diagnoses Orde r Schedule VASC AORTIC DUPLEX EVAL-COMPLETE Medical Imaging Routine Infrarenal abdominal aortic aneurysm (AAA) without rupture (HCC) S/P AAA (abdominal aortic aneurysm) repair Ordered: 12/30/2023 CT ABD/PELVIS WO IV/ORAL CONTRAST Medical Imaging Routine Infrarenal abdominal aortic aneurysm (AAA) without rupture (HCC) S/P AAA (abdominal aortic aneurysm) repair Ordered: 12/30/2023 Health Maintenance Due Date Last Done Comments [...] this encounter Medical Devices Implanted Type Area Operating Engineer Device Identifier Shelf Expiration Date Model / Serial / Lot Stent Main Body Patp-39-84-Zt - [id number] Implanted:Qty: 1 on 12/04/2009 at OR [facility] N/A: Aorta [employer] 08/05/2011 TFFB-32-82- ZT / / [id number] Leg Extension [id number]-99-20-Zt - [id number] Implanted:Qty: 1 on 12/04/2009 at OR [facility] Right: Iliac [employer] 09/05/2011 TFLE-16-90- ZT / / [id number] Leg Extension [id number]-13-04-Zt - [id number] Implanted:Qty: 1 on 12/04/2009 at OR [facility] Left: Iliac [employer] 09/05/2011 TFLE-16-90- ZT / / [id number] Ev3 [place] 34 Liquid Embolic Material Implanted:Qty: 9 on 04/24/2017 by Petar Stovall MD at RADIOLOGY [facility] N/A: Abdomen 06/10/2019 [id number] / [id number] / [id number] Description:ev3 [place] 34 Liqu id Embolic Material documented as of this encounter Visit Diagnoses Diagnosis Infrarenal abdominal aortic aneurysm (AAA) without rupture (HCC)- Primary S/P AAA (abdominal aortic aneurysm) repair Other postprocedural status documented in this encounter Advance Directives * [...] and were consensually agreed upon. Care Teams Steel Finisher Relationship Specialty Start Date End Date Aleja Bryson MD [address] [place] [address] [place] [id number] PCP - General Family Medicine 07/28/23 documented as of this encounter
--- OUTSIDE RECORDS SUMMARY | 2024-06-15 02:43 | External Medical Summary | Summary of Care ---
Author Name Unknown Organization [facility] Address [address] [place] [address] Phone [phone] Care Team Providers Care Car Seat Maker Name Role Phone Aleja Bryson MD Primary Care Provide r Reason for Visit * Reason Comments eRx-Medication Refill Encounter Details Date Type Department Care Team ([facility] st Contact Info) Description 01/19/2024 Refill Nephrology, Yordan Harden [address] [place] [address] Raji Li MD [address] [place] [address] Kidney disease, chronic, 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) ([facility]) Allergies Active Allergy Reactions Criticality Noted Date Comments Ibuprofen 04/29/2011 Diarrhea documented as of this encounter (statuses as of 01/19/2024) Medications Medication Sig Dispensed Refills Start Date End Date Status D3 High Potency 25 MCG (1000 UT) Oral Capsule (Cholecalciferol)I ndications:Kidney disease, chronic, 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) ([facility]) One capsule every other day 90 Cap 1 01/01/2021 Active Tylenol 325 MG Oral Capsule (Acetaminophen) Take by mouth 325 mg . Once daily Active Atorvastatin Calcium 80 MG Oral Tablet (Lipitor)Indicatio ns:Dyslipidemia, goal LDL below 100 take one pill by mouth at bedtime 90 Tablet 1 01/21/2023 Active Sodium Bicarbonate 650 MG Oral TabletIndications: Kidney disease, chronic, 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) ([facility]) Take 1 Tablet by mouth in the morning and 1 Tablet before bedtime. 60 Tablet 11 02/04/2023 Active Metoprolol Tartrate 25 MG Oral Tablet (Lopressor)Indicat ions:Primary hypertension,Benig n hypertension with chronic kidney disease, stage IV (HCC),Paroxysmal atrial tachycardia (HCC) Take 1 Tablet by mouth in the morning and 1 Tablet before bedtime. 180 Tablet 1 08/05/2023 Active Lisinopril 10 MG Oral Tablet (Prinivil)Indicati ons:Benign hypertension with chronic kidney disease, stage IV (HCC) TAKE ONE TABLET BY MOUTH EVERY DAY 90 Tablet 1 08/25/2023 Active Furosemide 20 MG Oral Tablet (Lasix) TAKE ONE TABLET IN THE MORNING 90 Tablet 1 09/04/2023 Active amLODIPine Besylate 5 MG Oral Tablet (Norvasc)Indicatio ns:Primary hypertension,Benig n hypertension with chronic kidney disease, stage IV (HCC) TAKE ONE TABLET BY MOUTH AT BEDTIME 90 Tablet 1 11/18/2023 Active Allopurinol 100 MG Oral Tablet (Zyloprim)Indicati ons:Gout TAKE TWO TABLETS BY MOUTH EVERY DAY 180 Tablet 1 12/16/2023 Active Farxiga 10 MG Oral Tablet (Dapagliflozin Propanediol)Indica tions:Kidney disease, chronic, 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) (HCC) Take 1 Tablet by mouth in the morning. 30 Tablet 11 01/19/2024 Active Farxiga 10 MG Oral Tablet (Dapagliflozin Propanediol)Indica tions:Kidney disease, chronic, 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) (HCC) Take 1 Tablet by mouth in the morning. 30 Tablet 11 01/08/2023 4 Discontinued documented as of this encounter (statuses as of 01/19/2024) Active Problems Problem Noted Date Diagnosed Date [...] as of this encounter (statuses as of 01/19/2024) Resolved Problems Problem Noted Date Diagnosed Date [...] as of this encounter (statuses as of 01/19/2024) Immunizations Name Administration Dates Next Due COVID-19 [...] encounter Miscellaneous Notes * Telephone Encounter - Raji Li MD - 01/19/2024 12:53 PM EDTSigned Prescriptions: Disp Refills Farxiga 10 MG Oral Tablet (Dapagliflozin P*30 Tab*11 Sig: Take 1 Tablet by mouth in the morning. Authorizing Provider: RAJI LI * Telephone Encounter - Deepa Small RN - 01/19/2024 12:28 PM EDTPending Prescriptions: Disp Refills Farxiga 10 MG Oral Tablet (Dapagliflozin P*30 Tab*11 Sig: Take 1 Tablet by mouth in the morning. * Telephone Encounter - Deepa Small RN - 01/19/2024 12:24 PM EDT Prescription request received from pharmacy pending. Please authorize. Last OV 07/27/23 Next OV 05/26/24 documented in this encounter Plan of Treatment Upcoming Encounters Date Type Department Care Team (Late st Contact Info) Description 03/02/2024 1:40 PM EST Office Visit Family Medicine [address] [place] [address] Aleja Bryson MD [address] [place] [address] [place] [id number] 05/26/2024 3:20 PM EST Office Visit Nephrology [address] [place] [phone] Raji Li MD [address] [place] [address] [place] [address] Health Maintenance Due Date Last Done Comments [...] Medical Devices Implanted Type Area Manager Of Photography Device Identifier Shelf Expiration Date Model / Serial / Lot Stent Main Body Osej-95-05-Zt - [id number] Implanted:Qty: 1 on 12[place]04[place]2009 [place] [facility] [place]A: Aorta [employer] 08/05/2011 TFFB-32-82- ZT / / [id number] Leg Extension Nlwh-21-36-Zt - [id number] Implanted:Qty: 1 on 12/04/2009 [place] [facility] Right: Iliac [employer] 09/05/2011 TFLE-16-90- ZT / / [id number] Leg Extension Oezn-50-02-Zt - [id number] Implanted:Qty: 1 on 12/04/2009 [place] [facility] Left: Iliac [employer] 09/05/2011 TFLE-16-90- ZT / / [id number] Ev3 [place] 34 Liquid Embolic Material Implanted:Qty: 9 on 04/24/2017 by Petar Stovall MD at [place] [facility] N/A: Abdomen 06/10/2019 [id number] -[id number] / [id number] / [id number] Description:ev3 [place] 34 Liqu id Embolic Material documented as [...] and were consensually agreed upon. Care Teams Car Seat Maker Relationship Specialty Start Date End Date Aleja Bryson MD [address] [place] [address] [place] [id number] PCP - General Family Medicine 07/28/23 documented as of this encounter
--- OUTSIDE RECORDS SUMMARY | 2024-06-15 02:43 | External Medical Summary | Summary of Care ---
Author Name Unknown Organization [facility] Address [address] [place] [address] Phone [phone] Care Team Providers Care Automotive Service Advisor Name Role Phone Aleja Bryson MD Primary Care Provide r Reason for Visit * Reason Comments eRx-Medication Refill Encounter Details Date Type Department Care Team (Late st Contact Info) Description 02/02/2024 Refill Family Medicine [address] [phone] Aleja Bryson MD [address] [place], [place] [address] pagan [phone] Primary hypertension; Benign hypertension with chronic kidney disease, stage IV ([facility]); Paroxysmal atrial tachycardia ([facility]) Allergies Active Allergy Reactions Criticality Noted Date Comments Ibuprofen 04/29/2011 Diarrhea documented as of this encounter (statuses as of 02/02/2024) Medications Medication Sig Dispensed Refills Start Date End Date Status D3 High Potency 25 MCG (1000 UT) Oral Capsule (Cholecalciferol)I ndications:Kidney disease, chronic, 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) ([facility]) One capsule every other day 90 Cap 1 01/01/2021 Active Tylenol 325 MG Oral Capsule (Acetaminophen) Take by mouth 325 mg . Once daily Active Atorvastatin Calcium 80 MG Oral Tablet (Lipitor)Indicatio ns:Dyslipidemia, goal LDL below 100 take one pill by mouth at bedtime 90 Tablet 1 01/21/2023 Active Lisinopril 10 MG Oral Tablet (Prinivil)Indicati [...] the morning. 30 Tablet 11 01/19/2024 Active Sodium Bicarbonate 650 MG Oral TabletIndications: Kidney disease, chronic, 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) (HCC) TAKE ONE TABLET BY MOUTH TWICE DAILY 60 Tablet 11 02/02/2024 Active Metoprolol Tartrate 25 MG Oral Tablet (Lopressor)Indicat ions:Primary hypertension,Benig n hypertension with chronic kidney disease, stage IV (HCC),Paroxysmal atrial tachycardia (HCC) Take 1 Tablet by mouth in the morning and 1 Tablet before bedtime. 180 Tablet 1 02/02/2024 Active Metoprolol Tartrate 25 MG Oral Tablet (Lopressor)Indicat ions:Primary hypertension,Benig n hypertension with chronic kidney disease, stage IV (HCC),Paroxysmal atrial tachycardia (HCC) Take 1 Tablet by mouth in the morning and 1 Tablet before bedtime. 180 Tablet 1 08/05/2023 4 Discontinued documented as of this encounter (statuses as of 02/02/2024) Active Problems Problem Noted Date Diagnosed Date [...] as of this encounter (statuses as of 02/02/2024) Resolved Problems Problem Noted Date Diagnosed Date [...] as of this encounter (statuses as of 02/02/2024) Immunizations Name Administration Dates Next Due COVID-19 [...] encounter Miscellaneous Notes * Telephone Encounter - Ronald Us, [facility] - 02/02/2024 5:32 PM EDTSigned Prescriptions: Disp Refills Metoprolol Tartrate 25 MG Oral Tablet (Lop*180 Ta*1 Sig: Take 1 Tablet by mouth in the morning and 1 Tablet before bedtime.Authorizing Provider: Sophia BRYSON User: RONALD US documented in this encounter Plan of Treatment Upcoming Encounters Date Type Department Care Team (Late st Contact Info) Description 02/18/2024 2:40 PM EST Office Visit Nephrology [address] [place] [phone] Yecenia Apodaca MD [address] [place] [address] 03/02/2024 1:40 PM EST Office Visit Family Medicine [address] [place] [phone] Aleja Bryson MD [address] [place] [address] [place] [phone] Health Maintenance Due Date Last Done Comments [...] this encounter Medical Devices Implanted Type Area Plasterer Spot Device Identifier Shelf Expiration Date Model / Serial / Lot Stent Main Body Mtyl-58-16-Zt - [id number] Implanted:Qty: 1 on 12/04/2009 [place] [facility] [place]A: Aorta [employer] 08/05/2011 TFFB-32-82- ZT / / [id number] Leg Extension Jpst-10-49-Zt - [id number] Implanted:Qty: 1 on 12/04/2009 [place] [facility] [place] Right: Iliac [employer] 09/05/2011 TFLE-16-90- ZT / / [id number] Leg Extension [id number]-68-22-Zt - [id number] Implanted:Qty: 1 on 12/04/2009 [place] [facility] [place] Left: Iliac [employer] 09/05/2011 TFLE-16-90- ZT / / [id number] Ev3 [place] 34 Liquid Embolic Material Implanted:Qty: 9 on 04/24/2017 by Petar Stovall MD at [place] [facility] [place] N/A: Abdomen 06/10/2019 [id number] / [id number] / [id number] Description:ev3 [place] 34 Liqu id Embolic Material documented as of this encounter Visit Diagnoses Diagnosis Primary hypertension Unspecified essential hypertension Benign hypertension with chronic kidney disease, stage IV (HCC) Benign hypertensive kidney disease with chronic kidney disease stage I through stage IV, or unspecified Paroxysmal atrial tachycardia (HCC) Paroxysmal supraventricular tachycardia documented in this encounter Advance Directives * [...] and were consensually agreed upon. Care Teams Automotive Service Advisor Relationship Specialty Start Date End Date Aleja Bryson MD [address] [place] [address] [place] [phone] PCP - General Family Medicine 07/28/23 documented as of this encounter
--- OUTSIDE RECORDS SUMMARY | 2024-06-15 02:43 | External Medical Summary | Summary of Care ---
Author Name Unknown Organization [facility] Address [address] [place] [address] Phone [phone] Care Team Providers Care All Around Gear Machine Operator Name Role Phone Aleja Bryson MD Primary Care Provide r Reason for Visit * Reason Comments eRx-Medication Refill Encounter Details Date Type Department Care Team ([facility] st Contact Info) Description 02/02/2024 Refill Nephrology, Yordan Harden [address] [place] [address] Raji Li MD [address] [place] [address] Kidney disease, chronic, 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) ([facility]) Allergies Active Allergy Reactions Criticality Noted Date Comments Ibuprofen 04/29/2011 Diarrhea documented as of this encounter (statuses as of 02/02/2024) Medications Medication Sig Dispensed Refills Start Date End Date Status D3 High Potency 25 MCG (1000 UT) Oral Capsule (Cholecalciferol)I ndications:Kidney disease, chronic, 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) ([facility]) One capsule every other day [...] TWICE DAILY 60 Tablet 11 02/02/2024 Active Sodium Bicarbonate 650 MG Oral TabletIndications: Kidney disease, chronic, 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) (HCC) Take 1 Tablet by mouth in the morning and 1 Tablet before bedtime. 60 Tablet 11 02/04/2023 4 Discontinued Metoprolol Tartrate 25 MG Oral Tablet (Lopressor)Indicat [...] Telephone Encounter - Raji Li MD - 02/02/2024 5:27 PM EDTSigned Prescriptions: Disp Refills Sodium Bicarbonate 650 MG Oral Tablet 60 Tab*11 Sig: TAKE ONE TABLET BY MOUTH TWICE DAILY Authorizing Provider: RAJI LI * Telephone Encounter - Deepa Small RN - 02/02/2024 2:27 PM EDTPending Prescriptions: Disp Refills Sodium Bicarbonate 650 MG Oral Tablet 60 Tab*11 Sig: TAKE ONE TABLET BY MOUTH TWICE DAILY * Telephone Encounter - Deepa Small RN - 02/02/2024 2:26 PM EDT Prescription request received from pharmacy pending. Please authorize. Last OV 07/27/23 Next OV 02/18/24 documented in this encounter Plan of Treatment Upcoming Encounters Date Type Department Care Team (Late st Contact Info) Description 02/18/2024 2:40 PM EST Office Visit Nephrology [address] [place] [phone] Raji Li MD [address] [place], [place] [address] [id number] 03/02/2024 1:40 PM EST Office Visit Family Medicine [address] [place] [phone] Aleja Bryson MD [address] [place] [address] [place] [phone] Health Maintenance Due Date Last Done Comments [...] this encounter Medical Devices Implanted Type Area Information Technology Account Manager Device Identifier Shelf Expiration Date Model / Serial / Lot Stent Main Body Dosb-29-15-Zt - [id number] Implanted:Qty: 1 on 12/04/2009 [place] [facility] [place]A: Aorta [employer] 08/05/2011 TFFB-32-82- ZT / / [id number] Leg Extension Ywar-88-39-Zt - [id number] Implanted:Qty: 1 on 12/04/2009 [place] [facility] [place]: Iliac [employer] 09/05/2011 TFLE-16-90- ZT / / [id number] Leg Extension Atui-39-61-Zt - [id number] Implanted:Qty: 1 on 12/04/2009 [place] [facility] [place]: Iliac [employer] 09/05/2011 TFLE-16-90- ZT / / [id number] Ev3 [place] 34 Liquid Embolic Material Implanted:Qty: 9 on 04/24/2017 by Petar Stovall MD at [place] [facility] [place]/A: Abdomen 06/10/2019 [id number] / [id number] / [id number] Description:ev3 [place] 34 Liqu id Embolic Material documented as [...] and were consensually agreed upon. Care Teams All Around Gear Machine Operator Relationship Specialty Start Date End Date Aleja Bryson MD [address] [place] [address] [place] [phone] PCP - General Family Medicine 07/28/23 documented as of this encounter
[2024-06-15 03:11] LABS: Appearance Urine Clear (Clear); Bacteria Urine Automated 2+ (None Seen); Bilirubin Urine Negative (Negative); Blood Urine 3+ (Negative); Color Urine Orange; Epithelial Cell Urine Auto 0-2 /hpf (0-2); Glucose Urine UA 2+ (Negative); Ketones Urine Negative (Negative); Leukocyte Esterase Urine Trace (Negative); Nitrite Urine Negative (Negative); Protein Urine 3+ (Negative); RBC Urine Automated >20 /hpf (0-2); Specific Gravity Urine 1.011 (1.000-1.030); Urobilinogen Urine Negative (Negative); pH Urine 6.5 (4.5-7.5)
--- NOTE | 2024-06-15 03:12 | XRay Report ---
EXAM: XR chest 1V portable CLINICAL HISTORY: Weakness. TECHNIQUE: An X-ray image of the chest is obtained in AP projection. COMPARISON: Comparison with the previous x-ray chest on 08/05/2017. FINDINGS: Pulmonary Parenchyma: Emphysematous lungs. Prominent pulmonary interstitial markings. Stable nodule shadow/nipple shadow right lower zone. No evidence of pleural effusion or pleural thickening. Heart and Mediastinum: Heart size and shape are normal. No mediastinal widening or masses. No hilar or mediastinal lymphadenopathy. Bony Thorax: Bony thorax appears intact without fractures or deformities. Diffuse spondylotic and osteoporotic changes. Bilateral glenohumeral osteoarthritis. Soft Tissues: Soft tissues overlying the chest wall are unremarkable. IMPRESSION: 1. Mild COPD changes. 2. Prominent perihilar bronchovascular marking could be mild pulmonary congestion. Interval pronounced. Electronically signed by Akshat Slade 06-15-2024 03:11 AM
[2024-06-15 05:00] LABS: Prothrombin Time 10.9 Seconds (9.0-12.0)
--- NOTE | 2024-06-15 05:22 | History & Physical Report ---
Date of Service June 15, 2024 Assessment & Plan (1) Hematuria: Plan: Hematuria Urinary retention status post recent Jane catheter placement at [facility] hx bladder cancer hx prostate cancer status post surgery/radiation, Patient currently hemodynamically stable chronic diastolic heart failure (EF 55%, TTE 2024), equivocal volume status hypertension, stable hyperlipidemia, on statin Rx valvular heart disease (moderate /MR, mild AR/TR), outpatient cardio evaluation contemplated AAA status post repair (2009) paroxysmal atrial tachycardia possible PE of anticoagulation secondary to bleeding CRI, creatinine at baseline chronic anemia, hemoglobin at baseline Functional disability, recurrent admissions/ER visits past tobacco abuse OBS Admit to medical CT abdomen pelvis re: hematuria with abdominal pain Urology consult re: hematuria PT OT eval DVT prophylaxis. SCDs re: hematuria Full code Patient daughter requesting updates providers. Ms. Jennifer Cotton, contact #[phone]. Text document was generated using Gencia voice recognition software. It may contain grammatical or spelling errors. Kindly contact undersigned for clarification of any documentation item in question. ADDENDUM : 650 AM Made aware of abnormal CT abdomen pelvis result Interval increase in diameter of dilated suprarenal abdominal aorta and increase in size of possible periaortic hematoma/aneurysm with metallic vascular stents in supra/infrarenal abdominal aorta and bilateral common iliac arteries. Suggested CT angiography for further evaluation. IV dye study precluded by kidney dysfunction. Dr. Mcgregor of Vascular surgery recommended I contact patient's [facility] vascular surgeons for guidance. Case discussed with Dr. Enamorado of [facility] vascular surgery.. Patient deemed to be a poor surgical candidate given age and comorbidities as per discussion. Dr. Enamorado recommends repeat noncontrast CTAP study after 24 hours. Patient daughter updated of developments over the phone. Palliative care recommended if repeat CT AP study shows progression of periaortic hematoma (possible aneurysm leak). Patient daughter agreeable to plan of care. Change level of care to med/tele. Patient CODE STATUS appropriately de-escalated to DNR after discussion. History of Present Illness Chief Complaint: Hematuria, abdominal pain Primary Care Provider: Aleja Bryson MD History obtained from patient, family, and records. Limited history from patient secondary to marked hearing impairment. Medical history significant for chronic diastolic heart failure (EF 55%, TTE 2024), hypertension, hyperlipidemia, valvular heart disease (moderate /MR, mild AR/TR), AAA status post repair (2009), paroxysmal atrial tachycardia, possible PE of anticoagulation secondary to bleeding, CRI (baseline creatinine of 2s), chronic anemia (baseline hemoglobin of 10), chronic thrombocytopenia, gout, bladder cancer, prostate cancer status post surgery/radiation, GERD, past tobacco abuse. Last [facility] confinement 2013 under General Surgery service for sigmoid colon perfo ration status post surgery. Four visits at [facility] since last month. 05/18 ER visit for dehydration. 05/22-05/28 Admission for respiratory failure, CHF, pneumonia and probable PE on VQ scan. Patient discharged on cefdinir Rx and Lovenox Coumadin bridge Rx 06/01-06/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 Stable aortic stent. Periumbilical hernia with herniated bowel loops without obvious incarceration. Kidneys diffusely thinned out. Mild bilateral perinephric stranding stable. Charlie's plaques noted bilateral kidney stable. Urinary bladder partially distended and showing radiodense focus size 1 mm at the bladder neck could be calculus new finding. Warfarin and Lovenox discontinued. Blood transfused with hemoglobin noted to be as low as 7.9. 06/10 ER visit for urinary retention issues. Patient discharged from ER after Jane catheter insertion and requested to follow-up with [facility] urologist. Patient appointment slated 2 weeks from now. Last night, patient noted increased hematuria and urinary retention. Achy abdominal pain without fever or chills. Patient denies chest pain, SOB. Patient brought to [facility] ER for evaluation. Jane catheter noted to drain after irrigation. Patient daughter uncomfortable taking patient home. Requesting inpatient urology evaluation. 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 Allergies Allergy/AdvReac Type Severity Reaction Status Date / Time ibuprofen AdvReac Unknown diarrhea Verified 08/24/17 11:10 Home Medications Medication Instructions Recorded Confirmed Type allopurinol 100 mg tablet 200 mg PO QAM 06/15/24 06/15/24 History atorvastatin 80 mg tablet 80 mg PO HS 06/15/24 06/15/24 History cholecalciferol (vitamin D3) 25 50 mcg PO DAILY 06/15/24 06/15/24 History mcg (1,000 unit) tablet (Vitamin D3) dapagliflozin propanediol 10 mg 10 mg PO QAM 06/15/24 06/15/24 History tablet (Farxiga) ferrous sulfate 325 mg (65 mg 325 mg PO Q OTHER DAY 06/15/24 06/15/24 History iron) tablet furosemide 20 mg tablet 20 mg PO QAM 06/15/24 06/15/24 History metoprolol tartrate 25 mg tablet 25 mg PO AMHS 06/15/24 06/15/24 History sodium bicarbonate 650 mg tablet 650 mg PO BID 06/15/24 06/15/24 History Past Med/Surg History Problem List Hematuria Prostate cancer Bladder cancer Perforated sigmoid colon (Acute 12/08/13) Renal failure (Acute) Renal failure (Acute) Social History Smoking Status: Never smoker Preferred Language: Amharic Feels Safe at Home: Yes Review of Systems Review of Systems: Could not be reliably obtained secondary to marked hearing impairment Physical Exam Physical Exam: GENERAL: Comfortable, pleasant, hard of hearing, no respiratory distress SKIN: Pallor, warm HEENT: Pale palpebral conjunctivae, no ptosis, dry buccal mucosa NECK : Supple, no tenderness CHEST : Decreased breath sounds, no tenderness HEART : Bradycardic, systolic murmur ABDOMEN: Some distention, minimal hypogastric tenderness EXTREMITIES : No LE swelling/tenderness, palpable pulses, no other conspicuous deformities noted NEUROLOGIC : Coherent, no facial asymmetry, hard of hearing, gait and stance not assessed Results & Data Results & Data Vital Signs (Past 12 Hours) Vital Signs Temp Pulse Pulse Resp BP BP Pulse Ox 06/15/24 04:30 59 L 20 135/74 94 06/15/24 04:00 58 L 20 147/77 H 96 06/15/24 03:30 67 16 138/69 96 06/15/24 03:13 60 06/15/24 03:00 64 18 143/73 H 96 06/15/24 01:52 93 06/15/24 01:40 36.7 C 76 20 150/80 H 96 O2 Del Method 06/15/24 04:30 06/15/24 04:00 06/15/24 03:30 06/15/24 03:13 06/15/24 03:00 Room Air 06/15/24 01:52 Room Air 06/15/24 01:40 Room Air Laboratory Results Laboratory Results WBC 9.16 K/ul (4.8-10.8) 06/15/24 01:50 RBC 3.47 M/uL (4.70-6.10) L 06/15/24 01:50 Hgb 10.2 g/dl (14.0-18.0) L 06/15/24 01:50 Hct 32.0 % (42.0-52.0) L 06/15/24 01:50 MCV 92.2 fL (80.0-100.0) 06/15/24 01:50 MCH 29.4 pg (25.0-34.0) 06/15/24 01:50 MCHC 31.9 g/dL (32.0-36.0) L 06/15/24 01:50 RDW Std Deviation 57.9 fL (36.4-46.3) H 06/15/24 01:50 RDW Coeff of Misha 17.2 % (11.5-14.5) H 06/15/24 01:50 Plt Count 188 K/uL (130-400) 06/15/24 01:50 MPV 12.3 fL (9.4-12.4) 06/15/24 01:50 Immature Gran % (Auto) 0.4 % 06/15/24 01:50 Neut % (Auto) 69.7 % 06/15/24 01:50 Lymph % (Auto) 18.1 % 06/15/24 01:50 Kleberg % (Auto) 8.2 % 06/15/24 01:50 Eos % (Auto) 2.9 % 06/15/24 01:50 Baso % (Auto) 0.7 % 06/15/24 01:50 Neut # (Auto) 6.38 K/uL (1.40-6.50) 06/15/24 01:50 Lymph # (Auto) 1.66 K/uL (1.20-3.40) 06/15/24 01:50 Kleberg # (Auto) 0.75 K/uL (0.11-0.59) H 06/15/24 01:50 Eos # (Auto) 0.27 K/uL (0.00-0.50) 06/15/24 01:50 Baso # (Auto) 0.06 K/uL (0.00-0.20) 06/15/24 01:50 Immature Gran # (Auto) 0.04 K/uL (0.01-0.20) 06/15/24 01:50 PT 10.9 Seconds (9.0-12.0) 06/15/24 01:32 INR 1.0 (0.9-1.1) 06/15/24 01:32 Sodium 134 mmol/L (136-145) L 06/15/24 01:50 Potassium 3.8 mmol/L (3.5-5.1) 06/15/24 01:50 Chloride 105 mmol/L (98-107) 06/15/24 01:50 Carbon Dioxide 22 mmol/L (21-32) 06/15/24 01:50 Anion Gap 7 (3-11) 06/15/24 01:50 BUN 38 mg/dl (6-23) H 06/15/24 01:50 Creatinine 2.05 mg/dl (0.6-1.4) H 06/15/24 01:50 Est Cr Clr Drug Dosing 23.3 ml/min 06/15/24 01:50 eGFR 30.97 06/15/24 01:50 BUN/Creatinine Ratio 18.5 (10-20) 06/15/24 01:50 Glucose 97 mg/dl (70-99(Fasting)) 06/15/24 01:50 Lactate 0.9 mmol/L (0.4-2.0) 06/15/24 02:05 Calcium 9.2 mg/dl (8.6-10.3) 06/15/24 01:50 Magnesium 1.8 mg/dl (1.7-2.4) 06/15/24 01:50 Total Bilirubin 0.6 mg/dl (0.2-1.0) 06/15/24 01:50 AST 22 U/L (13-39) 06/15/24 01:50 ALT 11 U/L (7-52) 06/15/24 01:50 Alkaline Phosphatase 101 U/L (34-104) 06/15/24 01:50 Total Protein 6.6 gm/dl (6.0-8.3) 06/15/24 01:50 Albumin 3.9 gm/dl (3.4-5.0) 06/15/24 01:50 Globulin 2.7 gm/dl (2.5-4.0) 06/15/24 01:50 Albumin/Globulin Ratio 1.4 (0.9-2) 06/15/24 01:50 TSH 2.290 uIu/ml (0.300-4.500) 06/15/24 01:50 Urine Color [place] 06/15/24 02:35 Urine Appearance Clear (Clear) 06/15/24 02:35 Urine pH 6.5 (4.5-7.5) 06/15/24 02:35 Ur Specific [place] 1.011 (1.000-1.030) 06/15/24 02:35 Urine Protein 3+ (Negative) H 06/15/24 02:35 Urine Glucose (UA) 2+ (Negative) H 06/15/24 02:35 Urine Ketones Negative (Negative) 06/15/24 02:35 Urine Blood 3+ (Negative) H 06/15/24 02:35 Urine Nitrite Negative (Negative) 06/15/24 02:35 Urine Bilirubin Negative (Negative) 06/15/24 02:35 Urine Urobilinogen Negative (Negative) 06/15/24 02:35 Ur Leukocyte Esterase Trace (Negative) H 06/15/24 02:35 Urine WBC (Auto) 11-20 /hpf (0-5) H 06/15/24 02:35 Urine RBC (Auto) >20 /hpf (0-2) H 06/15/24 02:35 U Hyaline Cast (Auto) 3-5 /lpf (0-2) H 06/15/24 02:35 U Epithel Cells (Auto) 0-2 /hpf (0-2) 06/15/24 02:35 Urine Bacteria (Auto) 2+ (None Seen) H 06/15/24 02:35 Impressions Chest X-Ray 06/15/24 01:50 EXAM: XR chest 1V portable CLINICAL HISTORY: Weakness. TECHNIQUE: An X-ray image of the chest is obtained in AP projection. COMPARISON: Comparison with the previous x-ray chest on 08/05/2017. FINDINGS: Pulmonary Parenchyma: Emphysematous lungs. Prominent pulmonary interstitial markings. Stable nodule shadow/nipple shadow right lower zone. No evidence of pleural effusion or pleural thickening. Heart and Mediastinum: Heart size and shape are normal. No mediastinal widening or masses. No hilar or mediastinal lymphadenopathy. Bony Thorax: Bony thorax appears intact without fractures or deformities. Diffuse spondylotic and osteoporotic changes. Bilateral glenohumeral osteoarthritis. Soft Tissues: Soft tissues overlying the chest wall are unremarkable. IMPRESSION: 1. Mild COPD changes. 2. Prominent perihilar bronchovascular marking could be mild pulmonary congestion. Interval pronounced. Electronically signed by Akshat Slade 06-15-2024 03:11 AM Diagnostic Findings EKG as per my interpretation :Rate 55, sinus bradycardia, LAD, LAFB, LVH, T wave abnormalities inferior leads
[2024-06-15] MEDS ORDERED: PROMETHAZINE 6.25 MG/50.25 ML BAG IV PRN (05:27)
--- NOTE | 2024-06-15 06:48 | CT Scan Report ---
EXAM: CT abd pelvis wo con CLINICAL HISTORY: hematuria, abd pain TECHNIQUE: Multiple contiguous axial images were obtained from the level of diaphragm to the pubis symphysis. This study was acquired after the IV administration of iodinated contrast material, given the patient's indications for the examination. If IV contrast material had not been administered, the likelihood of detecting abnormalities relevant to the patient's condition would have been substantially decreased. Coronal and sagittal reformatted images were generated and reviewed to improve anatomic localization and optimize lesion detection. CT scan was performed according to ALARA (as low as reasonably achievable). 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 ABDOMEN/PELVIS: The liver is normal in size and attenuation. No focal liver lesions are seen. There is no intra or extrahepatic biliary ductal dilatation. Hepatic vasculature is patent. The gallbladder is unremarkable. The spleen, pancreas, and adrenal glands are unremarkable. The kidneys are normal in size.There is no hydronephrosis . Bilateral perinephric fat stranding is seen. Few concretions seen in mid and lower pole calyces of right kidney and lower pole calyx of left kidney. Few cortical cysts seen in right kidney, largest of size 4.2x4cm at mid pole. A cortical cyst seen at mid pole of left kidney, largest of size 1.2x1.4cm The ureters are normal in caliber and no ureteral calculi are seen. The bladder is normal in contour with Jane's cathter insitu. No evidence of focal or diffuse bowel wall thickening or evidence of bowel obstruction is seen. The appendix is not visualized. Defect seen in midline in anterior abdominal wall in infraumbilical location with herniation of small bowel loops and peritioneal fat. the defect measures 4x5.5cm(TRxCC) No adenopathy or fluid collections are seen. Dilated abdominal aorta with possible periaortic hematoma/aneurysm is seen with metallic vascular stents in supra/infrarenal abdominal aorta and bilateral common iliac arteries. Dilated suprarenal aorta measures about 4.3cm No aggressive appearing osseous lesions are identified. Significant degenerative changes in visualized spine. Small sliding hiatus hernia. IMPRESSION: 1. Bilateral perinephric fat stranding with bilateral renal concretions and cortical cysts. Suggested Renal function test correlation. 2. Ventral wall hernia in infraumbilical region. 3. Small sliding hiatus hernia. 4. Interval increase in diameter of dilated suprarenal abdominal aorta and increase in size of possible periaortic hematoma/aneurysm with metallic vascular stents in supra/infrarenal abdominal aorta and bilateral common iliac arteries. Suggested CT angiography for further evaluation. Electronically signed by Danis Restrepo 06-15-2024 06:48 AM
[2024-06-15 08:17] LABS: Hematocrit (blood only) 28.7 % (42.0-52.0); Hemoglobin 9.3 g/dl (14.0-18.0)
[2024-06-15] MEDS: allopurinoL 100 MG TAB PO SCH (09:12)
[2024-06-15] MEDS: SODIUM BICARBONATE 650 MG TAB PO SCH (09:13)
[2024-06-15] MEDS: FERROUS SULFATE 325 MG TAB PO SCH (09:13)
[2024-06-15] MEDS: METOPROLOL TARTRATE 25 MG TAB PO SCH (09:14)
--- NOTE | 2024-06-15 13:23 | Urology Consultation ---
Date of Consultation June 15, 2024 Assessment & Plan (1) Hematuria: (2) Prostate cancer: (3) Bladder cancer: 88-year-old male with history of prostate cancer status post prostatectomy and radiation and history of bladder cancer admitted for hematuria and complication with Jane catheter. Patient afebrile, hemodynamically stable Labs reviewedcreatinine 2.05, WBC 9.16, hemoglobin 9.3 Urinalysis showed 3+ blood, trace LE, 11-20 WBC, >20 RBC, 2+ bacteria Urine culture pending Recommend initiate empiric antibiotics, follow culture Recommend trend labs, transfuse as needed CT reviewedFoley in place, no significant clot burden noted to warrant acute intervention at this time Jane irrigated in the ED and urine remains clear at present Continue to monitor catheter Okay to gently hand irrigate catheter as needed for suprapubic discomfort or obstructed catheter Continue supportive care and medical management per hospital medicine team Discussed possible etiologies of hematuria and discussed recommendation for cystoscopy for further evaluation He is scheduled for outpatient cystoscopy on 06/28[place] keep as scheduled pending clinical course will follow History of Present Illness Reason for Consultation: Hematuria, urinary retention Attending Physician: Kristopher Cabrera MD History of Present Illness This is an 88-year-old male who follows with urology for history of prostate status post prostatectomy followed by radiation cancer and bladder cancer. He presented to the emergency department on 06/15/2024 for evaluation of obstructed Jaen catheter. Per admitting notes, patient had presented to [facility] with hematuria and urinary retention and a Jane catheter was placed. He has returned to [place] [facility] ED multiple times due to obstructed catheter. On arrival to ED, he was afebrile and hemodynamically stable. Labs showed WBC 9.16, hemoglobin 10.2, creatinine 2.05, sodium 134. Lactate 0.9. Workup included CT abdomen pelvis which showed bilateral renal cortical atrophy, bilateral perinephric fat stranding, bilateral renal stones and cortical cysts. Jane catheter within the bladder. Patient's Jane catheter was irrigated in the emergency department per notes. He was admitted to the hospital medicine service for further evaluation and management. Urology is consulted for hematuria, urinary retention. Labs today reviewedcreatinine 2.05, WBC 9.16, hemoglobin 9.3. Urinalysis showed 3+ blood, trace LE, 11-20 WBC, >20 RBC, 2+ bacteria. Urine culture pending. Patient seen and examined at bedside. He is awake and resting in bed. Denies suprapubic or flank pain. He reports hematuria on and off and that his Jane catheter has "blocked up" multiple times. No dysuria. No nausea, vomiting, fever or chills. Patient denies being on anticoagulation. He is scheduled for outpatient cystoscopy on 06/28. Last cystoscopy was negative on 07/09/23. Hx of radiation cystitis. Allergies Allergy/AdvReac Type Severity Reaction Status Date / Time ibuprofen AdvReac Unknown diarrhea Verified 08/24/17 11:10 Home Medications Medication Instructions Recorded Confirmed Type allopurinol 100 mg tablet 200 mg PO QAM 06/15/24 06/15/24 History atorvastatin 80 mg tablet 80 mg PO HS 06/15/24 06/15/24 History cholecalciferol (vitamin D3) 25 50 mcg PO DAILY 06/15/24 06/15/24 History mcg (1,000 unit) tablet (Vitamin D3) dapagliflozin propanediol 10 mg 10 mg PO QAM 06/15/24 06/15/24 History tablet (Farxiga) ferrous sulfate 325 mg (65 mg 325 mg PO Q OTHER DAY 06/15/24 06/15/24 History iron) tablet furosemide 20 mg tablet 20 mg PO QAM 06/15/24 06/15/24 History metoprolol tartrate 25 mg tablet 25 mg PO AMHS 06/15/24 06/15/24 History sodium bicarbonate 650 mg tablet 650 mg PO BID 06/15/24 06/15/24 History Patient History Social History Smoking Status: Never smoker Hx Alcohol Use: No Hx Substance Use: No Preferred Language: Japanese Communication Ability: Effective Licensing And Registration Director Required: No Beliefs That Will Affect Care: None Current Living Situation: Family Current Living Situation Comment: Patient just moved in with his Daughter Other Information That Helps Us Care for You: No Feels Safe at Home: Yes Safety Concerns: Feels Safe At This Time Assistive Devices: Cane and Glasses Review of Systems Review of Systems: All systems reviewed & are unremarkable except as noted in HPI & below Physical Exam Constitutional: well developed and well nourished; no acute distress Respiratory: normal respiratory effort; no respiratory distress and no labored breathing Gastrointestinal (Abdomen): Inspection/Auscultation: abdomen normal to inspection Musculoskeletal: Head/Neck/Chest: normocephalic Neurologic: moves all extremities and awake Psychiatric: Orientation: alert and oriented x 3 Genitourinary: Jane patent and draining clear yellow in the tubing, collection bag with pink urine Results & Data Vital Signs (Past 12 Hours) Vital Signs Temp Pulse Pulse Resp BP BP Pulse Ox 06/15/24 12:19 36.7 C 55 L 16 148/66 H 97 06/15/24 11:18 67 17 122/74 95 06/15/24 10:06 50 L 18 109/61 97 06/15/24 09:36 59 L 14 131/69 97 06/15/24 09:09 53 L 19 138/81 96 06/15/24 08:55 63 06/15/24 08:54 56 L 20 111/58 L 95 06/15/24 08:30 77 23 131/74 95 06/15/24 07:00 52 L 16 121/60 96 06/15/24 06:00 64 18 125/72 99 06/15/24 05:30 61 18 134/66 97 06/15/24 05:00 62 20 139/66 98 06/15/24 04:30 64 20 135/74 94 06/15/24 04:30 59 L 20 135/74 94 06/15/24 04:00 58 L 20 147/77 H 96 06/15/24 03:30 67 16 138/69 96 06/15/24 03:13 60 06/15/24 03:00 64 18 143/73 H 96 06/15/24 01:52 93 06/15/24 01:40 36.7 C 76 20 150/80 H 96 O2 Del Method 06/15/24 12:19 Room Air 06/15/24 11:18 Room Air 06/15/24 10:06 Room Air 06/15/24 09:36 06/15/24 09:09 06/15/24 08:55 06/15/24 08:54 06/15/24 08:30 06/15/24 07:00 Room Air 06/15/24 06:00 06/15/24 05:30 06/15/24 05:00 06/15/24 04:30 06/15/24 04:30 06/15/24 04:00 06/15/24 03:30 06/15/24 03:13 06/15/24 03:00 Room Air 06/15/24 01:52 Room Air 06/15/24 01:40 Room Air PG Care Time/CCT Total # of Minutes Spent Total Time Spent with Patient: Total time spent is greater than 50% in coordination of care (as documented) at patient's floor/unit and/or counseling patient: Coding Level of Care Code 68834 INT INP/OBS CARE 2/55MIN Diagnoses Hematuria R31.9 Prostate cancer C61 Bladder cancer C67.9
--- OUTSIDE RECORDS SUMMARY | 2024-06-15 14:24 | External Medical Summary | Summary of Care ---
Author Name Unknown Organization [facility] Address [address] [place] [address] Phone [phone] Care Team Providers Care Automotive Sales Specialist Name Role Phone Aleja Bryson MD Primary Care Provide r Reason for Visit * Reason Onset Date Comments Advice 06/14/2024 Home Health 06/14/2024 Encounter Details Date Type Department Care Team (Late st Contact Info) Description 06/14/2024 Telephone Family Medicine [address] [phone] Aleja Bryson MD [address] [place] [address] [place] [address] Advice; Home Health Allergies Active Allergy Reactions Criticality Noted Date Comments Ibuprofen 04/29/2011 Diarrhea documented as of this encounter (statuses as of 06/15/2024) Medications Tylenol 325 MG Oral Capsule (Acetaminophen) Take by mouth 325 mg . Once daily Active Allopurinol 100 MG Oral Tablet (Zyloprim)Indicat ions:Gout TAKE TWO TABLETS BY MOUTH EVERY DAY 180 Tablet 1 4 Active Farxiga 10 MG Oral Tablet (Dapagliflozin Propanediol)Indic ations:Kidney disease, chronic, 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) ([facility]) Take 1 Tablet by [...] as of this encounter (statuses as of 06/15/2024) Active Problems Problem Noted Date Diagnosed Date [...] as of this encounter (statuses as of 06/15/2024) Resolved Problems Problem Noted Date Diagnosed Date [...] as of this encounter (statuses as of 06/15/2024) Immunizations Name Administration Dates Next Due COVID-19 [...] Telephone Encounter - Aleja Bryson MD - 06/15/2024 9:18 AM EDT noted * Telephone Encounter - Reta Gao RN - 06/15/2024 8:00 AM EDT ALLEN Rice called Jennifer at [phone] She said they took Cirilo to [facility] ER last night, he was admitted with concerns of a possible blod clot, they are consulting Vascular, and he may need transferred to [place] * Telephone Encounter - Aleja Bryson MD - 06/14/2024 12:12 PM EDT If continue to notice blood then recommend clinic visit * Telephone Encounter - Kristi Pina LPN - 06/14/2024 10:24 AM EDT HH Concerns [facility], Calling from: [facility] Report/Concerns of: urine is red with [...] Jennifer with any advice or orders at [phone] Please fax new orders to [facility] * Telephone Encounter - Annamarie Murray OSA - 06/14/2024 10:22 AM EDT Reason for patient's call: Home Health Caller was transferred to [facility] at the nurse line. documented in this encounter Plan of Treatment Upcoming Encounters Date Type Department Care Team (Late st Contact Info) Description 09/09/2024 1:00 PM EDT Office Visit Cardiology, [facility] [address] [place] [address] Jalil Brito MD [address] [place] [address] 10/06/2024 3:20 PM EDT Office Visit Nephrology [address] [place] [address] Yecenia Apodaca MD [address] [place] [address] 11/03/2024 9:00 AM EDT Office Visit Family Medicine [address] [place] [phone] Aleja Bryson MD [address] [place] [address] [place] [id number] 03/23/2025 3:20 PM EST Office Visit Nephrology [address] [place] [address] Yecenia Apodaca MD [address] [place] [address] Health Maintenance Due Date Last Done Comments [...] this encounter Medical Devices Implanted Type Area Advertising Consultant Device Identifier Shelf Expiration Date Model / Serial / Lot Stent Main Body Cuyw-96-93-Zt - [id number] Implanted:Qty: 1 on 12[place]04[place]2009 [place] [facility] [place]A: Aorta [employer] 08/05/2011 TFFB-32-82- ZT / / [id number] Leg Extension Cuir-24-19-Zt - [id number] Implanted:Qty: 1 on 12/04/2009 [place] [facility] [place] Right: Iliac [employer] 09/05/2011 TFLE-16-90- ZT / / [id number] Leg Extension Kugn-85-38-Zt - [id number] Implanted:Qty: 1 on 12/04/2009 at [place] [facility] [place] Left: Iliac [employer] 09/05/2011 TFLE-16-90- ZT / / [id number] [place] 34 Liquid Embolic Material Implanted:Qty: 9 on 04/24/2017 by Petar Stovall MD at [place] [facility] [place] N/A: Abdomen 06/10/2019 [id number] / [id number] / [id number] Description:ev3 [place] 34 Liqu id Embolic Material [...] were consensually agreed upon. Care Teams Automotive Sales Specialist Relationship Specialty Start Date End Date Aleja Bryson MD [address] [place] [address] [place] [phone] PCP - General Family Medicine 07/28/23 documented as of this encounter
--- OUTSIDE RECORDS SUMMARY | 2024-06-15 14:24 | External Medical Summary | Summary of Care ---
Author Name Unknown Organization [facility] Address [address] [place] [address] Phone [phone] Care Team Providers Care Auto Service Writer Name Role Phone Aleja Bryson MD Primary Care Provide r Reason for Visit * Reason Onset Date Comments Advice 06/14/2024 Home Health 06/14/2024 Encounter Details Date Type Department Care Team (Late st Contact Info) Description 06/14/2024 Telephone Family Medicine [address] [phone] Aleja Bryson MD [address] [place] [address] [place] [address] Advice; Home Health Allergies [...] 15-29 ml/min) ([facility]) Take 1 Tablet by mouth in the [...] RN - 06/15/2024 8:00 AM EDT ALLEN I called Jennifer at [phone] She said they took Cirilo to [facility] ER last night, he was admitted with concerns of a possible blod clot, they are consulting Vascular, and he may need transferred to [place] * Telephone Encounter - Aleja Bryson MD - 06/14/2024 12:12 PM EDT If continue to notice blood then recommend clinic visit * Telephone Encounter - Kristi Pina LPN - 06/14/2024 10:24 AM EDT HH Concerns Anna PT, Calling from: [facility] Report/Concerns of: urine is red with small [...] Jennifer with any advice or orders at [phone] Please fax new orders to [facility] * Telephone Encounter - Annamarie Murray OSA - 06/14/2024 10:22 AM EDT Reason for patient's call: Home Health Caller was transferred to [facility] at the nurse line. documented in this encounter Plan of Treatment Upcoming Encounters Date Type Department Care Team (Late st Contact Info) Description 09/09/2024 1:00 PM EDT Office Visit Cardiology, [facility] [address] [place] [address] Jalil Brito MD [address] [place] [address] 10/06/2024 3:20 PM EDT Office Visit Nephrology [address] [place] [address] Yecenia Apodaca MD [address] [facility] [place] [address] 11/03/2024 9:00 AM EDT Office Visit Family Medicine [address] [place] [phone] Aleja Bryson MD [address] [place] [address] [place] [phone] 03/23/2025 3:20 PM EST Office Visit Nephrology [address] [place] [address] Yecenia Apodaca MD [address] [place] [address] Health Maintenance Due Date Last Done Comments Adult Wellness Visit 09/11/2022 09/11/2021, 09/07/19 21 Depression Screening 09/11/2022 09/11/2021 COVID-19 Vaccine ( season) 2024 03/02/2024, 01/21/2023, 04/15/2021, Additional history exists PTH 05/20/2025 05/20/2024, 02/04, 01/05/2023, Additional history exists Phosphate 05/20/2025 05/20/2024, 05/2022, 01/08/2022, Additional history exists Albumin/Creatinine Ratio 06/07/2025 025, 07/23/2023, 07/09/2022, Additional history exists Hgb 06/07/2025 06/07/2024, 03/0 04/2024, 06/02/2024, Additional history exists Nephrology Referral [...] this encounter Medical Devices Implanted Type Area Presser And Shaper Knitted Goods Device Identifier Shelf Expiration Date Model / Serial / Lot Stent Main Body Nmpe-26-42-Zt - [id number] [place] 1 [place] [facility] [place]: Aorta [employer] 08/05/2011 TFFB-32-82- ZT / / [id number] Leg Extension Ewbb-83-04-Zt - [id number] Implanted:Qty: 1 [place] 12[place]04[place] [facility] [place]: Iliac [employer] 09/05/2011 TFLE-16-90- ZT / / [id number] Leg Extension Mpwe-31-91-Zt - [id number] Implanted:Qty: 1 [place] 12[place]04/[place] [facility] [place]: Iliac [employer] 09/05/2011 TFLE-16-90- ZT / / [id number] Ev3 [place] 34 Liquid Embolic Material Implanted:Qty: 9 on 04/24/2017 by Petar Stovall [place] [facility] [place]A: Abdomen 06/10/2019 [id number] / [id number] / [id number] Description:ev3 Blas 34 Liqu id Embolic Material [...] and were consensually agreed upon. Care Teams Auto Service Writer Relationship Specialty Start Date End Date Aleja Bryson MD [address] [place] [address] [place] [phone] PCP - General Family Medicine 07/28/23 documented as of this encounter
--- NOTE | 2024-06-15 15:51 | Nephrology Consultation ---
Date of Consultation June 15, 2024 Assessment & Plan (1) Hematuria: Patient with hematuria in setting of recent Jane catheter placement. Patient also has history of prostate cancer and bladder cancer. Etiology of hematuria is likely mechanical trauma in setting of Jane catheter placement recently. Given history of bladder and prostate cancer, patient will need cystoscopy but this can be done as an outpatient when patient is stable. There is no active bleeding at the moment. Will continue to monitor hemoglobin and transfuse as needed for hemoglobin less than 7. We will continue bladder irrigation as needed. agree with the empiric treatment for UTI. Follow-up urine cultures. 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 Patient has proteinuria of about 3 g. Repeat creatinine of took which is at baseline. Electrolytes are stable. Patient had mild pulmonary congestion on the x-ray but is saturating well on room air. No indication for dialysis at the moment . Will continue monitor daily for dialysis need if worsening pulmonary edema not amenable to diuretics. Avoid nephrotoxins such as contrast. Renally dose antibiotics for current GFR. History of Present Illness Reason for Consultation: hematuria, CKD Requesting Physician: Kristopher Cabrera MD Attending Physician: Kristopher Cabrera MD History of Present Illness this is 88-year-old male with history of hypertension, gout, prostate cancer in 1999 and once the post radiation, AAA status post endovascular repair in 2009, bladder cancer and CKD stage 4 baseline creatinine mid 2s who was admitted with Jane catheter dysfunction. Patient initially went to clear failed with urinary retention and Jane catheter was placed about a week ago. Last night he noted Jane catheter was not functioning well and there was no urine in the tube. In the Emergency Room Labs showed WBC 9.16, hemoglobin 10.2, creatinine 2.05, sodium 134. Lactate 0.9. Workup included CT abdomen pelvis which showed bilateral renal cortical atrophy, bilateral perinephric fat stranding, bilateral renal stones and cortical cysts. Jane catheter within the bladder. Patient's Jane catheter was irrigated in the emergency department per notes. This morning he feels better denies any shortness of breath or leg swelling. No blood in the urine bag. creatinine stable at 2. Chest x-ray showed mild pulmonary congestion. Patient made about 1.2 L of urine. Hemoglobin was 9.3. Allergies Allergy/AdvReac Type Severity Reaction Status Date / Time ibuprofen AdvReac Unknown diarrhea Verified 08/24/17 11:10 Home Medications Medication Instructions Recorded Confirmed Type allopurinol 100 mg tablet 200 mg PO QAM 06/15/24 06/15/24 History atorvastatin 80 mg tablet 80 mg PO HS 06/15/24 06/15/24 History cholecalciferol (vitamin D3) 25 50 mcg PO DAILY 06/15/24 06/15/24 History mcg (1,000 unit) tablet (Vitamin D3) dapagliflozin propanediol 10 mg 10 mg PO QAM 06/15/24 06/15/24 History tablet (Farxiga) ferrous sulfate 325 mg (65 mg 325 mg PO Q OTHER DAY 06/15/24 06/15/24 History iron) tablet furosemide 20 mg tablet 20 mg PO QAM 06/15/24 06/15/24 History metoprolol tartrate 25 mg tablet 25 mg PO AMHS 06/15/24 06/15/24 History sodium bicarbonate 650 mg tablet 650 mg PO BID 06/15/24 06/15/24 History Patient History Social History Smoking Status: Never smoker Hx Alcohol Use: No Hx Substance Use: No Preferred Language: Pashto Communication Ability: Effective Screening Unit Registered Nurse Required: No Beliefs That Will Affect Care: None Current Living Situation: Family Current Living Situation Comment: Patient just moved in with his Daughter Other Information That Helps Us Care for You: No Feels Safe at Home: Yes Safety Concerns: Feels Safe At This Time Assistive Devices: Cane and Glasses Review of Systems 2 Review of Systems: All other systems were reviewed and negative except as noted in HPI Physical Exam 2 Physical Exam: General exam: Appears comfortable, no acute distress HEENT: Pupils are equal and reactive to light Neck: No JVD, neck is supple trachea is midline Respiratory system: Clear breath sounds bilaterally. Gastrointestinal: Abdomen is soft, non distended, non tender, bowel sounds are present CVS: Regular rate and rhythm. No murmurs, rubs or gallops Musculoskeletal: No joint or muscle tenderness Extremities: Non tender, no edema, peripheral pulses are present Neuro: Oriented, no tremors, no focal neurological deficits Skin: No rashes Results & Data Vital Signs (Past 12 Hours) Vital Signs Temp Pulse Pulse Resp BP BP Pulse Ox 06/15/24 14:52 54 L 06/15/24 14:49 54 L 06/15/24 14:47 56 L 06/15/24 13:21 06/15/24 12:19 36.7 C 55 L 16 148/66 H 97 06/15/24 11:18 67 17 122/74 95 06/15/24 10:06 50 L 18 109/61 97 06/15/24 09:36 59 L 14 131/69 97 06/15/24 09:09 53 L 19 138/81 96 06/15/24 08:55 63 06/15/24 08:54 56 L 20 111/58 L 95 06/15/24 08:30 77 23 131/74 95 06/15/24 07:00 52 L 16 121/60 96 06/15/24 06:00 64 18 125/72 99 06/15/24 05:30 61 18 134/66 97 06/15/24 05:00 62 20 139/66 98 06/15/24 04:30 64 20 135/74 94 06/15/24 04:30 59 L 20 135/74 94 06/15/24 04:00 58 L 20 147/77 H 96 O2 Del Method 06/15/24 14:52 06/15/24 14:49 06/15/24 14:47 06/15/24 13:21 Room Air 06/15/24 12:19 Room Air 06/15/24 11:18 Room Air 06/15/24 10:06 Room Air 06/15/24 09:36 06/15/24 09:09 06/15/24 08:55 06/15/24 08:54 06/15/24 08:30 06/15/24 07:00 Room Air 06/15/24 06:00 06/15/24 05:30 06/15/24 05:00 06/15/24 04:30 06/15/24 04:30 06/15/24 04:00 Laboratory Results 06/15/24 01:50 06/15/24 01:50 WBC 9.16 RBC 3.47 L MCV 92.2 MCH 29.4 MCHC 31.9 L RDW Std Deviation 57.9 H RDW Coeff of Misha 17.2 H Plt Count 188 MPV 12.3 Albumin 3.9
[2024-06-15] MEDS: cefTRIAXone SODIUM 2,000 MG/50 ML BAG IV SCH (16:43)
[2024-06-15] MEDS: ATORVASTATIN 40 MG TAB PO SCH (20:18)
[2024-06-16 05:23] LABS: Basophils # (auto) 0.08 K/uL (0.00-0.20); Basophils % (auto) 0.8 %; Eosinophils # (auto) 0.24 K/uL (0.00-0.50); Eosinophils % (auto) 2.5 %; Hematocrit (blood only) 29.8 % (42.0-52.0); Hemoglobin 9.4 g/dl (14.0-18.0); Immature Granulocytes # (auto) 0.03 K/uL (0.01-0.20); Immature Granulocytes % (auto) 0.3 %; Lymphocytes # (auto) 1.14 K/uL (1.20-3.40); Lymphocytes % (auto) 11.7 %; Mean Corpuscular Hemoglobin 29.1 pg (25.0-34.0); Mean Corpuscular Hgb Conc 31.5 g/dL (32.0-36.0); Mean Corpuscular Volume 92.3 fL (80.0-100.0); Mean Platelet Volume 12.2 fL (9.4-12.4); Monocytes # (auto) 0.79 K/uL (0.11-0.59); Monocytes % (auto) 8.1 %; Neutrophils # (auto) 7.45 K/uL (1.40-6.50); Neutrophils % (auto) 76.6 %; Platelet Count 174 K/uL (130-400); RDW Coefficient of Variation 17.1 % (11.5-14.5); RDW Standard Deviation 57.8 fL (36.4-46.3); Red Blood Count 3.23 M/uL (4.70-6.10); White Blood Count 9.73 K/ul (4.8-10.8)
[2024-06-16 05:33] LABS: BUN Creatinine Ratio 19.2 (10-20); Creatinine Clr Calc Pharmacy 23.6 ml/min; Magnesium 1.8 mg/dl (1.7-2.4); Potassium 4.1 mmol/L (3.5-5.1)
--- NOTE | 2024-06-16 06:44 | Electrocardiogram Report ---
Test Reason : Blood Pressure : */* mmHG Vent. Rate : 56 BPM Atrial Rate : 56 BPM P-R Int : 138 ms QRS Dur : 84 ms QT Int : 472 ms P-R-T Axes : 12 -20 4 degrees QTcB Int : 455 ms Sinus bradycardia Minimal voltage criteria for LVH, may be normal variant ( R in aVL ) Borderline ECG When compared with ECG of 05-Aug-2017 10:45, T wave amplitude has increased in Lateral leads Confirmed by Thai Briones ([id number]) on 06/16/2024 6:44:07 AM Referred By: REFERRED SELF Confirmed By: Thai Briones
--- NOTE | 2024-06-16 07:47 | Urology Progress Note ---
Date of Service June 16, 2024 Assessment & Plan (1) Bladder cancer: (2) Prostate cancer: (3) Hematuria: Plan: 88-year-old male with history of prostate cancer status post prostatectomy and radiation and history of bladder cancer admitted for hematuria and complication with Jane catheter. Patient afebrile, hemodynamically stable Labs reviewedcreatinine 2.03, WBC 9.73, hemoglobin 9.4 Urinalysis showed 3+ blood, trace LE, 11-20 WBC, >20 RBC, 2+ bacteria Urine culture pending Continue antibiotics and narrow per sensitivity data when available Recommend trend labs, transfuse as needed Urine remains clear and no manual irrigation required overnight Maintain Jane catheter for now Okay to gently hand irrigate catheter as needed for suprapubic discomfort or obstructed catheter Continue supportive care and medical management per hospital medicine team Discussed possible etiologies of hematuria and discussed recommendation for cystoscopy for further evaluation He is scheduled for outpatient cystoscopy on 06/28likel keep as scheduled pending clinical course will follow peripherally, please contact our service with any additional questions or concerns Admission and Anticipated Discharge Date Admission Date: June 15, 2024 Subjective Patient seen and examined at bedside this morning. He is awake and resting in bed. No acute issues overnight. Denies issues with catheter overnight. Denies pain. No fever or chills. Review of Systems Constitutional: as per Subjective / HPI Genitourinary: + as per Subjective / HPI Physical Exam Constitutional: well developed and well nourished; no acute distress Respiratory: normal respiratory effort; no respiratory distress and no labored breathing Gastrointestinal (Abdomen): Inspection/Auscultation: abdomen normal to inspection Musculoskeletal: Head/Neck/Chest: normocephalic Neurologic: moves all extremities and awake Psychiatric: Orientation: alert and oriented x 3 Genitourinary: Jane patent and draining clear yellow in the tubing, some bloody sediment in tubing occasionally pinking urine Results & Data Vital Signs (Past 12 Hours) Vital Signs Temp Pulse Pulse Resp BP Pulse Ox O2 Del Method 06/16/24 07:15 36.4 C L 71 18 136/76 95 Room Air 06/16/24 07:13 64 06/16/24 04:11 36.3 C L 94 H 18 147/61 H 94 Room Air 06/16/24 00:35 36.5 C 64 18 140/76 94 Room Air 06/15/24 21:46 60 06/15/24 20:12 36.5 C 67 18 155/75 H 97 Room Air 06/15/24 20:10 Room Air PG Care Time/CCT Total # of Minutes Spent Total Time Spent with Patient: Total time spent is greater than 50% in coordination of care (as documented) at patient's floor/unit and/or counseling patient: Coding Level of Care Code 86428 SUB INP/OBS CARE 04/30MIN Diagnoses Bladder cancer C67.9 Prostate cancer C61 Hematuria R31.9
--- NOTE | 2024-06-16 09:02 | CT Scan Report ---
EXAM: CT abd pelvis wo con CLINICAL HISTORY: ffup, poss aneurysm leak TECHNIQUE: CT of the abdomen and pelvis was performed with and without contrast, with the following protocol: axial images with, and reconstructed coronal and sagittal images. One of the following dose reduction techniques was utilized for this exam: Automated exposure control, adjustment of the mA and/or kV according to patient size, and use of iterative reconstruction. COMPARISON: 06/14/2024 FINDINGS: The liver is normal in size and attenuation. No focal liver lesions are seen. There is no intra or extrahepatic biliary ductal dilatation. The gallbladder is unremarkable. The spleen, pancreas, and adrenal glands are unremarkable. The kidneys are normal in size showing cortical thinning.There is no hydronephrosis. Bilateral perinephric fat stranding is seen. Few calcifications seen in mid and lower pole calyces of right kidney and lower pole calyx of left kidney. Few cortical cysts seen in right kidney, the largest of size 4.2 x 4cm at the pole. A cortical cyst seen at mid pole of left kidney, the largest of size 1.2 x1.4cm The ureters are normal in caliber and no ureteral calculi are seen. The bladder is normal in contour with Jane's catheter in situ. No evidence of focal or diffuse bowel wall thickening or evidence of bowel obstruction is seen. The appendix is not visualized. Defect seen in midline in anterior abdominal wall in the infraumbilical location with herniation of small bowel loops and fat, the defect measures 4 x 5.5cm (TV x CC) No adenopathy or fluid collections are seen. Stable infrarenal abdominal aortic aneurysm measuring ~ 7.3 x 8.2 x 6.8 cm in TV, AP and CC dimensions respectively. Metallic stents are seen involving the suprarenal and infrarenal aorta and extending into iliac arteries. Dilated suprarenal aorta measures about 4.3cm No aggressive appearing osseous lesions are identified. Significant degenerative changes in the visualized spine. Small sliding hiatus hernia. Scanned lung bases reveal minimal bilateral pleural thickening and few basal atelectatic bands. IMPRESSION: 1. Infrarenal abdominal aortic aneurysm measuring ~ 7.3 x 8.2 x 6.8 cm in TV, AP and CC dimensions respectively. Metallic stents are seen involving the suprarenal and infrarenal aorta and extending into the iliac arteries. No significant periaortic stranding and no other findings to suggest interval bleed. CT angiography is however advised for better evaluation (unchanged). 2. Bilateral perinephric fat stranding with bilateral renal concretions and cortical cysts (unchanged). 3. Ventral wall hernia in infraumbilical region (unchanged). 4. Small sliding hiatus hernia (unchanged). Electronically signed by Akshat Slade 06-16-2024 08:59 AM
--- NOTE | 2024-06-16 12:01 | Nephrology Progress Note ---
Date of Service June 16, 2024 Assessment & Plan (1) Hematuria: Plan: Patient with hematuria in setting of recent Jane catheter placement. Patient also has history of prostate cancer and bladder cancer. Etiology of hematuria is likely mechanical trauma in setting of Jane catheter placement recently. Given history of bladder and prostate cancer, patient will need cystoscopy but this can be done as an outpatient when patient is stable. There is no active bleeding at the moment. Will continue to monitor hemoglobin and transfuse as needed for hemoglobin less than 7. We will continue bladder irrigation as needed. Urine culture is showing Pseudomonas species. 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 creatinine stable at 2 today. Patient has proteinuria of about 3 g. Repeat creatinine of took which is at baseline. Electrolytes are stable. Patient had mild pulmonary congestion on the x-ray but is saturating well on room air. No indication for dialysis at the moment . Will continue monitor daily for dialysis need if worsening pulmonary edema not amenable to diuretics. Avoid nephrotoxins such as contrast. Renally dose antibiotics for current GFR. Admission and Anticipated Discharge Date Admission Date: June 15, 2024 Subjective Seen for CKD and hematuria. He feels well today denies any shortness of breath or leg swelling. Still mild hematuria in the urine bag. he is making urine about 2.5 L yesterday and was net -1.7 L. Review of Systems 2 Review of Systems: All other systems were reviewed and negative except as noted in HPI Physical Exam 2 Physical Exam: General exam: Appears comfortable, no acute distress HEENT: Pupils are equal and reactive to light Neck: No JVD, neck is supple trachea is midline Respiratory system: Clear breath sounds bilaterally. Gastrointestinal: Abdomen is soft, non distended, non tender, bowel sounds are present CVS: Regular rate and rhythm. No murmurs, rubs or gallops Musculoskeletal: No joint or muscle tenderness Extremities: Non tender, no edema, peripheral pulses are present Neuro: Oriented, no tremors, no focal neurological deficits Skin: No rashes Results & Data Vital Signs (Past 12 Hours) Vital Signs Temp Pulse Pulse Resp BP Pulse Ox O2 Del Method 06/16/24 11:21 36.7 C 67 17 138/69 97 Room Air 06/16/24 07:15 36.4 C L 71 18 136/76 95 Room Air 06/16/24 07:13 64 06/16/24 04:11 36.3 C L 94 H 18 147/61 H 94 Room Air 06/16/24 00:35 36.5 C 64 18 140/76 94 Room Air Laboratory Results 06/16/24 04:03 06/16/24 04:03 WBC 9.73 RBC 3.23 L MCV 92.3 MCH 29.1 MCHC 31.5 L RDW Std Deviation 57.8 H RDW Coeff of Misha 17.1 H Plt Count 174 MPV 12.2 Phosphorus 3.0
--- NOTE | 2024-06-16 14:11 | Hospitalist Progress Note ---
Date of Service June 16, 2024 Assessment & Plan (1) Hematuria: Plan: Hematuria Urinary retention s/p recent Jane catheter placement at [facility] hx bladder cancer hx prostate cancer status post surgery/radiation Patient currently hemodynamically stable Urology consult re: hematuria Per urology - plan for outpt follow up Ucultx - posit. for pseudomonas - switch abx to cefepime CT abdomen pelvis Per external grinder tool - Made aware of abnormal CT abdomen pelvis result Interval increase in diameter of dilated suprarenal abdominal aorta and increase in size of possible periaortic hematoma/aneurysm with metallic vascular stents in supra/infrarenal abdominal aorta and bilateral common iliac arteries. Suggested CT angiography for further evaluation. IV dye study precluded by kidney dysfunction. Dr. Mcgregor of Vascular surgery recommended I contact patient's [facility] [place] vascular surgeons for guidance. Case discussed with Dr. Enamorado of [facility] [place] vascular surgery.. Patient deemed to be a poor surgical candidate given age and comorbidities as per discussion. Dr. Enamorado recommends repeat noncontrast CTAP study after 24 hours. Patient daughter updated of developments over the phone. Palliative care recommended if repeat CT AP study shows progression of periaortic hematoma (possible aneurysm leak). Patient daughter agreeable to plan of care. Change level of care to med/tele. Patient CODE STATUS appropriately de-escalated to DNR after discussion. 06/[address] abd/pelvis w/o contrast IMPRESSION: 1. Infrarenal abdominal aortic aneurysm measuring ~ 7.3 x 8.2 x 6.8 cm in TV, AP and CC dimensions respectively. Metallic stents are seen involving the suprarenal and infrarenal aorta and extending into the iliac arteries. No significant periaortic stranding and no other findings to suggest interval bleed. CT angiography is however advised for better evaluation (unchanged). 2. Bilateral perinephric fat stranding with bilateral renal concretions and cortical cysts (unchanged). 3. Ventral wall hernia in infraumbilical region (unchanged). 4. Small sliding hiatus hernia (unchanged). Discussed w/ radiologist - no aneurysmal leak noted Also discussed w/ Dr. Enamorado ([facility]. surgery) - he will arrange close outpt follow up w/ the pt Chronic conditions: chronic diastolic heart failure (EF 55%, TTE 2024), equivocal volume status hypertension, stable hyperlipidemia, on statin Rx valvular heart disease (moderate /MR, mild AR/TR), outpatient cardio evaluation contemplated AAA status post repair (2009) paroxysmal atrial tachycardia possible PE of anticoagulation secondary to bleeding CRI, creatinine at baseline chronic anemia, hemoglobin at baseline Functional disability, recurrent admissions/ER visits past tobacco abuse PT OT eval DVT prophylaxis. SCDs re: hematuria Full code Patient's daughter Ms. Jennifer Cotton, contact #[phone]. Admission and Anticipated Discharge Date Admission Date: June 15, 2024 Subjective Pt seen in follow up of hematuria + Jane catheter Ucultx - now posit. w/ Pseudomonas, will switch to cefepime Pt lying in bed in NAD, says he feels well denies any discomfort no chest pain, shortness of breath, no abd. pain Review of Systems Review of Systems: All systems reviewed & are unremarkable except as noted in Subjective Physical Exam Physical Exam: GENERAL: WD/WN elderly M, pleasant, hard of hearing, in NAD HEENT: NC/AT. EOMI NECK : Supple CHEST : Decreased breath sounds, no tenderness HEART : rrr, systolic murmur ABDOMEN: Soft, nontender EXTREMITIES : No LE swelling/tenderness NEUROLOGIC : Coherent, no facial asymmetry, hard of hearing, gait and stance not assessed SKIN: warm, dry Results & Data Results & Data Vital Signs (Past 12 Hours) Vital Signs Temp Pulse Pulse Resp BP Pulse Ox O2 Del Method 06/16/24 11:21 36.7 C 67 17 138/69 97 Room Air 06/16/24 07:15 36.4 C L 71 18 136/76 95 Room Air 06/16/24 07:13 64 06/16/24 04:11 36.3 C L 94 H 18 147/61 H 94 Room Air Laboratory Results 06/16/24 Range/Units 04:03 WBC 9.73 (4.8-10.8) K/ul RBC 3.23 L (4.70-6.10) M/uL Hgb 9.4 L (14.0-18.0) g/dl Hct 29.8 L (42.0-52.0) % MCV 92.3 (80.0-100.0) fL MCH 29.1 (25.0-34.0) pg MCHC 31.5 L (32.0-36.0) g/dL RDW Std Deviation 57.8 H (36.4-46.3) fL RDW Coeff of Misha 17.1 H (11.5-14.5) % Plt Count 174 (130-400) K/uL MPV 12.2 (9.4-12.4) fL Immature Gran % (Auto) 0.3 % Neut % (Auto) 76.6 % Lymph % (Auto) 11.7 % Rice % (Auto) 8.1 % Eos % (Auto) 2.5 % Baso % (Auto) 0.8 % Neut # (Auto) 7.45 H (1.40-6.50) K/uL Lymph # (Auto) 1.14 L (1.20-3.40) K/uL Rice # (Auto) 0.79 H (0.11-0.59) K/uL Eos # (Auto) 0.24 (0.00-0.50) K/uL Baso # (Auto) 0.08 (0.00-0.20) K/uL Immature Gran # (Auto) 0.03 (0.01-0.20) K/uL Sodium 136 (136-145) mmol/L Potassium 4.1 (3.5-5.1) mmol/L Chloride 106 (98-107) mmol/L Carbon Dioxide 24 (21-32) mmol/L Anion Gap 6 (3-11) BUN 39 H (6-23) mg/dl Creatinine 2.03 H (0.6-1.4) mg/dl Est Cr Clr Drug Dosing 23.6 ml/min eGFR 31.34 BUN/Creatinine Ratio 19.2 (10-20) Glucose 77 (70-99(Fasting)) mg/dl Calcium 9.0 (8.6-10.3) mg/dl Phosphorus 3.0 (2.5-4.9) mg/dl Magnesium 1.8 (1.7-2.4) mg/dl Medications Administered Current Inpatient Medications Allopurinol (Allopurinol 100 Mg Tab) 200 mg PO QAM SULEIMAN Stop: 07/15/24 08:59 Last Admin: 06/16/24 08:13 Dose: 200 mg Atorvastatin Calcium (Atorvastatin 40 Mg Tab) 80 mg PO HS SULEIMAN Stop: 07/15/24 20:59 Last Admin: 06/15/24 20:18 Dose: 80 mg Ferrous Sulfate (Ferrous Sulfate 325 Mg Tab) 325 mg PO Q48H SULEIMAN Stop: 07/15/24 08:59 Last Admin: 06/15/24 09:13 Dose: 325 mg Promethazine HCl (Phenergan) 6.25 mg in 50.25 mls @ 201 mls/hr IV Q6H PRN PRN Reason: Nausea And Vomiting Stop: 07/15/24 05:26 Cefepime HCl (Maxipime 2000mg) 1,000 mg in 10 mls @ 5 mls/min IV Q12H SULEIMAN Stop: 06/27/24 02:59 Cefepime HCl (Maxipime 2000mg) 2,000 mg in 20 mls @ 5 mls/min IV ONE ONE Stop: 06/16/24 14:33 Metoprolol Tartrate (Metoprolol Tartrate 25 Mg Tab) 12.5 mg PO [facility] Stop: 07/15/24 08:59 Last Admin: 06/16/24 08:12 Dose: 12.5 mg Sodium Bicarbonate (Sodium Bicarbonate 650 Mg Tab) 650 mg PO BID SULEIMAN Stop: 07/15/24 08:59 Last Admin: 06/16/24 08:12 Dose: 650 mg Tramadol HCl (Tramadol Hcl 50 Mg Tablet) 25 mg PO Q4H PRN PRN Reason: Pain Stop: 07/15/24 05:26
[2024-06-16] MEDS: CEFEPIME 2000MG 2,000 MG/20 ML SYR IV ONE (15:56)
[2024-06-17] MEDS: CEFEPIME 1000MG 1,000 MG/10 ML SYR IV SCH (02:27)
[2024-06-17 07:45] LABS: Hematocrit (blood only) 31.6 % (42.0-52.0); Hemoglobin 9.9 g/dl (14.0-18.0); Mean Corpuscular Hemoglobin 28.2 pg (25.0-34.0); Mean Corpuscular Hgb Conc 31.3 g/dL (32.0-36.0); Mean Platelet Volume 12.1 fL (9.4-12.4); Platelet Count 168 K/uL (130-400); RDW Coefficient of Variation 17.2 % (11.5-14.5); RDW Standard Deviation 56.8 fL (36.4-46.3); Red Blood Count 3.51 M/uL (4.70-6.10); White Blood Count 9.44 K/ul (4.8-10.8)
[2024-06-17 07:58] LABS: BUN Creatinine Ratio 20.4 (10-20); Calcium 9.1 mg/dl (8.6-10.3); Creatinine Clr Calc Pharmacy 24.4 ml/min; Magnesium 1.9 mg/dl (1.7-2.4); Phosphorus 2.9 mg/dl (2.5-4.9); Potassium 3.9 mmol/L (3.5-5.1)
--- NOTE | 2024-06-17 11:04 | Nephrology Progress Note ---
Date of Service June 17, 2024 Assessment & Plan (1) Hematuria: Plan: Patient with hematuria in setting of recent Jane catheter placement. Patient also has history of prostate cancer and bladder cancer. Etiology of hematuria is likely mechanical trauma in setting of Jane catheter placement recently. Given history of bladder and prostate cancer, patient will need cystoscopy but this can be done as an outpatient when patient is stable. There is no active bleeding at the moment. Will continue to monitor hemoglobin and transfuse as needed for hemoglobin less than 7. We will continue bladder irrigation as needed. Urine culture is showing Pseudomonas species. 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 creatinine stable at 1.96 today. Patient has proteinuria of about 3 g. Electrolytes are stable. Patient had mild pulmonary congestion on the x-ray but is saturating well on room air. No indication for dialysis at the moment. Avoid nephrotoxins such as contrast. Renally dose antibiotics for current GFR. Admission and Anticipated Discharge Date Admission Date: June 15, 2024 Subjective Seen for CKD and hematuria. No SOB or leg swelling. Still some blood in urine bag. Has AAA which vascular recommend conservative mgt Review of Systems 2 Review of Systems: All other systems were reviewed and negative except as noted in HPI Physical Exam 2 Physical Exam: General exam: Appears comfortable, no acute distress HEENT: Pupils are equal and reactive to light Neck: No JVD, neck is supple trachea is midline Respiratory system: Clear breath sounds bilaterally. Gastrointestinal: Abdomen is soft, non distended, non tender, bowel sounds are present CVS: Regular rate and rhythm. No murmurs, rubs or gallops Musculoskeletal: No joint or muscle tenderness Extremities: Non tender, no edema, peripheral pulses are present Neuro: Oriented, no tremors, no focal neurological deficits Skin: No rashes Results & Data Vital Signs (Past 12 Hours) Vital Signs Temp Pulse Pulse Resp BP Pulse Ox O2 Del Method 06/17/24 09:55 Room Air 06/17/24 07:30 36.4 C L 77 18 139/73 95 Room Air 06/17/24 05:35 80 06/17/24 03:30 36.3 C L 72 12 154/79 H 94 Room Air 06/16/24 23:19 36.7 C 68 12 134/73 93 Room Air Laboratory Results 06/17/24 06:53 06/17/24 06:53 WBC 9.44 RBC 3.51 L MCV 90.0 MCH 28.2 MCHC 31.3 L RDW Std Deviation 56.8 H RDW Coeff of Misha 17.2 H Plt Count 168 MPV 12.1 Phosphorus 2.9
--- NOTE | 2024-06-17 13:48 | Hospitalist Progress Note ---
Date of Service June 17, 2024 Assessment & Plan (1) Hematuria: Plan: Hematuria Urinary retention s/p recent Jane catheter placement at [facility] hx bladder cancer hx prostate cancer status post surgery/radiation Patient currently hemodynamically stable Urology consult re: hematuria Per urology - plan for outpt follow up Ucultx - posit. for pseudomonas - switched abx to cefepime Discussed w/ ID on 06/17 - as pt has aneurysm, not recommending fluoroquinolone, and recommends [address] abdomen pelvis Per reconcilement clerk - Made aware of abnormal CT abdomen pelvis result Interval increase in diameter of dilated suprarenal abdominal aorta and increase in size of possible periaortic hematoma/aneurysm with metallic vascular stents in supra/infrarenal abdominal aorta and bilateral common iliac arteries. Suggested CT angiography for further evaluation. IV dye study precluded by kidney dysfunction. Dr. Mcgregor of Vascular surgery recommended I contact patient[place] [facility] [place] for guidance. Case discussed with Dr. Enamorado of [facility] [place].. Patient deemed to be a poor surgical candidate given age and comorbidities as per discussion. Dr. Enamorado recommends repeat noncontrast CTAP study after 24 hours. Patient daughter updated of developments over the phone. Palliative care recommended if repeat CT AP study shows progression of periaortic hematoma (possible aneurysm leak). Patient daughter agreeable to plan of care. Change level of care to med/tele. Patient CODE STATUS appropriately de-escalated to DNR after discussion. 06/[address] abd/pelvis w/o contrast IMPRESSION: 1. Infrarenal abdominal aortic aneurysm measuring ~ 7.3 x 8.2 x 6.8 cm in TV, AP and CC dimensions respectively. Metallic stents are seen involving the suprarenal and infrarenal aorta and extending into the iliac arteries. No significant periaortic stranding and no other findings to suggest interval bleed. CT angiography is however advised for better evaluation (unchanged). 2. Bilateral perinephric fat stranding with bilateral renal concretions and cortical cysts (unchanged). 3. Ventral wall hernia in infraumbilical region (unchanged). 4. Small sliding hiatus hernia (unchanged). Discussed w/ radiologist - no aneurysmal leak noted Also discussed w/ Dr. Enamorado ([facility]. surgery) - he will arrange close outpt follow up w/ the pt Chronic conditions: chronic diastolic heart failure (EF 55%, TTE 2024), equivocal volume status hypertension, stable hyperlipidemia, on statin Rx valvular heart disease (moderate /MR, mild AR/TR), outpatient cardio evaluation contemplated AAA status post repair (2009) paroxysmal atrial tachycardia possible PE of anticoagulation secondary to bleeding CRI, creatinine at baseline chronic anemia, hemoglobin at baseline Functional disability, recurrent admissions/ER visits past tobacco abuse PT OT eval DVT prophylaxis. SCDs re: hematuria Full code Patient's daughter Ms. Jennifer Cotton, contact #[phone]. Admission and Anticipated Discharge Date Admission Date: June 15, 2024 Subjective Pt seen in follow up of hematuria + Jane catheter Hgb stable at 9.9 Ucultx - posit. w/ Pseudomonas, switched to cefepime yesterday - discussed w/ ID today - ID recommends 7 days of treatment w/ cefepime Pt lying in bed in NAD, says he feels well denies any discomfort no chest pain, shortness of breath, no abd. pain Yesterday daughter updated over the phone Review of Systems Review of Systems: All systems reviewed & are unremarkable except as noted in Subjective Physical Exam Physical Exam: GENERAL: WD/WN elderly M, pleasant, hard of hearing, in NAD HEENT: NC/AT. EOMI NECK : Supple CHEST : Decreased breath sounds, no tenderness HEART : rrr, systolic murmur ABDOMEN: Soft, nontender EXTREMITIES : No LE swelling/tenderness NEUROLOGIC : Coherent, no facial asymmetry, hard of hearing, gait and stance not assessed SKIN: warm, dry Results & Data Results & Data Vital Signs (Past 12 Hours) Vital Signs Temp Pulse Pulse Resp BP Pulse Ox O2 Del Method 06/17/24 11:24 36.4 C L 59 L 18 129/79 96 Room Air 06/17/24 09:55 Room Air 06/17/24 07:30 36.4 C L 77 18 139/73 95 Room Air 06/17/24 05:35 80 06/17/24 03:30 36.3 C L 72 12 154/79 H 94 Room Air Laboratory Results 06/17/24 06/17/24 Range/Units Unknown 06:53 WBC 9.44 (4.8-10.8) K/ul RBC 3.51 L (4.70-6.10) M/uL Hgb 9.9 L (14.0-18.0) g/dl Hct 31.6 L (42.0-52.0) % MCV 90.0 (80.0-100.0) fL MCH 28.2 (25.0-34.0) pg MCHC 31.3 L (32.0-36.0) g/dL RDW Std Deviation 56.8 H (36.4-46.3) fL RDW Coeff of Misha 17.2 H (11.5-14.5) % Plt Count 168 (130-400) K/uL MPV 12.1 (9.4-12.4) fL Sodium 136 (136-145) mmol/L Potassium 3.9 (3.5-5.1) mmol/L Chloride 106 (98-107) mmol/L Carbon Dioxide 22 (21-32) mmol/L Anion Gap 8 (3-11) BUN 40 H (6-23) mg/dl Creatinine 1.96 H (0.6-1.4) mg/dl Est Cr Clr Drug Dosing 24.4 ml/min eGFR 32.69 BUN/Creatinine Ratio 20.4 H (10-20) Glucose 92 (70-99(Fasting)) mg/dl Calcium 9.1 (8.6-10.3) mg/dl Phosphorus 2.9 (2.5-4.9) mg/dl Magnesium 1.9 (1.7-2.4) mg/dl SARS-CoV-2 (PCR) NEGATIVE (Negative) Medications Administered Current Inpatient Medications Allopurinol (Allopurinol 100 Mg Tab) 200 mg PO QAM SULEIMAN Stop: 07/15/24 08:59 Last Admin: 06/17/24 09:53 Dose: 200 mg Atorvastatin Calcium (Atorvastatin 40 Mg Tab) 80 mg PO HS SULEIMAN Stop: 07/15/24 20:59 Last Admin: 06/16/24 21:11 Dose: 80 mg Ferrous Sulfate (Ferrous Sulfate 325 Mg Tab) 325 mg PO Q48H SULEIMAN Stop: 07/15/24 08:59 Last Admin: 06/17/24 09:53 Dose: 325 mg Promethazine HCl (Phenergan) 6.25 mg in 50.25 mls @ 201 mls/hr IV Q6H PRN PRN Reason: Nausea And Vomiting Stop: 07/15/24 05:26 Cefepime HCl (Maxipime 2000mg) 1,000 mg in 10 mls @ 5 mls/min IV Q12H SULEIMAN Stop: 06/27/24 02:59 Last Admin: 06/17/24 02:27 Dose: 5 mls/min Metoprolol Tartrate (Metoprolol Tartrate 25 Mg Tab) 12.5 mg PO [facility] SULEIMAN Stop: 07/15/24 08:59 Last Admin: 06/17/24 09:53 Dose: 12.5 mg Sodium Bicarbonate (Sodium Bicarbonate 650 Mg Tab) 650 mg PO BID SULEIMAN Stop: 07/15/24 08:59 Last Admin: 06/17/24 09:53 Dose: 650 mg Tramadol HCl (Tramadol Hcl 50 Mg Tablet) 25 mg PO Q4H PRN PRN Reason: Pain Stop: 07/15/24 05:26
[2024-06-18 05:57] LABS: Hematocrit (blood only) 32.2 % (42.0-52.0); Hemoglobin 10.3 g/dl (14.0-18.0); Mean Corpuscular Hemoglobin 28.7 pg (25.0-34.0); Mean Corpuscular Volume 89.7 fL (80.0-100.0); Mean Platelet Volume 11.9 fL (9.4-12.4); Platelet Count 174 K/uL (130-400); RDW Standard Deviation 56.2 fL (36.4-46.3); Red Blood Count 3.59 M/uL (4.70-6.10); White Blood Count 9.85 K/ul (4.8-10.8)
[2024-06-18 06:12] LABS: BUN Creatinine Ratio 20.6 (10-20); Calcium 9.1 mg/dl (8.6-10.3); Creatinine Clr Calc Pharmacy 22.4 ml/min; Phosphorus 3.2 mg/dl (2.5-4.9); Potassium 4.2 mmol/L (3.5-5.1)
--- NOTE | 2024-06-18 12:44 | Nephrology Progress Note ---
Date of Service June 18, 2024 Assessment & Plan (1) Hematuria: Plan: Patient with hematuria in setting of recent Jane catheter placement. Patient also has history of prostate cancer and bladder cancer. Etiology of hematuria is likely mechanical trauma in setting of Jane catheter placement recently. Given history of bladder and prostate cancer, patient will need cystoscopy but this can be done as an outpatient when patient is stable. There is no active bleeding at the moment. Will continue to monitor hemoglobin and transfuse as needed for hemoglobin less than 7. We will continue bladder irrigation as needed. 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 creatinine slightely raised at 2.14 w/ Sodium 134 and Bicarbonate of 20 Patient has proteinuria of about 3 g. . Patient had mild pulmonary congestion on the x-ray but is saturating well on room air. No indication for dialysis at the moment. -Restart in Furosemide 20 mg daily and increase Bicarbonate to 650 mg TID. -Avoid nephrotoxins such as contrast. Renally dose antibiotics for current GFR. Admission and Anticipated Discharge Date Admission Date: June 15, 2024 Subjective Pt seen in follow up of hematuria Urine appears more clear now Pt lying in bed in NAD, says he feels well denies any discomfort no chest pain, shortness of breath, no abd. pain Review of Systems 2 Review of Systems: All other systems were reviewed and negative except as noted in HPI Results & Data Vital Signs (Past 12 Hours) Vital Signs Temp Pulse Pulse Resp BP Pulse Ox O2 Del Method 06/18/24 11:11 36.4 C L 75 16 121/62 94 Room Air 06/18/24 11:01 Room Air 06/18/24 07:26 36.4 C L 69 18 134/73 93 Room Air 06/18/24 06:02 75 06/18/24 03:16 36.5 C 70 16 104/59 L 92 Room Air Laboratory Results 06/18/24 05:29 06/18/24 05:29
--- NOTE | 2024-06-18 18:32 | Hospitalist Progress Note ---
Date of Service June 18, 2024 Assessment & Plan (1) Hematuria: Plan: Hematuria Urinary retention s/p recent Jane catheter placement at [facility] hx bladder cancer hx prostate cancer status post surgery/radiation Patient currently hemodynamically stable Urology consult re: hematuria Per urology - plan for outpt follow up Hgb 10.3 stable Ucultx - posit. for pseudomonas - switched abx to cefepime Discussed w/ ID on 06/17 - as pt has aneurysm, not recommending fluoroquinolone, and recommends [address] abdomen pelvis Per bisque placer - Made aware of abnormal CT abdomen pelvis result Interval increase in diameter of dilated suprarenal abdominal aorta and increase in size of possible periaortic hematoma/aneurysm with metallic vascular stents in supra/infrarenal abdominal aorta and bilateral common iliac arteries. Suggested CT angiography for further evaluation. IV dye study precluded by kidney dysfunction. Dr. Mcgregor of Vascular surgery recommended I contact patient's [facility] vascular surgeons for guidance. Case discussed with Dr. Enamorado of [facility] vascular surgery.. Patient deemed to be a poor surgical candidate given age and comorbidities as per discussion. Dr. Enamorado recommends repeat noncontrast CTAP study after 24 hours. Patient daughter updated of developments over the phone. Palliative care recommended if repeat CT AP study shows progression of periaortic hematoma (possible aneurysm leak). Patient daughter agreeable to plan of care. Change level of care to med/tele. Patient CODE STATUS appropriately de-escalated to DNR after discussion. 06/[address] abd/pelvis w/o contrast IMPRESSION: 1. Infrarenal abdominal aortic aneurysm measuring ~ 7.3 x 8.2 x 6.8 cm in TV, AP and CC dimensions respectively. Metallic stents are seen involving the suprarenal and infrarenal aorta and extending into the iliac arteries. No significant periaortic stranding and no other findings to suggest interval bleed. CT angiography is however advised for better evaluation (unchanged). 2. Bilateral perinephric fat stranding with bilateral renal concretions and cortical cysts (unchanged). 3. Ventral wall hernia in infraumbilical region (unchanged). 4. Small sliding hiatus hernia (unchanged). Discussed w/ radiologist - no aneurysmal leak noted Also discussed w/ Dr. Enamorado ([facility]. surgery) - he will arrange close outpt follow up w/ the pt Chronic conditions: chronic diastolic heart failure (EF 55%, TTE 2024), equivocal volume status hypertension, stable hyperlipidemia, on statin Rx valvular heart disease (moderate /MR, mild AR/TR), outpatient cardio evaluation contemplated AAA status post repair (2009) paroxysmal atrial tachycardia possible PE of anticoagulation secondary to bleeding CRI, creatinine at baseline chronic anemia, hemoglobin at baseline Functional disability, recurrent admissions/ER visits past tobacco abuse PT OT eval DVT prophylaxis. SCDs re: hematuria Full code Patient's daughter Ms. Jennifer Cotton, contact #[phone]. Admission and Anticipated Discharge Date Admission Date: June 15, 2024 Subjective Pt seen in follow up of hematuria + Jane catheter Hgb stable at 10.3 Ucultx - posit. w/ Pseudomonas, switched to cefepime Given hx of aneurysm not a good candidate for fluoroquinolones, sensitivities also sent to ID and discussed with --> ID recommends 7 days of treatment w/ cefepime Pt sitting up in chair in NAD, says he feels well denies any discomfort no chest pain, shortness of breath, no abd. pain Review of Systems Review of Systems: All systems reviewed & are unremarkable except as noted in Subjective Physical Exam Physical Exam: GENERAL: WD/WN elderly M, pleasant, hard of hearing, in NAD HEENT: NC/AT. EOMI NECK : Supple CHEST : Decreased breath sounds, no tenderness HEART : rrr, systolic murmur ABDOMEN: Soft, nontender EXTREMITIES : No LE swelling/tenderness NEUROLOGIC : Coherent, no facial asymmetry, hard of hearing, gait and stance not assessed SKIN: warm, dry Results & Data Results & Data Vital Signs (Past 12 Hours) Vital Signs Temp Pulse Pulse Resp BP Pulse Ox O2 Del Method 06/18/24 12:55 75 06/18/24 11:11 36.4 C L 75 16 121/62 94 Room Air 06/18/24 11:01 Room Air 06/18/24 07:26 36.4 C L 69 18 134/73 93 Room Air Laboratory Results 06/18/24 Range/Units 05:29 WBC 9.85 (4.8-10.8) K/ul RBC 3.59 L (4.70-6.10) M/uL Hgb 10.3 L (14.0-18.0) g/dl Hct 32.2 L (42.0-52.0) % MCV 89.7 (80.0-100.0) fL MCH 28.7 (25.0-34.0) pg MCHC 32.0 (32.0-36.0) g/dL RDW Std Deviation 56.2 H (36.4-46.3) fL RDW Coeff of Misha 17.0 H (11.5-14.5) % Plt Count 174 (130-400) K/uL MPV 11.9 (9.4-12.4) fL Sodium 134 L (136-145) mmol/L Potassium 4.2 (3.5-5.1) mmol/L Chloride 106 (98-107) mmol/L Carbon Dioxide 20 L (21-32) mmol/L Anion Gap 8 (3-11) BUN 44 H (6-23) mg/dl Creatinine 2.14 H (0.6-1.4) mg/dl Est Cr Clr Drug Dosing 22.4 ml/min eGFR 29.42 BUN/Creatinine Ratio 20.6 H (10-20) Glucose 87 (70-99(Fasting)) mg/dl Calcium 9.1 (8.6-10.3) mg/dl Phosphorus 3.2 (2.5-4.9) mg/dl Magnesium 2.0 (1.7-2.4) mg/dl Medications Administered Current Inpatient Medications Allopurinol (Allopurinol 100 Mg Tab) 200 mg PO QAM [facility] Stop: 07/15/24 08:59 Last Admin: 06/18/24 07:17 Dose: 200 mg Atorvastatin Calcium (Atorvastatin 40 Mg Tab) 80 mg PO HS [facility] Stop: 07/15/24 20:59 Last Admin: 06/17/24 20:30 Dose: 80 mg Ferrous Sulfate (Ferrous Sulfate 325 Mg Tab) 325 mg PO Q48H [facility] Stop: 07/15/24 08:59 Last Admin: 06/17/24 09:53 Dose: 325 mg Promethazine HCl (Phenergan) 6.25 mg in 50.25 mls @ 201 mls/hr IV Q6H PRN PRN Reason: Nausea And Vomiting Stop: 07/15/24 05:26 Cefepime HCl (Maxipime 2000mg) 1,000 mg in 10 mls @ 5 mls/min IV Q12H [facility] Stop: 06/27/24 02:59 Last Admin: 06/18/24 14:52 Dose: 5 mls/min Metoprolol Tartrate (Metoprolol Tartrate 25 Mg Tab) 12.5 mg PO AMHS [facility] Stop: 07/15/24 08:59 Last Admin: 06/18/24 07:17 Dose: 12.5 mg Sodium Bicarbonate (Sodium Bicarbonate 650 Mg Tab) 650 mg PO BID [facility] Stop: 07/15/24 08:59 Last Admin: 06/18/24 07:17 Dose: 650 mg Tramadol HCl (Tramadol Hcl 50 Mg Tablet) 25 mg PO Q4H PRN PRN Reason: Pain Stop: 07/15/24 05:26
--- NOTE | 2024-06-19 08:04 | Hospitalist Progress Note ---
Date of Service June 19, 2024 Assessment & Plan (1) Hematuria: Plan: Hematuria Urinary retention s/p recent Jane catheter placement at [facility] hx bladder cancer hx prostate cancer status post surgery/radiation Patient currently hemodynamically stable Urology consult re: hematuria Per urology - plan for outpt follow up Hgb 10.3 stable Ucultx - posit. for pseudomonas - switched abx to cefepime Discussed w/ ID on 06/17 - as pt has aneurysm, not recommending fluoroquinolone, and recommends [address] abdomen pelvis Per labor relations specialist - Made aware of abnormal CT abdomen pelvis result Interval increase in diameter of dilated suprarenal abdominal aorta and increase in size of possible periaortic hematoma/aneurysm with metallic vascular stents in supra/infrarenal abdominal aorta and bilateral common iliac arteries. Suggested CT angiography for further evaluation. IV dye study precluded by kidney dysfunction. Dr. Mcgregor of Vascular surgery recommended I contact patient's [facility] vascular surgeons for guidance. Case discussed with Dr. Enamorado of [facility] vascular surgery.. Patient deemed to be a poor surgical candidate given age and comorbidities as per discussion. Dr. Enamorado recommends repeat noncontrast CTAP study after 24 hours. Patient daughter updated of developments over the phone. Palliative care recommended if repeat CT AP study shows progression of periaortic hematoma (possible aneurysm leak). Patient daughter agreeable to plan of care. Change level of care to med/tele. Patient CODE STATUS appropriately de-escalated to DNR after discussion. 06/[address] abd/pelvis w/o contrast IMPRESSION: 1. Infrarenal abdominal aortic aneurysm measuring ~ 7.3 x 8.2 x 6.8 cm in TV, AP and CC dimensions respectively. Metallic stents are seen involving the suprarenal and infrarenal aorta and extending into the iliac arteries. No significant periaortic stranding and no other findings to suggest interval bleed. CT angiography is however advised for better evaluation (unchanged). 2. Bilateral perinephric fat stranding with bilateral renal concretions and cortical cysts (unchanged). 3. Ventral wall hernia in infraumbilical region (unchanged). 4. Small sliding hiatus hernia (unchanged). Discussed w/ radiologist - no aneurysmal leak noted Also discussed w/ Dr. Enamorado ([facility]. surgery) - he will arrange close outpt follow up w/ the pt R hip pain - no trauma, no fall - difficulty to walk/ bear wait on the hip - no erythema, edema noted - will obtain XR Chronic conditions: chronic diastolic heart failure (EF 55%, TTE 2024), equivocal volume status hypertension, stable hyperlipidemia, on statin Rx valvular heart disease (moderate /MR, mild AR/TR), outpatient cardio evaluation contemplated AAA status post repair (2009) paroxysmal atrial tachycardia possible PE of anticoagulation secondary to bleeding CRI, creatinine at baseline chronic anemia, hemoglobin at baseline Functional disability, recurrent admissions/ER visits past tobacco abuse PT OT eval DVT prophylaxis. SCDs re: hematuria Full code Patient's daughter Ms. Jennifer Cotton, contact #[phone]. Admission and Anticipated Discharge Date Admission Date: June 15, 2024 Subjective Pt seen in follow up of hematuria + Jane catheter Hgb stable at 10.3 Ucultx - posit. w/ Pseudomonas, switched to cefepime Given hx of aneurysm not a good candidate for fluoroquinolones, sensitivities also sent to ID and discussed with --> ID recommends 7 days of treatment w/ cefepime Pt lying in bed in NAD, says he feels well except for R hip pain, denies any pain or any trauma denies any discomfort no chest pain, shortness of breath, no abd. pain Review of Systems Review of Systems: All systems reviewed & are unremarkable except as noted in Subjective Physical Exam Physical Exam: GENERAL: WD/WN elderly M, pleasant, hard of hearing, in NAD HEENT: NC/AT. EOMI NECK : Supple CHEST : Decreased breath sounds, no tenderness HEART : rrr, systolic murmur ABDOMEN: Soft, nontender EXTREMITIES : No LE swelling/tenderness NEUROLOGIC : Coherent, no facial asymmetry, hard of hearing, gait and stance not assessed SKIN: warm, dry Results & Data Results & Data Vital Signs (Past 12 Hours) Vital Signs Temp Pulse Pulse Resp BP BP Pulse Ox 06/19/24 07:33 36.7 C 78 18 127/68 96 06/19/24 06:45 67 06/19/24 03:21 36.7 C 80 18 153/74 H 95 06/18/24 23:44 36.4 C L 77 18 134/79 94 06/18/24 22:05 74 06/18/24 20:28 36.8 C 91 H 18 140/81 98 O2 Del Method 06/19/24 07:33 Room Air 06/19/24 06:45 06/19/24 03:21 Room Air 06/18/24 23:44 Room Air 06/18/24 22:05 06/18/24 20:28 Room Air Medications Administered Current Inpatient Medications Allopurinol (Allopurinol 100 Mg Tab) 200 mg PO QAM [facility] Stop: 07/15/24 08:59 Last Admin: 06/19/24 07:40 Dose: 200 mg Atorvastatin Calcium (Atorvastatin 40 Mg Tab) 80 mg PO HS [facility] Stop: 07/15/24 20:59 Last Admin: 06/18/24 21:15 Dose: 80 mg Ferrous Sulfate (Ferrous Sulfate 325 Mg Tab) 325 mg PO Q48H [facility] Stop: 07/15/24 08:59 Last Admin: 06/19/24 07:40 Dose: 325 mg Furosemide (Furosemide 20 Mg Tab) 20 mg PO QAM [facility] Stop: 07/19/24 08:59 Promethazine HCl (Phenergan) 6.25 mg in 50.25 mls @ 201 mls/hr IV Q6H PRN PRN Reason: Nausea And Vomiting Stop: 07/15/24 05:26 Cefepime HCl (Maxipime 2000mg) 1,000 mg in 10 mls @ 5 mls/min IV Q12H [facility] Stop: 06/27/24 02:59 Last Admin: 06/19/24 03:01 Dose: 5 mls/min Metoprolol Tartrate (Metoprolol Tartrate 25 Mg Tab) 12.5 mg PO AMHS [facility] Stop: 07/15/24 08:59 Last Admin: 06/19/24 07:40 Dose: 12.5 mg Sodium Bicarbonate (Sodium Bicarbonate 650 Mg Tab) 650 mg PO TID [facility] Stop: 07/19/24 08:59 Tramadol HCl (Tramadol Hcl 50 Mg Tablet) 25 mg PO Q4H PRN PRN Reason: Pain Stop: 07/15/24 05:26
[2024-06-19] MEDS: FUROSEMIDE 20 MG TAB PO SCH (10:06)
[2024-06-19] MEDS: ADVANCED PROBIOTIC 625 MG CAPSULE PO SCH (12:29)
[2024-06-19] MEDS: SODIUM BICARBONATE 650 MG TAB PO SCH (15:28)
[2024-06-19] MEDS: traMADol HCL 50 MG TABLET PO PRN (15:32)
--- NOTE | 2024-06-19 16:47 | XRay Report ---
EXAM: XR hip 1V RT w pelvis CLINICAL HISTORY: Right hip pain TECHNIQUE: X-ray images of the right hip joints in AP and lateral and pelvis obtained in anteroposterior (AP) projection. COMPARISON: No prior studies available for comparison. FINDINGS: Pelvic Bones: Pelvic bones, including the iliac wings, ischium, pubis, and sacrum, are normal and intact. No evidence of fractures, dislocations, or significant osseous lesions. Hip Joints: Bilateral hip joint degenerative osteoarthritic changes denoted by narrowed disc space , minute acetebular osteophytosis and subchondral sclerosis. Acetabular structures appear normal and intact. No signs of acetabular fracture or dysplasia. Femoral heads are normal and centered within the acetabulum. No evidence of fractures, avascular necrosis, or significant deformities. Sacroiliac joints chronic degenerative sacroilitis. Symphysis Pubis: Symphysis pubis is normal and intact. No evidence of separation or widening. Soft Tissues: Tiny calcific shadow seen related to both greater trochanters. A linear radio-opaque shadow seen at the right side of pelvis. Correlated with surgical data of patient. Additional Findings: An abdominal aortic endovascular stent extending into the bifurcation is seen. IMPRESSION: 1. No evidence of acute fractures, or dislocations. 2. Bilateral hip joint degenerative osteoarthritic changes. 3. Bilateral chronic degenerative sacroilitis. 4. Bilateral greater trochanter enthesopathy/calcific tendinitis. 5. Recommend clinical correlation and further evaluation if clinically warranted. DISCLAIMER:A subtle bone abnormality or fracture may not be readily apparent on x-rays, thus clinical correlation and further imaging including follow up CT, MRI, or follow up x-rays are advised as needed. Electronically signed by Akshat Slade 06-19-2024 4:47 PM
[2024-06-20 06:48] LABS: Hematocrit (blood only) 34.4 % (42.0-52.0); Hemoglobin 10.8 g/dl (14.0-18.0); Mean Corpuscular Hemoglobin 28.8 pg (25.0-34.0); Mean Corpuscular Hgb Conc 31.4 g/dL (32.0-36.0); Mean Corpuscular Volume 91.7 fL (80.0-100.0); Mean Platelet Volume 12.4 fL (9.4-12.4); Platelet Count 175 K/uL (130-400); RDW Coefficient of Variation 16.8 % (11.5-14.5); RDW Standard Deviation 57.1 fL (36.4-46.3); Red Blood Count 3.75 M/uL (4.70-6.10); White Blood Count 12.16 K/ul (4.8-10.8)
[2024-06-20 07:29] LABS: BUN Creatinine Ratio 21.7 (10-20); Calcium 9.6 mg/dl (8.6-10.3); Creatinine Clr Calc Pharmacy 20.4 ml/min; Magnesium 2.1 mg/dl (1.7-2.4); Phosphorus 3.9 mg/dl (2.5-4.9); Potassium 4.3 mmol/L (3.5-5.1)
--- NOTE | 2024-06-20 10:52 | Nephrology Progress Note ---
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 creatinine slightly raised at 2.14 w/ Sodium 134 and Bicarbonate of 20 Patient has proteinuria of about 3 g and baseline creatinine mid 2s. Patient had mild pulmonary congestion on admission x-ray but is saturating well on room air. No indication for dialysis at the moment. -cont Furosemide 20 mg daily and Bicarbonate to 650 mg TID. -Avoid nephrotoxins such as contrast. Renally dose antibiotics for current GFR. will sign off; pls call if ? no need for hospital d/c appt w/ neph suggest BMP at hospital d/c visit w/ PCP resume prior to admission medications at hospital d/c, including SGLT2i once abtx for UTI are complete care coordinated w/ Dr Caberra regarding d/c medications, labs, f/u appts via TText; we are in agreement (2) Hematuria: Plan: Patient with hematuria in setting of recent Jane catheter placement. Patient also has history of prostate cancer and bladder cancer. Etiology of hematuria is likely mechanical trauma in setting of Jane catheter placement recently. Given history of bladder and prostate cancer, patient will need cystoscopy but this can be done as an outpatient when patient is stable. There is no active bleeding at the moment. Will continue to monitor hemoglobin and transfuse as needed for hemoglobin less than 7. We will continue bladder irrigation as needed. (3) UTI (urinary tract infection), bacterial: Plan: w/ pseudomonal UTI >> on cefepime hold SGLT2 inhibitor while treating, resume SGLT2i at completion of therapy Admission and Anticipated Discharge Date Admission Date: June 15, 2024 Subjective seen on midday rounds; tired, waiting on midday meal. ongoing gross hematuria. no sob, no edema, no n/v. Review of Systems 2 Review of Systems: All systems reviewed & are unremarkable except as noted in Subjective Physical Exam 2 Constitutional: well developed, well nourished, + frail appearing and cooperative; no acute distress (lying in bed on RA) Eyes: EOM intact bilaterally ENMT: Mouth: + dry oral mucous membranes Respiratory: normal respiratory effort Auscultation: + diminished lung sounds Cardiovascular: Rate/Rhythm: regular rate and regular rhythm Extremities: n o edema Gastrointestinal (Abdomen): Inspection/Auscultation: normal bowel sounds P ercussion/Palpation: abdomen soft; abdomen nontender Musculoskeletal: Extremities: strength 5/5 throughout Skin: no rashes, warm and dry Neurologic: reyes, fluent speech, no tremor Results & Data Vital Signs (Past 12 Hours) Vital Signs Temp Pulse Resp BP Pulse Ox O2 Del Method 06/20/24 08:03 36.4 C L 63 20 126/65 95 Room Air 06/20/24 03:36 36.8 C 67 18 144/69 H 96 Room Air Laboratory Results 06/20/24 05:55 06/20/24 05:55
--- NOTE | 2024-06-20 12:47 | Hospitalist Progress Note ---
Date of Service June 20, 2024 Assessment & Plan (1) Hematuria: Plan: Hematuria Urinary retention s/p recent Jane catheter placement at [facility] hx bladder cancer hx prostate cancer status post surgery/radiation Patient currently hemodynamically stable Urology consult re: hematuria Per urology - plan for outpt follow up Hgb 10.8 stable Ucultx - posit. for pseudomonas - switched abx to cefepime Discussed w/ ID on 06/17 - as pt has aneurysm, not recommending fluoroquinolone, and recommends [address] abdomen pelvis Per internal audit consultant - Made aware of abnormal CT abdomen pelvis result Interval increase in diameter of dilated suprarenal abdominal aorta and increase in size of possible periaortic hematoma/aneurysm with metallic vascular stents in supra/infrarenal abdominal aorta and bilateral common iliac arteries. Suggested CT angiography for further evaluation. IV dye study precluded by kidney dysfunction. Dr. Mcgregor of Vascular surgery recommended I contact patient's [facility] vascular surgeons for guidance. Case discussed with Dr. Enamorado of [facility] vascular surgery.. Patient deemed to be a poor surgical candidate given age and comorbidities as per discussion. Dr. Enamorado recommends repeat noncontrast CTAP study after 24 hours. Patient daughter updated of developments over the phone. Palliative care recommended if repeat CT AP study shows progression of periaortic hematoma (possible aneurysm leak). Patient daughter agreeable to plan of care. Change level of care to med/tele. Patient CODE STATUS appropriately de-escalated to DNR after discussion. 06/[address] abd/pelvis w/o contrast IMPRESSION: 1. Infrarenal abdominal aortic aneurysm measuring ~ 7.3 x 8.2 x 6.8 cm in TV, AP and CC dimensions respectively. Metallic stents are seen involving the suprarenal and infrarenal aorta and extending into the iliac arteries. No significant periaortic stranding and no other findings to suggest interval bleed. CT angiography is however advised for better evaluation (unchanged). 2. Bilateral perinephric fat stranding with bilateral renal concretions and cortical cysts (unchanged). 3. Ventral wall hernia in infraumbilical region (unchanged). 4. Small sliding hiatus hernia (unchanged). Discussed w/ radiologist - no aneurysmal leak noted Also discussed w/ Dr. Enamorado ([facility]. surgery) - he will arrange close outpt follow up w/ the pt R hip pain - no trauma, no fall - difficulty to walk/ bear wait on the hip - no erythema, edema noted - XR negative for fracture - discussed w/ pt, and w/ PT/OT therapists, pt uses "kidney belt" to help with his hip pain at home, on eval difficulty bearing weight on the leg, will obtain CT R hip Chronic conditions: chronic diastolic heart failure (EF 55%, TTE 2024), equivocal volume status hypertension, stable hyperlipidemia, on statin Rx valvular heart disease (moderate /MR, mild AR/TR), outpatient cardio evaluation contemplated AAA status post repair (2009) paroxysmal atrial tachycardia possible PE of anticoagulation secondary to bleeding CRI, creatinine at baseline chronic anemia, hemoglobin at baseline Functional disability, recurrent admissions/ER visits past tobacco abuse PT OT eval DVT prophylaxis. SCDs re: hematuria Full code Patient's daughter Ms. Jennifer Cotton, contact #[phone]. Admission and Anticipated Discharge Date Admission Date: June 15, 2024 Subjective Pt seen in follow up of hematuria + Jane catheter Hgb stable at 10.8 Ucultx - posit. w/ Pseudomonas, switched to cefepime Given hx of aneurysm not a good candidate for fluoroquinolones, sensitivities also sent to ID and discussed with --> ID recommends 7 days of treatment w/ cefepime Pt lying in bed in NAD, says he feels well except for R hip pain, denies any fall or any trauma, hip xr obtained - no fractures. Discussed w/ pt, and w/ PT/OT, pt uses "kidney belt" to help with his hip pain at home, on eval difficulty bearing weight on the leg, will obtain CT R hip denies any discomfort no chest pain, shortness of breath, no abd. pain Review of Systems Review of Systems: All systems reviewed & are unremarkable except as noted in Subjective Physical Exam Physical Exam: GENERAL: WD/WN elderly M, pleasant, hard of hearing, in NAD HEENT: NC/AT. EOMI NECK : Supple CHEST : Decreased breath sounds, no tenderness HEART : rrr, systolic murmur ABDOMEN: Soft, nontender EXTREMITIES : No LE swelling/tenderness NEUROLOGIC : Coherent, no facial asymmetry, hard of hearing, gait and stance not assessed SKIN: warm, dry Results & Data Results & Data Vital Signs (Past 12 Hours) Vital Signs Temp Pulse Resp BP Pulse Ox O2 Del Method 06/20/24 11:36 36.6 C 65 20 146/70 H 95 Room Air 06/20/24 08:03 36.4 C L 63 20 126/65 95 Room Air 06/20/24 03:36 36.8 C 67 18 144/69 H 96 Room Air Laboratory Results 06/20/24 Range/Units 05:55 WBC 12.16 H (4.8-10.8) K/ul RBC 3.75 L (4.70-6.10) M/uL Hgb 10.8 L (14.0-18.0) g/dl Hct 34.4 L (42.0-52.0) % MCV 91.7 (80.0-100.0) fL MCH 28.8 (25.0-34.0) pg MCHC 31.4 L (32.0-36.0) g/dL RDW Std Deviation 57.1 H (36.4-46.3) fL RDW Coeff of Misha 16.8 H (11.5-14.5) % Plt Count 175 (130-400) K/uL MPV 12.4 (9.4-12.4) fL Sodium 134 L (136-145) mmol/L Potassium 4.3 (3.5-5.1) mmol/L Chloride 104 (98-107) mmol/L Carbon Dioxide 23 (21-32) mmol/L Anion Gap 7 (3-11) BUN 51 H (6-23) mg/dl Creatinine 2.35 H (0.6-1.4) mg/dl Est Cr Clr Drug Dosing 20.4 ml/min eGFR 26.29 BUN/Creatinine Ratio 21.7 H (10-20) Glucose 83 (70-99(Fasting)) mg/dl Calcium 9.6 (8.6-10.3) mg/dl Phosphorus 3.9 (2.5-4.9) mg/dl Magnesium 2.1 (1.7-2.4) mg/dl Medications Administered Current Inpatient Medications Allopurinol (Allopurinol 100 Mg Tab) 200 mg PO [facility] Stop: 07/15/24 08:59 Last Admin: 06/20/24 09:01 Dose: 200 mg Atorvastatin Calcium (Atorvastatin 40 Mg Tab) 80 mg PO [facility] Stop: 07/15/24 20:59 Last Admin: 06/19/24 21:07 Dose: 80 mg Ferrous Sulfate (Ferrous Sulfate 325 Mg Tab) 325 mg PO Q48H [facility] Stop: 07/15/24 08:59 Last Admin: 06/19/24 07:40 Dose: 325 mg Furosemide (Furosemide 20 Mg Tab) 20 mg PO QAM [facility] Stop: 07/19/24 08:59 Last Admin: 06/20/24 09:01 Dose: 20 mg Promethazine HCl (Phenergan) 6.25 mg in 50.25 mls @ 201 mls/hr IV Q6H PRN PRN Reason: Nausea And Vomiting Stop: 07/15/24 05:26 Cefepime HCl (Maxipime 2000mg) 1,000 mg in 10 mls @ 5 mls/min IV Q12H [facility] Stop: 06/27/24 02:59 Last Admin: 06/20/24 03:57 Dose: 5 mls/min Lactobacillus Acidophilus (Advanced Probiotic 625 Mg Capsule) 1,250 mg PO DAILY [facility] Stop: 07/19/24 11:14 Last Admin: 06/20/24 09:01 Dose: 1,250 mg Metoprolol Tartrate (Metoprolol Tartrate 25 Mg Tab) 12.5 mg PO AMHS [facility] Stop: 07/15/24 08:59 Last Admin: 06/20/24 09:01 Dose: Not Given Sodium Bicarbonate (Sodium Bicarbonate 650 Mg Tab) 650 mg PO TID [facility] Stop: 07/19/24 13:59 Last Admin: 06/20/24 09:01 Dose: 650 mg Tramadol HCl (Tramadol Hcl 50 Mg Tablet) 25 mg PO Q4H PRN PRN Reason: Pain Stop: 07/15/24 05:26 Last Admin: 06/20/24 09:00 Dose: 25 mg
--- NOTE | 2024-06-20 15:41 | CT Scan Report ---
RIGHT HIP CT WITHOUT CONTRAST CLINICAL HISTORY: Right hip pain. COMPARISON STUDY: CT of the abdomen and pelvis August 16, 2024 and pelvis and right hip radiographs Mar 2024. TECHNIQUE: Axial images of the right hip were obtained without IV contrast. Sagittal and coronal refo rmats were viewed. Automated exposure control was utilized for the study. A dose lowering technique was utilized adhering to the principles of ALARA. FINDINGS: Alignment of the right hip is anatomic. There is no acute fracture. There are no osseous le sions. There is no evidence for avascular necrosis of the right femoral head. Moderate joint space na rrowing and osteophytosis of the right hip is present. There are no fractures within visualized porti ons of the right hemipelvis. Aortoiliac stent graft is partially imaged noted. Fat-containing ventral hernia is partially imaged. A small amount of hyperdense material within the dependent aspect the b ladder is noted. There is a Jane balloon and gas within the bladder. IMPRESSION: 1. No fractures within the right hip. 2. Moderate right hip osteoarthritis. 3.Small amount of hyperdense material within the bladder which favors clot. ACT 112: Negative or not required by law. Electronically signed by: Peetr Andre M.D. 06/20/2024 3:40 PM
[2024-06-20] MEDS: DICLOFENAC SOD 1% GEL 100 GM TUBE EXT PRN (22:21)
[2024-06-21 06:39] LABS: Hematocrit (blood only) 30.2 % (42.0-52.0); Hemoglobin 9.9 g/dl (14.0-18.0); Mean Corpuscular Hemoglobin 29.5 pg (25.0-34.0); Mean Corpuscular Hgb Conc 32.8 g/dL (32.0-36.0); Mean Corpuscular Volume 89.9 fL (80.0-100.0); Platelet Count 166 K/uL (130-400); RDW Coefficient of Variation 16.7 % (11.5-14.5); Red Blood Count 3.36 M/uL (4.70-6.10); White Blood Count 12.27 K/ul (4.8-10.8)
[2024-06-21 07:04] LABS: BUN Creatinine Ratio 21.7 (10-20); Calcium 9.3 mg/dl (8.6-10.3); Creatinine Clr Calc Pharmacy 22.1 ml/min; Phosphorus 3.2 mg/dl (2.5-4.9); Potassium 4.2 mmol/L (3.5-5.1)
--- NOTE | 2024-06-21 10:17 | Discharge Summary ---
Date of Service June 21, 2024 Admission HPI Per Admitting Provider History obtained from patient, family, and records. Limited history from patient secondary to marked hearing impairment. Medical history significant for chronic diastolic heart failure (EF 55%, TTE 2024), hypertension, hyperlipidemia, valvular heart disease (moderate /MR, mild AR/TR), AAA status post repair (2009), paroxysmal atrial tachycardia, possible PE of anticoagulation secondary to bleeding, CRI (baseline creatinine of 2s), chronic anemia (baseline hemoglobin of 10), chronic thrombocytopenia, gout, bladder cancer, prostate cancer status post surgery/radiation, GERD, past tobacco abuse. Last [facility] confinement 2013 under General Surgery service for sigmoid colon perforation status post surgery. Four visits at [facility] since last month. 05/18 ER visit for dehydration. 05/22-05/28 Admission for respiratory failure, CHF, pneumonia and probable PE on VQ scan. Patient discharged on cefdinir Rx and Lovenox Coumadin bridge Rx 06/01-06/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 Stable aortic stent. Periumbilical hernia with herniated bowel loops without obvious incarceration. Kidneys diffusely thinned out. Mild bilateral perinephric stranding stable. Charlie's plaques noted bilateral kidney stable. Urinary bladder partially distended and showing radiodense focus size 1 mm at the bladder neck could be calculus new finding. Warfarin and Lovenox discontinued. Blood transfused with hemoglobin noted to be as low as 7.9. 06/10 ER visit for urinary retention issues. Patient discharged from ER after Jane catheter insertion and requested to follow-up with [facility] urologist. Patient appointment slated 2 weeks from now. Last night, patient noted increased hematuria and urinary retention. Achy abdominal pain without fever or chills. Patient denies chest pain, SOB. Patient brought to [facility] ER for evaluation. Jane catheter noted to drain after irrigation. Patient daughter uncomfortable taking patient home. Requesting inpatient urology evaluation. 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 Admission Exam Per Admitting Provider GENERAL: Comfortable, pleasant, hard of hearing, no respiratory distress SKIN: Pallor, warm HEENT: Pale palpebral conjunctivae, no ptosis, dry buccal mucosa NECK : Supple, no tenderness CHEST : Decreased breath sounds, no tenderness HEART : Bradycardic, systolic murmur ABDOMEN: Some distention, minimal hypogastric tenderness EXTREMITIES : No LE swelling/tenderness, palpable pulses, no other conspicuous deformities noted NEUROLOGIC : Coherent, no facial asymmetry, hard of hearing, gait and stance not assessed Principal Diagnosis Pseudomonas UTI, Jane catheter, hematuria Discharge Exam GENERAL: WD/WN elderly M, pleasant, hard of hearing, in NAD HEENT: NC/AT. EOMI NECK : Supple CHEST : Decreased breath sounds, no tenderness HEART : rrr, systolic murmur ABDOMEN: Soft, nontender EXTREMITIES : No LE swelling, + R hip tenderness with movement NEUROLOGIC : Coherent, no facial asymmetry, hard of hearing, gait and stance not assessed SKIN: warm, dry Discharge Data Allergies Allergy/AdvReac Type Severity Reaction Status Date / Time ibuprofen AdvReac Unknown diarrhea Verified 08/24/17 11:10 Consultations 06/15/24 04:17 ED Decision to Admit Stat 06/15/24 08:43 Consult Urology Routine 06/15/24 10:20 Consult Urology Routine Ordered Studies 06/15/24 05:22 CT Abd and Pelvis [CT abd pelvis wo con] Stat 06/16/24 07:00 CT Abd and Pelvis [CT abd pelvis wo con] Urgent 06/20/24 12:46 CT hip RT wo con Routine FINDINGS: Pelvic Bones: Pelvic bones, including the iliac wings, ischium, pubis, and sacrum, are normal and intact. No evidence of fractures, dislocations, or significant osseous lesions. Hip Joints: Bilateral hip joint degenerative osteoarthritic changes denoted by narrowed disc space , minute acetebular osteophytosis and subchondral sclerosis. Acetabular structures appear normal and intact. No signs of acetabular fracture or dysplasia. Femoral heads are normal and centered within the acetabulum. No evidence of fractures, avascular necrosis, or significant deformities. Sacroiliac joints chronic degenerative sacroilitis. Symphysis Pubis: Symphysis pubis is normal and intact. No evidence of separation or widening. Soft Tissues: Tiny calcific shadow seen related to both greater trochanters. A linear radio-opaque shadow seen at the right side of pelvis. Correlated with surgical data of patient. Additional Findings: An abdominal aortic endovascular stent extending into the bifurcation is seen. IMPRESSION: 1. No evidence of acute fractures, or dislocations. 2. Bilateral hip joint degenerative osteoarthritic changes. 3. Bilateral chronic degenerative sacroilitis. 4. Bilateral greater trochanter enthesopathy/calcific tendinitis. 5. Recommend clinical correlation and further evaluation if clinically warranted. DISCLAIMER:A subtle bone abnormality or fracture may not be readily apparent on x-rays, thus clinical correlation and further imaging including follow up CT, MRI, or follow up x-rays are advised as needed. Hospital Course (1) Hematuria: Hematuria Urinary retention s/p recent Jane catheter placement at [facility] hx bladder cancer hx prostate cancer status post surgery/radiation Patient currently hemodynamically stable Urology consult re: hematuria Per urology - plan for outpt follow up, scheduled on 06/28 Hgb ~ 10 Ucultx - posit. for pseudomonas - switched abx to cefepime Discussed w/ ID on 06/17 - as pt has aneurysm, not recommending fluoroquinolone, and recommends [address] abdomen pelvis Per product safety and standards engineer - Made aware of abnormal CT abdomen pelvis result Interval increase in diameter of dilated suprarenal abdominal aorta and increase in size of possible periaortic hematoma/aneurysm with metallic vascular stents in supra/infrarenal abdominal aorta and bilateral common iliac arteries. Suggested CT angiography for further evaluation. IV dye study precluded by kidney dysfunction. Dr. Mcgregor of Vascular surgery recommended I contact patient's [facility] vascular surgeons for guidance. Case discussed with Dr. Enamorado of [facility] vascular surgery.. Patient deemed to be a poor surgical candidate given age and comorbidities as per discussion. Dr. Enamorado recommends repeat noncontrast CTAP study after 24 hours. Patient daughter updated of developments over the phone. Palliative care recommended if repeat CT AP study shows progression of periaortic hematoma (possible aneurysm leak). Patient daughter agreeable to plan of care. Change level of care to med/tele. Patient CODE STATUS appropriately de-escalated to DNR after discussion. 06/[address] abd/pelvis w/o contrast IMPRESSION: 1. Infrarenal abdominal aortic aneurysm measuring ~ 7.3 x 8.2 x 6.8 cm in TV, AP and CC dimensions respectively. Metallic stents are seen involving the suprarenal and infrarenal aorta and extending into the iliac arteries. No significant periaortic stranding and no other findings to suggest interval bleed. CT angiography is however advised for better evaluation (unchanged). 2. Bilateral perinephric fat stranding with bilateral renal concretions and cortical cysts (unchanged). 3. Ventral wall hernia in infraumbilical region (unchanged). 4. Small sliding hiatus hernia (unchanged). Discussed w/ radiologist - no aneurysmal leak noted Also discussed w/ [facility] - he will arrange close outpt follow up w/ the pt R hip pain - no trauma, no fall - difficulty to walk/ bear wait on the hip - no erythema, edema noted - XR negative for fracture - discussed w/ pt, and w/ PT/OT therapists, pt uses "kidney belt" to help with his hip pain at home, on eval difficulty bearing weight on the leg, will obtain CT R hip CT hip - no acute fracture, follow up as outpt, pain control Chronic conditions: chronic diastolic heart failure (EF 55%, TTE 2024), equivocal volume status hypertension, stable hyperlipidemia, on statin Rx valvular heart disease (moderate /MR, mild AR/TR), outpatient cardio evaluation contemplated AAA status post repair (2009) paroxysmal atrial tachycardia possible PE of anticoagulation secondary to bleeding CRI, creatinine at baseline chronic anemia, hemoglobin at baseline Functional disability, recurrent admissions/ER visits past tobacco abuse Patient's daughter Ms. Jennifer Cotton, contact #[phone]. Total Time Total Time Spent Total Time Spent (In Minutes): 40 Discharge Plan Discharge Items Patient Disposition: Transfer Snf Fac Reason For Visit: HEMATURIA, POSS ANEURYSM LEAK Discharge Diagnosis: Pseudomonas UTI, Jane catheter, hematuria Activity: Per Instructions section Non-emergency contact: Primary Care Provider and Urologist Call non-emergency contact if: you have any medication questions and your symptoms worsen Follow-up/Referrals: Aleja Bryson MD [Primary Care Provider] - Diet: Heart Healthy Addtl Attending Provider Instructions: Follow up with your primary care doctor and urologist. The appointment with urology was scheduled for 06/28/2024. Finish antibiotic treatment with cefepime as prescribed. Pending Studies at Discharge: No Stand-Alone Forms: My [facility] Skilled Items Patient informed of condition?: Yes DNR: Yes Discharge Level of Care: Skilled Communicable Disease: No Discharge Prognosis: Stable Lines: Peripheral IV Urinary Catheter: Yes Medications and DC Order Prescriptions: New cefepime 1 gram recon soln 1 g IM Q12H Qty: 5 0RF tramadol 50 mg Tablet 25 mg PO Q4H PRN (Reason: pain) Qty: 7 0RF Advanced Probiotic 625 mg (10 billion cell) Capsule 1 cap PO DAILY Qty: 7 0RF sodium bicarbonate 650 mg Tablet 650 mg PO TID Qty: 30 0RF diclofenac sodium [Voltaren Arthritis Pain] 1 % Gel 2 g EXT BID PRN (Reason: hip pain) Qty: 100 0RF metoprolol tartrate 25 mg Tablet 12.5 mg PO AMHS Qty: 14 0RF Continued furosemide 20 mg tablet 20 mg PO QAM dapagliflozin propanediol [Farxiga] 10 mg tablet 10 mg PO QAM atorvastatin 80 mg tablet 80 mg PO HS allopurinol 100 mg tablet 200 mg PO QAM ferrous sulfate 325 mg (65 mg iron) tablet 325 mg PO Q OTHER DAY cholecalciferol (vitamin D3) [Vitamin D3] 25 mcg (1,000 unit) Tablet 50 mcg PO DAILY Discontinued sodium bicarbonate 650 mg tablet 650 mg PO BID metoprolol tartrate 25 mg tablet 25 mg PO AMHS Discharge Orders: Discharge Order (Routine); Ordered 06/21/24 Ordered By: Kristopher Cabrera Admission Data Admit Date/Time: 06/15/24 14:52 Attending Provider: Kristopher Cabrera Admit Provider: Rylan Avelar Primary Care Provider: Aleja Brysno Other Providers: Patrice Nogueira; Cheryl Emerson; Jorge Alberto Cisse; Anna Darnell Melissa A.; Misael Khan; Lavern Spencer; Matthieu Araujo; Maurice Field; Wenceslao Pink; Rylan Avelar
[2024-06-21 11:01] VITALS: PULSE 67; RESP 20; TEMP 98.4; O2SAT 95
[2024-06-21 11:23] VITALS: BP 105/60
--- NOTE | 2024-06-27 06:11 | Coding Query ---
CODING QUERY To promote full compliance with coding requirements relating to patient care, provider participation is requested in all cases of homicide squad commanding officer uncertainty. Please assist us with the question(s) below: In the record, it states that the patient has an UTI. Please clarify below the cause of the UTI if applicable. Thank you. ( x ) The chronic ballesteros was the cause of the UTI. ( ) Other urinary cath/device was the cause of the UTI. ( ) UTI, unspecified cause. ( ) Self-catheterization was the cause of the UTI. ( ) Other (Specify): Principal Diagnosis: "that condition established after study, to be chiefly responsible for occasioning the admission of the patient to the hospital for care." Co-Existing Principal Diagnosis: "when two or more diagnoses equally meet the criteria for principal diagnosis as determined by the circumstances of admission, diagnostic work up, and/or therapy provided, and the Alphabetic Index, Tabular List, or another coding guideline does not provide sequencing direction, any one of the diagnoses may be sequenced first." "When the physician has documented what appears to be a current diagnosis in the body of the record, but has not included the diagnosis in the final diagnostic statement, the physician should be asked whether the diagnosis should be added." (Source Coding [facility] 2 QTR90. p3-4) ARIADNE
== END 2024-06-21 14:25 | DRG 699 ==
LOC: ED 01:15 → EDINP 01:15 → 2W 10:20

== ENCOUNTER 2024-08-10 12:19 | Inpatient (IN) ==
--- NOTE | 2024-08-10 12:45 | Emergency Department Note ---
Impression & Plan Symptomatic anemia, Complicated urinary tract infection, DHAVAL (acute kidney injury), Acute dehydration ED Provider Note NAME: MITCHEL ALMAGUER AGE: 88 SEX: M : 1935 ARRIVES VIA: Walk-In INFORMANT: Patient, , Dr. Cisse ED PROVIDER(S): Homero Valadez MD CHIEF COMPLAINT: Anemia, weakness, outpatient referral MEDICAL DECISION MAKING: Patient presents today due to concern for low blood counts. IV was established and blood work was obtained. Patient did receive 500 of IV fluids. Patient's hemoglobin is 5. Patient was consented and ordered 2 units PRBCs. Chest x-ray unremarkable. Patient's platelet count is unremarkable. Kidney function with DHAVAL. Patient receiving IV fluids as well as blood. I did inform the patient of the findings. Routine neurology consult made and I did speak with the on-call hospitalist service Paola Vargas PA-C and the patient was admitted by Dr. Coley. Patient's urinalysis from this from yesterday was likely positive for UTI. In light of the patient's most recent urine culture I did order IV Rocephin. Critical Care: I have personally spent 48 minutes of critical care time in direct management of this patient. This includes bedside care, interpretation of diagnostic studies, and testing, discussion with consultants, patient, and family members, and other require inpatient management activities. This 48 minutes is in excess of all separately billable procedures. Discussion w/ other healthcare providers: Paola Vargas PA-C and Dr. Coley Prior /Outside records reviewed: I reviewed her most recent neurology visit from Dr. Cisse from August 08. Patient was there with a known prior history of bladder cancer and lesions in the patient also also had prior prostate cancer status post radiation therapy. 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 Moderate amount of blood clot seen at the base of the bladder. Differential diagnosis: Infection, dehydration, metabolic abnormality, hypo/hyperglycemia, electrolyte imbalance, anemia, UTI, pneumonia, thyroid dysfunction among others were considered. Diagnostics, as interpreted by me: ECG:Normal sinus rhythm, rate of 64, normal intervals, normal axis T wave inversion in lead III. No obvious STEMI. Cardiac monitoring: An order was placed for continuous cardiac monitoring. The monitor shows a rate of 72 with sinus rhythm. Patient was placed on pulse oximetry Medical decision rules: None Imaging studies: I informally interpreted the patient's chest x-ray does not show obvious pneumonia or pneumothorax with formal report to follow. HPI: Prior to arrival I did receive a phone call from Dr. Cisse reported that the patient did have cystoscopy yesterday with mild oozing noted the patient had outpatient blood work completed. He was informed of the finding and then called the patient noted that the hemoglobin was less than 6. Patient reportedly is not actively taking blood thinning medications. Patient is without chest pains or shortness of breath with the patient has had increasing weakness and fatigue. The patient has had blood in the urine. Patient denies any bloody stools or dark stools. Patient reportedly has had poor appetite not eating or drinking very much. Patient is taking a chronic antibiotic per patient's . PAST MEDICAL HISTORY: See Below PAST SURGICAL HISTORY: See Below SOCIAL HISTORY: See Below HOME MEDICATIONS: See Below ALLERGIES: See Below VITALS: See Below PHYSICAL EXAMINATION: GENERAL: NAD, non-toxic. Somewhat pale in appearance. EYE EXAM: Normal conjunctiva. PERRL, no anisocoria and EOM's grossly intact w/o pain. OROPHARYNX: Moist mucus membranes, grossly normal dentition. NECK: Trachea midline, no stridor. LUNGS: Clear to auscultation. Normal chest wall mechanics. HEART: NSR, systolic ejection murmur. ABDOMEN: Abdomen soft, non-tender, no masses, no rebound or guarding. BACK: No CVA TTP. SKIN: No rashes and no bruising. UPPER EXTREMITIES: Upper extremities are grossly normal. LOWER EXTREMITIES: Grossly normal, no edema. NEURO EXAM: Awake and alert, follows commands, no obvious facial asymmetry, normal speech, moves all 4 extremities. Past Med/Surg History Problem List (Updated 08/10/24 @ 14:08 by Homero Valadez MD) Acute dehydration (Acute) DHAVAL (acute kidney injury) (Acute) Complicated urinary tract infection (Acute) Symptomatic anemia (Acute) UTI (urinary tract infection), bacterial Gross hematuria (Acute) CKD stage 4 secondary to hypertension Hematuria Prostate cancer Bladder cancer Perforated sigmoid colon (Acute 12/08/13) Renal failure (Acute) Renal failure (Acute) Social History Smoking Status: Former smoker Hx Alcohol Use: No Hx Substance Use: No Preferred Language: Belizean Communication Ability: Impaired Claim Specialist Required: No Beliefs That Will Affect Care: None Current Living Situation: Family Current Living Situation Comment: Patient just moved in with his Daughter Feels Safe at Home: Yes Assistive Devices: Cane Allergies Allergies Allergy/AdvReac Type Severity Reaction Status Date / Time ibuprofen AdvReac Unknown diarrhea Verified 08/24/17 11:10 Home Meds Home Medications Medication Instructions Recorded Confirmed allopurinol 100 mg tablet 200 mg PO UD 06/15/24 08/10/24 atorvastatin 80 mg tablet 80 mg PO HS 06/15/24 08/10/24 cholecalciferol (vitamin D3) 25 50 mcg PO DAILY 06/15/24 08/10/24 mcg (1,000 unit) tablet (Vitamin D3) dapagliflozin propanediol 10 mg 10 mg PO UD 06/15/24 08/10/24 tablet (Farxiga) ferrous sulfate 325 mg (65 mg 325 mg PO UD 06/15/24 08/10/24 iron) tablet furosemide 20 mg tablet 20 mg PO QAM 06/15/24 08/10/24 linezolid 600 mg tablet 600 mg PO DAILY 08/09/24 08/10/24 metoprolol tartrate 25 mg tablet 12.5 mg PO UD 08/10/24 08/10/24 sodium bicarbonate 650 mg tablet 650 mg PO UD 08/10/24 08/10/24 tramadol 50 mg tablet 25 mg PO UD PRN pain 08/10/24 08/10/24 trazodone 50 mg tablet 25 mg PO HS PRN restlessness 08/10/24 08/10/24 Previous Rx's Medication Instructions Recorded L.acidop,casei,lactis,rham-B.lact,aranza 1 cap PO DAILY #7 caps 06/21/24 625 mg (10 billion cell) capsule (Advanced Probiotic) diclofenac sodium 1 % topical gel 2 g EXT BID PRN hip pain #100 grams 06/21/24 (Voltaren Arthritis Pain) Results & Data (ED) Vital Signs Vital Signs - 24 hr 08/10/24 12:21 08/10/24 12:31 08/10/24 12:36 Temperature 36.6 C Temperature Source Temporal Artery Scan Pulse Rate 64 64 63 Pulse Rate [Right Finger] Pulse Rate from SpO2 Sensor 64 Pulse Rhythm Pulse Rhythm [Right Finger] Pulse Strength Normal Pulse Strength [Right Finger] Respiratory Rate 16 20 Respiratory Effort / Characteristics Non-Labored Spontaneous Respiratory Depth Normal Respiratory Pattern Regular Blood Pressure 85/37 L 101/54 L Blood Pressure [Right Arm] Blood Pressure Mean 53 69 Blood Pressure Mean [Right Arm] Blood Pressure Position Sitting Blood Pressure Position [Right Arm] Pulse Oximetry 99 99 Oxygen Delivery Method Room Air Sepsis Recent Fever Within 48 Hours No Sepsis New/Unexplained Change in Mental Status No Sepsis Action Taken by Nursing No Action Required 08/10/24 12:44 08/10/24 13:00 08/10/24 13:30 Temperature Temperature Source Pulse Rate 65 67 Pulse Rate [Right Finger] 69 Pulse Rate from SpO2 Sensor Pulse Rhythm Regular Pulse Rhythm [Right Finger] Regular Pulse Strength Pulse Strength [Right Finger] Normal Respiratory Rate 18 20 18 Respiratory Effort / Characteristics Non-Labored Spontaneous Respiratory Depth Normal Respiratory Pattern Regular Blood Pressure 104/57 L Blood Pressure [Right Arm] 110/57 L Blood Pressure Mean 77 Blood Pressure Mean [Right Arm] 74 Blood Pressure Position Blood Pressure Position [Right Arm] Sitting Pulse Oximetry 99 99 96 Oxygen Delivery Method Room Air Room Air Room Air Sepsis Recent Fever Within 48 Hours Sepsis New/Unexplained Change in Mental Status Sepsis Action Taken by Usp Medications Current Medication List: was personally reviewed by me Laboratory Data Attestation: I reviewed the patient's lab results. 08/10/24 12:33 08/10/24 12:33 Lab Results 08/10/24 Range/Units 12:33 WBC 10.48 (4.8-10.8) K/ul RBC 1.88 L (4.70-6.10) M/uL Hgb 5.5 L* (14.0-18.0) g/dl Hct 17.2 L* (42.0-52.0) % MCV 91.5 (80.0-100.0) fL MCH 29.3 (25.0-34.0) pg MCHC 32.0 (32.0-36.0) g/dL RDW Std Deviation 55.9 H (36.4-46.3) fL RDW Coeff of Misha 16.8 H (11.5-14.5) % Plt Count 135 (130-400) K/uL MPV 12.0 (9.4-12.4) fL Immature Gran % (Auto) 0.4 % Neut % (Auto) 85.4 % Lymph % (Auto) 9.9 % [place] % (Auto) 3.9 % Eos % (Auto) 0.1 % Baso % (Auto) 0.3 % Neut # (Auto) 8.95 H (1.40-6.50) K/uL Lymph # (Auto) 1.04 L (1.20-3.40) K/uL [place] # (Auto) 0.41 (0.11-0.59) K/uL Eos # (Auto) 0.01 (0.00-0.50) K/uL Baso # (Auto) 0.03 (0.00-0.20) K/uL Immature Gran # (Auto) 0.04 (0.01-0.20) K/uL Anisocytosis Present Tear Drop Cells 1+ Ovalocytes 1+ Sodium 133 L (136-145) mmol/L Potassium 5.1 (3.5-5.1) mmol/L Chloride 104 (98-107) mmol/L Carbon Dioxide 21 (21-32) mmol/L Anion Gap 8 (3-11) BUN 71 H (6-23) mg/dl Creatinine 4.24 H (0.6-1.4) mg/dl Est Cr Clr Drug Dosing Not Reportable eGFR 12.95 BUN/Creatinine Ratio 16.7 (10-20) Glucose 124 H (70-99(Fasting)) mg/dl Calcium 8.7 (8.6-10.3) mg/dl Magnesium 2.3 (1.7-2.4) mg/dl Total Bilirubin 0.5 (0.2-1.0) mg/dl AST 25 (13-39) U/L ALT 18 (7-52) U/L Alkaline Phosphatase 79 (34-104) U/L Total Protein 5.4 L (6.0-8.3) gm/dl Albumin 3.3 L (3.4-5.0) gm/dl Globulin 2.1 L (2.5-4.0) gm/dl Albumin/Globulin Ratio 1.6 (0.9-2) TSH 2.317 (0.300-4.500) uIu/ml Blood Type A Positive Antibody Screen NEGATIVE Crossmatch See Detail Administered Medications Discontinued Medications Sodium Chloride (Nss) 500 mls @ 999 mls/hr IV .Q31M [facility] Stop: 08/10/24 13:15 Last Admin: 08/10/24 13:09 Dose: 999 mls/hr Documented By: [facility] [place] Imaging Data Radiologist's Impression: Chest X-Ray 08/10/24 12:44 XR chest 1V portable CLINICAL HISTORY: weakness COMPARISON STUDY: 06/15/2024 FINDINGS: Heart size and pulmonary vasculature are normal. No effusion, consolidation, or pneumothorax. IMPRESSION: No acute findings. ACT 112: Negative or not required by law. Electronically signed by: Rashard Melton M.D. 08/10/2024 1:10 PM Discharge Plan Visit Data Chief Complaint: Referred by Doctor Stated Complaint: REFERRED BY DOC, ABNORMAL LABS ED Provider: Homero Valadez Discharge Problem: Symptomatic anemia, Complicated urinary tract infection, DHAVAL (acute kidney injury), Acute dehydration Patient Disposition: Admitted As Inpatient Condition: Fair Forms Stand Alone Forms: [facility] Prescriptions Prescriptions: No Action linezolid 600 mg tablet 600 mg PO DAILY trazodone 50 mg tablet 25 mg PO HS PRN (Reason: restlessness) tramadol 50 mg tablet 25 mg PO UD PRN (Reason: pain) Rx Instructions: 25 mg po q4h prn. No fill history available unable to verify sodium bicarbonate 650 mg tablet 650 mg PO UD Rx Instructions: original: 650 mg po tid. Fill history directions: 650 mg po bid. metoprolol tartrate 25 mg tablet 12.5 mg PO UD Rx Instructions: original:12.5mg po amhs. last filled 05/02 90 day supply as "1 tablet po bid" furosemide 20 mg tablet 20 mg PO QAM dapagliflozin propanediol [Farxiga] 10 mg tablet 10 mg PO UD Rx Instructions: 10 mg po qam. last filled 05/30/24 30 day supply atorvastatin 80 mg tablet 80 mg PO HS Rx Instructions: last filled 05/13 90 day supply allopurinol 100 mg tablet 200 mg PO UD Rx Instructions: 200 mg po qam. last filed 05/13 30 day supply ferrous sulfate 325 mg (65 mg iron) tablet 325 mg PO UD Rx Instructions: 325mg po q other day. last filled 05/28/24 30 day supply cholecalciferol (vitamin D3) [Vitamin D3] 25 mcg (1,000 unit) Tablet 50 mcg PO DAILY Rx Instructions: 08/10-otc unable to verify Advanced Probiotic 625 mg (10 billion cell) Capsule 1 cap PO DAILY Qty: 7 0RF Rx Instructions: 08/10-otc unable to verify diclofenac sodium [Voltaren Arthritis Pain] 1 % Gel 2 g EXT BID PRN (Reason: hip pain) Qty: 100 0RF Rx Instructions: 08/10-otc/no fill history unable to verify Referrals Referrals: Aleja Bryson MD [Primary Care Provider] -
[2024-08-10 13:00] LABS: Hematocrit (blood only) 17.2 % (42.0-52.0); Hemoglobin 5.5 g/dl (14.0-18.0)
[2024-08-10 13:01] LABS: Mean Corpuscular Hemoglobin 29.3 pg (25.0-34.0); Mean Corpuscular Volume 91.5 fL (80.0-100.0); Platelet Count 135 K/uL (130-400); RDW Coefficient of Variation 16.8 % (11.5-14.5); RDW Standard Deviation 55.9 fL (36.4-46.3); Red Blood Count 1.88 M/uL (4.70-6.10); White Blood Count 10.48 K/ul (4.8-10.8)
[2024-08-10] MEDS: SODIUM CHLORIDE 0.9% 500 ML IV SCH (13:09)
[2024-08-10] MEDS ORDERED: SODIUM CHLORIDE 0.9% 100 ML IV PRN (13:09)
--- NOTE | 2024-08-10 13:11 | XRay Report ---
XR chest 1V portable CLINICAL HISTORY: weakness COMPARISON STUDY: 06/15/2024 FINDINGS: Heart size and pulmonary vasculature are normal. No effusion, consolidation, or pneumothora x. IMPRESSION: No acute findings. ACT 112: Negative or not required by law. Electronically signed by: Rashard Melton M.D. 08/10/2024 1:10 PM
[2024-08-10 13:22] LABS: Anisocytosis Present; Basophils # (auto) 0.03 K/uL (0.00-0.20); Basophils % (auto) 0.3 %; Eosinophils # (auto) 0.01 K/uL (0.00-0.50); Eosinophils % (auto) 0.1 %; Immature Granulocytes # (auto) 0.04 K/uL (0.01-0.20); Immature Granulocytes % (auto) 0.4 %; Lymphocytes # (auto) 1.04 K/uL (1.20-3.40); Lymphocytes % (auto) 9.9 %; Monocytes # (auto) 0.41 K/uL (0.11-0.59); Monocytes % (auto) 3.9 %; Neutrophils # (auto) 8.95 K/uL (1.40-6.50); Neutrophils % (auto) 85.4 %; Ovalocytes 1+; Tear Drop Cells 1+
[2024-08-10 13:28] LABS: Alanine Aminotransferase 18 U/L (7-52); Albumin Globulin Ratio 1.6 (0.9-2); Albumin Level 3.3 gm/dl (3.4-5.0); Alkaline Phosphatase 79 U/L (34-104); Anion Gap 8 (3-11); Aspartate Aminotransferase 25 U/L (13-39); BUN Creatinine Ratio 16.7 (10-20); Bilirubin,Total 0.5 mg/dl (0.2-1.0); Blood Urea Nitrogen 71 mg/dl (6-23); Calcium 8.7 mg/dl (8.6-10.3); Carbon Dioxide 21 mmol/L (21-32); Chloride 104 mmol/L (98-107); Globulin 2.1 gm/dl (2.5-4.0); Glucose 124 mg/dl (70-99(Fasting)); Magnesium 2.3 mg/dl (1.7-2.4); Potassium 5.1 mmol/L (3.5-5.1); Sodium 133 mmol/L (136-145); Total Protein 5.4 gm/dl (6.0-8.3)
[2024-08-10 13:41] LABS: Thyroid Stimulating Hormone 2.317 uIu/ml (0.300-4.500)
[2024-08-10] MEDS: cefTRIAXone SODIUM 2,000 MG/50 ML BAG IV STA (13:59)
--- NOTE | 2024-08-10 14:00 | History & Physical Report ---
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 Moderate amount of blood clot seen in the base of the bladder. Visualization limited secondary to hematuria. No severe or significant bleeding discovered however multiple areas of likely inflammatory versus radiation cystitis bleeding." Per outpatient urine culture on 07/27/24: 10,000-100,000 colonies Enterococcus faecium VRE resistant to vancomycin, ampicillin, and tetracycline 08/03/24 prescribed Linezolid for 10 day course. Today is day 7. In ER afebrile, P: 64, R: 16, BP 85/37, 99% on room air No leukocytosis H/H: 5.5/17 (hgb: 10.8 on 07/25/24) CT abd/pelvis: 1. 6.4 x 3.1 cm hyperdense focus within the dependent aspect of the bladder suggestive of clot. No definite mass however an underlying bladder lesion cannot be excluded by CT. 2. Status post placement of a bifurcated aortoiliac stent graft. Stable postprocedural findings on unenhanced exam. 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 No evidence for rupture. 3. No retroperitoneal hematoma. No hemoperitoneum. In ER given 500ml NSS, Rocephin repeat vitals: P: 69, BP: 110/57, R: 18, 96% on RA In ER typed and crossed and 2 units PRBCs ordered H&H Q6H Will need to follow outpatient urine culture from 08/09/24 and todays urine culture Will continue home Linezolid for 3 additional days to complete 10 day course. CBC, BMP in am (4) Acute kidney injury superimposed on CKD: Plan: BUN: 71. Cr: 4.2 (was 3.8 on 08/09/24, 2.4 on 06/07/24) Hold home Lasix, Farxiga Monitor renal functions (5) HTN (hypertension): Plan: Hypotensive in ER improved after IVF and is receiving PRBCs Continue home metoprolol tartrate with holding parameters (6) HLD (hyperlipidemia): Plan: Continue atorvastatin DVT Prophylaxis SCDs Admit PCU DNR/DNI as per discussion with pt Follows with Dr Bryson for routine care Pt was seen and care coordinated with Dr Coley. See addendum I spent a total of 77 minutes reviewing notes, outpatient records, labs, m edication, coordinating, documenting and providing care for this patient excluding time spent in the performance of separately billed services and excluding time spent by another provider/QHP. History of Present Illness Chief Complaint: abnormal labs Primary Care Provider: Aleja Bryson MD Patient is 88-year-old male with PMH HTN, dyslipidemia, bladder cancer, prostate cancer s/p prostatectomy and radiation, chronic HFpEF, moderate aortic stenosis, AAA s/p repair 2009, CKD IV, hyperparathyroidism, history PE, gout and others listed below presented to ER for abnormal outpatient labs yesterday - low hemoglobin. Patient reports has been having ongoing gross hematuria for past several weeks. Has chronic urinary urgency. He feels like he is emptying his bladder. 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 Moderate amount of blood clot seen in the base of the bladder. Visualization limited secondary to hematuria. No severe or significant bleeding discovered however multiple areas of likely inflammatory versus radiation cystitis bleeding." Had outpatient labs on 08/09/24 and H/H: 5.12/24 and was referred to ER today. Per outpatient urine culture on 07/27/24: 10,000-100,000 colonies Enterococcus faecium VRE resistant to vancomycin, ampicillin, and tetracycline 08/03/24 prescribed Linezolid for 10 day course. Today is day 7. Patient reports "feels rough like he can't relax" and feels weak. Denies abdominal pain. States pain to mid back with standing. C/O chronic bilateral knee pain. Denies fever/chills, RUGGIERO, dizziness, CP, SOB, N/V/D/C, palpitations, cough, extremity edema, rashes, dysuria. Allergies Allergy/AdvReac Type Severity Reaction Status Date / Time ibuprofen AdvReac Unknown diarrhea Verified 08/24/17 11:10 Home Medications Medication Instructions Recorded Confirmed Type allopurinol 100 mg tablet 200 mg PO DAILY 06/15/24 08/10/24 History atorvastatin 80 mg tablet 80 mg PO HS 06/15/24 08/10/24 History cholecalciferol (vitamin D3) 25 50 mcg PO DAILY 06/15/24 08/10/24 History mcg (1,000 unit) tablet (Vitamin D3) dapagliflozin propanediol 10 mg 10 mg PO DAILY 06/15/24 08/10/24 History tablet (Farxiga) ferrous sulfate 325 mg (65 mg 325 mg PO Q2D 06/15/24 08/10/24 History iron) tablet furosemide 20 mg tablet 20 mg PO QAM 06/15/24 08/10/24 History L.acidop,casei,lactis,rham-B.lact,aranza 1 cap PO DAILY #7 caps 06/21/24 08/10/24 Rx 625 mg (10 billion cell) capsule (Advanced Probiotic) diclofenac sodium 1 % topical gel 2 g EXT BID PRN hip pain #100 grams 06/21/24 08/10/24 Rx (Voltaren Arthritis Pain) linezolid 600 mg tablet 600 mg PO BID 08/09/24 08/10/24 History metoprolol tartrate 25 mg tablet 12.5 mg PO BID 08/10/24 08/10/24 History sodium bicarbonate 650 mg tablet 650 mg PO BID 08/10/24 08/10/24 History trazodone 50 mg tablet 25 mg PO HS PRN Insomnia 08/10/24 08/10/24 History Past Med/Surg History Problem List Acute kidney injury superimposed on CKD Acute on chronic anemia Acute dehydration (Acute) DHAVAL (acute kidney injury) (Acute) Complicated urinary tract infection (Acute) Symptomatic anemia (Acute) UTI (urinary tract infection), bacterial Gross hematuria (Acute) CKD stage 4 secondary to hypertension Hematuria Prostate cancer Bladder cancer Perforated sigmoid colon (Acute 12/08/13) Renal failure (Acute) Renal failure (Acute) Medical History HLD (hyperlipidemia) HTN (hypertension) Surgical History History of cystoscopy History of colonoscopy S/P AAA repair 12/04/2009. Endovascular AAA repair with cook zenith stent graft. Dr Lara. Family History Mother Alzheimer disease Social History Smoking Status: Former smoker Hx Alcohol Use: No Hx Substance Use: No Preferred Language: Romanian Communication Ability: Impaired Tectonophysicist Required: No Beliefs That Will Affect Care: None Current Living Situation: Family Current Living Situation Comment: Patient just moved in with his Daughter Feels Safe at Home: Yes Assistive Devices: Cane Review of Systems Review of Systems: All systems reviewed & are unremarkable except as noted in HPI & below Physical Exam Physical Exam: PE per Dr Coley Results & Data Results & Data Vital Signs (Past 12 Hours) Vital Signs Temp Pulse Pulse Resp BP BP Pulse Ox 08/10/24 13:30 69 18 110/57 L 96 08/10/24 13:00 67 20 104/57 L 99 08/10/24 12:44 65 18 99 08/10/24 12:36 63 20 101/54 L 99 08/10/24 12:31 64 08/10/24 12:21 36.6 C 64 16 85/37 L 99 O2 Del Method 08/10/24 13:30 Room Air 08/10/24 13:00 Room Air 08/10/24 12:44 Room Air 08/10/24 12:36 08/10/24 12:31 08/10/24 12:21 Room Air Laboratory Results Short CBC 08/10/24 Range/Units 12:33 WBC 10.48 (4.8-10.8) K/ul Hgb 5.5 L* (14.0-18.0) g/dl Hct 17.2 L* (42.0-52.0) % Plt Count 135 (130-400) K/uL BMP 08/10/24 12:33 Sodium 133 L Potassium 5.1 Chloride 104 Carbon Dioxide 21 BUN 71 H Creatinine 4.24 H Glucose 124 H Calcium 8.7 Liver Function 08/10/24 Range/Units 12:33 Total Bilirubin 0.5 (0.2-1.0) mg/dl AST 25 (13-39) U/L ALT 18 (7-52) U/L Alkaline Phosphatase 79 (34-104) U/L Albumin 3.3 L (3.4-5.0) gm/dl Diagnostic Findings Chest X-Ray 08/10/24 12:44 XR chest 1V portable CLINICAL HISTORY: weakness COMPARISON STUDY: 06/15/2024 FINDINGS: Heart size and pulmonary vasculature are normal. No effusion, consolidation, or pneumothorax. IMPRESSION: No acute findings. ACT 112: Negative or not required by law. Electronically signed by: Rashard Melton M.D. 08/10/2024 1:10 PM Abdomen/Pelvis CT 08/10/24 14:18 CT OF THE ABDOMEN AND PELVIS WITHOUT CONTRAST CLINICAL HISTORY: DHAVAL, anemia h/o AAA COMPARISON STUDY: CT of the abdomen and pelvis June 16, 2014. TECHNIQUE: Axial images of the abdomen and pelvis were obtained without IV contrast. Images were reviewed in the axial, sagittal, and coronal planes. Automated exposure control was utilized for the study. A dose lowering technique was utilized adhering to the principles of ALARA. FINDINGS: Aortoiliac stent graft is in place. This is suboptimally assessed on unenhanced exam but there is no adjacent hemorrhage to suggest rupture. The appearance of the infrarenal aneurysm sac measuring 7.8 x 7.6 cm is unchanged since CT of June 16, 2024. This contains multifocal coil/embolic material. 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 There is no retroperitoneal hematoma. No hemoperitoneum is present. A 6.4 x 3.1 cm hyperdense focus within the dependent aspect of the bladder suggests clot. Unenhanced images of the liver, spleen, adrenal glands and pancreas are unremarkable. There is marked bilateral renal cortical thinning. There are numerous bilateral renal calculi. Water attenuation bilateral renal lesions are suboptimally assessed but favor cysts. There is no evidence for a bowel obstruction. No acute fractures within the lumbar spine, pelvis or hips are identified. There is no lymphadenopathy. No free fluid. IMPRESSION: 1. 6.4 x 3.1 cm hyperdense focus within the dependent aspect of the bladder suggestive of clot. No definite mass however an underlying bladder lesion cannot be excluded by CT. 2. Status post placement of a bifurcated aortoiliac stent graft. Stable postprocedural findings on unenhanced exam. 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 No evidence for rupture. 3. No retroperitoneal hematoma. No hemoperitoneum. ACT 112: Negative or not required by law. Electronically signed by: Peter Andre M.D. 08/10/2024 2:56 PM Supervising Physician Co-Signing Physician Notes Presents due to low Hb after recent Cystoscopy on 08/08/24 for his hematuria/bladder cancer mgt by Urology Reports weakness, persistent hematuria, chronic joint pains Denied any urinary obstruction On exam, General: Elderly man in no distress Eyes: +pallor ENMT: +Hearing deficits Respiratory: Normal respiratory effort, no respiratory distress, lungs clear to auscultation, no crackles and no wheezes Cardiovascular: RRR, +systolic murmur Gastrointestinal (Abdomen): Abdomen is not distended, soft, non-tender to palpation, no guarding, no palpable hepatosplenomegaly, normal bowel sounds Musculoskeletal: No pedal edema Genitourinary: No CVA tenderness Neurologic: Alert and oriented to person, place and year, No focal weakness Psychiatric: Euthymic affect Acute on chronic blood loss anemia Acute on chronic kidney disease Hb is 5.5 Transfuse prn to keep Hb >[address] Abd/Pelvis from June which also noted AAA. In view of anemia and worsened renal function, will get CT A/P w/o contrast to reeval Discussed with Urology SUPPORT SERVICES SPECIALIST who noted patient had oozing from recent Cystoscopy from 2 days ago. Will keep NPO PMN for possible Urology procedure Recent Urine culture from outpatient on 07/27/24 grew VRE enterococcus and patient was started on Linezolid. Continue that for now and follow up outpatient Urine culture from 08/09/24 as well from this admission. Hold home lasix and monitor renal function. Agree with other plans as detailed by Paola Almaraz PA-C I spent a total of 40 minutes coordinating, documenting and providing care for this patient excluding time spent in performance of separately billed services
[2024-08-10 14:40] LABS: iSTAT Hemoglobin 5.4 g/dl (14.0-18.0); iSTAT Ionized Calcium 1.19 mmol/l (1.12-1.32)
--- NOTE | 2024-08-10 14:55 | Urology Consultation ---
Date of Consultation August 10, 2024 Assessment & Plan (1) Hematuria: (2) Symptomatic anemia: (3) Prostate cancer: (4) Bladder cancer: (5) Acute kidney injury superimposed on CKD: 88-year-old male with history of prostate cancer status post prostatectomy and radiation as well as his bladder cancer who was referred to the emergency department for abnormal outpatient labs with hemoglobin of 5.9. He was admitted for symptomatic anemia (hgb 5.5), complicated UTI, and DHAVAL. Patient currently afebrile; hypotension improved with fluid resuscitation Labs reviewedcreatinine 4.24 (baseline ~1.9-2.3), WBC 10.48, hemoglobin 5.5, hematocrit 17.2 Patient is ordered for 2 units of PRBCscontinue to trend H&H and transfuse as necessary Recommend collect UA and urine culture Urine culture from 08/09 is prelim with no growth Received ceftriaxone in ED CT abdomen pelvis shows a 6.4 x 3.1 cm presents focus within the dependent aspect of the bladder suggestive of clot Patient is voiding spontaneouslyrecommend monitor voiding and bladder scan as needed If patient is unable to void or has elevated PVR, then recommend placement of Jane catheter Nursing can manually irrigate catheter as needed for clot obstruction Will make patient n.p.o. at midnight for consideration of cystoscopy with possible biopsy, possible clot evacuation and fulguration if he is medically stable Continue supportive care and medical management per hospital medicine service Case discussed with Dr. Cisse will follow, please contact service with any questions or changes in clinical status History of Present Illness Reason for Consultation: hematuria Requesting Physician: Dr. Valadez Attending Physician: Dr. Coley History of Present Illness This is an 88-year-old male who follows with urology for history of prostate cancer status post prostatectomy followed by radiation and bladder cancer. He underwent office cystoscopy on 08/08/[address] 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 No severe significant bleeding discovered however multiple areas of likely inflammatory versus radiation cystitis bleeding. He was referred to the emergency department today by Dr. Cisse due to abnormal outpatient labs on 08/09/2024 with H&H of 5.9/20. On arrival to ED, he was afebrile, hypotensive. Lab work showed creatinine 4.24, WBC 10.48, hemoglobin 5.5, hematocrit 17.2. ED course: IV fluids, Roceph in. He is ordered to have CT A/P by hospital medicine service. Urology is consulted for hematuria. Patient seen and examined in the emergency department. He is awake and resting in litter. He reports hematuria for the past several weeks, occasional clots. Feels like he is emptying his bladder okay. Notes urgency at times. Reports feeling weak at home. Denies abdominal pain. He has some back pain with standing. No fever or chills. Allergies Allergy/AdvReac Type Severity Reaction Status Date / Time ibuprofen AdvReac Unknown diarrhea Verified 08/24/17 11:10 Home Medications Medication Instructions Recorded Confirmed Type allopurinol 100 mg tablet 200 mg PO DAILY 06/15/24 08/10/24 History atorvastatin 80 mg tablet 80 mg PO HS 06/15/24 08/10/24 History cholecalciferol (vitamin D3) 25 50 mcg PO DAILY 06/15/24 08/10/24 History mcg (1,000 unit) tablet (Vitamin D3) dapagliflozin propanediol 10 mg 10 mg PO DAILY 06/15/24 08/10/24 History tablet (Farxiga) ferrous sulfate 325 mg (65 mg 325 mg PO Q2D 06/15/24 08/10/24 History iron) tablet furosemide 20 mg tablet 20 mg PO QAM 06/15/24 08/10/24 History L.acidop,casei,lactis,rham-B.lact,aranza 1 cap PO DAILY #7 caps 06/21/24 08/10/24 Rx 625 mg (10 billion cell) capsule (Advanced Probiotic) diclofenac sodium 1 % topical gel 2 g EXT BID PRN hip pain #100 grams 06/21/24 08/10/24 Rx (Voltaren Arthritis Pain) linezolid 600 mg tablet 600 mg PO BID 08/09/24 08/10/24 History metoprolol tartrate 25 mg tablet 12.5 mg PO BID 08/10/24 08/10/24 History sodium bicarbonate 650 mg tablet 650 mg PO BID 08/10/24 08/10/24 History trazodone 50 mg tablet 25 mg PO HS PRN Insomnia 08/10/24 08/10/24 History Patient History Medical History HLD (hyperlipidemia) HTN (hypertension) Surgical History History of cystoscopy History of colonoscopy S/P AAA repair 12/04/2009. Endovascular AAA repair with cook zenith stent graft. Dr Lara. 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 Required: No Beliefs That Will Affect Care: None Current Living Situation: Family Current Living Situation Comment: Patient just moved in with his Daughter Feels Safe at Home: Yes Assistive Devices: Cane Review of Systems Review of Systems: All systems reviewed & are unremarkable except as noted in HPI & below Physical Exam Constitutional: no acute distress Respiratory: normal respiratory effort; no respiratory distress and no labored breathing Gastrointestinal (Abdomen): Inspection/Auscultation: abdomen normal to inspection Musculoskeletal: Head/Neck/Chest: normocephalic Skin: + pallor Neurologic: moves all extremities and awake Psychiatric: Orientation: alert and oriented x 3 Results & Data Vital Signs (Past 12 Hours) Vital Signs Temp Pulse Pulse Resp BP BP Pulse Ox 08/10/24 14:46 36.5 C 70 22 118/65 99 08/10/24 13:30 69 18 110/57 L 96 08/10/24 13:00 67 20 104/57 L 99 08/10/24 12:44 65 18 99 08/10/24 12:36 63 20 101/54 L 99 08/10/24 12:31 64 08/10/24 12:21 36.6 C 64 16 85/37 L 99 O2 Del Method 08/10/24 14:46 08/10/24 13:30 Room Air 08/10/24 13:00 Room Air 08/10/24 12:44 Room Air 08/10/24 12:36 08/10/24 12:31 08/10/24 12:21 Room Air PG Care Time/CCT Total # of Minutes Spent Total Time Spent with Patient: Total time spent is greater than 50% in coordination of care (as documented) at patient's floor/unit and/or counseling patient: Coding Level of Care Code 83006 INT INP/OBS CARE MIN Diagnoses Hematuria R31.9 Symptomatic anemia D64.9 Prostate cancer C61 Bladder cancer C67.9 Acute kidney injury superimposed on CKD N17.9; N18.9
--- NOTE | 2024-08-10 14:59 | CT Scan Report ---
CT OF THE ABDOMEN AND PELVIS WITHOUT CONTRAST CLINICAL HISTORY: DHAVAL, anemia h/o AAA COMPARISON STUDY: CT of the abdomen and pelvis June 16, 2014. TECHNIQUE: Axial images of the abdomen and pelvis were obtained without IV contrast. Images were revi ewed in the axial, sagittal, and coronal planes. Automated exposure control was utilized for the melanie dy. A dose lowering technique was utilized adhering to the principles of ALARA. FINDINGS: Aortoiliac stent graft is in place. This is suboptimally assessed on unenhanced exam but th ere is no adjacent hemorrhage to suggest rupture. The appearance of the infrarenal aneurysm sac measu ring 7.8 x 7.6 cm is unchanged since CT of June 16, 2024. This contains multifocal coil/embolic mate rial. 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 There is no retroperitoneal hematoma. No hemoperitoneum is present. A 6.4 x 3.1 cm hyperdense focus w ithin the dependent aspect of the bladder suggests clot. Unenhanced images of the liver, spleen, adre nal glands and pancreas are unremarkable. There is marked bilateral renal cortical thinning. There ar e numerous bilateral renal calculi. Water attenuation bilateral renal lesions are suboptimally assess ed but favor cysts. There is no evidence for a bowel obstruction. No acute fractures within the lumba r spine, pelvis or hips are identified. There is no lymphadenopathy. No free fluid. IMPRESSION: 1. 6.4 x 3.1 cm hyperdense focus within the dependent aspect of the bladder suggestive of clot. No de finite mass however an underlying bladder lesion cannot be excluded by CT. 2. Status post placement of a bifurcated aortoiliac stent graft. Stable postprocedural findings on un enhanced exam. 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 No evidence for rupture. 3. No retroperitoneal hematoma. No hemoperitoneum. ACT 112: Negative or not required by law. Electronically signed by: Peter Andre M.D. 08/10/2024 2:56 PM
[2024-08-10] MEDS ORDERED: ACETAMINOPHEN 325 MG TAB PO PRN (15:54)
[2024-08-10] MEDS ORDERED: POLYETHYLENE (MIRALAX) 17 GM PACK PO PRN (15:54)
[2024-08-10] MEDS: Patient's HEIGHT &/or WEIGHT Needed STA (15:55)
[2024-08-10] MEDS: ONDANSETRON INJ 2 MG/ML 2 ML VIAL IV PRN (16:28)
--- NOTE | 2024-08-10 17:28 | Electrocardiogram Report ---
Test Reason : Blood Pressure : */* mmHG Vent. Rate : 64 BPM Atrial Rate : 64 BPM P-R Int : 124 ms QRS Dur : 90 ms QT Int : 436 ms P-R-T Axes : 0 -12 27 degrees QTcB Int : 449 ms Normal sinus rhythm Nonspecific ST abnormality Abnormal ECG When compared with ECG of 15-Jun-2024 01:58, No significant change Confirmed by Thai Briones ([id number]) on 08/10/2024 5:27:45 PM Referred By: Jorge Alberto Cisse Confirmed By: Thai Briones
--- OUTSIDE RECORDS SUMMARY | 2024-08-10 20:01 | External Medical Summary | Summary of Care ---
Author Name Unknown Organization [facility] Address [address] [place] [address] Phone [phone] Care Team Providers Care Cabinet Mounter Name Role Phone Aleja Bryson MD Primary Care Provide r Reason for Visit * Reason Comments Outpatient Testing Encounter Details Date Type Department Care Team (Late st Contact Info) Description 08/09/2024 2:50 PM EDT Laboratory Laboratory [address] [place] [id number] [place] [id number] Malignant neoplasm of bladder (HCC); Hematuria; Symptoms involving urinary system Allergies Active Allergy Reactions Criticality Noted Date Comments Ibuprofen 04/29/2011 Diarrhea documented as of this encounter (statuses as of 08/09/2024) Medications Tylenol 325 MG Oral Capsule (Acetaminophen) Take by mouth 325 mg . Once daily Active Allopurinol 100 MG Oral Tablet (Zyloprim)Indicat ions:Gout TAKE TWO TABLETS BY MOUTH EVERY DAY 180 Tablet 1 4 Active Farxiga 10 MG Oral Tablet (Dapagliflozin Propanediol)Indic ations:Kidney disease, chronic, 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) ([facility]) Take 1 Tablet by mouth in the morning. 30 Tablet 11 4 Active Sodium Bicarbonate 650 MG Oral TabletIndications :Kidney disease, chronic, 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) ([facility]) TAKE ONE TABLET BY MOUTH TWICE DAILY 60 Tablet 11 4 Active Atorvastatin Calcium 80 MG Oral [...] every day 180 Capsule 3 5 Active traZODone HCl 50 MG Oral Tablet (Desyrel) Take 0.5 Tablets by mouth at bedtime. 5 Active Metoprolol Tartrate 25 MG Oral Tablet (Lopressor)Indica tions:HTN, goal below 140/90,Benign hypertension with chronic kidney disease, stage IV (HCC),Paroxysmal atrial tachycardia (HCC) Take 0.5 Tablets by mouth in the morning and 0.5 Tablets before bedtime. 5 Active Linezolid 600 MG Oral Tablet (Zyvox)Indication s:Complicated UTI (urinary tract infection),VRE (vancomycin resistant enterococcus) culture positive Take 1 Tablet by mouth in the morning and 1 Tablet before bedtime. Do all this for 10 days. 20 Tablet 5 08/14/19 25 Active documented as of this encounter (statuses as of 08/09/2024) Active Problems Problem Noted Date Diagnosed Date [...] S/p Endovascular leak repair 04/24/2017 Hyperuricemia 07/26/2015 HTN, goal below 140/90 03/23/2014 Infrarenal abdominal aortic aneurysm (AAA) witho ut rupture 11/12/2009 Vitamin D deficiency 04/17/2009 Overview (04/18/2009): Vitamin D level 9.1 Dyslipidemia, goal LDL below 100 03/15/2009 Overview (03/15/2009): Per Lipid Taxonomy. Gout Paroxysmal atrial tachycardia documented as of this encounter (statuses as of 08/09/2024) Resolved Problems Problem Noted Date Diagnosed Date [...] as of this encounter (statuses as of 08/09/2024) Immunizations Name Administration Dates Next Due COVID-19 [...] 10 and older)(Boostrix) 06/08/2018 Varicella Zoster Vaccine Anthony lt (Zostavax) 10/18/2012 Zoster Vaccine Recombinant (Shingrix) 10/14/2019 ,06/15/2019 documented as of this encounter Social History Tobacco Use Types Packs/Day Years Used Date Smoking Tobacco: Never Cigarettes Smokeless Tobacco: Former Snuff Comments:12/30/2023 chews 1 c an per [...] doing errands alone such as visiting a doctor’s office or shopping? (15 years old or older) Answer Date of Assessment Author No 04/24/2017 6:00 PM Ivonne Duncan, RN documented as of this encounter Mental Status * Because of a physical, mental, or emotional condition, do you have serious difficulty concentrating, remembering, or making decisions? (5 years old or older) Answer Entry Date Author No 04/24/2017 6:00 PM Ivonne Duncan RN documented in this encounter Plan of Treatment Upcoming Encounters Date Type Department Care Team (Late st Contact Info) Description 10/13/2024 11:00 AM EDT Office Visit Cardiology, [facility] [address] [place] [phone] Matthieu Wen DO [address] [place] [address] 11/03/2024 9:00 AM EDT Office Visit [address] [address] Aleja Bryson MD [address] [place] [address] [place] [id number] 11/16/2024 3:00 PM EDT Office Visit Nephrology [address] [place] [phone] Chloé Guidry PA-C [address] [place] [address] 02/14/2025 1:00 PM EST Office Visit Family [address] [phone] Jen Angel MD [address] [place] [address] [place] [phone] 03/23/2025 3:20 PM EST Office Visit Nephrology [address] [place] [address] Yecenia Apodaca MD [address] [place] [phone] Pending Results Name Type Priority Associated Diagnoses Date /Time CULTURE, URINE, QUANTITATIVE Lab Routine Malignant neoplasm of bladder (HCC) Hematuria Symptoms involving urinary system 08/09/2024 3:28 PM EDT CBC WITH WBC DIFFERENTIAL Lab Routine Malignant neoplasm of bladder (HCC) Hematuria Symptoms involving urinary system 08/09/2024 3:28 PM EDT BASIC METABOLIC PANEL Lab Routine Malignant neoplasm of bladder (HCC) Hematuria Symptoms involving urinary system 08/09/2024 3:28 PM EDT CBC Lab Routine Malignant neoplasm of bladder (HCC) Hematuria Symptoms involving urinary system 08/09/2024 3:28 PM EDT DIFFERENTIAL, AUTOMATED Lab Routine Malignant neoplasm of bladder (HCC) Hematuria Symptoms involving urinary system 08/09/2024 3:28 PM EDT Health Maintenance Due Date Last Done Comments Depression Screening 1947 Adult Wellness Visit 09/11/2022 09/11/2021, 09/07/19 21 COVID-19 Vaccine ( season) 2024 03/02/2024, 01/21/2023, 04/15/2021, Additional history exists PTH 05/20/2025 05/20/2024, 02/04, 01/05/2023, Additional history exists Phosphate 05/20/2025 05/20/2024, 05/2022, 01/08/2022, Additional history exists Albumin/Creatinine Ratio 06/07/2025 025, 07/23/2023, 07/09/2022, Additional history exists Hgb 07/25/2025 07/25/2024, 07/2024, 06/04/2024, Additional history exists Nephrology Referral 07/25/2025 07/25/2024, 04/17/2009, 10/10/2008, Additional history exists DTap/Tdap Vaccines [...] this encounter Medical Devices Implanted Type Area Engineering Project Designer Device Identifier Shelf Expiration Date Model / Serial / Lot Stent Main Body [id number]-[id number]-[id number] - [id number] Implanted:Qty: 1 on 12/04/2009 at [facility] N/A: Aorta [employer] 08/05/2011 TFFB-32-82- ZT / / [id number] Leg Extension [id number]-28-48-Zt - [id number] Implanted:Qty: 1 on 12/04/2009 at [facility] Right: Iliac [employer] 09/05/2011 TFLE-16-90- ZT / / [id number] Leg Extension Cpjx-40-82-Zt - [id number] Implanted:Qty: 1 on 12/04/2009 at [facility] Left: Iliac [employer] 09/05/2011 TFLE-16-90- ZT / / [id number] Ev3 Blas 34 Liquid Embolic Material Implanted:Qty: 9 on 04/24/2017 by Petar Stovall MD at [facility] N/A: Abdomen 06/10/2019 [id number] -1 / [id number] / [id number] Description:ev3 Blas 34 Liqu id Embolic Material documented as of this encounter Visit Diagnoses Diagnosis Malignant neoplasm of bladder (HCC) Malignant neoplasm of bladder, part unspecified Hematuria Hematuria, unspecified Symptoms involving urinary system Other symptoms involving urinary system documented in this encounter Additional Health Concerns Infection Onset Date Last Indicated Resolved Time VRE 07/27/2024 07/27/2024 documented as of this encounter Advance Directives [...] and were consensually agreed upon. Care Teams Cabinet Mounter Relationship Specialty Start Date End Date Aleja Bryson MD [address] [place] [address] [place] [phone] PCP - General Family Medicine 07/28/23 documented as of this encounter
--- OUTSIDE RECORDS SUMMARY | 2024-08-10 20:01 | External Medical Summary | Summary of Care ---
Author Name Unknown Organization [facility] Address [address] [place] [address] Phone [phone] Care Team Providers Care Special Certificate Dictator Name Role Phone Aleja Bryson MD Primary Care Provide r Reason for Visit * Reason Comments Outpatient Testing Encounter Details Date Type Department Care Team (Late st Contact Info) Description 08/09/2024 2:50 PM EDT Laboratory Laboratory [address] [place] [id number] [place] [address] Malignant neoplasm of bladder (HCC); Hematuria; Symptoms [...] 15-29 ml/min) ([facility]) TAKE ONE TABLET BY MOUTH TWICE [...] 10/13/2024 11:00 AM EDT Office Visit Cardiology, [facility] [address] [place] [phone] Matthieu Wen DO [address] [place] [address] 11/03/2024 9:00 AM EDT Office Visit [address] [phone] Aleja Bryson MD [address] [place] [address] [place] [id number] 11/16/2024 3:00 PM EDT Office Visit Nephrology [address] [place] [address] Chloé Guidry PA-C [address] [place] [address] 02/14/2025 1:00 PM EST Office Visit Family [address] [phone] Jen Angel MD [address] [place] [address] [place] [phone] 03/23/2025 3:20 PM EST Office Visit Nephrology [address] [place] [address] Yecenia Apodaca MD [address] [place] [address] Pending Results Name Type Priority Associated Diagnoses [...] this encounter Medical Devices Implanted Type Area Slot Supervisor Device Identifier Shelf Expiration Date Model / Serial / Lot Stent Main Body Yakk-97-05-Zt - [id number] Implanted:Qty: 1 [place] 12/04/2009 [place] [facility]A: Aorta [employer] 08/05/2011 TFFB-32-82- ZT / / [id number] Leg Extension Tdeo-41-52-Zt - [id number] Implanted:Qty: 1 on 12/04/2009 [place] [facility] [place]: Iliac [employer] 09/05/2011 TFLE-16-90- ZT / / [id number] Leg Extension Ypzc-56-11-Zt - [id number] Implanted:Qty: 1 on 12/04/2009 [place] [facility] [place]: Iliac [employer] 09/05/2011 TFLE-16-90- ZT / / [id number] Ev3 Blas 34 Liquid Embolic Material Implanted:Qty: 9 on 04/24/2017 by Petar Stovall [place] [place]/A: Abdomen 06/10/2019 [id number] -[id number] / [id number] / [id number] Description:ev3 Blas 34 Liqu id Embolic Material [...] and were consensually agreed upon. Care Teams Special Certificate Dictator Relationship Specialty Start Date End Date Aleja Bryson MD [address] [place] [address] [place] [phone] PCP - General Family Medicine 07/28/23 documented as of this encounter
--- OUTSIDE RECORDS SUMMARY | 2024-08-10 20:01 | External Medical Summary ---
Author Name Unknown Address Unknown Organization [id number]:[facility] [place] [address] [facility] [address] Laboratory Report Ordering Provider Test Date Status SILVINO FIELDS II 08/09/2024 15:28:05 Final Observation Date Value Abnormality Reference (Units ) Status WBC, Total 08/09/2024 15:28:05 8.33 4.00-10.80 (K/uL) Final RBC 08/09/2024 15:28:05 2.05 4.50-5.25 (M/uL) Final Hemoglobin 08/09/2024 15:28:05 5.9 Below lower panic limits 14.0-16.8 (g/dL) Final Results rechecked. HCT 08/09/2024 15:28:05 20.2 Below low normal 40. 0-48.4 (%) Final MCV 08/09/2024 15:28:05 98.5 82.0-99.5 (fL) Final MCH 08/09/2024 15:28:05 28.8 27.0-34.0 (pg) Final MCHC 08/09/2024 15:28:05 29.2 32.0-36.0 (g/dL) Final RDW 08/09/2024 15:28:05 16.8 11.5-15.5 (%) Final Platelets 08/09/2024 15:28:05 137 Below low normal 140 -400 (K/uL) Final MPV 08/09/2024 15:28:05 13.4 6.6-11.1 ( fL) Final Nucleated erythrocytes/100 leukocytes [Ratio] in Blood by Automated count 08/09/2024 15:28:05 0 <=0 (/100 WBCs) Final Performing Location [facility] [place] [address] [place] [address]
--- OUTSIDE RECORDS SUMMARY | 2024-08-10 20:01 | External Medical Summary ---
Author Name Unknown Address Unknown Organization [id number]:LABORATORY [facility] - [address] [address] Laboratory Report Ordering Provider Test Date Status SILVINO FIELDS PAULA 08/09/2024 15:28:05 Final Observation Date Value Abnormality Reference (Units ) Status SYNC LEUKOCYTES IN BLOOD BY AUTOMATED COUNT 08/09/2024 15:28:05 8.33 4.00-10.80 (K/uL) Final Segs 08/09/2024 15:28:05 83.6 Above high normal 40.0-75.0 (%) Final Lymphs % 08/09/2024 15:28:05 11.4 Below low normal 18.0-42.0 (%) Final Monos 08/09/2024 15:28:05 3.7 1.0-11.0 (%) Final Eosinophils 08/09/2024 15:28:05 0.7 0.0-6.0 (%) Final Basos 08/09/2024 15:28:05 0.4 0.0-2.0 (%) Final Immature Granulocyte, Percent 08/09/2024 15:28:05 0.2 0.0-2.0 (%) Final Absolute Segs 08/09/2024 15:28:05 6.96 1.80-7.70 (K/uL) Final Lymphs, absolute 08/09/2024 15:28:05 0.95 Below low normal 1.00-4.80 (K/ul) Final Monos, Abs 08/09/2024 15:28:05 0.31 0.00-1.10 (K/uL) Final Eos, Abs 08/09/2024 15:28:05 0.06 0.00-0.70 (K/uL) Final Basos, Abs 08/09/2024 15:28:05 0.03 0.00-0.20 (K/uL) Final Immature Granulocytes, Number 08/09/2024 15:28:05 0.02 0.00-0.20 (K/uL) Final Performing Location LABORATORY [facility] - [facility] [place] [address]
--- OUTSIDE RECORDS SUMMARY | 2024-08-10 20:02 | External Medical Summary ---
Author Name Unknown Address Unknown Organization [id number][facility] [place] [address] [address] [facility] [address] Laboratory Report Ordering Provider Test Date Status SILVINO FIELDS II 08/09/2024 15:28:05 Final Observation Date Value Abnormality Reference (Units ) Status BUN 08/09/2024 15:28:05 69 Above high normal 6-20 (mg/dL) Final Creatinine 08/09/2024 15:28:05 3.8 Above high normal 0.6-1.2 (mg/dL) Final Glomerular filtration rate/1.73 sq M.predicted [Volume Rate/Area] in Serum, Plasma or Blood by Creatinine-based formula (CKD-EPI) 08/09/2024 15:28:05 15 Below low normal >=60 (mL/min) Final eGFR is calculated based on the CKD-EPI 2020 equation. Sodium 08/09/2024 15:28:05 133 Below low normal 135 -146 (mmol/L) Final Potassium 08/09/2024 15:28:05 5.2 Above high normal 3. 5-5.1 (mmol/L) Final Cl 08/09/2024 15:28:05 100 98-107 (mm ol/L) Final CO2 08/09/2024 15:28:05 17 Below low normal 22- 32 (mmol/L) Final Anion gap 08/09/2024 15:28:05 16 Above high normal 7- 15 (mmol/L) Final Glucose 08/09/2024 15:28:05 108 70-120 (mg /dL) Final Calcium 08/09/2024 15:28:05 8.9 8.4-10.2 ( mg/dL) Final Performing Location [facility] [place] [address] [facility] [address]
[2024-08-10] MEDS: SODIUM BICARBONATE 650 MG TAB PO SCH (20:18)
[2024-08-10] MEDS: ATORVASTATIN 40 MG TAB PO SCH (20:18)
[2024-08-10] MEDS: METOPROLOL TARTRATE 25 MG TAB PO SCH (20:18)
[2024-08-10 21:12] LABS: Hematocrit (blood only) 25.4 % (42.0-52.0); Hemoglobin 8.3 g/dl (14.0-18.0)
[2024-08-11 00:19] LABS: Appearance Urine Turbid (Clear); Bilirubin Urine Negative (Negative); Blood Urine 3+ (Negative); Color Urine Red; Glucose Urine UA Negative (Negative); Ketones Urine Negative (Negative); Leukocyte Esterase Urine Trace (Negative); Nitrite Urine Negative (Negative); Protein Urine 3+ (Negative); Urobilinogen Urine Negative (Negative); pH Urine 6.5 (4.5-7.5)
[2024-08-11 00:28] LABS: RBC Urine >20 /hpf (0-2)
[2024-08-11 00:29] LABS: Bacteria Urine None Seen (None Seen); WBC Urine 21-50 /hpf (0-5)
[2024-08-11 01:06] LABS: Hematocrit (blood only) 24.6 % (42.0-52.0)
--- OUTSIDE RECORDS SUMMARY | 2024-08-11 02:21 | External Medical Summary ---
Author Name Unknown Address Unknown Organization [id number]:LABORATORY [facility] - [address] [facility] [address] Laboratory Report Ordering Provider Test Date Status SILVINO FIELDS PAULA 08/09/2024 15:28:05 Final Observation Date Value Abnormality Reference (Units) Status Bacteria identified in Specimen by Culture 08/09/2024 15:28:05 No significant growth Final Test: Culture, Urine, Quanti tative
Specimen Source: Urine, Clean Catch
Specimen Type: Urine
Specimen Date: 08/09/2024 152
Result Date: 08/10/2024 1538
Result Status: Final result
Resulting Lab: LABORATORY [facility]
[address]
[place] [address]

CULTURE

No significant growth

null Performing Location LABORATORY [facility] - [address] [facility] [address]
[2024-08-11 08:17] LABS: Hematocrit (blood only) 23.1 % (42.0-52.0); Hemoglobin 7.5 g/dl (14.0-18.0); Mean Corpuscular Hemoglobin 29.6 pg (25.0-34.0); Mean Corpuscular Hgb Conc 32.5 g/dL (32.0-36.0); Mean Corpuscular Volume 91.3 fL (80.0-100.0); Mean Platelet Volume 12.5 fL (9.4-12.4); Platelet Count 77 K/uL (130-400); RDW Coefficient of Variation 15.9 % (11.5-14.5); RDW Standard Deviation 52.3 fL (36.4-46.3); Red Blood Count 2.53 M/uL (4.70-6.10); White Blood Count 10.63 K/ul (4.8-10.8)
[2024-08-11 08:36] LABS: BUN Creatinine Ratio 19.5 (10-20); Calcium 8.3 mg/dl (8.6-10.3); Creatinine Clr Calc Pharmacy 12.7 ml/min; Potassium 4.6 mmol/L (3.5-5.1)
[2024-08-11] MEDS: FERROUS SULFATE 325 MG TAB PO SCH (08:36)
[2024-08-11] MEDS: ADVANCED PROBIOTIC 625 MG CAPSULE PO SCH (08:36)
[2024-08-11] MEDS: CHOLECALCIFEROL 25 MCG (1000 UNITS) TAB PO SCH (08:36)
--- NOTE | 2024-08-11 08:45 | Urology Progress Note ---
Date of Service August 11, 2024 Assessment & Plan (1) Acute on chronic anemia: (2) Gross hematuria: (3) Prostate cancer: (4) Bladder cancer: (5) Acute kidney injury superimposed on CKD: (6) Symptomatic anemia: Plan 88-year-old male with history of prostate cancer status post prostatectomy and radiation as well as his bladder cancer who was referred to the emergency department for abnormal outpatient labs with hemoglobin of 5.9. He was admitted for symptomatic anemia (hgb 5.5), complicated UTI, and DHAVAL. Labs reviewed -Hgb 7.5, Hct 23.1% WBCs 10.63, creatinine still pending Continue to monitor H&H transfuse if necessary Urine culture still pending-antibiotics per data- currently on Linezolid CT abdomen pelvis shows a 6.4 x 3.1 cm presents focus within the dependent aspect of the bladder suggestive of clot Patient is voiding spontaneouslyrecommend monitor voiding and bladder scan as needed Currently n.p.o. for surgical intervention Plan for cystoscopy with possible biopsy, possible clot evacuation and fulguration-patient was consented at the bedside Case discussed with Dr. Cisse will follow, please contact service with any questions or changes in clinical status Attending note: Patient independently assessed, examined, interviewed, and evaluated. Patient was found to be severely anemic. Patient has multiple comorbidities. Has history of bladder and prostate cancer. 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 Was dealing with acute infection with VRE. Was currently on linezolid. Patient had been seen in the office and had undergone cystoscopy. Found to have mild bleeding but persistent issues with clot and consistently passing clots. Patient was found as an outpatient have a significant drop in hemoglobin. Presented to the ER which showed further exacerbation. Patient had undergone transfusion. Patient still having persistent hematuria with clot episodes. Had increased creatinine on chronic kidney disease. This has mildly improved. Blood counts have improved since transfusion. All labs and vitals were reviewed pertinent positive negatives HPI and plan section. Patient had significant hypotension on initial presentation. Has been dealing with occasional episodes of hypotension but has responded well to volume resuscitation as well as to the transfusion Agree with note as above. Patient's vitals and labs were all reviewed. Pertinent values in the HPI and plan section. Imaging was reviewed interpreted by myself. Agree with read. Vitals were reviewed. Discussed findings extensively with patient and family. Reviewed with nurse practitioner as well as consulting physicians/team. Patient's complicated medical and surgical history was reviewed and summarized above. Patient's surgical, medical, social, and family history were all reviewed with pertinent values as above. Discussed patient's current diagnosis as well as concerns and issues. Reviewed different options moving forward. Discussed potential risks and benefits as well as possible options and concerns. Reviewed potential surgical options and interventions. Discussed potential issues and concerns related to intervention. Risk and benefits were discussed extensively with patient and any available family. Discussed potential risks related to anesthesia. Discussed risks of bleeding infection and injury. Extensively reviewed options moving forward. As patient is continuing to have issues and concern for possible source of acute blood loss anemia from the urinary system we will plan to move forward with assessment. Patient CT scan had been evaluated. Does not appear to have any sign of blood within the upper tracts no sign of major obstruction. Patient does have some distention of the bladder. 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 Had mild oozing on last assessment on Thursday. Plan to move forward with cystoscopy with clot evacuation and possible fulguration. Did discuss increased risk as patient had recently had severe episode of anemia, patient also has significant comorbidities and medical issues. Did discuss concern related to acute life-threatening bleed and major concern of severe exacerbation or major issue. Also discussed risk related to anesthesia. Discussed extensively with patient Risks and benefits discussed at length for procedure. These include bleeding, infection, injury to surrounding tissues or organs, and risks associated with anesthesia. Patient states understanding and agrees to proceed. Will sign consent and proceed Plan for cystoscopy with possible transurethral resection of bladder tumor, possible biopsy and fulguration, possible clot evacuation, possible bilateral retrograde pyelograms Admission and Anticipated Discharge Date Admission Date: August 10, 2024 Subjective Resting comfortably in bed Had nausea yesterday Gross hematuria with voiding, able to void spontaneously Denies dysuria, fevers, chills, nausea, and vomiting. Admits to dry mouth No other complaints Review of Systems Review of Systems: All systems reviewed & are unremarkable except as noted in HPI & below Constitutional: as per Subjective / HPI Genitourinary: + as per Subjective / HPI Physical Exam Physical Exam: General: Alert in no acute distress. Mentation improved. HEENT: Normocephalic Atraumatic. Inspection normal. Cranial Nerves 2-12 Grossly intact. Normal inspection of face. Normal inspection of neck. Psychologic: Normal affect. Respiratory: Nonlabored. No use of accessory muscles. No tachypnea or dyspnea. Cardiovascular: No tachycardia Skin: [place] and Dry. No rashes or visible lesions. Extremities/Lymphatics: No edema Abdomen: Soft Non-distended. No rebound or guarding. Constitutional: Chronically ill-appearing Respiratory: normal respiratory effort and able to speak in complete sentences Psychiatric: Orientation: alert and oriented x 3 Results & Data Vital Signs (Past 12 Hours) Vital Signs Temp Pulse Pulse Resp BP Pulse Ox O2 Del Method 08/11/24 07:55 36.9 C 82 17 154/74 H 97 Room Air 08/11/24 07:44 36.4 C L 58 L 17 101/57 L 91 Room Air 08/11/24 07:02 Room Air 08/11/24 03:40 36.3 C L 61 18 105/65 93 Room Air 08/10/24 22:58 36.5 C 65 17 109/62 94 Room Air 08/10/24 21:59 63 PG Care Time/CCT Total # of Minutes Spent Total Time Spent with Patient: Total time spent is greater than 50% in coordination of care (as documented) at patient's floor/unit and/or counseling patient: Coding Level of Care Code 58852 SUB INP/OBS CARE 2/35MIN Diagnoses Acute on chronic anemia D64.9 Gross hematuria R31.0 Prostate cancer C61 Bladder cancer C67.9 Acute kidney injury superimposed on CKD N17.9; N18.9 Symptomatic anemia D64.9
--- NOTE | 2024-08-11 12:33 | Hospitalist Progress Note ---
Date of Service August 11, 2024 Assessment & Plan (1) Acute on chronic anemia: (2) Gross hematuria: (3) Complicated urinary tract infection: Plan: #History Prostate CA s/p prostatectomy, radiation #History Bladder CA On 08/08/24 cystoscopy by urologist, Dr Cisse "Appearance of radiation cystitis around the bladder. Moderate amount of blood clot seen in the base of the bladder. Visualization limited secondary to hematuria. No severe or significant bleeding discovered however multiple areas of likely inflammatory versus radiation cystitis bleeding." Per outpatient urine culture on 07/27/24: 10,000-100,000 colonies Enterococcus faecium VRE resistant to vancomycin, ampicillin, and tetracycline 08/03/24 prescribed Linezolid for [address] abd/pelvis: 1. 6.4 x 3.1 cm hyperdense focus within the dependent aspect of the bladder suggestive of clot. No definite mass however an underlying bladder lesion cannot be excluded by CT. 2. Status post placement of a bifurcated aortoiliac stent graft. Stable postprocedural findings on unenhanced exam. 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 No evidence for rupture. 3. No retroperitoneal hematoma. No hemoperitoneum. Patient presented to the hospital with hemoglobin of 5.4 g/dL Status post 2 units of packed RBC Repeat hemoglobin of 7.5. Urology planning on doing cystoscopy with clot evacuation, possible bilateral retrograde pyelogram and possible resection. Continue IV fluids Transfuse if hemoglobin is less than 7 (4) Acute kidney injury superimposed on CKD: Plan: BUN: 71. Cr: 4.2 (was 3.8 on 08/09/24, 2.4 on 06/07/24) Hold home Lasix Farxiga On IV fluids, continue. (5) HTN (hypertension): Plan: Hypotensive in ER improved after IVF and is receiving PRBCs Continue home metoprolol tartrate with holding parameters (6) HLD (hyperlipidemia): Plan: Continue atorvastatin DVT Prophylaxis SCDs Admit PCU DNR/DNI as per discussion with pt Follows with Dr Bryson for routine care Discussed plan of care with patient's daughter at bedside. Answer questi ons/queries Time spent evaluating patient, direct bedside care, chart review, placing orders, interpretation of diagnostic studies, discussion with consultants, patient, and family members, as well as other required patient management activities is 50 minutes Admission and Anticipated Discharge Date Admission Date: August 10, 2024 Subjective Patient seen and examined at bedside. He is lying on the bed comfortably. He denies any pain or discomfort at this time. Voiding without any difficulty. Her daughter is also at bedside. No significant events overnight Review of Systems Review of Systems: All systems reviewed & are unremarkable except as noted in Subjective Physical Exam Physical Exam: Constitutional: Alert and oriented to time place and person. Respiratory: normal respiratory effort, lungs clear to auscultation, no wheeze, rales, rhonchi. Normal insp/exp effort, no accessory muscle use Cardiovascular: RRR, no murmur, no edema Vessels: no JVD or carotid bruit Chest: normal inspection of chest Abdomen: normal bowel sounds, soft, nontender, no hepatosplenomegaly Musculoskeletal: no cyanosis or clubbing, extremities motor strength 5/5 Skin: no rashes, warm and dry normal turgor Neurologic: PERRL, EOMI, accommodation nl, no face palsy, no dysarthria CN's II- XI intact bilaterally and moves all extremities Results & Data Results & Data Vital Signs (Past 12 Hours) Vital Signs Temp Pulse Pulse Resp BP BP Pulse Ox 08/11/24 11:48 56 L 16 101/59 L 96 08/11/24 11:02 36.7 C 83 17 155/77 H 98 08/11/24 08:00 54 L 08/11/24 07:55 36.9 C 82 17 154/74 H 97 08/11/24 07:44 36.4 C L 58 L 17 101/57 L 91 08/11/24 07:02 08/11/24 03:40 36.3 C L 61 18 105/65 93 O2 Del Method 08/11/24 11:48 Room Air 08/11/24 11:02 Room Air 08/11/24 08:00 08/11/24 07:55 Room Air 08/11/24 07:44 Room Air 08/11/24 07:02 Room Air 08/11/24 03:40 Room Air
[2024-08-11] MEDS: PIPERACILLIN/TAZOBACTAM 4.5 GM/100 ML BAG IV STA (12:59)
[2024-08-11] MEDS ORDERED: fentaNYL citrate PF 100 MCG/2 ML VIAL IV PRN (13:29)
[2024-08-11] MEDS ORDERED: ePHEDrine sulfate 50 MG/ML AMP IV PRN (13:29)
[2024-08-11] MEDS ORDERED: ONDANSETRON INJ 2 MG/ML 2 ML VIAL IV PRN (13:29)
[2024-08-11] MEDS ORDERED: ATROPINE SULFATE 0.1 MG/ML 10ML SYR IV PRN (13:29)
--- NOTE | 2024-08-11 13:29 | Anesthesiology Consultation ---
Date of Service August 11, 2024 Assessment & Plan Chart Review Chart Review: Acceptable Risk for Surgery Consults Requested none ASA ASA3 Proposed Anesthesia Anesthesia Type: General Risk / Benefits Reviewed With: PT / POA / Parent / Guardian, Accepts Plan and Informed Consent Obtained History Surgery Operation Date: 08/11/24 09:30 Proposed Procedures p Cystoscopy, Clot Evacuation, Possible Bilateral Retrograde Pyelograms, Possible Resection, Possible Biopsy Fulguration - Jorge Alberto Cisse, DO Height/Weight Height: 5 ft 6 in Weight: 62 kg Allergies Allergy/AdvReac Type Severity Reaction Status Date / Time ibuprofen AdvReac Unknown diarrhea Verified 08/24/17 11:10 Medications Home Medications Medication Instructions Recorded Confirmed Last Taken allopurinol 100 mg tablet 200 mg PO DAILY 06/15/24 08/10/24 Unknown atorvastatin 80 mg tablet 80 mg PO HS 06/15/24 08/10/24 Unknown cholecalciferol (vitamin D3) 25 50 mcg PO DAILY 06/15/24 08/10/24 Unknown mcg (1,000 unit) tablet (Vitamin D3) dapagliflozin propanediol 10 mg 10 mg PO DAILY 06/15/24 08/10/24 Unknown tablet (Farxiga) ferrous sulfate 325 mg (65 mg 325 mg PO Q2D 06/15/24 08/10/24 Unknown iron) tablet furosemide 20 mg tablet 20 mg PO QAM 06/15/24 08/10/24 Unknown L.acidop,casei,lactis,rham-B.lact,aranza 1 cap PO DAILY #7 caps 06/21/24 08/10/24 Unknown 625 mg (10 billion cell) capsule (Advanced Probiotic) diclofenac sodium 1 % topical gel 2 g EXT BID PRN hip pain #100 grams 06/21/24 08/10/24 Unknown (Voltaren Arthritis Pain) linezolid 600 mg tablet 600 mg PO BID 08/09/24 08/10/24 Unknown metoprolol tartrate 25 mg tablet 12.5 mg PO BID 08/10/24 08/10/24 Unknown sodium bicarbonate 650 mg tablet 650 mg PO BID 08/10/24 08/10/24 Unknown trazodone 50 mg tablet 25 mg PO HS PRN Insomnia 08/10/24 08/10/24 Unknown Active Medications Generic Name Dose Route Start Last Admin Trade Name Freq PRN Reason Stop Dose Admin Atorvastatin Calcium 80 mg 08/10/24 21:00 08/10/24 20:18 Atorvastatin 40 Mg Tab PO 09/09/24 20:59 80 mg HS SULEIMAN Administration Ferrous Sulfate 325 mg 08/11/24 09:00 08/11/24 08:36 Ferrous Sulfate 325 Mg Tab PO 09/10/24 08:59 325 mg Q2D@0900 SULEIMAN Administration Lactobacillus Acidophilus 625 mg 08/11/24 09:00 08/11/24 08:36 Advanced Probiotic 625 Mg Capsule PO 09/10/24 08:59 625 mg DAILY SULEIMAN Administration Metoprolol Tartrate 12.5 mg 08/10/24 21:00 08/11/24 08:36 Metoprolol Tartrate 25 Mg Tab PO 09/09/24 20:59 12.5 mg BID SULEIMAN Administration Ondansetron HCl 4 mg 08/10/24 15:54 08/10/24 16:28 Ondansetron Inj 2 Mg/Ml 2 Ml Vial IV 09/09/24 15:53 4 mg Q6H PRN Administration Nausea Sodium Bicarbonate 650 mg 08/10/24 21:00 08/11/24 08:36 Sodium Bicarbonate 650 Mg Tab PO 09/09/24 20:59 650 mg BID SULEIMAN Administration Vitamin D 50 mcg 08/11/24 09:00 08/11/24 08:36 Cholecalciferol 25 Mcg (1000 Units) Tab PO 09/10/24 08:59 50 mcg DAILY SULEIMAN Administration NPO Date Last Intake of Fluids: 08/10/24 Time Last Intake of Fluids: 12:00 Date Last Intake of Solids: 08/10/24 Time Last Intake of Solids: 12:00 Past Medical History Medical History (Updated 08/11/24 @ 13:09 by Gely Buckley RN) CKD stage 4 secondary to hypertension Bladder cancer Prostate CA HLD (hyperlipidemia) HTN (hypertension) Exercise / Class Metabolic Activity IV < 2 Limit ADL/Bedbound Past Family History Family History Mother Alzheimer disease Past Surgical History Surgical History History of cystoscopy History of colonoscopy S/P AAA repair 12/04/2009. Endovascular AAA repair with cook zenith stent graft. Dr Lara. Past Anesthesia History No Hx of Anesthesia Complications and No Family Hx of Anesthesia Complications History of PONV No Hx of PONV and No Hx of Motion Sickness Social History Smoking Status: Never smoker Hx Alcohol Use: No Hx Substance Use: No Physical Exam Vital Signs Last Vital Signs Temp 36.6 C 08/11/24 12:41 Pulse 57 L 08/11/24 12:41 Resp 20 08/11/24 12:41 BP 104/54 L 08/11/24 12:41 Pulse Ox 98 08/11/24 12:41 O2 Del Method Room Air 08/11/24 12:41 O2 Flow Rate 0 08/10/24 17:38 Constitutional no acute distress ENMT Mouth: + poor dentition (remaining lower teeth are precarious, discussed with pt and daughter); no TMJ abnormality Thyromental Distance: > or= 3.5 Finger Breadths Mallampati Class: II Neck normal visual inspection Respiratory normal respiratory effort; no respiratory distress Auscultation: lungs clear to auscultation bilaterally Cardiovascular Rate/Rhythm: regular rate and regular rhythm Musculoskeletal Extremities: extremities normal to inspection Neurologic moves all extremities Psychiatric Orientation: alert and oriented x 3 Testing Laboratory Results 08/11/24 07:21 08/11/24 07:21 Urine Color Red 08/10/24 23:57 Urine Appearance Turbid (Clear) A 08/10/24 23:57 Urine pH 6.5 (4.5-7.5) 08/10/24 23:57 Ur Specific [place] 1.020 (1.000-1.030) 08/10/24 23:57 Urine Protein 3+ (Negative) H 08/10/24 23:57 Urine Glucose (UA) Negative (Negative) 08/10/24 23:57 Urine Ketones Negative (Negative) 08/10/24 23:57 Urine Nitrite Negative (Negative) 08/10/24 23:57 Ur Leukocyte Esterase Trace (Negative) H 08/10/24 23:57 Urine RBC >20 /hpf (0-2) H 08/10/24 23:57 Urine WBC 21-50 /hpf (0-5) H 08/10/24 23:57 Ur Epithelial Cells 3-5 /hpf (0-2) H 08/10/24 23:57 Blood Type A Positive 08/10/24 12:33 Antibody Screen NEGATIVE 08/10/24 12:33
[2024-08-11] MEDS ORDERED: LIDOCAINE 2% 2 ML VIAL/AMP(20MG/ML) INFIL ONE (13:47)
[2024-08-11] MEDS ORDERED: PROPOFOL IV EMULSION 10 MG/ML 20 ML VIAL IV ONE (13:47)
[2024-08-11] MEDS ORDERED: fentaNYL citrate PF 100 MCG/2 ML VIAL ONE (13:48)
[2024-08-11] MEDS ORDERED: PHENYLEPHRINE 100MCG/ML 5ML SYR ONE (13:58)
[2024-08-11] MEDS ORDERED: ePHEDrine sulfate 50 MG/5 ML SYR ONE (13:58)
[2024-08-11] MEDS ORDERED: ALBUMIN HUMAN 5% 12.5 GM/250 ML VIAL IV ONE (14:05)
[2024-08-11] MEDS: DIATRIZOATE MEGLUMINE 30% 100ML VIAL INSTIL ONE (14:23)
--- NOTE | 2024-08-11 14:45 | Operative Report ---
[facility] Post Operative Report Pre & Post Diagnosis Operation Date: 08/11/24 09:30 Pre-Op Diagnosis: Acute on chronic anemia, Gross hematuria, Prostate cancer, Bladder cancer, Acute kidney injury superimposed on Chronic Kidney Disease Post-Op Diagnosis: Acute on chronic anemia, Gross hematuria, Prostate cancer, Bladder cancer, Acute kidney injury superimposed on Chronic Kidney Disease I identified the patient and participated in the time-out.: Yes Procedure Operation Date: 08/11/24 09:30 Actual Procedures Cystoscopy with Transurethral resection of bladder tumor, medium, Clot Evacuation, Bilateral Retrograde Pyelograms, Transurethral Incision of Bladder Neck, and extensive Fulguration of Bleeding ulcers and bladder Lesion - Jorge Alberto Cisse DO Surgeon Jorge Alberto Cisse, II, DO Milk Collector None Estimated Blood Loss 5 Findings Consistent with Post-Op Diagnosis Mild bladder neck contracture. Large clot in the base of the bladder irrigated clear. Numerous areas of mild oozing/bleeding from areas of likely radiation cystitis and ulceration. Irregular raised, bleeding lesion along the right anterior bladder approximately 4.2 cm in size. Mild dilation of ureter on the right at approximately crossing of the iliacs. No significant trapping of contrast and good E flux of urine/contrast after retrograde pyelograms. No significant filling defects. No blood seen draining from either ureter. Specimens Resected Bladder lesions - right anterior bladder Drains 20 Japanese three-way catheter with continuous bladder irrigation Anesthesia Type MAC Complications none Disposition Disposition: Recovery Room Indications Patient with bladder cancer. Has history of prostate cancer as well. Had to radiation. Patient presented with acute blood loss anemia possibly from bladder lesions lesions and significant hematuria. Risks and benefits discussed at length. Description of Procedure Patient was consented and brought back to the operating room. Due to acute blood loss anemia patient was considered an urgent procedure. Patient was placed under anesthesia in the supine position and moved to the dorsal lithotomy position. Patient was prepped and draped in the regular sterile fashion. A time out was completed. A 30degree Cystoscope was placed into the bladder and the entire bladder was examined. The prostate was surgically absent. There was a mild to moderate bladder neck contracture. Once entered into the bladder the bladder was thoroughly irrigated to evacuate a moderate volume of clot in the base of the bladder. The area was largely 1 large single clot as opposed to numerous or multiple areas of clot. Throughout the bladder there were some mild areas of oozing/slow venous appearing bleeding largely coming from areas of likely radiation cystitis. Some ulcerated appearing areas were also appreciated. The UO's were identified as well as the bladder neck, trigone, dome, and the other important landmarks. A 5 Japanese open-ended catheter was then placed and approximately 8 cc were placed into each ureter. No significant filling defects. There was some mild dilation at the crossing of the iliacs on the right side. This may be due to patient's known aneurysm issues. No other abnormalities or problems. No bleeding was noted from either UO and no sign of bloody discharge after retrograde pyelogram. Along the right anterior wall there was a more steady area of bleeding with the tissue appearing more raised irregular and suspicious in appearance. Multiple bleeding areas and ulcerations were fulgurated using bipolar. This lesion and areas of concern were identified and area/size was assessed. The resection scope with the fine bipolar loop was selected. Due to the significant narrowing/contracture of the bladder neck the 3 and 9 o'clock positions were incised utilizing the bipolar. This opened the bladder neck considerably. And allowed better visualization of the right anterior wall lesion. Further fulguration was completed of multiple areas around the bladder. The dome appeared largely free of lesions. Majority of lesions were along the right and left lateral wall the posterior wall and the base. Approximately 15 different areas were fulgurated. Largest area was approximately 2.3 cm in size. Fulguration was completed on the edges of the irregular lesion of the anterior right bladder. The entire lesion was assessed. The lesion was resected utilizing the bipolar loop. The resected tissue was removed and sent for analysis. Approximately a 4.2 cm area was resected. The resection bed and edges of the resection were fulgurated and the entire area inspected. The entire bladder was inspected. Some minor areas of bleeding were fulgurated. All bleeding appeared to be controlled. The site of resection was clear of residual tissue or areas of bleeding. Significant clearing of the urine was noted. All bleeding was controlled. The bladder was inspected a final time. The bladder was emptied. The scope was removed. A 20 Japanese three-way catheter was placed and attached to continuous bladder irrigation. The drainage/urine remained clear on continuous irrigation. The patient was cleaned, aroused from anesthesia, and transferred to the pacu in stable condition having tolerated the procedure well with no complications. I was present and participated in all aspects of the procedure. The patient will be monitored in the PACU until transferred. Will plan to maintain continuous irrigation overnight. Will attempt to discontinue CBI and possibly move catheter tomorrow. I attest to the content of the Intraoperative Record and any orders documented therein. Any exceptions are noted below.
--- NOTE | 2024-08-11 15:11 | Anesthesiology Progress Note ---
Date of Service August 11, 2024 Anesthesia Post Procedure Vital Signs Vital Signs: Temp Pulse Pulse Pulse Resp BP BP 08/11/24 15:05 64 16 08/11/24 14:55 64 13 08/11/24 14:46 36.2 C L 64 13 08/11/24 12:41 36.6 C 57 L 20 08/11/24 11:48 56 L 16 08/11/24 11:02 36.7 C 83 17 08/11/24 08:00 54 L 08/11/24 07:55 36.9 C 82 17 154/74 H 08/11/24 07:44 36.4 C L 58 L 17 101/57 L 08/11/24 07:02 08/11/24 03:40 36.3 C L 61 18 105/65 08/10/24 22:58 36.5 C 65 17 109/62 08/10/24 21:59 63 08/10/24 19:39 36.4 C L 74 18 117/64 08/10/24 19:15 08/10/24 18:39 36.6 C 73 18 123/63 08/10/24 18:09 36.3 C L 74 18 116/73 08/10/24 17:54 36.3 C L 73 18 100/55 L 08/10/24 17:38 36.3 C L 70 20 101/52 L 08/10/24 17:13 36.8 C 68 17 119/56 L 08/10/24 16:48 36.8 C 67 17 120/58 L 08/10/24 16:01 36.4 C L 66 18 123/56 L 08/10/24 15:58 85 08/10/24 15:54 36.4 C L 66 18 08/10/24 15:54 08/10/24 15:48 36.6 C 66 17 123/56 L 08/10/24 15:27 BP Pulse Ox Pulse Ox O2 Del Method O2 Del Method O2 Flow Rate 08/11/24 15:05 103/48 L 93 Room Air 08/11/24 14:55 120/63 100 Oxymask 6 08/11/24 14:46 113/64 100 Oxymask 6 08/11/24 12:41 104/54 L 98 Room Air 08/11/24 11:48 101/59 L 96 Room Air 08/11/24 11:02 155/77 H 98 Room Air 08/11/24 08:00 08/11/24 07:55 97 Room Air 08/11/24 07:44 91 Room Air 08/11/24 07:02 Room Air 08/11/24 03:40 93 Room Air 08/10/24 22:58 94 Room Air 08/10/24 21:59 08/10/24 19:39 97 08/10/24 19:15 Room Air 08/10/24 18:39 95 08/10/24 18:09 98 08/10/24 17:54 95 08/10/24 17:38 95 0 08/10/24 17:13 98 08/10/24 16:48 97 08/10/24 16:01 98 08/10/24 15:58 08/10/24 15:54 126/56 L 98 Room Air 08/10/24 15:54 98 Room Air 08/10/24 15:48 98 08/10/24 15:27 Room Air Transfer of Care Handoff Completed per policy Notes Mental Status: alert / awake / arousable Patient Amnestic to Procedure: Yes Nausea / Vomiting: adequately controlled Pain: adequately controlled Airway Patency, RR, SpO2: stable & adequate BP & HR: stable & adequate Hydration State: stable & adequate Anesthetic Complications: no major complications apparent and Pt Satisfied with anesthetic care
--- NOTE | 2024-08-11 15:31 | Fluoroscopy Report ---
FL retrograde includes kub CLINICAL HISTORY: CYSTO COMPARISON STUDY: None FLUOROSCOPY TIME: 22 seconds FLUOROSCOPY IMAGES: 5 EXPOSURE DOSE: 4 mGy FINDINGS: Fluoroscopy was provided for urologic procedure. IMPRESSION: Intraoperative fluoroscopy. ACT 112: Negative or not required by law. Electronically signed by: Rashard Melton M.D. 08/11/2024 3:29 PM
[2024-08-11] MEDS: SODIUM CHLORIDE 0.9% 500 ML IV SCH (16:45)
[2024-08-11 17:43] LABS: Hematocrit (blood only) 20.8 % (42.0-52.0); Hemoglobin 6.8 g/dl (14.0-18.0); Mean Corpuscular Hemoglobin 30.2 pg (25.0-34.0); Mean Corpuscular Hgb Conc 32.7 g/dL (32.0-36.0); Mean Corpuscular Volume 92.4 fL (80.0-100.0); Mean Platelet Volume 12.1 fL (9.4-12.4); Platelet Count 72 K/uL (130-400); RDW Coefficient of Variation 15.9 % (11.5-14.5); RDW Standard Deviation 53.9 fL (36.4-46.3); Red Blood Count 2.25 M/uL (4.70-6.10); White Blood Count 7.61 K/ul (4.8-10.8)
[2024-08-11 17:59] LABS: Albumin Globulin Ratio 1.7 (0.9-2); Albumin Level 3.1 gm/dl (3.4-5.0); BUN Creatinine Ratio 19.3 (10-20); Calcium 8.3 mg/dl (8.6-10.3); Creatinine Clr Calc Pharmacy 13.8 ml/min; Globulin 1.8 gm/dl (2.5-4.0); Potassium 4.3 mmol/L (3.5-5.1); Total Protein 4.9 gm/dl (6.0-8.3)
[2024-08-11] MEDS ORDERED: SODIUM CHLORIDE 0.9% 100 ML IV PRN (18:19)
[2024-08-11] MEDS: PIPERACILLIN/TAZOBACTAM 4.5 GM/100 ML BAG IV SCH (20:11)
[2024-08-12 07:15] LABS: Basophils # (auto) 0.04 K/uL (0.00-0.20); Basophils % (auto) 0.5 %; Eosinophils # (auto) 0.29 K/uL (0.00-0.50); Eosinophils % (auto) 3.6 %; Hemoglobin 7.7 g/dl (14.0-18.0); Immature Granulocytes # (auto) 0.03 K/uL (0.01-0.20); Immature Granulocytes % (auto) 0.4 %; Lymphocytes # (auto) 0.66 K/uL (1.20-3.40); Lymphocytes % (auto) 8.2 %; Mean Corpuscular Hemoglobin 29.5 pg (25.0-34.0); Mean Corpuscular Hgb Conc 32.1 g/dL (32.0-36.0); Mean Platelet Volume 11.9 fL (9.4-12.4); Monocytes # (auto) 0.34 K/uL (0.11-0.59); Monocytes % (auto) 4.2 %; Neutrophils # (auto) 6.71 K/uL (1.40-6.50); Neutrophils % (auto) 83.1 %; Platelet Count 57 K/uL (130-400); RDW Standard Deviation 53.7 fL (36.4-46.3); Red Blood Count 2.61 M/uL (4.70-6.10); White Blood Count 8.07 K/ul (4.8-10.8)
[2024-08-12 07:38] LABS: Calcium 8.2 mg/dl (8.6-10.3); Potassium 4.8 mmol/L (3.5-5.1)
[2024-08-12 07:40] LABS: Hypersegmented Neutrophils 1+; Ovalocytes 1+; Polychromasia 1+; Tear Drop Cells 1+
[2024-08-12 07:43] LABS: BUN Creatinine Ratio 18.5 (10-20); Creatinine Clr Calc Pharmacy 14.3 ml/min
--- NOTE | 2024-08-12 09:26 | Urology Progress Note ---
Date of Service August 12, 2024 Assessment & Plan (1) Bladder cancer: (2) Acute kidney injury superimposed on CKD: (3) Acute on chronic anemia: (4) Gross hematuria: Plan: Patient POD #1 s/p Cystoscopy with Transurethral resection of bladder tumor, medium, Clot Evacuation, Bilateral Retrograde Pyelograms, Transurethral Incision of Bladder Neck, and extensive Fulguration of Bleeding ulcers and bladder Lesion Patient afebrile with stable vitals Labs reviewedcreatinine 3.25, WBC 8.07, hemoglobin 7.7 Urine culture pending Jane draining clear urine with CBI clamped Will plan to dc CBI today if urine remains appropriately clear If urine remains clear, will plan for voiding trial later today and monitor for void Continue empiric antibiotics, follow cultures Continue to trend H&H and transfuse as necessary per hospital medicine Continue supportive care and medical management per hospital medicine service Will arrange outpatient follow-up with our service for ongoing management Admission and Anticipated Discharge Date Admission Date: August 10, 2024 Subjective Patient seen and examined at bedside this morning. He is resting in bed, arouses easily to his name. Denies pain. No acute issues overnight. Jane draining clear yellow urine with CBI clamped. Denies nausea, fever or chills. Labs todaycreatinine 3.25, WBC 8.0, hemoglobin 7.7. Review of Systems Constitutional: as per Subjective / HPI Genitourinary: + as per Subjective / HPI Physical Exam Constitutional: no acute distress Respiratory: no respiratory distress and no labored breathing Gastrointestinal (Abdomen): Inspection/Auscultation: abdomen normal to inspection Musculoskeletal: Head/Neck/Chest: normocephalic Skin: + pallor Neurologic: moves all extremities and awake Psychiatric: Orientation: alert and oriented x 3 Genitourinary: Jane draining clear yellow with CBI clamped Results & Data Vital Signs (Past 12 Hours) Vital Signs Temp Pulse Pulse Resp BP BP Pulse Ox 08/12/24 07:36 60 08/12/24 07:01 36.4 C L 64 16 103/53 L 97 08/12/24 03:29 36.3 C L 62 18 106/54 L 93 08/11/24 22:02 59 L 08/11/24 21:45 36.3 C L 63 18 107/50 L 96 O2 Del Method 08/12/24 07:36 08/12/24 07:01 Room Air 08/12/24 03:29 Room Air 08/11/24 22:02 08/11/24 21:45 PG Care Time/CCT Total # of Minutes Spent Total Time Spent with Patient: Total time spent is greater than 50% in coordination of care (as documented) at patient's floor/unit and/or counseling patient: Coding Level of Care Code 82895 SUB INP/OBS CARE 04/30MIN Diagnoses Bladder cancer C67.9 Acute kidney injury superimposed on CKD N17.9; N18.9 Acute on chronic anemia D64.9 Gross hematuria R31.0
--- NOTE | 2024-08-12 10:25 | Hospitalist Progress Note ---
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 Moderate amount of blood clot seen in the base of the bladder. Visualization limited secondary to hematuria. No severe or significant bleeding discovered however multiple areas of likely inflammatory versus radiation cystitis bleeding." Per outpatient urine culture on 07/27/24: 10,000-100,000 colonies Enterococcus faecium VRE resistant to vancomycin, ampicillin, and tetracycline 08/03/24 prescribed Linezolid for [address] abd/pelvis: 1. 6.4 x 3.1 cm hyperdense focus within the dependent aspect of the bladder suggestive of clot. No definite mass however an underlying bladder lesion cannot be excluded by CT. 2. Status post placement of a bifurcated aortoiliac stent graft. Stable postprocedural findings on unenhanced exam. 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 No evidence for rupture. 3. No retroperitoneal hematoma. No hemoperitoneum. Patient presented to the hospital with hemoglobin of 5.4 g/dL And persistent hematuria Status post 3 units of packed RBC Patient underwent cystoscopy with clot evacuation, bilateral retrograde pyelogram, incision of bladder neck and biopsy fulguration of lesion on 08/11/2024; hematuria significantly improved. Hemoglobin stable around 7.7. Plan for trial of void Follow up on urine cx results (4) Acute kidney injury superimposed on CKD: Plan: BUN: 71. Cr: 4.2 (was 3.8 on 08/09/24, 2.4 on 06/07/24) Improving creatinine Continue on IV fluids for 1 more day (5) HTN (hypertension): Plan: Hypotensive in ER improved after IVF and is receiving PRBCs Continue home metoprolol tartrate with holding parameters (6) HLD (hyperlipidemia): Plan: Continue atorvastatin DVT Prophylaxis SCDs DNR/DNI Time spent evaluating patient, direct bedside care, chart review, placing orders, interpretation of diagnostic studies, discussion with consultants, patient, and family members, as well as other required patient management activities is 50 minutes Please note the above document was generated using voice recognition software. It may contain grammatical, syntax or spelling errors. Any formal questions or concerns about the content, text or information contained within the body of this dictation should be directly addressed to the provider for clarification Admission and Anticipated Discharge Date Admission Date: August 10, 2024 Subjective Patient seen and examined at bedside. He is lying in the bed comfortably; denies any pain or discomfort. Jane catheter is showing clear urine. Hemodynamics are stable and he is saturating well on jimmy Review of Systems Review of Systems: All systems reviewed & are unremarkable except as noted in Subjective Physical Exam Physical Exam: Constitutional: Alert and oriented to time place and person. Respiratory: normal respiratory effort, lungs clear to auscultation, no wheeze, rales, rhonchi. Normal insp/exp effort, no accessory muscle use Cardiovascular: RRR, no murmur, no edema Vessels: no JVD or carotid bruit Chest: normal inspection of chest Abdomen: normal bowel sounds, soft, nontender, no hepatosplenomegaly Musculoskeletal: no cyanosis or clubbing, extremities motor strength 5/5 Skin: no rashes, warm and dry normal turgor Neurologic: PERRL, EOMI, accommodation nl, no face palsy, no dysarthria CN's II- XI intact bilaterally and moves all extremities Results & Data Results & Data Vital Signs (Past 12 Hours) Vital Signs Temp Pulse Pulse Resp BP BP Pulse Ox 08/12/24 10:21 36.4 C L 61 16 112/66 97 08/12/24 07:36 60 08/12/24 07:01 36.4 C L 64 16 103/53 L 97 08/12/24 03:29 36.3 C L 62 18 106/54 L 93 O2 Del Method 08/12/24 10:21 Room Air 08/12/24 07:36 08/12/24 07:01 Room Air 08/12/24 03:29 Room Air
[2024-08-12] MEDS: SODIUM CHLORIDE 0.9% 500 ML IV SCH (12:06)
[2024-08-12] MEDS: MELATONIN 3 MG TAB PO PRN (23:58)
[2024-08-13 07:34] LABS: Basophils # (auto) 0.04 K/uL (0.00-0.20); Basophils % (auto) 0.4 %; Eosinophils # (auto) 0.45 K/uL (0.00-0.50); Hematocrit (blood only) 25.4 % (42.0-52.0); Hemoglobin 8.3 g/dl (14.0-18.0); Immature Granulocytes # (auto) 0.04 K/uL (0.01-0.20); Immature Granulocytes % (auto) 0.4 %; Lymphocytes # (auto) 0.71 K/uL (1.20-3.40); Lymphocytes % (auto) 6.4 %; Mean Corpuscular Hgb Conc 32.7 g/dL (32.0-36.0); Mean Corpuscular Volume 91.7 fL (80.0-100.0); Mean Platelet Volume 12.4 fL (9.4-12.4); Monocytes # (auto) 0.52 K/uL (0.11-0.59); Monocytes % (auto) 4.7 %; Neutrophils # (auto) 9.39 K/uL (1.40-6.50); Neutrophils % (auto) 84.1 %; Platelet Count 58 K/uL (130-400); RDW Coefficient of Variation 15.9 % (11.5-14.5); RDW Standard Deviation 53.2 fL (36.4-46.3); Red Blood Count 2.77 M/uL (4.70-6.10); White Blood Count 11.15 K/ul (4.8-10.8)
[2024-08-13 07:51] LABS: BUN Creatinine Ratio 18.2 (10-20); Calcium 8.5 mg/dl (8.6-10.3); Creatinine Clr Calc Pharmacy 15.9 ml/min; Potassium 4.8 mmol/L (3.5-5.1)
--- NOTE | 2024-08-13 09:59 | Urology Progress Note ---
Date of Service August 13, 2024 Assessment & Plan (1) Gross hematuria: Plan Gross hematuria status post clot evacuation and fulguration Urine has remained clear since catheter removal and he has been voiding spontaneously Creatinine has decreased substantially, currently 2.9 Hemoglobin is remained stable From a standpoint I think is very reasonable for discharge home Admission and Anticipated Discharge Date Admission Date: August 10, 2024 Subjective Doing very well overall Has been urinating without any blood No discomfort Feels well, no complaints this morning Physical Exam Physical Exam: Clear urine in the toilet Results & Data Vital Signs (Past 12 Hours) Vital Signs Temp Pulse Pulse Resp BP Pulse Ox O2 Del Method 08/13/24 08:00 36.6 C 78 18 119/64 97 Room Air 08/13/24 07:42 65 08/13/24 03:12 36.5 C 71 20 106/60 97 Room Air 08/12/24 23:04 36.5 C 74 24 128/64 94 Room Air 08/12/24 22:00 72 PG Care Time/CCT Total # of Minutes Spent Total Time Spent with Patient: Total time spent is greater than 50% in coordination of care (as documented) at patient's floor/unit and/or counseling patient: Coding Level of Care Code 44055 SUB INP/OBS CARE 04/30MIN Diagnoses Gross hematuria R31.0
--- NOTE | 2024-08-13 11:44 | Hospitalist Progress Note ---
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 Moderate amount of blood clot seen in the base of the bladder. Visualization limited secondary to hematuria. No severe or significant bleeding discovered however multiple areas of likely inflammatory versus radiation cystitis bleeding." Per outpatient urine culture on 07/27/24: 10,000-100,000 colonies Enterococcus faecium VRE resistant to vancomycin, ampicillin, and tetracycline 08/03/24 prescribed Linezolid for [address] abd/pelvis: 1. 6.4 x 3.1 cm hyperdense focus within the dependent aspect of the bladder suggestive of clot. No definite mass however an underlying bladder lesion cannot be excluded by CT. 2. Status post placement of a bifurcated aortoiliac stent graft. Stable postprocedural findings on unenhanced exam. 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 No evidence for rupture. 3. No retroperitoneal hematoma. No hemoperitoneum. Patient presented to the hospital with hemoglobin of 5.4 g/dL And persistent hematuria Status post 3 units of packed RBC Patient underwent cystoscopy with clot evacuation, bilateral retrograde pyelogram, incision of bladder neck and biopsy fulguration of lesion on 08/11/2024; hematuria significantly improved. Hemoglobin stable around 8. Successful trial of void Plan to continue antibiotic for 1 more day and stop PT OT pending (4) Acute kidney injury superimposed on CKD: Plan: BUN: 71. Cr: 4.2 (was 3.8 on 08/09/24, 2.4 on 06/07/24) Improving creatinine with iv fluids (5) HTN (hypertension): Plan: Hypotensive in ER improved after IVF and is receiving PRBCs Continue home metoprolol tartrate with holding parameters (6) HLD (hyperlipidemia): Plan: Continue atorvastatin DVT Prophylaxis SCDs DNR/DNI Time spent evaluating patient, direct bedside care, chart review, placing orders, interpretation of diagnostic studies, discussion with consultants, patient, and family members, as well as other required patient management activi ties is 50 minutes Please note the above document was generated using voice recognition software. It may contain grammatical, syntax or spelling errors. Any formal questions or concerns about the content, text or information contained within the body of this dictation should be directly addressed to the provider for clarification Admission and Anticipated Discharge Date Admission Date: August 10, 2024 Subjective Patient seen and examined at bedside. He reports that he is feeling much better; denies any pain or discomfort He is voiding spontaneously without any issues; no hematuria No significant events overnight Review of Systems Review of Systems: All systems reviewed & are unremarkable except as noted in Subjective Physical Exam Physical Exam: Constitutional: Alert and oriented to time place and person. Respiratory: normal respiratory effort, lungs clear to auscultation, no wheeze, rales, rhonchi. Normal insp/exp effort, no accessory muscle use Cardiovascular: RRR, no murmur, no edema Vessels: no JVD or carotid bruit Chest: normal inspection of chest Abdomen: normal bowel sounds, soft, nontender, no hepatosplenomegaly Musculoskeletal: no cyanosis or clubbing, extremities motor strength 5/5 Skin: no rashes, warm and dry normal turgor Neurologic: PERRL, EOMI, accommodation nl, no face palsy, no dysarthria CN's II- XI intact bilaterally and moves all extremities Results & Data Results & Data Vital Signs (Past 12 Hours) Vital Signs Temp Pulse Pulse Resp BP Pulse Ox O2 Del Method 08/13/24 10:54 Room Air 08/13/24 08:00 36.6 C 78 18 119/64 97 Room Air 08/13/24 07:42 65 08/13/24 03:12 36.5 C 71 20 106/60 97 Room Air
[2024-08-13] MEDS ORDERED: LINEZOLID 600 MG TAB PO SCH (21:00)
[2024-08-14 03:03] VITALS: O2SAT 98
[2024-08-14 07:07] LABS: Basophils # (auto) 0.03 K/uL (0.00-0.20); Basophils % (auto) 0.4 %; Eosinophils # (auto) 0.41 K/uL (0.00-0.50); Eosinophils % (auto) 5.1 %; Hematocrit (blood only) 23.2 % (42.0-52.0); Hemoglobin 7.6 g/dl (14.0-18.0); Immature Granulocytes # (auto) 0.03 K/uL (0.01-0.20); Immature Granulocytes % (auto) 0.4 %; Lymphocytes # (auto) 0.96 K/uL (1.20-3.40); Lymphocytes % (auto) 11.9 %; Mean Corpuscular Hgb Conc 32.8 g/dL (32.0-36.0); Mean Corpuscular Volume 91.7 fL (80.0-100.0); Mean Platelet Volume 11.8 fL (9.4-12.4); Monocytes # (auto) 0.56 K/uL (0.11-0.59); Neutrophils # (auto) 6.06 K/uL (1.40-6.50); Neutrophils % (auto) 75.2 %; Platelet Count 44 K/uL (130-400); RDW Coefficient of Variation 15.8 % (11.5-14.5); Red Blood Count 2.53 M/uL (4.70-6.10); White Blood Count 8.05 K/ul (4.8-10.8)
[2024-08-14 07:28] LABS: BUN Creatinine Ratio 17.3 (10-20); Calcium 8.7 mg/dl (8.6-10.3); Creatinine Clr Calc Pharmacy 17.1 ml/min; Potassium 4.9 mmol/L (3.5-5.1)
[2024-08-14 07:31] LABS: Polychromasia 1+
[2024-08-14 07:37] VITALS: RESP 16; TEMP 98.2
--- NOTE | 2024-08-14 10:27 | Urology Progress Note ---
Date of Service August 14, 2024 Assessment & Plan (1) Gross hematuria: Plan Gross hematuria status post clot evacuation and fulguration Urine has remained clear since catheter removal and he has been voiding spontaneously Creatinine continue to slowly improve Okay for discharge home from a standpoint Outpatient follow-up Admission and Anticipated Discharge Date Admission Date: August 10, 2024 Subjective Subjectively feeling well Urine remains clear Comfortable Physical Exam Physical Exam: Clear urine Results & Data Vital Signs (Past 12 Hours) Vital Signs Temp Pulse Pulse Resp BP Pulse Ox O2 Del Method 08/14/24 07:52 65 08/14/24 07:46 Room Air 08/14/24 07:37 36.8 C 67 16 105/62 98 Room Air 08/14/24 03:02 37.0 C 73 19 94/54 L 98 Room Air 08/13/24 23:02 36.9 C 73 20 94/52 L 94 Room Air PG Care Time/CCT Total # of Minutes Spent Total Time Spent with Patient: Total time spent is greater than 50% in coordination of care (as documented) at patient's floor/unit and/or counseling patient: Coding Level of Care Code 81596 SUB INP/OBS CARE 2/35MIN Diagnoses Gross hematuria R31.0
--- NOTE | 2024-08-14 12:16 | Discharge Summary ---
Date of Service August 14, 2024 Admission HPI Per Admitting Provider Patient is 88-year-old male with PMH HTN, dyslipidemia, bladder cancer, prostate cancer s/p prostatectomy and radiation, chronic HFpEF, moderate aortic stenosis, AAA s/p repair 2009, CKD IV, hyperparathyroidism, history PE, gout and others listed below presented to ER for abnormal outpatient labs yesterday - low hemoglobin. Patient reports has been having ongoing gross hematuria for past several weeks. Has chronic urinary urgency. He feels like he is emptying his bladder. 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 Moderate amount of blood clot seen in the base of the bladder. Visualization limited secondary to hematuria. No severe or significant bleeding discovered however multiple areas of likely inflammatory versus radiation cystitis bleeding." Had outpatient labs on 08/09/24 and H/H: .12/24 and was referred to ER today. Per outpatient urine culture on 07/27/24: 10,000-100,000 colonies Enterococcus faecium VRE resistant to vancomycin, ampicillin, and tetracycline 08/03/24 prescribed Linezolid for 10 day course. Today is day 7. Patient reports "feels rough like he can't relax" and feels weak. Denies abdominal pain. States pain to mid back with standing. C/O chronic bilateral knee pain. Denies fever/chills, RUGGIERO, dizziness, CP, SOB, N/V/D/C, palpitations, cough, extremity edema, rashes, dysuria. Admission Exam Per Admitting Provider General: Elderly man in no distress Eyes: +pallor ENMT: +Hearing deficits Respiratory: Normal respiratory effort, no respiratory distress, lungs clear to auscultation, no crackles and no wheezes Cardiovascular: RRR, +systolic murmur Gastrointestinal (Abdomen): Abdomen is not distended, soft, non-tender to palpation, no guarding, no palpable hepatosplenomegaly, normal bowel sounds Musculoskeletal: No pedal edema Genitourinary:No CVA tenderness Neurologic: Alert and oriented to person, place and year, No focal weakness Psychiatric: Euthymic affect Principal Diagnosis (1) Acute on chronic anemia: (2) Gross hematuria: (3) Complicated urinary tract infection: Discharge Exam Constitutional: Alert and oriented to time place and person. Respiratory: normal respiratory effort, lungs clear to auscultation, no wheeze, rales, rhonchi. Normal insp/exp effort, no accessory muscle use Cardiovascular: RRR, no murmur, no edema Vessels: no JVD or carotid bruit Chest: normal inspection of chest Abdomen: normal bowel sounds, soft, nontender, no hepatosplenomegaly Musculoskeletal: no cyanosis or clubbing, extremities motor strength 5/5 Skin: no rashes, warm and dry normal turgor Neurologic: PERRL, EOMI, accommodation nl, no face palsy, no dysarthria CN's II- XI intact bilaterally and moves all extremities Discharge Data Allergies Allergy/AdvReac Type Severity Reaction Status Date / Time ibuprofen AdvReac Unknown diarrhea Verified 08/24/17 11:10 Consultations 08/10/24 13:47 ED Decision to Admit Stat 08/10/24 13:56 Consult Urology Routine 08/10/24 15:54 Consult Urology Routine Procedures Performed Operation Date: 08/11/24 09:30 Actual Procedures p Cystoscopy, Clot Evacuation, Bilateral Retrograde Pyelograms, Incision of Bladder Neck, Biopsy Fulguration of Lesion(Not Applicable) - Jorge Alberto Cisse, Ordered Studies 08/10/24 14:18 CT Abdomen and Pelvis [CT abd pelvis wo con] Stat 08/11/24 [place] retrograde includes kub Routine Hospital Course (1) Acute on chronic anemia: (2) Gross hematuria: (3) Complicated urinary tract infection: #History Prostate CA s/p prostatectomy, radiation #History Bladder CA Patient presented to the hospital with hemoglobin of 5.4 g/dL And persistent hematuria CT abdomen pelvis showed large clot inside the bladder Status post 3 units of packed RBC Patient underwent cystoscopy with clot evacuation, bilateral retrograde pyelogram, incision of bladder neck and biopsy fulguration of lesion on 08/11/2024; hematuria significantly improved. Hemoglobin stable around 7.5 to 8g/dl. urine culture no growth Patient underwent successful trial of void; no hematuria seen. During the hospitalization, patient was noted to have downtrending platelet count; was 44,000 on the day of the discharge. He did not have any signs or symptoms of bleeding. There is a possibility it could be related to recent course of linezolid. I discussed with the daughter at the day of the discharge to repeat CBC during follow-up with the PCP to monitor hemoglobin and Platelet count. (4) Acute kidney injury superimposed on CKD: BUN: 71. Cr: 4.2 (was 3.8 on 08/09/24, 2.4 on 06/07/24) Creatinine improved to 2.72 on the day of the discharge; Lasix was kept on hold at the time of the discharge. BMP to be obtained during follow-up with PCP and Lasix to be resumed. (5) HTN (hypertension): Hypotensive in ER improved after IVF and is receiving PRBCs Continue home metoprolol tartrate with holding parameters (6) HLD (hyperlipidemia): Continue atorvastatin Please note the above document was generated using voice recognition software. It may contain grammatical, syntax or spelling errors. Any formal questions or concerns about the content, text or information contained within the body of this dictation should be directly addressed to the provider for clarification Total Time Total Time Spent Total Time Spent (In Minutes): 45 Total Time Includes: Examination of the Patient, Discharge Planning, Medication Reconciliation, Communication With Other Providers and Other Discharge Plan Discharge Items Patient Disposition: Home - Self-Care Reason For Visit: ANEMIA, HEMATURIA Discharge Diagnosis: (1) Acute on chronic anemia: (2) Gross hematuria: (3) Complicated urinary tract infection: Condition on Discharge: Fair Activity: Resume your previous activity Non-emergency contact: Primary Care Provider Call non-emergency contact if: you have any medication questions and your symptoms worsen Follow-up/Referrals: Aleja Bryson MD [Primary Care Provider] - Diet: Regular Addtl Attending Provider Instructions: You were admitted to the hospital due to blood in your urine. You underwent cystoscopy by urology and treatment which resulted in stopping of the bleed You can stop taking linezolid. Hold off on Lasix for now; resume it after you see your primary care doctor.Your platelet count during the hospitalization were found to be on the lower side. Please repeat blood count with CBC during her follow-up with her primary care doctor. The likely cause could be linezolid which you are prescribed; it has been now discontinued. If your platelet count is still low; you might need referral to hematology. Also obtain BMP to monitor your kidney function during your follow-up. An appointment will be set up for you for follow-up Pending Studies at Discharge: No Stand-Alone Forms: My [employer], Smoking Cessation Medications and DC Order Prescriptions: Continued trazodone 50 mg tablet 25 mg PO HS PRN (Reason: Insomnia) sodium bicarbonate 650 mg tablet 650 mg PO BID metoprolol tartrate 25 mg tablet 12.5 mg PO BID dapagliflozin propanediol [Farxiga] 10 mg tablet 10 mg PO DAILY Rx Instructions: 10 mg po qam. last filled 05/30/24 30 day supply atorvastatin 80 mg tablet 80 mg PO HS Rx Instructions: last filled 05/13 90 day supply allopurinol 100 mg tablet 200 mg PO DAILY Rx Instructions: 200 mg po qam. last filed 05/13 30 day supply ferrous sulfate 325 mg (65 mg iron) tablet 325 mg PO Q2D Rx Instructions: 325mg po q other day. last filled 05/28/24 30 day supply cholecalciferol (vitamin D3) [Vitamin D3] 25 mcg (1,000 unit) Tablet 50 mcg PO DAILY Rx Instructions: 08/10-otc unable to verify Advanced Probiotic 625 mg (10 billion cell) Capsule 1 cap PO DAILY Qty: 7 0RF Rx Instructions: 08/10-otc unable to verify diclofenac sodium [Voltaren Arthritis Pain] 1 % Gel 2 g EXT BID PRN (Reason: hip pain) Qty: 100 0RF Rx Instructions: 08/10-otc/no fill history unable to verify Held furosemide 20 mg tablet 20 mg PO QAM Hold Instructions: Resume on 08/19/24. Resume after seeing PCP Discontinued linezolid 600 mg tablet 600 mg PO BID Discharge Orders: Discharge Order (Routine); Ordered 08/14/24 Ordered By: Jerson Bennett Admission Data Admit Date/Time: 08/10/24 14:16 Attending Provider: Jerson Bennett Admit Provider: Elle Coley I. Primary Care Provider: Aleja Bryson Other Providers: Wenceslao Pink; Elle Coley I.
[2024-08-14 13:15] VITALS: BP 103/53; PULSE 67
--- NOTE | 2024-08-15 13:58 | Coding Query ---
CODING QUERY To promote full compliance with coding requirements relating to patient care, provider participation is requested in all cases of payroll and benefits coordinator uncertainty. Please assist us with the question(s) below: Coding Question(s): Throughout chart it states H/O Bladder CA but also just Bladder CA. Please clarify if this is a current dx or history of. Physician's Response(s): H/O Bladder CA Thank you Brionna Slade Principal Diagnosis: "that condition established after study, to be chiefly responsible for occasioning the admission of the patient to the hospital for care." Co-Existing Principal Diagnosis: "when two or more diagnoses equally meet the criteria for principal diagnosis as determined by the circumstances of admission, diagnostic work up, and/or therapy provided, and the Alphabetic Index, Tabular List, or another coding guideline does not provide sequencing direction, any one of the diagnoses may be sequenced first." "When the physician has documented what appears to be a current diagnosis in the body of the record, but has not included the diagnosis in the final diagnostic statement, the physician should be asked whether the diagnosis should be added." (Source Coding [facility] 2 QTR90. p3-4) ARIADNE
== END 2024-08-14 13:15 | disposition home health service (06) | DRG 669 ==
LOC: ED 12:19 → SUATTDRO 14:16 → 2S 14:16